=== PATIENT | male | born 1950 | race Caucasian/White ===

== ENCOUNTER 2018-04-23 14:58 | Inpatient (IN) | payer MEDICARE ==
[2018-04-23] MEDS ORDERED: Sodium Chloride 0.9% 1000 ML 1,000 ML IV SCH ×2 (17:15→17:45)
[2018-04-23 17:25] LABS: VBG BASE EXCESS -16.9 (-2.0-2.0); VBG CARBOXYHEMOGLOBIN 1.7 % T HGB (0.0-6.9); VBG HCO3- 10.2 meq/L (22-28); VBG HEMOGLOBIN 12.6; VBG O2 SATURATION 69.2 (95-100); VBG POTASSIUM 4.3 (3.5-5.1)
[2018-04-23 17:26] LABS: VBG pH 7.17 (7.32-7.42)
[2018-04-23 17:31] LABS: Hematocrit 38.4 % (42-50); Hemoglobin 12.3 gm/dl (12.5-18.0); Mean Corpuscular Hemoglobin 24.6 pg (26-32); Mean Platelet Volume 8.9 fl (6-9.5); Platelet Count 427 K/mm3 (150-450); Red Blood Count 4.99 M/mm3 (4.1-5.6); Red Cell Distribution Width 19.7 % (11.5-14.0)
[2018-04-23 17:54] LABS: ALBUMIN 2.6 g/dL (3.5-5.0); ALKALINE PHOSPHATASE 102 U/L (38-126); ANION GAP 20.7 MEQ/L (5-15); BLOOD UREA NITROGEN 22 mg/dL (9-20); CHLORIDE 106 mmol/L (98-107); Calcium 8.3 mg/dL (8.4-10.2); Creatinine 1 1.18 mg/dL (0.66-1.25); Glucose 414 mg/dL (74-106); Potassium 4.6 mmol/L (3.5-5.1); SGOT/AST 11 U/L (17-59); SGPT/ALT 11 U/L (0-50); SODIUM 133 mmol/L (137-145); Total Protein 5.2 g/dL (6.3-8.2)
[2018-04-23] MEDS: NovoLOG Insulin SQ PRN (18:14)
[2018-04-23 18:16] LABS: Carbon Dioxide 11 mmol/L (22-30)
[2018-04-23] MEDS ORDERED: Sodium Chloride 0.9% 1000 ML 1,000 ML IV STA ×3 (18:30→18:33)
[2018-04-23] MEDS ORDERED: NOVOLIN R INSULIN (FOR DRIPS)** 100 UNITS in Sodium Chloride 0.9% 100 ML IVPB 100 ML IV PRN (18:34)
[2018-04-23] MEDS ORDERED: Sodium Chloride 0.9% 100 ML IVPB 100 ML IV ONE (19:14)
[2018-04-23 19:17] LABS: Appearance CLEAR (CLEAR); Bacteria RARE /HPF (NEGATIVE); Bilirubin NEGATIVE (NEGATIVE); Blood SMALL Ery/ul (0-5); Epithelial Cells RARE /HPF (FEW); Glucose >=500 mg/dL (NEGATIVE); Ketones SMALL (NEGATIVE); Leukocyte Esterase NEGATIVE (NEGATIVE); Mucus SLIGHT /HPF (NEGATIVE); Nitrite NEGATIVE (NEGATIVE); Protein,Urine Dip NEGATIVE (Negative); RBC 0-2 /HPF (0-2); Specific Gravity 1.021 (1.005-1.025); Urobilinogen NEGATIVE mg/dL (0-1)
[2018-04-23] MEDS ORDERED: NovoLIN R ONE (19:22)
[2018-04-23 20:13] LABS: TOXIGENIC C. DIFF ORG NEGATIVE (NEGATIVE)
[2018-04-23 20:14] LABS: 027 TOX PROD PRESUMPTIVE NEGATIVE (NEGATIVE)
[2018-04-23 21:13] LABS: ANION GAP 14.7 MEQ/L (5-15); BLOOD UREA NITROGEN 20 mg/dL (9-20); CHLORIDE 111 mmol/L (98-107); Calcium 7.5 mg/dL (8.4-10.2); Creatinine 1 1.06 mg/dL (0.66-1.25); Glucose 262 mg/dL (74-106); Potassium 3.5 mmol/L (3.5-5.1); SODIUM 136 mmol/L (137-145)
[2018-04-23 21:26] LABS: Carbon Dioxide 14 mmol/L (22-30)
[2018-04-23] MEDS ORDERED: NON-FORMULARY ITEM (Pravastatin Sodium [Pravastatin Sodium] 40 MG) PO SCH (22:00)
[2018-04-23] MEDS: Cymbalta 30 MG Capsule PO SCH (22:13)
[2018-04-23] MEDS: Requip 0.5 MG PO SCH (22:13)
[2018-04-23] MEDS: ECOTRIN 81 MG PO SCH (22:13)
[2018-04-23] MEDS: Sinemet 25/100 MG PO SCH (22:14)
[2018-04-23] MEDS: Ambien 10 MG PO SCH (22:14)
[2018-04-23] MEDS: Pepcid 20 MG PO SCH (22:14)
[2018-04-23] MEDS: ZOCOR 20MG PO SCH (22:14)
[2018-04-23] MEDS: ZYLOPRIM 100 MG PO SCH (22:15)
[2018-04-23] MEDS: Lopressor 50 MG PO SCH (23:00)
[2018-04-24] MEDS: Dextrose 5%-NS IV Solution 1000 ML 1,000 ML IV SCH ×2 (00:45→12:30)
[2018-04-24] MEDS: Zofran 4 MG/2 ML VIAL IV PRN ×3 (02:36→13:45)
[2018-04-24 05:22] LABS: A-aADO2 8; ABG HEMOGLOBIN 11.3; ABG POTASSIUM 4.1 (3.5-5.1); ABG SITE RIGHT BRACHIAL; ARTERIAL BLD GAS O2 SATURATION 97.1 % (95-100); ARTERIAL BLOOD GAS FIO2 21 %; ARTERIAL BLOOD GAS PCO2 18 mmHg (35-45); ARTERIAL BLOOD GAS PO2 119 mmHg (75-100); ARTERIAL BLOOD GAS pH 7.23 (7.35-7.45); CARBOXYHEMOGLOBIN 1.9 % THgb (0.0-6.9); HCO3- 7.5 (22-28); HGB O2 SAT 94.2 g/dF (94-100); Methhemoglobin 1.2 % (1.4-1.5); paO2 pAO1 0.94
[2018-04-24 05:53] LABS: BASOPHIL % 0.3 % (0.0-0.4); Basophil (Absolute #) 0.03 (0-0.4); Eosinophil % 1.2 % (0.00-5.0); Eosinophil (Absolute #) 0.11 (0-0.5); Granulocyte Absolute (ANC) 5.95 (1.4-6.9); Granulocytes % 62.4 % (36.0-66.0); Hematocrit 34.8 % (42-50); Lymphocytes % 25.2 % (24.0-44.0); Mean Cell Volume 77.3 fl (78-100); Mean Corpuscular Hemoglobin 24.4 pg (26-32); Mean Corpuscular Hgb Concent. 31.6 g/dl (32-36); Mean Platelet Volume 8.8 fl (6-9.5); Monocyte (Absolute #) 1.04 (0.0-1.3); Monocytes % 10.9 % (0.0-12.0); Platelet Count 461 K/mm3 (150-450); Red Cell Distribution Width 19.2 % (11.5-14.0); White Blood Count 9.5 K/mm3 (4.0-10.5)
[2018-04-24 05:59] LABS: ALBUMIN 2.1 g/dL (3.5-5.0); ALKALINE PHOSPHATASE 90 U/L (38-126); ANION GAP 18.2 MEQ/L (5-15); BLOOD UREA NITROGEN 15 mg/dL (9-20); CHLORIDE 113 mmol/L (98-107); Calcium 7.7 mg/dL (8.4-10.2); Creatinine 1 0.84 mg/dL (0.66-1.25); Glucose 324 mg/dL (74-106); Potassium 4.3 mmol/L (3.5-5.1); SGOT/AST 7 U/L (17-59); SGPT/ALT 8 U/L (0-50); SODIUM 135 mmol/L (137-145); Total Protein 4.4 g/dL (6.3-8.2)
[2018-04-24 06:02] LABS: Carbon Dioxide 8 mmol/L (22-30)
[2018-04-24] MEDS: NovoLOG Insulin SQ PRN (06:04)
[2018-04-24] MEDS: Lopressor 50 MG PO SCH ×2 (06:10→22:07)
[2018-04-24] MEDS ORDERED: Sodium Chloride 0.9% 1000 ML 1,000 ML IV STA ×6 (06:29→19:31)
[2018-04-24] MEDS ORDERED: NOVOLIN R INSULIN (FOR DRIPS)** 100 UNITS in Sodium Chloride 0.9% 100 ML IVPB 100 ML IV PRN (06:30)
[2018-04-24] MEDS ORDERED: Sodium Chloride 0.9% 1000 ML 1,000 ML IV SCH ×2 (06:30→10:00)
[2018-04-24] MEDS ORDERED: NON-FORMULARY ITEM (Omeprazole 20 Mg [Prilosec 20 Mg] 20 MG) PO SCH (10:00)
[2018-04-24] MEDS: Novolin N SQ SCH ×2 (10:19→17:59)
[2018-04-24] MEDS: NovoLIN R SQ SCH ×2 (10:19→17:59)
[2018-04-24] MEDS: Pepcid 20 MG PO SCH ×2 (10:22→21:35)
[2018-04-24] MEDS: Protonix 40MG Tablet PO SCH (10:22)
[2018-04-24] MEDS: Zestril 5 MG PO SCH (10:22)
[2018-04-24] MEDS: PLAVIX 75 MG Tablet PO SCH (10:23)
[2018-04-24] MEDS: Requip 0.5 MG PO SCH ×2 (10:23→21:35)
[2018-04-24] MEDS: Sinemet 25/100 MG PO SCH ×2 (10:23→21:35)
[2018-04-24] MEDS ORDERED: Glutose 15 GM ORAL GEL PO PRN (10:31)
[2018-04-24] MEDS ORDERED: D50W 50 ml Abboject IV PRN (10:31)
[2018-04-24] MEDS ORDERED: GlucaGen 1 MG IM PRN (10:31)
[2018-04-24 12:13] LABS: A-aADO2 19; ABG HEMOGLOBIN 10.7; ABG POTASSIUM 3.1 (3.5-5.1); ARTERIAL BLD GAS O2 SATURATION 96.4 % (95-100); ARTERIAL BLOOD GAS BASE EXCESS -12.6 (-2.0-2.0); ARTERIAL BLOOD GAS FIO2 21 %; ARTERIAL BLOOD GAS PCO2 26 mmHg (35-45); ARTERIAL BLOOD GAS PO2 98 mmHg (75-100); ARTERIAL BLOOD GAS pH 7.29 (7.35-7.45); CARBOXYHEMOGLOBIN 0.6 % THgb (0.0-6.9); HCO3- 12.5 (22-28); paO2 pAO1 0.84
[2018-04-24 12:14] LABS: ABG SITE RIGHT RADIAL; ALLEN TEST OK? YES
[2018-04-24 19:16] LABS: ALBUMIN 1.8 g/dL (3.5-5.0); ALKALINE PHOSPHATASE 73 U/L (38-126); ANION GAP 8.1 MEQ/L (5-15); BLOOD UREA NITROGEN 6 mg/dL (9-20); CHLORIDE 118 mmol/L (98-107); Creatinine 1 0.76 mg/dL (0.66-1.25); Glucose 92 mg/dL (74-106); Potassium 3.3 mmol/L (3.5-5.1); SGOT/AST 13 U/L (17-59); SGPT/ALT 8 U/L (0-50); SODIUM 139 mmol/L (137-145); Total Protein 3.8 g/dL (6.3-8.2)
[2018-04-24 19:18] LABS: Carbon Dioxide 16 mmol/L (22-30)
[2018-04-24] MEDS: DEXTROSE 5%-NACL 0.9% 1000 ML + KCL 40 MEQ 1,000 ML IV SCH (19:35)
[2018-04-24] MEDS: Cymbalta 30 MG Capsule PO SCH (21:34)
[2018-04-24] MEDS: ZYLOPRIM 100 MG PO SCH (21:35)
[2018-04-24] MEDS: ECOTRIN 81 MG PO SCH (21:35)
[2018-04-24] MEDS: Ambien 10 MG PO SCH (21:35)
[2018-04-24] MEDS: ZOCOR 20MG PO SCH (21:36)
[2018-04-25] MEDS: NovoLOG Insulin SQ PRN (01:17)
[2018-04-25] MEDS: DEXTROSE 5%-NACL 0.9% 1000 ML + KCL 40 MEQ 1,000 ML IV SCH ×2 (05:43→16:07)
[2018-04-25 08:08] LABS: A-aADO2 47; ABG HEMOGLOBIN 10.6; ABG POTASSIUM 3.2 (3.5-5.1); ABG SITE RIGHT BRACHIAL; ARTERIAL BLD GAS O2 SATURATION 95.7 % (95-100); ARTERIAL BLOOD GAS BASE EXCESS -9.9 (-2.0-2.0); ARTERIAL BLOOD GAS FIO2 21 %; ARTERIAL BLOOD GAS PCO2 27 mmHg (35-45); ARTERIAL BLOOD GAS PO2 69 mmHg (75-100); ARTERIAL BLOOD GAS pH 7.34 (7.35-7.45); CARBOXYHEMOGLOBIN 2.4 % THgb (0.0-6.9); HCO3- 14.6 (22-28); HGB O2 SAT 92.7 g/dF (94-100); Methhemoglobin 0.7 % (1.4-1.5); paO2 pAO1 0.59
[2018-04-25 08:09] LABS: ALLEN TEST OK? YES
[2018-04-25 08:36] LABS: ALBUMIN 1.9 g/dL (3.5-5.0); ALKALINE PHOSPHATASE 80 U/L (38-126); ANION GAP 6.8 MEQ/L (5-15); BLOOD UREA NITROGEN 3 mg/dL (9-20); CHLORIDE 120 mmol/L (98-107); Calcium 7.4 mg/dL (8.4-10.2); Creatinine 1 0.61 mg/dL (0.66-1.25); Glucose 113 mg/dL (74-106); Potassium 3.4 mmol/L (3.5-5.1); SGOT/AST 16 U/L (17-59); SGPT/ALT 10 U/L (0-50); SODIUM 139 mmol/L (137-145)
[2018-04-25 08:41] LABS: Carbon Dioxide 16 mmol/L (22-30)
--- NOTE | 2018-04-25 08:50 | PCM.NOTE ---
Date and Time: 04/24/18847 Subjective Assessment: late entry notes: was seen, doing little better - Review of Systems Constitutional: Fatigue, Lethargy, Weakness, No Fever, No Chills Eyes: No Symptoms Ears, Nose, & Throat: No Symptoms Respiratory: No Cough, No Short Of Breath Cardiac: No Chest Pain, No Edema, No Syncope Abdominal/Gastrointestinal: No Abdominal Pain, No Nausea, No Vomiting, No Diarrhea Genitourinary Symptoms: No Dysuria Musculoskeletal: No Back Pain, No Neck Pain Skin: No Rash Neurological: No Dizziness, No Focal Weakness, No Sensory Changes Psychological: No Symptoms Endocrine: No Symptoms Hematologic/Lymphatic: No Symptoms Immunological/Allergic: No Symptoms Objective Exam General Appearance: no apparent distress, alert Neurologic Exam: alert, oriented x 3, cooperative, normal mood/affect, nml cerebellar function, sensation nml, No motor deficits Skin Exam: normal color, warm, dry Eye Exam: PERRL, EOMI, eyes nml inspection Ears, Nose, Throat Exam: normal ENT inspection, pharynx normal, moist mucous membranes Neck Exam: normal inspection, non-tender, supple, full range of motion Respiratory Exam: normal breath sounds, lungs clear, No respiratory distress Cardiovascular Exam: regular rate/rhythm, normal heart sounds Gastrointestinal/Abdomen Exam: soft, No tenderness, No mass Extremity Exam: normal inspection, normal range of motion Back Exam: normal inspection, normal range of motion, No CVA tenderness, No vertebral tenderness Male Genitalia Exam: deferred Rectal Exam: deferred OBJECTIVE DATA Vital Signs: Vital Signs - 24 hr Temp Pulse Resp BP Pulse Ox 04/25/18 08:00 94 H 04/25/18 07:21 97.8 F 82 20 117/67 92 L 04/25/18 05:00 20 04/25/18 04:00 98.1 F 83 20 110/50 94 L 04/25/18 01:00 14 04/25/18 00:01 79 04/25/18 00:00 97.5 F 79 24 101/59 96 04/24/18 21:00 19 04/24/18 20:00 98.8 F 81 19 110/50 95 04/24/18 16:00 97.2 F 78 15 110/52 99 04/24/18 12:00 97.5 F 79 19 107/58 100 Pain Assessment - Last Documented Pain Intensity 0 Pain Scale Used 0-10 Pain Scale Intake and Output: Intake & Output 04/22/18 04/23/18 04/24/18 04/25/18 11:59 11:59 11:59 11:59 Intake Total 3529 64213 Output Total 0587 3000 Balance 2229 7720 Weight 58.7 kg Lab Results: Accuchecks Date 04/25/1804/25/1804/25/1804/25/1804/25/1804/25/1804/25/1804/24/1804/24/1804/24/1804/24/1804/24/18 Time 06:56 Time 05:14 Time 05:14 Time 04:19 Time 01:00 Time 01:00 Time 00:11 Time 23:06 Time 22:00 Time 21:00 Time 20:09 Time 18:35 Accucheck Value: 107 Accucheck Value: 127 Accucheck Value: 97 Accucheck Value: 124 Accucheck Value: 143 Accucheck Value: 154 Accucheck Value: 239 Accucheck Value: 210 Accucheck Value: 207 Accucheck Value: 131 Accucheck Value: 143 Accucheck Value: 105 Accucheck Value: 79 Accucheck Value: 77 Accucheck Value: 79 Accucheck Value: 87 Accucheck Value: 105 Accucheck Value: 122 Accucheck Value: 118 Accucheck Value: 153 Accucheck Value: 169 Accucheck Value: 226 Lab Results-Last 24 Hours 04/24/18 04/24/18 04/24/18 Range/Units 12:00 12:00 18:35 Puncture Site RIGHT RADIAL pCO2 26 L (35-45) mmHg pO2 98 (75-100) mmHg Base Excess -12.6 L (-2.0-2.0) O2 Saturation 95.0 (94-100) g/dF ABG pH 7.29 L (7.35-7.45) ABG HCO3 12.5 L* (22-28) ABG O2 Sat (Measured) 96.4 (95-100) % Daryl Test YES A-a Gradient 19 a/A Ratio 0.84 Hemoglobin 10.7 Carboxyhemoglobin 0.6 (0.0-6.9) % THgb Methemoglobin 1.0 L (1.4-1.5) % Potassium 3.1 L 3.3 L D (3.5-5.1) Temperature 37.0 C POC O2 Flow Rate 21 % Sodium 139 (137-145) mmol/L Chloride 118 H (98-107) mmol/L Carbon Dioxide 16 L* (22-30) mmol/L Anion Gap 8.1 (5-15) MEQ/L BUN 6 L (9-20) mg/dL Creatinine 0.76 (0.66-1.25) mg/dL Estimated GFR > 60.0 ML/MIN Glucose 92 (74-106) mg/dL Lactic Acid 0.9 (0.4-2.0) Calcium 7.0 L (8.4-10.2) mg/dL Total Bilirubin 0.30 (0.2-1.3) mg/dL AST 13 L (17-59) U/L ALT 8 (0-50) U/L Alkaline Phosphatase 73 (38-126) U/L Serum Total Protein 3.8 L (6.3-8.2) g/dL Albumin 1.8 L (3.5-5.0) g/dL 04/25/18 04/25/18 Range/Units 07:57 08:05 Puncture Site RIGHT BRACHIAL pCO2 27 L (35-45) mmHg pO2 69 L (75-100) mmHg Base Excess -9.9 L (-2.0-2.0) O2 Saturation 92.7 L (94-100) g/dF ABG pH 7.34 L (7.35-7.45) ABG HCO3 14.6 L* (22-28) ABG O2 Sat (Measured) 95.7 (95-100) % Daryl Test YES A-a Gradient 47 a/A Ratio 0.59 Hemoglobin 10.6 Carboxyhemoglobin 2.4 (0.0-6.9) % THgb Methemoglobin 0.7 L (1.4-1.5) % Potassium 3.4 L 3.2 L (3.5-5.1) Temperature 37.0 C POC O2 Flow Rate 21 % Sodium 139 (137-145) mmol/L Chloride 120 H (98-107) mmol/L Carbon Dioxide 16 L* (22-30) mmol/L Anion Gap 6.8 (5-15) MEQ/L BUN 3 L (9-20) mg/dL Creatinine 0.61 L (0.66-1.25) mg/dL Estimated GFR > 60.0 ML/MIN Glucose 113 H (74-106) mg/dL Lactic Acid (0.4-2.0) Calcium 7.4 L (8.4-10.2) mg/dL Total Bilirubin 0.30 (0.2-1.3) mg/dL AST 16 L (17-59) U/L ALT 10 (0-50) U/L Alkaline Phosphatase 80 (38-126) U/L Serum Total Protein 4.0 L (6.3-8.2) g/dL Albumin 1.9 L (3.5-5.0) g/dL Assessment/Plan (1) Diabetes with ketoacidosis Current Visit: Yes Status: Acute Qualifiers: Diabetes mellitus type: type 2 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 use Diabetes mellitus complication detail: without coma Qualified Code(s): E11.10 - Type 2 diabetes mellitus with ketoacidosis without coma; Z79.4 - [facility] (current) use of insulin Assessment & Plan: Last Vital Signs Temp 97.8 F 04/25/18 07:21 Pulse 94 H 04/25/18 08:00 Resp 20 04/25/18 07:21 BP 117/67 04/25/18 07:21 Pulse Ox 92 L 04/25/18 07:21 Allergies No Known Drug Allergies Allergy (Verified 04/23/18 15:37) Active Medications Allopurinol (Zyloprim 100 Mg) 100 mg PO HS [facility] Stop: 05/23/18 21:59 Last Admin: 04/24/18 21:35 Dose: 100 mg Aspirin (Ecotrin 81 Mg) 81 mg PO HS [facility] Stop: 05/23/18 21:59 Last Admin: 04/24/18 21:35 Dose: 81 mg Carbidopa/Levodopa (Sinemet 25/100 Mg) 1 tab PO BID [facility] Stop: 05/23/18 21:59 Last Admin: 04/24/18 21:35 Dose: 1 tab Clopidogrel Bisulfate (Plavix 75 Mg Tablet) 75 mg PO DAILY [facility] Stop: 05/24/18 09:59 Last Admin: 04/24/18 10:23 Dose: 75 mg Dextrose (D50w 50 Ml Abboject) 25 ml IV PRN PRN PRN Reason: HYPOGLYCEMIA Stop: 05/24/18 10:30 Duloxetine HCl (Cymbalta 30 Mg Capsule) 30 mg PO HS [facility] Stop: 05/23/18 21:59 Last Admin: 04/24/18 21:34 Dose: 30 mg Famotidine (Pepcid 20 Mg) 20 mg PO BID [facility] Stop: 05/23/18 21:59 Last Admin: 04/24/18 21:35 Dose: 20 mg Glucagon (Glucagen 1 Mg) 1 mg IM PRN PRN PRN Reason: HYPOGLYCEMIA Stop: 05/24/18 10:30 Glucose (Glutose 15 Gm Oral Gel) 15 gm PO PRN PRN PRN Reason: HYPOGLYCEMIA Stop: 05/24/18 10:30 Potassium Chloride/Dextrose/Sod Cl (Dextrose 5%-Nacl 0.9% 1000 Ml + Kcl 40 Meq) 1,000 mls @ 100 mls/hr IV .Q10H [facility] Stop: 05/24/18 19:29 Last Admin: 04/25/18 05:43 Dose: 100 mls/hr Insulin Human Regular 100 (units/ Sodium Chloride) 101 mls @ 1.01 mls/hr IV .Q24H PRN; Protocol PRN Reason: DKA/HYPERGYCEMIA Stop: 05/25/18 08:15 Sodium Chloride (Sodium Chloride 0.9% 1000 Ml) 1,000 mls @ 750 mls/hr IV .Q1H20M [facility] Stop: 04/25/18 13:00 Insulin Aspart (Novolog Insulin) 0 unit SQ UD PRN Stop: 05/23/18 17:29 Last Admin: 04/25/18 01:17 Dose: 2 unit Lisinopril (Zestril 5 Mg) 5 mg PO DAILY [facility] Stop: 05/24/18 09:59 Last Admin: 04/24/18 10:22 Dose: 5 mg Metoprolol Tartrate (Lopressor 50 Mg) 50 mg PO BID [facility] Stop: 05/23/18 21:59 Last Admin: 04/24/18 22:07 Dose: 50 mg Ondansetron HCl (Zofran 4 Mg/2 Ml Vial) 4 mg IV Q4H PRN PRN PRN Reason: NAUSEA/VOMITING Stop: 05/24/18 00:50 Last Admin: 04/24/18 13:45 Dose: 4 mg Pantoprazole Sodium (Protonix 40mg Tablet) 40 mg PO DAILY [facility] Stop: 05/24/18 09:59 Last Admin: 04/24/18 10:22 Dose: 40 mg Ropinirole HCl (Requip 0.5 Mg) 0.5 mg PO BID [facility] Stop: 05/23/18 21:59 Last Admin: 04/24/18 21:35 Dose: 0.5 mg Simvastatin (Zocor 20mg) 40 mg PO HS [facility] Stop: 05/23/18 21:59 Last Admin: 04/24/18 21:36 Dose: 40 mg Zolpidem Tartrate (Ambien 10 Mg) [address] [facility] Stop: 05/23/18 21:59 Last Admin: 04/24/18 21:35 Dose: 20 mg Intake & Output 04/24/18 04/25/18 11:59 11:59 Intake Total 3529 06602 Output Total 1300 3000 Balance 2229 7720 Weight 58.7 kg Orders 04/24/18 10:00 Clopidogrel Bisulfate 75 mg [PLAVIX 75 MG Tablet] 75 mg PO DAILY Lisinopril 5 mg [Zestril 5 MG] 5 mg PO DAILY PANTOPRAZOLE 40 mg Tablet [Protonix 40MG Tablet] 40 mg PO DAILY 04/24/18 10:31 Dextrose 15 gm Oral Gel [Glutose 15 GM ORAL GEL] 15 gm PO PRN PRN Dextrose 50%-Water Syringe [D50W 50 ml Abboject] 25 ml IV PRN PRN Glucagon 1 mg [GlucaGen 1 MG] 1 mg IM PRN PRN 04/24/18 19:30 D5ns 1000 ml + KCl 40 Meq [Dextrose 5%-NaCl 0.9% 1000 ml + KCl 40 Meq] 1,000 ml IV 100 mls/hr 04/25/18 08:16 NaCl 0.9% 100Ml [Sodium Chloride 0.9% 100 ML IVPB] 100 ml Insulin Reg Human Rec [Novolin R Insulin (For Drips)] 100 units IV 1 units/hr 04/25/18 09:00 NaCl 0.9% 1000 ml [Sodium Chloride 0.9% 1000 ML] 1,000 ml IV 750 mls/hr 04/25/18 Breakfast [place] Diet 04/26/18 08:00 ABG [ARTERIAL BLOOD GASES] Urgent CMP Urgent Lab Tests 04/24/18 04/24/18 04/24/18 12:00 12:00 18:35 Puncture Site RIGHT RADIAL pCO2 26 L pO2 98 Base Excess -12.6 L O2 Saturation 95.0 ABG pH 7.29 L ABG HCO3 12.5 L* ABG O2 Sat (Measured) 96.4 Daryl Test YES A-a Gradient 19 a/A Ratio 0.84 Hemoglobin 10.7 Carboxyhemoglobin 0.6 Methemoglobin 1.0 L Potassium 3.1 L 3.3 L D Temperature 37.0 POC O2 Flow Rate 21 Sodium 139 Chloride 118 H Carbon Dioxide 16 L* Anion Gap 8.1 BUN 6 L Creatinine 0.76 Estimated GFR > 60.0 Glucose 92 Lactic Acid 0.9 Calcium 7.0 L Total Bilirubin 0.30 AST 13 L ALT 8 Alkaline Phosphatase 73 Serum Total Protein 3.8 L Albumin 1.8 L 04/25/18 04/25/18 07:57 08:05 Puncture Site RIGHT BRACHIAL pCO2 27 L pO2 69 L Base Excess -9.9 L O2 Saturation 92.7 L ABG pH 7.34 L ABG HCO3 14.6 L* ABG O2 Sat (Measured) 95.7 Daryl Test YES A-a Gradient 47 a/A Ratio 0.59 Hemoglobin 10.6 Carboxyhemoglobin 2.4 Methemoglobin 0.7 L Potassium 3.4 L 3.2 L Temperature 37.0 POC O2 Flow Rate 21 Sodium 139 Chloride 120 H Carbon Dioxide 16 L* Anion Gap 6.8 BUN 3 L Creatinine 0.61 L Estimated GFR > 60.0 Glucose 113 H Lactic Acid Calcium 7.4 L Total Bilirubin 0.30 AST 16 L ALT 10 Alkaline Phosphatase 80 Serum Total Protein 4.0 L Albumin 1.9 L Microbiology 04/23/18 19:00 Clean Catch Midstream Urine Culture - Final <10K NORMAL SKIN LETITIA PROBABLE SKIN CONTAMINANT Code(s): E11.10 - TYPE 2 DIABETES MELLITUS WITH KETOACIDOSIS WITHOUT COMA (2) Dehydration Current Visit: Yes Status: Acute Code(s): E86.0 - DEHYDRATION (3) Amyloidosis Current Visit: Yes Status: Acute Qualifiers: Amyloidosis type: other amyloidosis Qualified Code(s): E85.89 - Other amyloidosis; E85.8 - Other amyloidosis Code(s): E85.9 - AMYLOIDOSIS, UNSPECIFIED
--- NOTE | 2018-04-25 08:51 | PCM.NOTE ---
Date and Time: 04/25/18 0850 Subjective Assessment: doing better - Review of Systems Constitutional: No Fever, No Chills Eyes: No Symptoms Ears, Nose, & Throat: No Symptoms Respiratory: No Cough, No Short Of Breath Cardiac: No Chest Pain, No Edema, No Syncope Abdominal/Gastrointestinal: No Abdominal Pain, No Nausea, No Vomiting, No Diarrhea Genitourinary Symptoms: No Dysuria Musculoskeletal: No Back Pain, No Neck Pain Skin: No Rash Neurological: No Dizziness, No Focal Weakness, No Sensory Changes Psychological: No Symptoms Endocrine: No Symptoms Hematologic/Lymphatic: No Symptoms Immunological/Allergic: No Symptoms Objective Exam General Appearance: no apparent distress, alert Neurologic Exam: alert, oriented x 3, cooperative, normal mood/affect, nml cerebellar function, sensation nml, No motor deficits Skin Exam: normal color, warm, dry Eye Exam: PERRL, EOMI, eyes nml inspection Ears, Nose, Throat Exam: normal ENT inspection, pharynx normal, moist mucous membranes Neck Exam: normal inspection, non-tender, supple, full range of motion Respiratory Exam: normal breath sounds, lungs clear, No respiratory distress Cardiovascular Exam: regular rate/rhythm, normal heart sounds Gastrointestinal/Abdomen Exam: soft, No tenderness, No mass Extremity Exam: normal inspection, normal range of motion Back Exam: normal inspection, normal range of motion, No CVA tenderness, No vertebral tenderness Male Genitalia Exam: deferred Rectal Exam: deferred OBJECTIVE DATA Vital Signs: Vital Signs - 24 hr Temp Pulse Resp BP Pulse Ox 04/25/18 08:00 94 H 04/25/18 07:21 97.8 F 82 20 117/67 92 L 04/25/18 05:00 20 04/25/18 04:00 98.1 F 83 20 110/50 94 L 04/25/18 01:00 14 04/25/18 00:01 79 04/25/18 00:00 97.5 F 79 24 101/59 96 04/24/18 21:00 19 04/24/18 20:00 98.8 F 81 19 110/50 95 04/24/18 16:00 97.2 F 78 15 110/52 99 04/24/18 12:00 97.5 F 79 19 107/58 100 Pain Assessment - Last Documented Pain Intensity 0 Pain Scale Used 0-10 Pain Scale Intake and Output: Intake & Output 04/22/18 04/23/18 04/24/18 04/25/18 11:59 11:59 11:59 11:59 Intake Total 3524 51433 Output Total 4906 3000 Balance 2229 7720 Weight 58.7 kg Lab Results: Accuchecks Date 04/25/1804/25/1804/25/1804/25/1804/25/1804/25/1804/25/1804/24/1804/24/1804/24/1804/24/1804/24/18 Time 06:56 Time 05:14 Time 05:14 Time 04:19 Time 01:00 Time 01:00 Time 00:11 Time 23:06 Time 22:00 Time 21:00 Time 20:09 Time 18:35 Accucheck Value: 107 Accucheck Value: 127 Accucheck Value: 97 Accucheck Value: 124 Accucheck Value: 143 Accucheck Value: 154 Accucheck Value: 239 Accucheck Value: 210 Accucheck Value: 207 Accucheck Value: 131 Accucheck Value: 143 Accucheck Value: 105 Accucheck Value: 79 Accucheck Value: 77 Accucheck Value: 79 Accucheck Value: 87 Accucheck Value: 105 Accucheck Value: 122 Accucheck Value: 118 Accucheck Value: 153 Accucheck Value: 169 Accucheck Value: 226 Lab Results-Last 24 Hours 04/24/18 04/24/18 04/24/18 Range/Units 12:00 12:00 18:35 Puncture Site RIGHT RADIAL pCO2 26 L (35-45) mmHg pO2 98 (75-100) mmHg Base Excess -12.6 L (-2.0-2.0) O2 Saturation 95.0 (94-100) g/dF ABG pH 7.29 L (7.35-7.45) ABG HCO3 12.5 L* (22-28) ABG O2 Sat (Measured) 96.4 (95-100) % Daryl Test YES A-a Gradient 19 a/A Ratio 0.84 Hemoglobin 10.7 Carboxyhemoglobin 0.6 (0.0-6.9) % THgb Methemoglobin 1.0 L (1.4-1.5) % Potassium 3.1 L 3.3 L D (3.5-5.1) Temperature 37.0 C POC O2 Flow Rate 21 % Sodium 139 (137-145) mmol/L Chloride 118 H (98-107) mmol/L Carbon Dioxide 16 L* (22-30) mmol/L Anion Gap 8.1 (5-15) MEQ/L BUN 6 L (9-20) mg/dL Creatinine 0.76 (0.66-1.25) mg/dL Estimated GFR > 60.0 ML/MIN Glucose 92 (74-106) mg/dL Lactic Acid 0.9 (0.4-2.0) Calcium 7.0 L (8.4-10.2) mg/dL Total Bilirubin 0.30 (0.2-1.3) mg/dL AST 13 L (17-59) U/L ALT 8 (0-50) U/L Alkaline Phosphatase 73 (38-126) U/L Serum Total Protein 3.8 L (6.3-8.2) g/dL Albumin 1.8 L (3.5-5.0) g/dL 04/25/18 04/25/18 Range/Units 07:57 08:05 Puncture Site RIGHT BRACHIAL pCO2 27 L (35-45) mmHg pO2 69 L (75-100) mmHg Base Excess -9.9 L (-2.0-2.0) O2 Saturation 92.7 L (94-100) g/dF ABG pH 7.34 L (7.35-7.45) ABG HCO3 14.6 L* (22-28) ABG O2 Sat (Measured) 95.7 (95-100) % Daryl Test YES A-a Gradient 47 a/A Ratio 0.59 Hemoglobin 10.6 Carboxyhemoglobin 2.4 (0.0-6.9) % THgb Methemoglobin 0.7 L (1.4-1.5) % Potassium 3.4 L 3.2 L (3.5-5.1) Temperature 37.0 C POC O2 Flow Rate 21 % Sodium 139 (137-145) mmol/L Chloride 120 H (98-107) mmol/L Carbon Dioxide 16 L* (22-30) mmol/L Anion Gap 6.8 (5-15) MEQ/L BUN 3 L (9-20) mg/dL Creatinine 0.61 L (0.66-1.25) mg/dL Estimated GFR > 60.0 ML/MIN Glucose 113 H (74-106) mg/dL Lactic Acid (0.4-2.0) Calcium 7.4 L (8.4-10.2) mg/dL Total Bilirubin 0.30 (0.2-1.3) mg/dL AST 16 L (17-59) U/L ALT 10 (0-50) U/L Alkaline Phosphatase 80 (38-126) U/L Serum Total Protein 4.0 L (6.3-8.2) g/dL Albumin 1.9 L (3.5-5.0) g/dL Assessment/Plan (1) Diabetes with ketoacidosis Current Visit: Yes Status: Acute Qualifiers: Diabetes mellitus type: 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 Diabetes mellitus complication detail: without coma Qualified Code(s): E11.10 - Type 2 diabetes mellitus with ketoacidosis without coma; Z79.4 - correction (current) use of insulin Assessment & Plan: Last Vital Signs Temp 97.8 F 04/25/18 07:21 Pulse 94 H 04/25/18 08:00 Resp 20 04/25/18 07:21 BP 117/67 04/25/18 07:21 Pulse Ox 92 L 04/25/18 07:21 Allergies No Known Drug Allergies Allergy (Verified 04/23/18 15:37) Active Medications Allopurinol (Zyloprim 100 Mg) 100 mg PO HS [facility] Stop: 05/23/18 21:59 Last Admin: 04/24/18 21:35 Dose: 100 mg Aspirin (Ecotrin 81 Mg) 81 mg PO HS [facility] Stop: 05/23/18 21:59 Last Admin: 04/24/18 21:35 Dose: 81 mg Carbidopa/Levodopa (Sinemet 25/100 Mg) 1 tab PO BID [facility] Stop: 05/23/18 21:59 Last Admin: 04/24/18 21:35 Dose: 1 tab Clopidogrel Bisulfate (Plavix 75 Mg Tablet) 75 mg PO DAILY [facility] Stop: 05/24/18 09:59 Last Admin: 04/24/18 10:23 Dose: 75 mg Dextrose (D50w 50 Ml Abboject) 25 ml IV PRN PRN PRN Reason: HYPOGLYCEMIA Stop: 05/24/18 10:30 Duloxetine HCl (Cymbalta 30 Mg Capsule) 30 mg PO HS [facility] Stop: 05/23/18 21:59 Last Admin: 04/24/18 21:34 Dose: 30 mg Famotidine (Pepcid 20 Mg) 20 mg PO BID [facility] Stop: 05/23/18 21:59 Last Admin: 04/24/18 21:35 Dose: 20 mg Glucagon (Glucagen 1 Mg) 1 mg IM PRN PRN PRN Reason: HYPOGLYCEMIA Stop: 05/24/18 10:30 Glucose (Glutose 15 Gm Oral Gel) 15 gm PO PRN PRN PRN Reason: HYPOGLYCEMIA Stop: 05/24/18 10:30 Potassium Chloride/Dextrose/Sod Cl (Dextrose 5%-Nacl 0.9% 1000 Ml + Kcl 40 Meq) 1,000 mls @ 100 mls/hr IV .Q10H [facility] Stop: 05/24/18 19:29 Last Admin: 04/25/18 05:43 Dose: 100 mls/hr Insulin Human Regular 100 (units/ Sodium Chloride) 101 mls @ 1.01 mls/hr IV .Q24H PRN; Protocol PRN Reason: DKA/HYPERGYCEMIA Stop: 05/25/18 08:15 Sodium Chloride (Sodium Chloride 0.9% 1000 Ml) 1,000 mls @ 750 mls/hr IV .Q1H20M [facility] Stop: 04/25/18 13:00 Insulin Aspart (Novolog Insulin) 0 unit SQ UD PRN Stop: 05/23/18 17:29 Last Admin: 04/25/18 01:17 Dose: 2 unit Lisinopril (Zestril 5 Mg) 5 mg PO DAILY [facility] Stop: 05/24/18 09:59 Last Admin: 04/24/18 10:22 Dose: 5 mg Metoprolol Tartrate (Lopressor 50 Mg) 50 mg PO BID [facility] Stop: 05/23/18 21:59 Last Admin: 04/24/18 22:07 Dose: 50 mg Ondansetron HCl (Zofran 4 Mg/2 Ml Vial) 4 mg IV Q4H PRN PRN PRN Reason: NAUSEA/VOMITING Stop: 05/24/18 00:50 Last Admin: 04/24/18 13:45 Dose: 4 mg Pantoprazole Sodium (Protonix 40mg Tablet) 40 mg PO DAILY [facility] Stop: 05/24/18 09:59 Last Admin: 04/24/18 10:22 Dose: 40 mg Ropinirole HCl (Requip 0.5 Mg) 0.5 mg PO BID [facility] Stop: 05/23/18 21:59 Last Admin: 04/24/18 21:35 Dose: 0.5 mg Simvastatin (Zocor 20mg) 40 mg PO HS [facility] Stop: 05/23/18 21:59 Last Admin: 04/24/18 21:36 Dose: 40 mg Zolpidem Tartrate (Ambien 10 Mg) [address] [facility] Stop: 05/23/18 21:59 Last Admin: 04/24/18 21:35 Dose: 20 mg Intake & Output 04/24/18 04/25/18 11:59 11:59 Intake Total 3529 86598 Output Total 1300 3000 Balance 2229 7720 Weight 58.7 kg Orders 04/24/18 10:00 Clopidogrel Bisulfate 75 mg [PLAVIX 75 MG Tablet] 75 mg PO DAILY Lisinopril 5 mg [Zestril 5 MG] 5 mg PO DAILY PANTOPRAZOLE 40 mg Tablet [Protonix 40MG Tablet] 40 mg PO DAILY 04/24/18 10:31 Dextrose 15 gm Oral Gel [Glutose 15 GM ORAL GEL] 15 gm PO PRN PRN Dextrose 50%-Water Syringe [D50W 50 ml Abboject] 25 ml IV PRN PRN Glucagon 1 mg [GlucaGen 1 MG] 1 mg IM PRN PRN 04/24/18 19:30 D5ns 1000 ml + KCl 40 Meq [Dextrose 5%-NaCl 0.9% 1000 ml + KCl 40 Meq] 1,000 ml IV 100 mls/hr 04/25/18 08:16 NaCl 0.9% 100Ml [Sodium Chloride 0.9% 100 ML IVPB] 100 ml Insulin Reg Human Rec [Novolin R Insulin (For Drips)] 100 units IV 1 units/hr 04/25/18 09:00 NaCl 0.9% 1000 ml [Sodium Chloride 0.9% 1000 ML] 1,000 ml IV 750 mls/hr 04/25/18 Breakfast [place] Diet 04/26/18 08:00 ABG [ARTERIAL BLOOD GASES] Urgent CMP Urgent Lab Tests 04/24/18 04/24/18 04/24/18 12:00 12:00 18:35 Puncture Site RIGHT RADIAL pCO2 26 L pO2 98 Base Excess -12.6 L O2 Saturation 95.0 ABG pH 7.29 L ABG HCO3 12.5 L* ABG O2 Sat (Measured) 96.4 Daryl Test YES A-a Gradient 19 a/A Ratio 0.84 Hemoglobin 10.7 Carboxyhemoglobin 0.6 Methemoglobin 1.0 L Potassium 3.1 L 3.3 L D Temperature 37.0 POC O2 Flow Rate 21 Sodium 139 Chloride 118 H Carbon Dioxide 16 L* Anion Gap 8.1 BUN 6 L Creatinine 0.76 Estimated GFR > 60.0 Glucose 92 Lactic Acid 0.9 Calcium 7.0 L Total Bilirubin 0.30 AST 13 L ALT 8 Alkaline Phosphatase 73 Serum Total Protein 3.8 L Albumin 1.8 L 04/25/18 04/25/18 07:57 08:05 Puncture Site RIGHT BRACHIAL pCO2 27 L pO2 69 L Base Excess -9.9 L O2 Saturation 92.7 L ABG pH 7.34 L ABG HCO3 14.6 L* ABG O2 Sat (Measured) 95.7 Daryl Test YES A-a Gradient 47 a/A Ratio 0.59 Hemoglobin 10.6 Carboxyhemoglobin 2.4 Methemoglobin 0.7 L Potassium 3.4 L 3.2 L Temperature 37.0 POC O2 Flow Rate 21 Sodium 139 Chloride 120 H Carbon Dioxide 16 L* Anion Gap 6.8 BUN 3 L Creatinine 0.61 L Estimated GFR > 60.0 Glucose 113 H Lactic Acid Calcium 7.4 L Total Bilirubin 0.30 AST 16 L ALT 10 Alkaline Phosphatase 80 Serum Total Protein 4.0 L Albumin 1.9 L Microbiology 04/23/18 19:00 Clean Catch Midstream Urine Culture - Final <10K NORMAL SKIN [place]ITIA PROBABLE SKIN CONTAMINANT Code(s): E11.10 - TYPE 2 DIABETES MELLITUS WITH KETOACIDOSIS WITHOUT COMA (2) Dehydration Current Visit: Yes Status: Acute Code(s): E86.0 - DEHYDRATION (3) Amyloidosis Current Visit: Yes Status: Acute Qualifiers: Amyloidosis type: other amyloidosis Qualified Code(s): E85.89 - Other amyloidosis; E85.8 - Other amyloidosis Code(s): E85.9 - AMYLOIDOSIS, UNSPECIFIED
[2018-04-25] MEDS: Sodium Chloride 0.9% 1000 ML 1,000 ML IV SCH ×3 (08:55→12:00)
[2018-04-25] MEDS: PLAVIX 75 MG Tablet PO SCH (10:16)
[2018-04-25] MEDS: Protonix 40MG Tablet PO SCH (10:16)
[2018-04-25] MEDS: Sinemet 25/100 MG PO SCH ×2 (10:17→21:54)
[2018-04-25] MEDS: Zestril 5 MG PO SCH (10:17)
[2018-04-25] MEDS: Pepcid 20 MG PO SCH ×2 (10:17→21:55)
[2018-04-25] MEDS: Lopressor 50 MG PO SCH ×2 (10:17→21:55)
[2018-04-25] MEDS: Requip 0.5 MG PO SCH ×2 (10:17→21:55)
[2018-04-25] MEDS: NOVOLIN R INSULIN (FOR DRIPS)** 100 UNITS in Sodium Chloride 0.9% 100 ML IVPB 100 ML IV PRN (16:31)
[2018-04-25] MEDS: ZYLOPRIM 100 MG PO SCH (21:55)
[2018-04-25] MEDS: Ambien 10 MG PO SCH (21:55)
[2018-04-25] MEDS: ECOTRIN 81 MG PO SCH (21:55)
[2018-04-25] MEDS: ZOCOR 20MG PO SCH (21:55)
[2018-04-25] MEDS: Cymbalta 30 MG Capsule PO SCH (21:56)
[2018-04-26] MEDS: DEXTROSE 5%-NACL 0.9% 1000 ML + KCL 40 MEQ 1,000 ML IV SCH ×3 (02:08→22:21)
[2018-04-26] MEDS ORDERED: TYLENOL 325 MG PO PRN (04:21)
[2018-04-26 08:08] LABS: A-aADO2 -12; ABG HEMOGLOBIN 12.3; ARTERIAL BLOOD GAS BASE EXCESS -14.8 (-2.0-2.0); ARTERIAL BLOOD GAS FIO2 21 %; ARTERIAL BLOOD GAS PCO2 21 mmHg (35-45); ARTERIAL BLOOD GAS PO2 135 mmHg (75-100); ARTERIAL BLOOD GAS pH 7.28 (7.35-7.45); CARBOXYHEMOGLOBIN 1.4 % THgb (0.0-6.9); HCO3- 9.9 (22-28); HGB O2 SAT 96.4 g/dF (94-100); Methhemoglobin 0.2 % (1.4-1.5)
[2018-04-26 08:09] LABS: ABG SITE RIGHT RADIAL; ALLEN TEST OK? Yes
[2018-04-26 08:46] LABS: ALBUMIN 2.2 g/dL (3.5-5.0); ALKALINE PHOSPHATASE 94 U/L (38-126); ANION GAP 10.2 MEQ/L (5-15); BLOOD UREA NITROGEN < 2 mg/dL (9-20); CHLORIDE 122 mmol/L (98-107); Calcium 8.1 mg/dL (8.4-10.2); Creatinine 1 0.66 mg/dL (0.66-1.25); Glucose 137 mg/dL (74-106); Potassium 4.4 mmol/L (3.5-5.1); SGOT/AST 30 U/L (17-59); SGPT/ALT 10 U/L (0-50); SODIUM 139 mmol/L (137-145); Total Protein 4.7 g/dL (6.3-8.2)
[2018-04-26 08:47] LABS: Carbon Dioxide 11 mmol/L (22-30)
[2018-04-26] MEDS: Sodium Chloride 0.9% 1000 ML 1,000 ML IV SCH ×3 (09:37→12:00)
[2018-04-26] MEDS: Sinemet 25/100 MG PO SCH ×2 (09:37→22:01)
[2018-04-26] MEDS: Zestril 5 MG PO SCH (09:37)
[2018-04-26] MEDS: Lopressor 50 MG PO SCH ×2 (09:37→22:01)
[2018-04-26] MEDS: Protonix 40MG Tablet PO SCH (09:37)
[2018-04-26] MEDS: PLAVIX 75 MG Tablet PO SCH (09:37)
[2018-04-26] MEDS: Pepcid 20 MG PO SCH ×2 (09:37→22:01)
[2018-04-26] MEDS: Requip 0.5 MG PO SCH ×2 (09:37→22:02)
--- NOTE | 2018-04-26 17:14 | PCM.NOTE ---
Date and Time: 04/26/181713 Subjective Assessment: doing better - Review of Systems Constitutional: No Fever, No Chills Eyes: No Symptoms Ears, Nose, & Throat: No Symptoms Respiratory: No Cough, No Short Of Breath Cardiac: No Chest Pain, No Edema, No Syncope Abdominal/Gastrointestinal: No Abdominal Pain, No Nausea, No Vomiting, No Diarrhea Genitourinary Symptoms: No Dysuria Musculoskeletal: No Back Pain, No Neck Pain Skin: No Rash Neurological: No Dizziness, No Focal Weakness, No Sensory Changes Psychological: No Symptoms Endocrine: No Symptoms Hematologic/Lymphatic: No Symptoms Immunological/Allergic: No Symptoms Objective Exam General Appearance: no apparent distress, alert Neurologic Exam: alert, oriented x 3, cooperative, normal mood/affect, nml cerebellar function, sensation nml, No motor deficits Skin Exam: normal color, warm, dry Eye Exam: PERRL, EOMI, eyes nml inspection Ears, Nose, Throat Exam: normal ENT inspection, pharynx normal, moist mucous membranes Neck Exam: normal inspection, non-tender, supple, full range of motion Respiratory Exam: normal breath sounds, lungs clear, No respiratory distress Cardiovascular Exam: regular rate/rhythm, normal heart sounds Gastrointestinal/Abdomen Exam: soft, No tenderness, No mass Extremity Exam: normal inspection, normal range of motion Back Exam: normal inspection, normal range of motion, No CVA tenderness, No vertebral tenderness Male Genitalia Exam: deferred Rectal Exam: deferred OBJECTIVE DATA Vital Signs: Vital Signs - 24 hr Temp Pulse Resp BP Pulse Ox 04/26/18 16:00 75 04/26/18 15:45 96.8 F 71 17 111/61 100 04/26/18 13:00 18 04/26/18 12:00 80 04/26/18 11:02 97.3 F 78 12 119/58 99 04/26/18 09:00 21 04/26/18 08:00 97.4 F 90 21 92/64 96 04/26/18 05:00 16 04/26/18 04:00 98.1 F 93 H 16 107/57 04/26/18 00:01 86 04/26/18 00:00 86 21 114/68 97 04/25/18 21:00 20 04/25/18 20:00 98.8 F 94 H 20 124/63 97 Pain Assessment - Last Documented Pain Intensity 0 Pain Scale Used 0-10 Pain Scale Intake and Output: Intake & Output 04/24/18 04/25/18 04/26/18 04/27/18 11:59 11:59 11:59 11:59 Intake Total 3528 40317 5935 4571 Output Total 6437 8477 6439 1279 Balance 3750 5464 2914 3198 Weight 58.7 kg 65.4 kg Lab Results: Accuchecks Date 04/26/1804/26/1804/26/1804/26/1804/26/1804/26/1804/26/1804/26/1804/26/1804/26/1804/26/1804/26/1804/26/1804/26/1804/26/1804/25/1804/25/1804/25/18 Time 16:00 Time 13:00 Time 14:00 Time 13:00 Time 12:00 Time 11:00 Time 09:58 Time 09:00 Time 07:05 Time 07:05 Time 06:00 Time 04:00 Time 03:00 Time 02:00 Time 01:00 Time 23:24 Time 22:03 Time 21:08 Accucheck Value: 94 Accucheck Value: 83 Accucheck Value: 65 Accucheck Value: 67 Accucheck Value: 87 Accucheck Value: 112 Accucheck Value: 112 Accucheck Value: 104 Accucheck Value: 124 Accucheck Value: 112 Accucheck Value: 124 Accucheck Value: 129 Accucheck Value: 99 Accucheck Value: 72 Accucheck Value: 86 Accucheck Value: 97 Accucheck Value: 109 Accucheck Value: 127 Accucheck Value: 98 Lab Results-Last 24 Hours 04/26/18 04/26/18 Range/Units 08:00 08:22 Puncture Site RIGHT RADIAL pCO2 21 L (35-45) mmHg pO2 135 H* (75-100) mmHg Base Excess -14.8 L (-2.0-2.0) O2 Saturation 96.4 (94-100) g/dF ABG pH 7.28 L (7.35-7.45) ABG HCO3 9.9 L* (22-28) ABG O2 Sat (Measured) 98.0 (95-100) % Daryl Test Yes A-a Gradient -12 a/A Ratio 1.10 Hemoglobin 12.3 Carboxyhemoglobin 1.4 (0.0-6.9) % THgb Methemoglobin 0.2 L (1.4-1.5) % Potassium 4.0 4.4 D (3.5-5.1) Temperature 37.0 C POC O2 Flow Rate 21 % Sodium 139 (137-145) mmol/L Chloride 122 H (98-107) mmol/L Carbon Dioxide 11 L* (22-30) mmol/L Anion Gap 10.2 (5-15) MEQ/L BUN < 2 L (9-20) mg/dL Creatinine 0.66 (0.66-1.25) mg/dL Estimated GFR > 60.0 ML/MIN Glucose 137 H (74-106) mg/dL Calcium 8.1 L (8.4-10.2) mg/dL Total Bilirubin 0.30 (0.2-1.3) mg/dL AST 30 (17-59) U/L ALT 10 (0-50) U/L Alkaline Phosphatase 94 (38-126) U/L Serum Total Protein 4.7 L (6.3-8.2) g/dL Albumin 2.2 L (3.5-5.0) g/dL Assessment/Plan (1) Diabetes with ketoacidosis Current Visit: Yes Status: Acute Qualifiers: Diabetes mellitus type: type 2 Diabetes mellitus mcfp insulin use: with roasterman use Diabetes mellitus complication detail: without coma Qualified Code(s): E11.10 - Type 2 diabetes mellitus with ketoacidosis without coma; 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
[2018-04-26] MEDS: Lomotil PO PRN ×2 (17:41→19:34)
[2018-04-26] MEDS: NOVOLIN R INSULIN (FOR DRIPS)** 100 UNITS in Sodium Chloride 0.9% 100 ML IVPB 100 ML IV PRN (18:00)
[2018-04-26] MEDS: NovoLOG Insulin SQ PRN ×2 (20:13→21:25)
[2018-04-26] MEDS: Ambien 10 MG PO SCH (22:01)
[2018-04-26] MEDS: ZOCOR 20MG PO SCH (22:01)
[2018-04-26] MEDS: Cymbalta 30 MG Capsule PO SCH (22:01)
[2018-04-26] MEDS: ECOTRIN 81 MG PO SCH (22:02)
[2018-04-26] MEDS: ZYLOPRIM 100 MG PO SCH (22:02)
[2018-04-27] MEDS: Lomotil PO PRN (02:08)
[2018-04-27 08:01] LABS: Hematocrit 39.1 % (42-50); Hemoglobin 12.4 gm/dl (12.5-18.0); Mean Cell Volume 77.6 fl (78-100); Mean Corpuscular Hemoglobin 24.6 pg (26-32); Mean Corpuscular Hgb Concent. 31.7 g/dl (32-36); Mean Platelet Volume 8.5 fl (6-9.5); Platelet Count 533 K/mm3 (150-450); Red Blood Count 5.04 M/mm3 (4.1-5.6); Red Cell Distribution Width 21.3 % (11.5-14.0); White Blood Count 10.1 K/mm3 (4.0-10.5)
[2018-04-27 08:15] LABS: ALBUMIN 2.2 g/dL (3.5-5.0); ALKALINE PHOSPHATASE 99 U/L (38-126); ANION GAP 10.7 MEQ/L (5-15); CHLORIDE 119 mmol/L (98-107); Creatinine 1 0.88 mg/dL (0.66-1.25); Glucose 183 mg/dL (74-106); Potassium 4.7 mmol/L (3.5-5.1); SGOT/AST 9 U/L (17-59); SGPT/ALT 10 U/L (0-50); SODIUM 140 mmol/L (137-145); Total Protein 4.5 g/dL (6.3-8.2)
[2018-04-27 08:25] LABS: BLOOD UREA NITROGEN < 2 mg/dL (9-20)
[2018-04-27 08:26] LABS: Carbon Dioxide 15 mmol/L (22-30)
[2018-04-27 09:19] LABS: A-aADO2 72; ABG HEMOGLOBIN 13.9; ABG POTASSIUM 4.6 (3.5-5.1); ARTERIAL BLD GAS O2 SATURATION 64.7 % (95-100); ARTERIAL BLOOD GAS BASE EXCESS -14.5 (-2.0-2.0); ARTERIAL BLOOD GAS FIO2 21 %; ARTERIAL BLOOD GAS PCO2 36 mmHg (35-45); ARTERIAL BLOOD GAS pH 7.17 (7.35-7.45); CARBOXYHEMOGLOBIN 2.6 % THgb (0.0-6.9); HCO3- 13.1 (22-28); HGB O2 SAT 62.6 g/dF (94-100); Methhemoglobin 0.6 % (1.4-1.5); paO2 pAO1 0.31
[2018-04-27 09:20] LABS: ABG SITE RIGHT RADIAL; ALLEN TEST OK? Yes; ARTERIAL BLOOD GAS PO2 33 mmHg (75-100)
[2018-04-27] MEDS: Requip 0.5 MG PO SCH (10:10)
[2018-04-27] MEDS: Lopressor 50 MG PO SCH (10:10)
[2018-04-27] MEDS: Protonix 40MG Tablet PO SCH (10:10)
[2018-04-27] MEDS: Sinemet 25/100 MG PO SCH (10:10)
[2018-04-27] MEDS: PLAVIX 75 MG Tablet PO SCH (10:10)
[2018-04-27] MEDS: Zestril 5 MG PO SCH (10:10)
[2018-04-27] MEDS: Pepcid 20 MG PO SCH (10:19)
[2018-04-27 11:58] VITALS: BP 97/56; PULSE 86; O2SAT 97
[2018-04-27] MEDS: NovoLOG Insulin SQ PRN (12:20)
--- NOTE | 2018-04-27 13:18 | PCM.DS ---
Discharge Summary Date of Admission: 04/23/18 18:57 Admitting Physician: TERE BLANTON Primary Care Provider: TERE BLANTON Allergies Allergies No Known Drug Allergies Allergy (Verified 04/23/18 15:37) Hospital Summary - Hospital Course Hospital Course: Chief Complaint Diagnosis DKA, DEHYDRATION Allergies Allergy/AdvReac Type Severity Reaction Status Date / Time No Known Drug Allergies Allergy Verified 04/23/18 15:37 Vital Signs (Last 24 hours) Temp Pulse Resp BP Pulse Ox 04/27/18 11:57 97.7 F 86 24 97/56 97 04/27/18 11:44 94 H 04/27/18 07:43 104 H 04/27/18 07:21 98 F 91 H 23 114/60 96 04/27/18 05:00 21 04/27/18 04:00 97.3 F 115 H 21 104/66 99 04/27/18 00:01 96 H 04/27/18 00:00 96 H 21 115/59 04/26/18 21:00 18 04/26/18 20:00 98.1 F 83 18 109/57 98 04/26/18 17:00 22 04/26/18 16:00 75 04/26/18 15:45 96.8 F 71 17 111/61 100 Home Medications Medication Instructions Recorded Confirmed Last Taken Type Allopurinol 100 mg [Zyloprim 100 mg PO HS 04/23/18 04/23/18 04/22/18 History 100 mg] Carbidopa/Levodopa 25/100 mg 1 tab PO BID 04/23/18 04/23/18 04/23/18 History [Sinemet 25/100 MG] Clopidogrel Bisulfate 75 mg 75 mg PO DAILY 04/23/18 04/23/18 04/23/18 History [PLAVIX 75 MG Tablet] Duloxetine HCl 30 mg [Cymbalta 30 mg PO HS 04/23/18 04/23/18 04/22/18 History 30 MG Capsule] Famotidine 20 mg [Pepcid 20 20 mg PO BID 04/23/18 04/23/18 04/23/18 History MG] Insulin NPH Human Recom [Novolin 20 unit SQ BID 04/23/18 04/23/1804/23/19 History N] Insulin Regular, Human [NovoLIN 20 unit SQ BID 04/23/18 04/23/18 04/23/18 History R] Lisinopril 5 mg [Zestril 5 5 mg PO DAILY 04/23/18 04/23/18 04/23/18 History MG] Metoprolol Tartrate 50 mg 50 mg PO BID 04/23/18 04/23/18 04/23/18 History [Lopressor 50 MG] Ropinirole HCl 0.5 mg [Requip 0.5 mg PO BID 04/23/18 04/23/18 04/23/18 History 0.5 MG] Current Medications Generic Name Dose Route Start Last Admin Trade Name Freq PRN Reason Stop Dose Admin Acetaminophen 650 mg 04/26/18 04:21 04/26/18 04:26 Tylenol 325 Mg PO 05/26/18 04:20 650 mg Q4H PRN PRN Administration PAIN AND/OR FEVER Allopurinol 100 mg 04/23/18 22:00 04/26/18 22:02 Zyloprim 100 Mg PO 05/23/18 21:59 100 mg HS XIMENA Administration Aspirin 81 mg 04/23/18 22:00 04/26/18 22:02 Ecotrin 81 Mg PO 05/23/18 21:59 81 mg HS XIMENA Administration Carbidopa/Levodopa 1 tab 04/23/18 22:00 04/27/18 10:10 Sinemet 25/100 Mg PO 05/23/18 21:59 1 tab BID IXMENA Administration Clopidogrel Bisulfate 75 mg 04/24/18 10:00 04/27/18 10:10 Plavix 75 Mg Tablet PO 05/24/18 09:59 75 mg DAILY XIMENA Administration Dextrose 25 ml 04/24/18 10:31 04/26/18 14:42 D50w 50 Ml Abboject IV 05/24/18 10:30 25 ml PRN PRN Administration HYPOGLYCEMIA Diphenoxylate HCl/Atropine 1 tablet 04/26/18 17:20 04/27/18 02:08 Lomotil PO 05/26/18 17:19 1 tablet UD PRN Administration DIARRHEA Duloxetine HCl 30 mg 04/23/18 22:00 04/26/18 22:01 Cymbalta 30 Mg Capsule PO 05/23/18 21:59 30 mg HS XIMENA Administration Famotidine 20 mg 04/23/18 22:00 04/27/18 10:19 Pepcid 20 Mg PO 05/23/18 21:59 20 mg BID XIMENA Administration Glucagon 1 mg 04/24/18 10:31 Glucagen 1 Mg IM 05/24/18 10:30 PRN PRN HYPOGLYCEMIA Glucose 15 gm 04/24/18 10:31 Glutose 15 Gm Oral Gel PO 05/24/18 10:30 PRN PRN HYPOGLYCEMIA Heparin Sodium (Beef Lung) 500 units 04/27/18 10:10 Heparin Lock Flush 100 Units/Ml 5ml Syringe PORT FLUSH 05/27/18 10:09 PRN PRN IV PORT FLUSH Insulin Aspart 0 unit 04/23/18 17:30 04/27/18 12:20 Novolog Insulin SQ 05/23/18 17:29 2 unit UD PRN Administration Lisinopril 5 mg 04/24/18 10:00 04/27/18 10:10 Zestril 5 Mg PO 05/24/18 09:59 5 mg DAILY XIMENA Administration Metoprolol Tartrate 50 mg 04/23/18 22:00 04/27/18 10:10 Lopressor 50 Mg PO 05/23/18 21:59 50 mg BID XIMENA Administration Ondansetron HCl 4 mg 04/24/18 00:51 04/24/18 13:45 Zofran 4 Mg/2 Ml Vial IV 05/24/18 00:50 4 mg Q4H PRN PRN Administration NAUSEA/VOMITING Pantoprazole Sodium 40 mg 04/24/18 10:00 04/27/18 10:10 Protonix 40mg Tablet PO 05/24/18 09:59 40 mg DAILY XIMENA Administration Ropinirole HCl 0.5 mg 04/23/18 22:00 04/27/18 10:10 Requip 0.5 Mg PO 05/23/18 21:59 0.5 mg BID XIMENA Administration Simvastatin 40 mg 04/23/18 22:00 04/26/18 22:01 Zocor 20mg PO 05/23/18 21:59 40 mg HS XIMENA Administration Zolpidem Tartrate 20 mg 04/23/18 22:00 04/26/18 22:01 Ambien 10 Mg PO 05/23/18 21:59 10 mg HS XIMENA Administration Discontinued Medications Generic Name Dose Route Start Last Admin Trade Name Freq PRN Reason Stop Dose Admin Sodium Chloride 1,000 mls @ 999 mls/hr 04/23/18 17:15 04/23/18 17:23 Sodium Chloride 0.9% 1000 Ml IV 04/23/18 18:15 999 mls/hr .Q1H1M XIMENA Administration Sodium Chloride 1,000 mls @ 150 mls/hr 04/23/18 17:45 04/23/18 21:17 Sodium Chloride 0.9% 1000 Ml IV 05/23/18 17:44 150 mls/hr .Q6H40M XIMENA Administration Sodium Chloride 1,000 mls @ 999 mls/hr 04/23/18 18:30 04/23/18 20:32 Sodium Chloride 0.9% 1000 Ml IV 04/23/18 19:30 999 mls/hr .Q1H1M STA Administration Sodium Chloride 1,000 mls @ 999 mls/hr 04/23/18 18:32 04/24/18 06:29 Sodium Chloride 0.9% 1000 Ml IV 04/23/18 19:32 999 mls/hr .Q1H1M STA Administration Sodium Chloride 1,000 mls @ 999 mls/hr 04/23/18 18:33 04/24/18 10:44 Sodium Chloride 0.9% 1000 Ml IV 04/23/18 19:33 999 mls/hr .Q1H1M STA Administration Insulin Human Regular 100 101 mls @ 5.93 mls/hr 04/23/18 18:34 04/24/18 23:11 units/ Sodium Chloride IV 05/23/18 18:33 0.01 units/kg/hr .Q17H2M PRN 1 mls/hr DKA/HYPERGYCEMIA Titration Protocol 0.1 UNITS/KG/HR Sodium Chloride Confirm 04/23/18 19:14 Sodium Chloride 0.9% 100 Ml Ivpb Administered 04/23/18 19:15 Dose 100 mls @ ud IV .STK-MED ONE Dextrose/Sodium Chloride 1,000 mls @ 100 mls/hr 04/24/18 01:00 04/24/18 12:30 Dextrose 5%-Ns Iv Solution 1000 Ml IV 05/24/18 00:59 100 mls/hr .Q10H XIMENA Administration Sodium Chloride 1,000 mls @ 100 mls/hr 04/24/18 06:30 Sodium Chloride 0.9% 1000 Ml IV 05/24/18 06:29 .Q10H XIMENA Sodium Chloride 1,000 mls @ 999 mls/hr 04/24/18 06:29 04/24/18 07:55 Sodium Chloride 0.9% 1000 Ml IV 04/24/18 07:29 999 mls/hr .Q1H1M STA Administration Insulin Human Regular 100 101 mls @ 2.02 mls/hr 04/24/18 06:30 04/24/18 23:05 units/ Sodium Chloride IV 05/24/18 06:29 0.99 units/hr .Q24H PRN 1 mls/hr DKA/HYPERGYCEMIA Administration Protocol 2 UNITS/HR Sodium Chloride 1,000 mls @ 999 mls/hr 04/24/18 09:00 04/24/18 09:40 Sodium Chloride 0.9% 1000 Ml IV 04/24/18 10:00 999 mls/hr .Q1H1M STA Administration Sodium Chloride 1,000 mls @ 999 mls/hr 04/24/18 10:00 04/24/18 13:42 Sodium Chloride 0.9% 1000 Ml IV 04/24/18 11:00 999 mls/hr .Q1H1M XIMENA Administration Sodium Chloride 1,000 mls @ 999 mls/hr 04/24/18 13:26 Sodium Chloride 0.9% 1000 Ml IV 04/24/18 14:26 .Q1H1M STA Sodium Chloride 1,000 mls @ 999 mls/hr 04/24/18 14:50 04/24/18 15:03 Sodium Chloride 0.9% 1000 Ml IV 04/24/18 15:50 999 mls/hr .Q1H1M STA Administration Potassium Chloride/Dextrose/Sod Cl 1,000 mls @ 100 mls/hr 04/24/18 19:30 09/07 22:21 Dextrose 5%-Nacl 0.9% 1000 Ml + Kcl 40 Meq IV 05/24/18 19:29 100 mls/hr .Q10H XIMENA Administration Sodium Chloride 1,000 mls @ 999 mls/hr 04/24/18 19:29 04/24/18 19:35 Sodium Chloride 0.9% 1000 Ml IV 04/24/18 20:29 999 mls/hr .Q1H1M STA Administration Sodium Chloride 1,000 mls @ 999 mls/hr 04/24/18 19:31 04/24/18 20:39 Sodium Chloride 0.9% 1000 Ml IV 04/24/18 20:31 999 mls/hr .Q1H1M STA Administration Insulin Human Regular 100 101 mls @ 1.01 mls/hr 04/25/18 08:16 04/26/18 18:00 units/ Sodium Chloride IV 05/25/18 08:15 1 units/hr .Q24H PRN 1.01 mls/hr DKA/HYPERGYCEMIA Administration Protocol 1 UNITS/HR Sodium Chloride 1,000 mls @ 750 mls/hr 04/25/18 09:00 04/25/18 12:00 Sodium Chloride 0.9% 1000 Ml IV 04/25/18 13:00 750 mls/hr .Q1H20M XIMENA Administration Sodium Chloride 1,000 mls @ 999 mls/hr 04/26/18 09:30 04/26/18 12:00 Sodium Chloride 0.9% 1000 Ml IV 04/26/18 12:29 999 mls/hr .Q1H1M XIMENA Administration Insulin Human NPH 20 unit 04/23/18 17:30 04/24/18 17:59 Novolin N SQ 05/23/18 17:29 Not Given BIDAC XIMENA Insulin Human Regular 20 unit 04/24/18 07:30 04/24/18 17:59 Novolin R SQ 05/24/18 07:29 Not Given BIDAC XIMENA Insulin Human Regular Confirm 04/23/18 19:22 Novolin R Administered 04/23/18 19:23 Dose 100 unit .ROUTE .STK-MED ONE Intake & Output (Last 24 hours) 04/25/18 04/26/18 04/27/18 04/28/18 11:59 11:59 11:59 11:59 Intake Total 13613 5957 5703 120 Output Total 3350 4200 7000 1125 Balance 7373 3705 -7233 -0565 Weight 65.4 kg Laboratory Results (Last 24 hours) 04/27/18 04/27/18 04/27/18 09:00 08:02 08:00 WBC 10.1 RBC 5.04 Hgb 12.4 L Hct 39.1 L MCV 77.6 L MCH 24.6 L MCHC 31.7 L RDW 21.3 H Plt Count 533 H MPV 8.5 Puncture Site RIGHT RADIAL pCO2 36 pO2 33 L* Base Excess -14.5 L O2 Saturation 62.6 L ABG pH 7.17 L* ABG HCO3 13.1 L* ABG O2 Sat (Measured) 64.7 L Daryl Test Yes A-a Gradient 72 a/A Ratio 0.31 Hemoglobin 13.9 Carboxyhemoglobin 2.6 Methemoglobin 0.6 L Temperature 37.0 POC O2 Flow Rate 21 Sodium 140 Potassium 4.6 4.7 Chloride 119 H Carbon Dioxide 15 L* Anion Gap 10.7 BUN < 2 L Creatinine 0.88 Estimated GFR > 60.0 Glucose 183 H Calcium 8.0 L Total Bilirubin 0.30 AST 9 L ALT 10 Alkaline Phosphatase 99 Serum Total Protein 4.5 L Albumin 2.2 L Orders (Last 24 hours) Category Date Time Status Miscellaneous Nursing Order ROUTINE Care 04/26/18 14:01 Active Discharge Planning,Consult Routine Discharge 04/27/18 Active ARTERIAL BLOOD GASES Urgent Lab 04/27/18 09:00 Completed CBC Urgent Lab 04/27/18 08:00 Completed CMP Urgent Lab 04/27/18 08:02 Completed Diphenoxylate HCl/Atropine [Lomotil] Med 04/26/18 17:20 Active 1 tablet PO UD PRN Heparin Flush 500 units/5 ml [Heparin Lock Flush 100 Med 04/27/18 10:10 Active Units/ml 5ml Syringe] 500 units PORT FLUSH PRN PRN Patient Care Notes (Last 24 hours) 04/26/18 17:18 Nursing Note by Cassi Rea rounded with dr. blanton. verbal order given to not restart insulin gtt until accucheck >150 Addendum entered by Cassi Rea 04/26/18 17:19: and order for lomotil 1 cap po after diarrhea stool max dose 6 caps per day Initialized on 04/26/18 17:18 - END OF NOTE 03/07/19 14:42 (created 04/26/18 14:52) Nursing Note by Cassi Reauchclayton 53. pt asymptomatic. 1/2 amp d50w given. Initialized on 04/26/18 14:52 - END OF NOTE 04/26/18 13:55 (created 04/26/18 14:29) Nursing Note by Cassi Rea insulin gtt stopped at this time per dr. blanton order to hold if less than 100. will restart when bs is >120 Initialized on 04/26/18 14:29 - END OF NOTE - Vitals & Intake/Output Vital Signs: Vital Signs Temperature 97.7 F 04/27/18 11:57 Pulse Rate 86 04/27/18 11:57 Respiratory Rate 24 04/27/18 11:57 Blood Pressure 97/56 04/27/18 11:57 O2 Sat by Pulse Oximetry 97 04/27/18 11:57 Intake & Output: Intake & Output 04/25/18 04/26/18 04/27/18 04/28/18 11:59 11:59 11:59 11:59 Intake Total 78682 5969 5703 120 Output Total 3350 4200 7000 1125 Balance 7370 1769 -1297 -1005 Weight 65.4 kg - Lab Result Diagrams: 04/27/18 08:00 04/27/18 08:02 Lab Results-Last 24 Hrs: Accuchecks Date 04/27/18 Date 04/27/18 Date 04/27/18 Date 04/27/18 Date 05/04/18 Date 04/27/18 Date 04/27/18 Date 04/26/18 Date 04/26/18 Date 04/26/18 Date 04/26/18 Date 04/26/18 Date 04/26/18 Date 04/26/18 Date 04/26/18 Date 04/26/18 Date 04/26/18 Time 07:01 Time 06:00 Time 04:30 Time 03:11 Time 02:12 Time 01:17 Time 00:06 Time 22:00 Time 21:00 Time 20:14 Time 19:00 Time 18:00 Time 17:00 Time 16:00 Time 13:00 Time 14:00 Time 13:00 Accucheck Value: 234 Accucheck Value: 201 Accucheck Value: 161 Accucheck Value: 140 Accucheck Value: 154 Accucheck Value: 202 Accucheck Value: 197 Accucheck Value: 167 Accucheck Value: 120 Accucheck Value: 116 Accucheck Value: 145 Accucheck Value: 191 Accucheck Value: 221 Accucheck Value: 266 Accucheck Value: 265 Accucheck Value: 256 Accucheck Value: 236 Accucheck Value: 138 Accucheck Value: 94 Accucheck Value: 83 Accucheck Value: 65 Accucheck Value: 67 Lab Results-Last 24 Hours 04/27/18 04/27/18 04/27/18 Range/Units 08:00 08:02 09:00 WBC 10.1 (4.0-10.5) K/mm3 RBC 5.04 (4.1-5.6) M/mm3 Hgb 12.4 L (12.5-18.0) gm/dl Hct 39.1 L (42-50) % MCV 77.6 L (78-100) fl MCH 24.6 L (26-32) pg MCHC 31.7 L (32-36) g/dl RDW 21.3 H (11.5-14.0) % Plt Count 533 H (150-450) K/mm3 MPV 8.5 (6-9.5) fl Puncture Site RIGHT RADIAL pCO2 36 (35-45) mmHg pO2 33 L* (75-100) mmHg Base Excess -14.5 L (-2.0-2.0) O2 Saturation 62.6 L (94-100) g/dF ABG pH 7.17 L* (7.35-7.45) ABG HCO3 13.1 L* (22-28) ABG O2 Sat (Measured) 64.7 L (95-100) % Daryl Test Yes A-a Gradient 72 a/A Ratio 0.31 Hemoglobin 13.9 Carboxyhemoglobin 2.6 (0.0-6.9) % THgb Methemoglobin 0.6 L (1.4-1.5) % Temperature 37.0 C POC O2 Flow Rate 21 % Sodium 140 (137-145) mmol/L Potassium 4.7 4.6 (3.5-5.1) mmol/L Chloride 119 H (98-107) mmol/L Carbon Dioxide 15 L* (22-30) mmol/L Anion Gap 10.7 (5-15) MEQ/L BUN < 2 L (9-20) mg/dL Creatinine 0.88 (0.66-1.25) mg/dL Estimated GFR > 60.0 ML/MIN Glucose 183 H (74-106) mg/dL Calcium 8.0 L (8.4-10.2) mg/dL Total Bilirubin 0.30 (0.2-1.3) mg/dL AST 9 L (17-59) U/L ALT 10 (0-50) U/L Alkaline Phosphatase 99 (38-126) U/L Serum Total Protein 4.5 L (6.3-8.2) g/dL Albumin 2.2 L (3.5-5.0) g/dL Micro Results-Entire Visit: Microbiology 04/23/18 19:00 Urine Culture - Final Clean Catch Midstream <10K NORMAL SKIN LETITIA PROBABLE SKIN CONTAMINANT Accuchecks Date 04/27/18 Date 04/27/18 Date 04/27/18 Date 04/27/18 Date 05/04/18 Date 04/27/18 Date 04/27/18 Date 04/26/18 Date 04/26/18 Date 04/26/18 Date 04/26/18 Date 04/26/18 Date 04/26/18 Date 04/26/18 Date 04/26/18 Date 04/26/18 Date 04/26/18 Time 07:01 Time 06:00 Time 04:30 Time 03:11 Time 02:12 Time 01:17 Time 00:06 Time 22:00 Time 21:00 Time 20:14 Time 19:00 Time 18:00 Time 17:00 Time 16:00 Time 13:00 Time 14:00 Time 13:00 Accucheck Value: 234 Accucheck Value: 201 Accucheck Value: 161 Accucheck Value: 140 Accucheck Value: 154 Accucheck Value: 202 Accucheck Value: 197 Accucheck Value: 167 Accucheck Value: 120 Accucheck Value: 116 Accucheck Value: 145 Accucheck Value: 191 Accucheck Value: 221 Accucheck Value: 266 Accucheck Value: 265 Accucheck Value: 256 Accucheck Value: 236 Accucheck Value: 138 Accucheck Value: 94 Accucheck Value: 83 Accucheck Value: 65 Accucheck Value: 67 - Procedures and Test Procedures and Tests throughout Hospitalization: Therapy Orders & Screens 04/26/18 09:24 PT Eval & Treat ( Order) ROUTINE Reason for Eval:: weakness d/t dehydration, diarrhea, dka Diagnosis: DKA, DEHYDRATION Discharge Exam General Appearance: no apparent distress, alert Neurologic Exam: alert, oriented x 3, cooperative, normal mood/affect, nml cerebellar function, sensation nml, No motor deficits Skin Exam: normal color, warm, dry Eye Exam: PERRL, EOMI, eyes nml inspection Ears, Nose, Throat Exam: normal ENT inspection, pharynx normal, moist mucous membranes Neck Exam: normal inspection, non-tender, supple, full range of motion Respiratory Exam: normal breath sounds, lungs clear, No respiratory distress Cardiovascular Exam: regular rate/rhythm, normal heart sounds Gastrointestinal/Abdomen Exam: soft, No tenderness, No mass Extremity Exam: normal inspection, normal range of motion Back Exam: normal inspection, normal range of motion, No CVA tenderness, No vertebral tenderness Male Genitalia Exam: deferred Rectal Exam: deferred Final Diagnosis/Problem List - Final Discharge Diagnosis/Problem (1) Diabetes with ketoacidosis Current Visit: Yes Status: Acute Assessment & Plan: resolved (2) Dehydration Current Visit: Yes Status: Acute (3) Amyloidosis Current Visit: Yes Status: Acute - Discharge Discharge Date: 04/27/18 Disposition: Hospice @ [facility] Condition: Stable Prescriptions: No Action Zolpidem Tartrate 10 mg [Ambien 10 MG] 20 mg PO HS Omeprazole 20 MG [Prilosec 20 mg] 20 mg PO DAILY Aspirin EC 81 mg [Ecotrin 81 mg] 81 mg PO HS Pravastatin Sodium 40 mg PO HS Metoprolol Tartrate 50 mg [Lopressor 50 MG] 50 mg PO BID Famotidine 20 mg [Pepcid 20 MG] 20 mg PO BID Duloxetine HCl 30 mg [Cymbalta 30 MG Capsule] 30 mg PO HS Clopidogrel Bisulfate 75 mg [PLAVIX 75 MG Tablet] 75 mg PO DAILY Lisinopril 5 mg [Zestril 5 MG] 5 mg PO DAILY Allopurinol 100 mg [Zyloprim 100 mg] 100 mg PO HS Carbidopa/Levodopa 25/100 mg [Sinemet 25/100 MG] 1 tab PO BID Ropinirole HCl 0.5 mg [Requip 0.5 MG] 0.5 mg PO BID Insulin Regular, Human [NovoLIN R] 20 unit SQ BID Insulin NPH Human Recom [Novolin N] 20 unit SQ BID Follow up with: EVERTON HEALY [CONSULTING PHYSICIAN] - 1 Week TERE BLANTON MD [Primary Care Provider] - 1 Week
== END 2018-04-27 14:23 | disposition hospice, home (50) | DRG 638 ==
LOC: MED SURG 15:21 → OBSVTOIN 18:57 → ICU 19:20
PROVIDERS: ADMIT General Practice; ATTEND General Practice
DX: E11.10 Type 2 diabetes mellitus with ketoacidosis without coma (principal); E85.9 Amyloidosis, unspecified; E86.0 Dehydration; E11.51 Type 2 diabetes mellitus with diabetic peripheral angiopathy without gangrene; E11.21 Type 2 diabetes mellitus with diabetic nephropathy; R06.02 Shortness of breath; F17.200 Nicotine dependence, unspecified, uncomplicated; Z79.01 Long term (current) use of anticoagulants; Z79.4 Long term (current) use of insulin; Z79.899 Other long term (current) drug therapy; I10 Essential (primary) hypertension; R19.7 Diarrhea, unspecified
CPT/HCPCS: 36415; 36600; 80048; 80053; 81001; 82375; 82803; 82805; 82962; 83036; 83605; 85025; 85027; 87086; 87493; J1642; J1815; J2405; A9270-GY

== ENCOUNTER 2021-05-04 11:30 | Inpatient (IN) | payer MEDICARE ==
--- NOTE | 2021-05-04 12:46 | PCM.HP.ADD ---
Addendum to History & Physical - History & Physical Addendum Addendum to History & Physical: This certifies that the History & Physical in the electronic chart reflects the current health status of the patient. If there are changes in the H&P these changes/exceptions are listed as follows.
[2021-05-04 13:17] LABS: Hematocrit 38.3 % (42-50); Hemoglobin 12.5 gm/dl (12.5-18.0); Mean Cell Volume 72.4 fl (78-100); Mean Corpuscular Hemoglobin 23.6 pg (26-32); Mean Corpuscular Hgb Concent. 32.6 g/dl (32-36); Mean Platelet Volume 8.8 fl (7.5-11.0); Platelet Count 379 K/mm3 (150-450); Red Blood Count 5.29 M/mm3 (4.1-5.6); Red Cell Distribution Width 19.9 % (11.5-14.0)
[2021-05-04 13:20] LABS: White Blood Count 27.5 K/mm3 (4.0-10.5)
[2021-05-04] MEDS ORDERED: PROVENTIL 2.5 MG/3 ML NEB IH PRN (13:34)
[2021-05-04 13:38] LABS: ANION GAP 16.4 MEQ/L (5-15); Calcium 8.8 mg/dL (8.4-10.2); Creatinine 1 1.81 mg/dL (0.66-1.25); EST GLOMERULAR FILTRATION RATE 39.7 ML/MIN; Potassium 4.5 mmol/L (3.5-5.1); Total Protein 7.8 g/dL (6.3-8.2)
[2021-05-04 13:40] LABS: INFLUENZA B NEGATIVE (NEGATIVE); RESPIRATORY SYNCTIAL VIRUS NEGATIVE (Negative); SARS-CoV-2 Xpert Express NEGATIVE (NEGATIVE)
[2021-05-04] MEDS ORDERED: IBUPROFEN 200 MG PO PRN (13:51)
[2021-05-04] MEDS ORDERED: PHENERGAN 25 MG PO PRN (13:51)
[2021-05-04] MEDS: HUMALOG SQ PRN ×2 (14:01→17:01)
[2021-05-04] MEDS ORDERED: MOTRIN 200 MG PO PRN (14:08)
[2021-05-04] MEDS ORDERED: MEDICATION INTERVENTION MC SCH (14:15)
[2021-05-04 14:24] LABS: INFLUENZA A POSITIVE (NEGATIVE)
[2021-05-04] MEDS ORDERED: Hydromorphone 1 mg/ml Injection IV PRN (14:59)
[2021-05-04] MEDS ORDERED: PROCHLORPERAZINE MALEATE 10 MG PO SCH (15:00)
[2021-05-04] MEDS ORDERED: HYDROCODONE-CHLORPHEN ER SUSP PO PRN (15:01)
[2021-05-04] MEDS ORDERED: Sodium Chloride 0.9% 1000 ML 1,000 ML IV STA (15:02)
[2021-05-04] MEDS ORDERED: Sodium Chloride 0.9% 1000 ML 1,000 ML ONE (15:11)
[2021-05-04] MEDS: ROCEPHIN 1 Gm-D5w 50 ml Bag** 1 G/50 ML IVPB IV SCH (15:16)
[2021-05-04] MEDS: Compazine 5 MG PO SCH ×2 (15:34→21:08)
[2021-05-04] MEDS: Requip 0.5 MG PO SCH ×2 (15:35→21:08)
[2021-05-04] MEDS: Zithromax 500 MG/ 250 ML NaCl Premix 500 MG/250 ML IVPB IV SCH (16:31)
--- NOTE | 2021-05-04 16:41 | XRAY ---
Indication: Pneumonia. Influenza A. Multiple contiguous axial images obtained through the chest without contrast. Comparison: March 10, 2020. Study degraded by respiration artifact. Lungs again demonstrates diffuse pulmonary emphysema with diffuse bilateral subpleural cystic changes. Moderate bilateral dependent atelectasis. Left lower lobe demonstrates new large focus of consolidating airspace disease posteriorly. 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 Aorta again minimally arteriosclerotic without aneurysm. No pathologic mediastinal lymphadenopathy. Stable small hiatal hernia. Bony thorax intact again with sternotomy wires. CT abdomen/pelvis reported separately. Impression: 1. Respiration artifact. 2. New left lower lobe consolidating airspace disease. Rule out aspiration pneumonia. 3. Again pulmonary emphysema, diffuse bilateral subpleural cystic changes, and small hiatal hernia.
--- NOTE | 2021-05-04 16:47 | XRAY ---
Indication: Abdomen pain. Multiple contiguous axial images obtained through the abdomen and pelvis without contrast. Comparison: March 10, 2020. CT chest reported separately. Study is degraded by respiration artifact throughout. Noncontrasted stomach and bowel loops appear nonobstructed. There is again moderate diffuse fecal debris throughout. Urinary bladder is now markedly distended concerning for outlet obstruction versus neurogenic bladder. No free fluid/air. Again nonobstructing left renal micro-calculus. Remaining visualized liver, gallbladder, pancreas, spleen, adrenal glands, kidneys, ureters, and bladder are unremarkable for noncontrast exam. There remains moderate/severe scattered aortoiliac calcifications without AAA. Osseous structures intact again with osteopenia, L3/L5 kyphoplasty, mild degenerative changes both hips, and incompletely visualized left proximal femur orthopedic hardware. Stable small fatty left inguinal hernia and small right inguinal hernia with portion of urinary bladder herniating. Impression: 1. Respiration artifact. 2. New markedly distended urinary bladder. Rule out outlet obstruction versus neurogenic bladder. 3. Again moderate diffuse fecal stasis. 4. Stable nonobstructing left renal micro-calculus, bilateral inguinal hernias, scattered arteriosclerotic disease, and chronic bony findings.
[2021-05-04] MEDS: Sodium Chloride 0.9% 1000 ML 1,000 ML IV SCH ×5 (16:51→21:09)
[2021-05-04] MEDS ORDERED: Tamiflu 75MG Capsule PO ONE (18:00)
[2021-05-04 18:07] LABS: A-aADO2 95; ABG HEMOGLOBIN 11.4; ABG POTASSIUM 3.7 (3.5-5.1); ABG SITE RIGHT RADIAL; ALLEN TEST OK? YES; ARTERIAL BLD GAS O2 SATURATION 94.1 % (95-100); ARTERIAL BLOOD GAS BASE EXCESS 2.4 (-2.0-2.0); ARTERIAL BLOOD GAS FIO2 28 %; ARTERIAL BLOOD GAS PCO2 32 mmHg (35-45); ARTERIAL BLOOD GAS PO2 65 mmHg (75-100); CARBOXYHEMOGLOBIN 1.5 % THgb (0.0-6.9); HGB O2 SAT 92.2 g/dF (94-100); Lactic Acid 1.2 (0.4-2.0); Methhemoglobin 0.4 % (1.4-1.5)
[2021-05-04] MEDS: Novolin N SQ SCH (18:13)
[2021-05-04] MEDS ORDERED: GlucaGen 1 MG IM PRN (19:46)
[2021-05-04] MEDS ORDERED: D50W 50 ml Abboject IV PRN (19:46)
[2021-05-04] MEDS ORDERED: Glutose 15 GM ORAL GEL PO PRN (19:46)
[2021-05-04] MEDS: TYLENOL 325 MG PO PRN (20:15)
[2021-05-04] MEDS: Cymbalta 30 MG Capsule PO SCH (21:08)
[2021-05-04] MEDS: NEURONTIN 300 MG PO SCH (21:08)
[2021-05-04] MEDS: Pepcid 20 MG PO SCH (21:09)
[2021-05-04] MEDS: ZYLOPRIM 100 MG PO SCH (21:09)
[2021-05-04] MEDS: ZOCOR 20MG PO SCH (21:09)
[2021-05-04] MEDS ORDERED: NON-FORMULARY ITEM (Pravastatin Sodium [Pravastatin Sodium] 40 MG Tablet) PO SCH (22:00)
[2021-05-04] MEDS ORDERED: NON-FORMULARY ITEM (Nabumetone [Nabumetone] 500 MG Tablet) PO SCH (22:00)
[2021-05-04] MEDS: Cyclobenzaprine 10 MG PO SCH (22:22)
[2021-05-04] MEDS: Ambien 10 MG PO SCH (22:22)
[2021-05-05 05:11] LABS: Hematocrit 31.1 % (42-50); Mean Cell Volume 73.7 fl (78-100); Mean Corpuscular Hemoglobin 23.7 pg (26-32); Mean Corpuscular Hgb Concent. 32.2 g/dl (32-36); Mean Platelet Volume 8.8 fl (7.5-11.0); Platelet Count 310 K/mm3 (150-450); Red Blood Count 4.22 M/mm3 (4.1-5.6); Red Cell Distribution Width 19.1 % (11.5-14.0); White Blood Count 24.3 K/mm3 (4.0-10.5)
[2021-05-05 05:35] LABS: ANION GAP 9.4 MEQ/L (5-15); BLOOD UREA NITROGEN 20 mg/dL (9-20); CHLORIDE 103 mmol/L (98-107); Calcium 7.5 mg/dL (8.4-10.2); Carbon Dioxide 21 mmol/L (22-30); Creatinine 1 0.95 mg/dL (0.66-1.25); EST GLOMERULAR FILTRATION RATE > 60.0 ML/MIN; Glucose 266 mg/dL (74-106); Potassium 4.5 mmol/L (3.5-5.1); SODIUM 130 mmol/L (137-145)
[2021-05-05] MEDS: HUMALOG SQ PRN ×4 (06:47→21:09)
[2021-05-05] MEDS ORDERED: Advair Hfa 115/21 Common canister IH SCH (07:00)
--- NOTE | 2021-05-05 08:28 | PCM.NOTE ---
Date and Time: 05/05/21825 Subjective Assessment: still very short of breath - Review of Systems Constitutional: No Fever, No Chills Eyes: No Symptoms Ears, Nose, & Throat: No Symptoms Respiratory: Cough, Orthopnea, Short Of Breath, Wheezing Cardiac: No Chest Pain, No Edema, No Syncope Abdominal/Gastrointestinal: No Abdominal Pain, No Nausea, No Vomiting, No Diarrhea Genitourinary Symptoms: No Dysuria Musculoskeletal: No Back Pain, No Neck Pain Skin: No Rash Neurological: No Dizziness, No Focal Weakness, No Sensory Changes Psychological: No Symptoms Endocrine: No Symptoms Hematologic/Lymphatic: No Symptoms Immunological/Allergic: No Symptoms Objective Exam General Appearance: no apparent distress, alert Neurologic Exam: alert, oriented x 3, cooperative, normal mood/affect, nml cerebellar function, sensation nml, No motor deficits Skin Exam: normal color, warm, dry Eye Exam: PERRL, EOMI, eyes nml inspection Ears, Nose, Throat Exam: normal ENT inspection, pharynx normal, moist mucous membranes Neck Exam: normal inspection, non-tender, supple, full range of motion Respiratory Exam: diminished breath sounds, crackles/rales, rhonchi, wheezing, No respiratory distress Cardiovascular Exam: regular rate/rhythm, normal heart sounds Gastrointestinal/Abdomen Exam: soft, No tenderness, No mass Extremity Exam: normal inspection, normal range of motion Back Exam: normal inspection, normal range of motion, No CVA tenderness, No vertebral tenderness Male Genitalia Exam: deferred Rectal Exam: deferred OBJECTIVE DATA Vital Signs: Vital Signs - 24 hr Temp Pulse Resp BP Pulse Ox 05/05/21 07:52 98.2 F 94 H 28 H 94/48 96 05/05/21 07:44 92 H 18 97 05/05/21 06:36 98.1 F 96 H 16 112/56 98 05/05/21 05:56 97.9 F 95 H 22 121/52 98 05/05/21 04:48 97.7 F 85 22 97/51 98 05/05/21 03:54 85 05/05/21 03:51 97.9 F 85 26 H 123/56 98 05/05/21 02:45 97.5 F 74 22 98/54 94 L 05/05/21 01:39 97.5 F 77 25 H 88/47 96 05/05/21 00:58 97.7 F 85 16 88/50 96 05/05/21 00:15 83 05/05/21 00:00 97.9 F 83 16 92/49 97 05/04/21 23:00 98.4 F 94 H 16 92/49 97 05/04/21 22:00 99.3 F 104 H 22 94/44 96 05/04/21 21:00 100.4 F 112 H 26 H 82/51 100 05/04/21 20:00 101.8 F 127 H 30 H 95/56 99 05/04/21 18:50 132 H 22 91 L 05/04/21 16:00 100.0 F 142 H 20 86/47 91 L 05/04/21 15:22 98.2 F 142 H 20 161/98 97 05/04/21 13:34 143 H 98 Pain Assessment - Last Documented Pain Intensity 0 Pain Scale Used FLACC Intake and Output: Intake & Output 05/02/21 05/03/21 05/04/21 05/05/21 11:59 11:59 11:59 11:59 Intake Total 5645 Output Total 2120 Balance 3525 Weight 78 kg Lab Results: Lab Results-Last 24 Hours 05/04/21 05/04/21 05/04/21 Range/Units 12:42 12:45 13:05 WBC 27.5 H* (4.0-10.5) K/mm3 RBC 5.29 (4.1-5.6) M/mm3 Hgb 12.5 (12.5-18.0) gm/dl Hct 38.3 L (42-50) % MCV 72.4 L (78-100) fl MCH 23.6 L (26-32) pg MCHC 32.6 (32-36) g/dl RDW 19.9 H (11.5-14.0) % Plt Count 379 (150-450) K/mm3 MPV 8.8 (7.5-11.0) fl Smear Path Review Puncture Site pCO2 (35-45) mmHg pO2 (75-100) mmHg Base Excess (-2.0-2.0) O2 Saturation (94-100) g/dF ABG pH (7.35-7.45) ABG HCO3 (22-28) ABG O2 Sat (Measured) (95-100) % Daryl Test A-a Gradient a/A Ratio Hemoglobin Carboxyhemoglobin (0.0-6.9) % THgb Methemoglobin (1.4-1.5) % Temperature C POC O2 Flow Rate % Sodium (137-145) mmol/L Potassium (3.5-5.1) mmol/L Chloride (98-107) mmol/L Carbon Dioxide (22-30) mmol/L Anion Gap (5-15) MEQ/L BUN (9-20) mg/dL Creatinine (0.66-1.25) mg/dL Estimated GFR ML/MIN Glucose (74-106) mg/dL POC Glucometer (74 to 106) mg/dL Lactic Acid (0.4-2.0) Calcium (8.4-10.2) mg/dL Total Bilirubin (0.2-1.3) mg/dL AST (17-59) U/L ALT (0-50) U/L Alkaline Phosphatase (38-126) U/L Serum Total Protein (6.3-8.2) g/dL Albumin (3.5-5.0) g/dL Procalcitonin 2.770 H* (0.030-0.080) ng/mL Influenza Type A Ag POSITIVE (NEGATIVE) Influenza Type B Ag NEGATIVE (NEGATIVE) RSV (PCR) NEGATIVE (Negative) SARS-CoV-2 (PCR) NEGATIVE (NEGATIVE) 05/04/21 05/04/21 05/04/21 Range/Units 13:05 16:37 18:03 WBC (4.0-10.5) K/mm3 RBC (4.1-5.6) M/mm3 Hgb (12.5-18.0) gm/dl Hct (42-50) % MCV (78-100) fl MCH (26-32) pg MCHC (32-36) g/dl RDW (11.5-14.0) % Plt Count (150-450) K/mm3 MPV (7.5-11.0) fl Smear Path Review Puncture Site RIGHT RADIAL pCO2 32 L (35-45) mmHg pO2 65 L (75-100) mmHg Base Excess 2.4 H (-2.0-2.0) O2 Saturation 92.2 L (94-100) g/dF ABG pH 7.50 H (7.35-7.45) ABG HCO3 25.0 (22-28) ABG O2 Sat (Measured) 94.1 L (95-100) % Daryl Test YES A-a Gradient 95 a/A Ratio 0.41 Hemoglobin 11.4 Carboxyhemoglobin 1.5 (0.0-6.9) % THgb Methemoglobin 0.4 L (1.4-1.5) % Temperature 37.0 C POC O2 Flow Rate 28 % Sodium 125 L (137-145) mmol/L Potassium 4.5 3.7 (3.5-5.1) mmol/L Chloride 90 L (98-107) mmol/L Carbon Dioxide 23 (22-30) mmol/L Anion Gap 16.4 H (5-15) MEQ/L BUN 29 H (9-20) mg/dL Creatinine 1.81 H (0.66-1.25) mg/dL Estimated GFR 39.7 ML/MIN Glucose 535 H* (74-106) mg/dL POC Glucometer 184 H (74 to 106) mg/dL Lactic Acid 1.2 (0.4-2.0) Calcium 8.8 (8.4-10.2) mg/dL Total Bilirubin 1.00 (0.2-1.3) mg/dL AST 24 (17-59) U/L ALT 17 (0-50) U/L Alkaline Phosphatase 138 H (38-126) U/L Serum Total Protein 7.8 (6.3-8.2) g/dL Albumin 4.0 (3.5-5.0) g/dL Procalcitonin (0.030-0.080) ng/mL Influenza Type A Ag (NEGATIVE) Influenza Type B Ag (NEGATIVE) RSV (PCR) (Negative) SARS-CoV-2 (PCR) (NEGATIVE) 05/04/21 05/04/21 05/04/21 Range/Units 19:45 19:59 20:10 WBC (4.0-10.5) K/mm3 RBC (4.1-5.6) M/mm3 Hgb (12.5-18.0) gm/dl Hct (42-50) % MCV (78-100) fl MCH (26-32) pg MCHC (32-36) g/dl RDW (11.5-14.0) % Plt Count (150-450) K/mm3 MPV (7.5-11.0) fl Smear Path Review Puncture Site pCO2 (35-45) mmHg pO2 (75-100) mmHg Base Excess (-2.0-2.0) O2 Saturation (94-100) g/dF ABG pH (7.35-7.45) ABG HCO3 (22-28) ABG O2 Sat (Measured) (95-100) % Daryl Test A-a Gradient a/A Ratio Hemoglobin Carboxyhemoglobin (0.0-6.9) % THgb Methemoglobin (1.4-1.5) % Temperature C POC O2 Flow Rate % Sodium (137-145) mmol/L Potassium (3.5-5.1) mmol/L Chloride (98-107) mmol/L Carbon Dioxide (22-30) mmol/L Anion Gap (5-15) MEQ/L BUN (9-20) mg/dL Creatinine (0.66-1.25) mg/dL Estimated GFR ML/MIN Glucose 86 (74-106) mg/dL POC Glucometer 44 L* 70 L (74 to 106) mg/dL Lactic Acid (0.4-2.0) Calcium (8.4-10.2) mg/dL Total Bilirubin (0.2-1.3) mg/dL AST (17-59) U/L ALT (0-50) U/L Alkaline Phosphatase (38-126) U/L Serum Total Protein (6.3-8.2) g/dL Albumin (3.5-5.0) g/dL Procalcitonin (0.030-0.080) ng/mL Influenza Type A Ag (NEGATIVE) Influenza Type B Ag (NEGATIVE) RSV (PCR) (Negative) SARS-CoV-2 (PCR) (NEGATIVE) 05/04/21 05/05/21 05/05/21 Range/Units 20:21 00:04 03:46 WBC (4.0-10.5) K/mm3 RBC (4.1-5.6) M/mm3 Hgb (12.5-18.0) gm/dl Hct (42-50) % MCV (78-100) fl MCH (26-32) pg MCHC (32-36) g/dl RDW (11.5-14.0) % Plt Count (150-450) K/mm3 MPV (7.5-11.0) fl Smear Path Review Puncture Site pCO2 (35-45) mmHg pO2 (75-100) mmHg Base Excess (-2.0-2.0) O2 Saturation (94-100) g/dF ABG pH (7.35-7.45) ABG HCO3 (22-28) ABG O2 Sat (Measured) (95-100) % Daryl Test A-a Gradient a/A Ratio Hemoglobin Carboxyhemoglobin (0.0-6.9) % THgb Methemoglobin (1.4-1.5) % Temperature C POC O2 Flow Rate % Sodium (137-145) mmol/L Potassium (3.5-5.1) mmol/L Chloride (98-107) mmol/L Carbon Dioxide (22-30) mmol/L Anion Gap (5-15) MEQ/L BUN (9-20) mg/dL Creatinine (0.66-1.25) mg/dL Estimated GFR ML/MIN Glucose (74-106) mg/dL POC Glucometer 129 H 152 H 261 H (74 to 106) mg/dL Lactic Acid (0.4-2.0) Calcium (8.4-10.2) mg/dL Total Bilirubin (0.2-1.3) mg/dL AST (17-59) U/L ALT (0-50) U/L Alkaline Phosphatase (38-126) U/L Serum Total Protein (6.3-8.2) g/dL Albumin (3.5-5.0) g/dL Procalcitonin (0.030-0.080) ng/mL Influenza Type A Ag (NEGATIVE) Influenza Type B Ag (NEGATIVE) RSV (PCR) (Negative) SARS-CoV-2 (PCR) (NEGATIVE) 05/05/21 05/05/21 05/05/21 Range/Units 04:30 04:30 04:30 WBC 24.3 H (4.0-10.5) K/mm3 RBC 4.22 (4.1-5.6) M/mm3 Hgb 10.0 L (12.5-18.0) gm/dl Hct 31.1 L (42-50) % MCV 73.7 L (78-100) fl MCH 23.7 L (26-32) pg MCHC 32.2 (32-36) g/dl RDW 19.1 H (11.5-14.0) % Plt Count 310 (150-450) K/mm3 MPV 8.8 (7.5-11.0) fl Smear Path Review Puncture Site pCO2 (35-45) mmHg pO2 (75-100) mmHg Base Excess (-2.0-2.0) O2 Saturation (94-100) g/dF ABG pH (7.35-7.45) ABG HCO3 (22-28) ABG O2 Sat (Measured) (95-100) % Daryl Test A-a Gradient a/A Ratio Hemoglobin Carboxyhemoglobin (0.0-6.9) % THgb Methemoglobin (1.4-1.5) % Temperature C POC O2 Flow Rate % Sodium 130 L (137-145) mmol/L Potassium 4.5 (3.5-5.1) mmol/L Chloride 103 D (98-107) mmol/L Carbon Dioxide 21 L (22-30) mmol/L Anion Gap 9.4 (5-15) MEQ/L BUN 20 (9-20) mg/dL Creatinine 0.95 (0.66-1.25) mg/dL Estimated GFR > 60.0 ML/MIN Glucose 266 H (74-106) mg/dL POC Glucometer (74 to 106) mg/dL Lactic Acid (0.4-2.0) Calcium 7.5 L (8.4-10.2) mg/dL Total Bilirubin (0.2-1.3) mg/dL AST (17-59) U/L ALT (0-50) U/L Alkaline Phosphatase (38-126) U/L Serum Total Protein (6.3-8.2) g/dL Albumin (3.5-5.0) g/dL Procalcitonin 1.920 H (0.030-0.080) ng/mL Influenza Type A Ag (NEGATIVE) Influenza Type B Ag (NEGATIVE) RSV (PCR) (Negative) SARS-CoV-2 (PCR) (NEGATIVE) 05/05/21 Range/Units 06:05 WBC (4.0-10.5) K/mm3 RBC (4.1-5.6) M/mm3 Hgb (12.5-18.0) gm/dl Hct (42-50) % MCV (78-100) fl MCH (26-32) pg MCHC (32-36) g/dl RDW (11.5-14.0) % Plt Count (150-450) K/mm3 MPV (7.5-11.0) fl Smear Path Review Puncture Site pCO2 (35-45) mmHg pO2 (75-100) mmHg Base Excess (-2.0-2.0) O2 Saturation (94-100) g/dF ABG pH (7.35-7.45) ABG HCO3 (22-28) ABG O2 Sat (Measured) (95-100) % Daryl Test A-a Gradient a/A Ratio Hemoglobin Carboxyhemoglobin (0.0-6.9) % THgb Methemoglobin (1.4-1.5) % Temperature C POC O2 Flow Rate % Sodium (137-145) mmol/L Potassium (3.5-5.1) mmol/L Chloride (98-107) mmol/L Carbon Dioxide (22-30) mmol/L Anion Gap (5-15) MEQ/L BUN (9-20) mg/dL Creatinine (0.66-1.25) mg/dL Estimated GFR ML/MIN Glucose (74-106) mg/dL POC Glucometer 331 H (74 to 106) mg/dL Lactic Acid (0.4-2.0) Calcium (8.4-10.2) mg/dL Total Bilirubin (0.2-1.3) mg/dL AST (17-59) U/L ALT (0-50) U/L Alkaline Phosphatase (38-126) U/L Serum Total Protein (6.3-8.2) g/dL Albumin (3.5-5.0) g/dL Procalcitonin (0.030-0.080) ng/mL Influenza Type A Ag (NEGATIVE) Influenza Type B Ag (NEGATIVE) RSV (PCR) (Negative) SARS-CoV-2 (PCR) (NEGATIVE) Radiology Exams: Radiology Procedures Category Date Time Status ABDOMEN AND PELVIS W/0 CONTRAS [CT] Urgent Exams 05/04/21 15:00 Completed CHEST WITHOUT CONTRAST [CT] Urgent Exams 05/04/21 15:[address]/CHEST WITHOUT CONTRAST Indication: Pneumonia. Influenza A. Multiple contiguous axial images obtained through the chest without contrast. Comparison: March 10, 2020. Study degraded by respiration artifact. Lungs again demonstrates diffuse pulmonary emphysema with diffuse bilateral subpleural cystic changes. Moderate bilateral dependent atelectasis. Left lower lobe demonstrates new large focus of consolidating airspace disease posteriorly. 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 Aorta again minimally arteriosclerotic without aneurysm. No pathologic mediastinal lymphadenopathy. Stable small hiatal hernia. Bony thorax intact again with sternotomy wires. CT abdomen/pelvis reported separately. Impression: 1. Respiration artifact. 2. New left lower lobe consolidating airspace disease. Rule out aspiration pneumonia. Assessment/Plan (1) Aspiration pneumonia Current Visit: Yes Status: Acute Qualifiers: Aspiration pneumonia type: unspecified Laterality: right Lung location: lower lobe of lung Qualified Code(s): J69.0 - Pneumonitis due to inhalation of food and vomit Assessment & Plan: Chief Complaint Diagnosis PNE, FLU A,septic shock Allergies Allergy/AdvReac Type Severity Reaction Status Date / Time morphine AdvReac Intermediate Verified 05/04/21 15:19 Vital Signs (Last 24 hours) Temp Pulse Resp BP Pulse Ox 05/05/21 07:52 98.2 F 94 H 28 H 94/48 96 05/05/21 07:44 92 H 18 97 05/05/21 06:36 98.1 F 96 H 16 112/56 98 05/05/21 05:56 97.9 F 95 H 22 121/52 98 05/05/21 04:48 97.7 F 85 22 97/51 98 05/05/21 03:54 85 05/05/21 03:51 97.9 F 85 26 H 123/56 98 05/05/21 02:45 97.5 F 74 22 98/54 94 L 05/05/21 01:39 97.5 F 77 25 H 88/47 96 05/05/21 00:58 97.7 F 85 16 88/50 96 05/05/21 00:15 83 05/05/21 00:00 97.9 F 83 16 92/49 97 05/04/21 23:00 98.4 F 94 H 16 92/49 97 05/04/21 22:00 99.3 F 104 H 22 94/44 96 05/04/21 21:00 100.4 F 112 H 26 H 82/51 100 05/04/21 20:00 101.8 F 127 H 30 H 95/56 99 05/04/21 18:50 132 H 22 91 L 05/04/21 16:00 100.0 F 142 H 20 86/47 91 L 05/04/21 15:22 98.2 F 142 H 20 161/98 97 05/04/21 13:34 143 H 98 Home Medications Medication Instructions Recorded Confirmed Last Taken Type Cyclobenzaprine HCl 10 mg 10 mg PO BID 05/04/21 05/04/21 05/04/21 History [Cyclobenzaprine 10 MG] Fluticasone/Vilanterol [Breo 1 each IH DAILY 05/04/21 05/04/21 05/04/21 History Ellipta 100-25 Mcg INH] Furosemide 20 mg [Lasix 20 20 mg PO DAILY 05/04/21 05/04/21 05/04/21 History mg] Gabapentin 300 mg [Neurontin 300 mg PO BID 05/04/21 05/04/21 05/04/21 History 300 mg] Ibuprofen 200 mg PO Q6HPRN PRN 05/04/21 05/04/21 Unknown History Insulin NPH Human Isophane 30 unit SQ BID 05/04/21 05/04/21 05/04/21 History [Novolin N] Nabumetone 500 mg PO BID 05/04/21 05/04/21 05/04/21 History Omeprazole Magnesium [Prilosec Otc] 20 mg PO DAILY 05/04/21 05/04/21 05/04/21 History Prochlorperazine Maleate 10 mg 10 mg PO TID 05/04/21 05/04/21 05/04/21 History [Compazine 10 mg] Promethazine HCl 25 mg 12.5 mg PO Q6HPRN PRN 05/04/21 05/04/21 Unknown History [Phenergan 25 mg] Ropinirole HCl 0.5 mg [Requip 0.5 mg PO TID 05/04/21 05/04/21 05/04/21 Hi story 0.5 MG] Tamsulosin HCl 0.4 mg [Flomax 0.4 mg PO DAILY 05/04/21 05/04/21 05/03/21 History 0.4 MG] Current Medications Generic Name Dose Route Start Last Admin Trade Name Freq PRN Reason Stop Dose Admin Acetaminophen 650 mg 05/04/21 20:10 05/04/21 20:15 Acetaminophen 325 Mg Tablet PO 06/03/21 20:09 650 mg Q4H PRN PRN Administration PAIN AND/OR FEVER Albuterol Sulfate 2.5 mg 05/04/21 13:34 Albuterol Sulfate 2.5 Mg/3 Ml Neb IH 06/03/21 13:33 Q4H PRN PRN SHORTNESS OF BREATH/WHEEZING Allopurinol 100 mg 05/04/21 22:00 05/04/21 21:09 Allopurinol 100 Mg Tablet PO 06/03/21 21:59 100 mg HS XIMENA Administration Chlorphenir/Hydrocodone Polistirex 5 ml 05/04/21 15:01 Hydrocodone/Chlorphen P-Stirex 1 Ml Janis.Er.12h PO 06/03/21 15:00 [id number] PRN COUGH Clopidogrel Bisulfate 75 mg 05/05/21 10:00 Clopidogrel Bisulfate 75 Mg Tablet PO 06/04/21 09:59 DAILY XIMENA Cyclobenzaprine HCl 10 mg 05/04/21 22:00 05/04/21 22:22 Cyclobenzaprine Hcl 10 Mg Tablet PO 06/03/21 21:59 Not Given BID XIMENA Dextrose 25 ml 05/04/21 19:46 Dextrose 50%-Water 50 Ml Abboject IV 06/03/21 19:45 PRN PRN HYPOGLYCEMIA Duloxetine HCl 60 mg 05/04/21 22:00 05/04/21 21:08 Duloxetine Hcl 30 Mg Cap PO 06/03/21 21:59 60 mg HS XIMENA Administration Famotidine 20 mg 05/04/21 22:00 05/04/21 21:09 Famotidine 20 Mg Tablet PO 06/03/21 21:59 20 mg BID XIMENA Administration Furosemide 20 mg 05/05/21 10:00 Furosemide 20 Mg Tablet PO 06/04/21 09:59 DAILY XIMENA Gabapentin 300 mg 05/04/21 22:00 05/04/21 21:08 Gabapentin 300 Mg Capsule PO 06/03/21 21:59 300 mg BID XIMENA Administration Glucagon 1 mg 05/04/21 19:46 Glucagon 1 Mg/Vial Vial IM 06/03/21 19:45 PRN PRN HYPOGLYCEMIA Glucose 15 gm 05/04/21 19:46 Dextrose 15 Gm Gel PO 06/03/21 19:45 PRN PRN HYPOGLYCEMIA Hydromorphone HCl 0.5 mg 05/04/21 14:59 05/04/21 15:15 Hydromorphone 1 Mg/1ml Inj 1 Mg/Ml Syringe IV 05/09/21 14:58 0.5 mg Q4H PRN PRN Administration PAIN Ceftriaxone Sodium/Dextrose 1 g in 50 mls @ 100 mls/hr 05/04/21 14:00 05/04/21 15:16 Rocephin 1 Gm-D5w 50 Ml Bag IV 05/07/21 13:59 100 mls/hr DAILY XIMENA Administration Azithromycin 500 mg in 250 mls @ 166.667 mls/hr 05/04/21 14:00 05/04/21 16:31 Zithromax 500 Mg/ 250 Ml Nacl Premix IV 06/03/21 13:59 166.667 mls/hr DAILY XIMENA Administration Sodium Chloride 1,000 mls @ 100 mls/hr 05/04/21 15:15 05/04/21 21:09 Sodium Chloride 0.9% 1000 Ml IV 06/03/21 15:14 100 mls/hr .Q10H XIMENA Administration Ibuprofen 200 mg 05/04/21 14:08 Ibuprofen 200 Mg Tablet PO 06/03/21 14:07 Q6HPRN PRN MILD PAIN Insulin Human Lispro 0 unit 05/04/21 13:45 05/05/21 06:47 Insulin Lispro 1 Unit SQ 06/03/21 13:44 9 unit UD PRN Administration HYPERGLYCEMIA Insulin Human NPH 30 unit 05/04/21 17:00 05/04/21 18:13 Insulin Nph Human Recom 1 Unit SQ 06/03/21 16:59 Not Given BIDWM XIMENA Lisinopril 5 mg 05/05/21 10:00 Lisinopril 5 Mg Tablet PO 06/04/21 09:59 DAILY XIMENA Metoprolol Tartrate 50 mg 05/05/21 10:00 Metoprolol Tartrate 50 Mg Tablet PO 06/04/21 09:59 DAILY XIMENA Miscellaneous Information 1 each 05/04/21 14:15 Medication Intervention 1 Each Each 06/03/21 14:14 .RN TO CHECK XIMENA Oseltamivir Phosphate 75 mg 05/05/21 10:00 Oseltamivir 75 Mg Cap PO 05/09/21 10:01 BID XIMENA Pantoprazole Sodium 40 mg 05/05/21 10:00 Protonix (Pantoprazole) 40 Mg Tablet PO 06/04/21 09:59 DAILY XIMENA Prochlorperazine 10 mg 05/04/21 15:00 05/04/21 21:08 Prochlorperazine Maleate 5 Mg Tablet PO 06/03/21 14:59 10 mg TID XIMENA Administration Promethazine HCl 12.5 mg 05/04/21 13:51 Promethazine Hcl 25 Mg Tablet PO 06/03/21 13:50 Q6HPRN PRN NAUSEA Ropinirole HCl 0.5 mg 05/04/21 15:00 05/04/21 21:08 Ropinirole Hcl 0.5 Mg Tablet PO 06/03/21 14:59 0.5 mg TID XIMENA Administration Fluticasone/Salmeterol 2 puff 05/05/21 07:00 05/05/21 07:19 Fluticasone/Salmeterol 115/21 - 120 Puff Common Canister IH 06/04/21 06:59 Not Given BIDRT XIMENA Simvastatin 40 mg 05/04/21 22:00 05/04/21 21:09 Simvastatin 20 Mg Tablet PO 06/03/21 21:59 40 mg HS XIMENA Administration Tamsulosin HCl 0.4 mg 05/05/21 10:00 Tamsulosin Hcl 0.4 Mg Cap PO 06/04/21 09:59 DAILY XIMENA Zolpidem Tartrate 10 mg 05/04/21 22:00 05/04/21 22:22 Zolpidem Tartrate 10 Mg Tablet PO 06/03/21 21:59 Not Given HS XIMENA Discontinued Medications Generic Name Dose Route Start Last Admin Trade Name Freq PRN Reason Stop Dose Admin Sodium Chloride 1,000 mls @ 999 mls/hr 05/04/21 15:02 05/04/21 15:13 Sodium Chloride 0.9% 1000 Ml IV 05/04/21 16:02 999 mls/hr .Q1H1M STA Administration Sodium Chloride Confirm 05/04/21 15:11 Sodium Chloride 0.9% 1000 Ml Administered 05/04/21 15:12 Dose 1,000 mls @ ud .ROUTE .STK-MED ONE Sodium Chloride 1,000 mls @ 999 mls/hr 05/04/21 17:50 05/04/21 20:15 Sodium Chloride 0.9% 1000 Ml IV 05/04/21 20:00 999 mls/hr .Q1H1M XIMENA Administration Oseltamivir Phosphate 75 mg 05/04/21 18:00 05/04/21 19:01 Oseltamivir 75 Mg Cap PO 05/04/21 18:01 75 mg STAT ONE Administration Oseltamivir Phosphate 30 mg 05/05/21 10:00 Oseltamivir (Tamiflu) 30 Mg Capsule PO 05/09/21 10:01 BID XIMENA Intake & Output (Last 24 hours) 05/02/21 05/03/21 05/04/21 05/05/21 11:59 11:59 11:59 11:59 Intake Total 5645 Output Total 2120 Balance 3525 Weight 78 kg Microbiology Results (Last 24 hours) 05/04/21 17:00 Urine, Indwelling Catheter Urine Culture - Pending 05/04/21 13:10 Blood Blood Culture Gram Stain - Pending 05/04/21 13:10 Blood Blood Culture - Pending 05/04/21 13:05 Blood Blood Culture Gram Stain - Pending 05/04/21 13:05 Blood Blood Culture - Pending Laboratory Results (Last 24 hours) 05/05/21 05/05/21 05/05/21 06:05 04:30 04:30 WBC RBC Hgb Hct MCV MCH MCHC RDW Plt Count MPV Smear Path Review Puncture Site pCO2 pO2 Base Excess O2 Saturation ABG pH ABG HCO3 ABG O2 Sat (Measured) Daryl Test A-a Gradient a/A Ratio Hemoglobin Carboxyhemoglobin Methemoglobin Temperature POC O2 Flow Rate Sodium 130 L Potassium 4.5 Chloride 103 D Carbon Dioxide 21 L Anion Gap 9.4 BUN 20 Creatinine 0.95 Estimated GFR > 60.0 Glucose 266 H POC Glucometer 331 H Lactic Acid Calcium 7.5 L Total Bilirubin AST ALT Alkaline Phosphatase Serum Total Protein Albumin Procalcitonin 1.920 H Influenza Type A Ag Influenza Type B Ag RSV (PCR) SARS-CoV-2 (PCR) 05/05/21 05/05/21 05/05/21 04:30 03:46 00:04 WBC 24.3 H RBC 4.22 Hgb 10.0 L Hct 31.1 L MCV 73.7 L MCH 23.7 L MCHC 32.2 RDW 19.1 H Plt Count 310 MPV 8.8 Smear Path Review Puncture Site pCO2 pO2 Base Excess O2 Saturation ABG pH ABG HCO3 ABG O2 Sat (Measured) Daryl Test A-a Gradient a/A Ratio Hemoglobin Carboxyhemoglobin Methemoglobin Temperature POC O2 Flow Rate Sodium Potassium Chloride Carbon Dioxide Anion Gap BUN Creatinine Estimated GFR Glucose POC Glucometer 261 H 152 H Lactic Acid Calcium Total Bilirubin AST ALT Alkaline Phosphatase Serum Total Protein Albumin Procalcitonin Influenza Type A Ag Influenza Type B Ag RSV (PCR) SARS-CoV-2 (PCR) 05/04/21 05/04/21 05/04/21 20:21 20:10 19:59 WBC RBC Hgb Hct MCV MCH MCHC RDW Plt Count MPV Smear Path Review Puncture Site pCO2 pO2 Base Excess O2 Saturation ABG pH ABG HCO3 ABG O2 Sat (Measured) Daryl Test A-a Gradient a/A Ratio Hemoglobin Carboxyhemoglobin Methemoglobin Temperature POC O2 Flow Rate Sodium Potassium Chloride Carbon Dioxide Anion Gap BUN Creatinine Estimated GFR Glucose 86 POC Glucometer 129 H 70 L Lactic Acid Calcium Total Bilirubin AST ALT Alkaline Phosphatase Serum Total Protein Albumin Procalcitonin Influenza Type A Ag Influenza Type B Ag RSV (PCR) SARS-CoV-2 (PCR) 05/04/21 05/04/21 05/04/21 19:45 18:03 16:37 WBC RBC Hgb Hct MCV MCH MCHC RDW Plt Count MPV Smear Path Review Puncture Site RIGHT RADIAL pCO2 32 L pO2 65 L Base Excess 2.4 H O2 Saturation 92.2 L ABG pH 7.50 H ABG HCO3 25.0 ABG O2 Sat (Measured) 94.1 L Daryl Test YES A-a Gradient 95 a/A Ratio 0.41 Hemoglobin 11.4 Carboxyhemoglobin 1.5 Methemoglobin 0.4 L Temperature 37.0 POC O2 Flow Rate 28 Sodium Potassium 3.7 Chloride Carbon Dioxide Anion Gap BUN Creatinine Estimated GFR Glucose POC Glucometer 44 L* 184 H Lactic Acid 1.2 Calcium Total Bilirubin AST ALT Alkaline Phosphatase Serum Total Protein Albumin Procalcitonin Influenza Type A Ag Influenza Type B Ag RSV (PCR) SARS-CoV-2 (PCR) 05/04/21 05/04/21 05/04/21 13:05 13:05 12:45 WBC 27.5 H* RBC 5.29 Hgb 12.5 Hct 38.3 L MCV 72.4 L MCH 23.6 L MCHC 32.6 RDW 19.9 H Plt Count 379 MPV 8.8 Smear Path Review Puncture Site pCO2 pO2 Base Excess O2 Saturation ABG pH ABG HCO3 ABG O2 Sat (Measured) Daryl Test A-a Gradient a/A Ratio Hemoglobin Carboxyhemoglobin Methemoglobin Temperature POC O2 Flow Rate Sodium 125 L Potassium 4.5 Chloride 90 L Carbon Dioxide 23 Anion Gap 16.4 H BUN 29 H Creatinine 1.81 H Estimated GFR 39.7 Glucose 535 H* POC Glucometer Lactic Acid Calcium 8.8 Total Bilirubin 1.00 AST 24 ALT 17 Alkaline Phosphatase 138 H Serum Total Protein 7.8 Albumin 4.0 Procalcitonin 2.770 H* Influenza Type A Ag Influenza Type B Ag RSV (PCR) SARS-CoV-2 (PCR) 05/04/21 12:42 WBC RBC Hgb Hct MCV MCH MCHC RDW Plt Count MPV Smear Path Review Puncture Site pCO2 pO2 Base Excess O2 Saturation ABG pH ABG HCO3 ABG O2 Sat (Measured) Daryl Test A-a Gradient a/A Ratio Hemoglobin Carboxyhemoglobin Methemoglobin Temperature POC O2 Flow Rate Sodium Potassium Chloride Carbon Dioxide Anion Gap BUN Creatinine Estimated GFR Glucose POC Glucometer Lactic Acid Calcium Total Bilirubin AST ALT Alkaline Phosphatase Serum Total Protein Albumin Procalcitonin Influenza Type A Ag POSITIVE Influenza Type B Ag NEGATIVE RSV (PCR) NEGATIVE SARS-CoV-2 (PCR) NEGATIVE Orders (Last 24 hours) Category Date Time Status Admit as Inpatient ROUTINE Care 05/04/21 12:24 Active Admit as Inpatient ROUTINE Care 05/04/21 12:24 Completed Catheter Care Record Q6H Care 05/04/21 17:50 Active [facility] [Catheter-[place] [facility]] STAT Care 05/04/21 17:50 Completed POCT Glucose Check ACHS Care 05/04/21 12:38 Active Infection Control Consult ROUTINE Cons 05/04/21 19:42 Active Consistent Carbohydrate Diet 1800 Calorie Diet 05/04/21 Dinner Active ABDOMEN AND PELVIS W/0 CONTRAS [CT] Urgent Exams 05/04/21 15:00 Completed CHEST WITHOUT CONTRAST [CT] Urgent Exams 05/04/21 15:00 Completed ARTERIAL BLOOD GASES Urgent Lab 05/04/21 18:03 Completed BLOOD CULTURE Urgent Lab 05/04/21 13:10 Received BMP AM.LAB Lab 05/05/21 04:30 Completed CBC AM.LAB Lab 05/05/21 04:30 Completed CBC Urgent Lab 05/04/21 13:05 Completed CMP Urgent Lab 05/04/21 13:05 Completed CULTURE,URINE Urgent Lab 05/04/21 17:00 Received Glucose Stat Lab 05/04/21 20:10 Completed Lactic Acid Urgent Lab 05/04/21 18:03 Completed POCT GLUCOSE Stat Lab 05/04/21 16:37 Completed POCT GLUCOSE Stat Lab 05/04/21 19:45 Completed POCT GLUCOSE Stat Lab 05/04/21 19:59 Completed POCT GLUCOSE Stat Lab 05/04/21 20:21 Completed POCT GLUCOSE Stat Lab 05/05/21 00:04 Completed POCT GLUCOSE Stat Lab 05/05/21 03:46 Completed POCT GLUCOSE Stat Lab 05/05/21 06:05 Completed PROCALCITONIN DAILY Lab 05/05/21 04:30 Completed PROCALCITONIN DAILY Lab 05/06/21 04:00 Ordered PROCALCITONIN DAILY Lab 05/07/21 04:00 Ordered PROCALCITONIN Urgent Lab 05/04/21 12:45 Completed Pathologist Review Urgent Lab 05/04/21 13:05 Completed Acetaminophen 325 mg [Tylenol 325 mg] Med 05/04/21 20:10 Active 650 mg PO Q4H PRN PRN Albuterol 2.5 mg/3 ml Neb [Proventil 2.5 mg/3 ml Neb Med 05/04/21 13:34 Active ] 2.5 mg IH Q4H PRN PRN Allopurinol 100 mg [Zyloprim 100 mg] Med 05/04/21 22:00 Active 100 mg PO HS Azithromycin 500 mg/250 ml [Zithromax 500 MG/ 250 ML Med 05/04/21 14:00 Active NaCl Premix] 500 mg in 250 ml IV DAILY Ceftriaxone 1 GM/50 ML PREMIX* [ROCEPHIN 1 Gm-D5w 50 ml Med 05/04/21 14:00 Active Bag] 1 g in 50 ml IV DAILY Clopidogrel Bisulfate 75 mg [PLAVIX 75 MG Tablet] Med 05/05/21 10:00 Active 75 mg PO DAILY Cyclobenzaprine HCl 10 mg [Cyclobenzaprine 10 MG] Med 05/04/21 22:00 Active 10 mg PO BID Dextrose 15 gm Oral Gel [Glutose 15 GM ORAL GEL] Med 05/04/21 19:46 Active 15 gm PO PRN PRN Dextrose 50%-Water Syringe [D50W 50 ml Abboject] Med 05/04/21 19:46 Active 25 ml IV PRN PRN Duloxetine HCl 30 mg [Cymbalta 30 MG Capsule] Med 05/04/21 22:00 Active 60 mg PO HS Famotidine 20 mg [Pepcid 20 MG] Med 05/04/21 22:00 Active 20 mg PO BID Fluticasone/Salmeterol 115 [Advair Hfa 115/ Common Med 05/05/21 07:00 Active canister*] 2 puff IH BIDRT Furosemide 20 mg [Lasix 20 mg] Med 05/05/21 10:00 Active 20 mg PO DAILY Gabapentin 300 mg [Neurontin 300 mg] Med 05/04/21 22:00 Active 300 mg PO BID Glucagon 1 mg [GlucaGen 1 MG] Med 05/04/21 19:46 Active 1 mg IM PRN PRN Hydrocodone/Chlorphen P-Stirex [Hydrocodone-Chlorphen Med 05/04/21 15:01 Active ER Susp] 5 ml PO [id number] PRN Hydromorphone 1 mg/1Ml Inj [Hydromorphone 1 mg/ml Med 05/04/21 14:59 Active Injection] 0.5 mg IV Q4H PRN PRN Ibuprofen 200 mg [Motrin 200 mg] Med 05/04/21 14:08 Active 200 mg PO Q6HPRN PRN Insulin Lispro [Humalog] Med 05/04/21 13:45 Active See Dose Instructions SQ UD PRN Insulin NPH Human Recom [Novolin N] Med 05/04/21 17:00 Active 30 unit SQ BIDWM Lisinopril 5 mg [Zestril 5 MG] Med 05/05/21 10:00 Active 5 mg PO DAILY Medication Intervention Med 05/04/21 14:15 Active 1 each MC .RN TO CHECK Metoprolol Tartrate 50 mg [Lopressor 50 MG] Med 05/05/21 10:00 Active 50 mg PO DAILY NaCl 0.9% 1000 ml [Sodium Chloride 0.9% 1000 ML] 1,000 Med 05/04/21 15:11 Discontinued ml .ROUTE UD NaCl 0.9% 1000 ml [Sodium Chloride 0.9% 1000 ML] 1,000 Med 05/04/21 15:15 Active ml IV 100 mls/hr NaCl 0.9% 1000 ml [Sodium Chloride 0.9% 1000 ML] 1,000 Med 05/04/21 15:02 Discontinued ml IV 999 mls/hr NaCl 0.9% 1000 ml [Sodium Chloride 0.9% 1000 ML] 1,000 Med 05/04/21 17:50 Discontinued ml IV 999 mls/hr Oseltamivir 75 mg [Tamiflu 75MG Capsule] Med 05/05/21 10:00 Active 75 mg PO BID Oseltamivir 75 mg [Tamiflu 75MG Capsule] Med 05/04/21 18:00 Discontinued 75 mg PO STAT ONE Oseltamivir Phosphate [Oseltamivir Phosphate 30 mg Cap] Med 05/05/21 10:00 Discontinued 30 mg PO BID PANTOPRAZOLE 40 mg Tablet [Protonix 40MG Tablet] Med 05/05/21 10:00 Active 40 mg PO DAILY Prochlorperazine Maleate 5 mg* [Compazine 5 MG] Med 05/04/21 15:00 Active 10 mg PO TID Promethazine HCl 25 mg [Phenergan 25 mg] Med 05/04/21 13:51 Active 12.5 mg PO Q6HPRN PRN Ropinirole HCl 0.5 mg [Requip 0.5 MG] Med 05/04/21 15:00 Active 0.5 mg PO TID Simvastatin 20Mg [Zocor 20Mg] Med 05/04/21 22:00 Active 40 mg PO HS Tamsulosin HCl 0.4 mg [Flomax 0.4 MG] Med 05/05/21 10:00 Active 0.4 mg PO DAILY Zolpidem Tartrate 10 mg [Ambien 10 MG] Med 05/04/21 22:00 Active 10 mg PO HS Oxygen NASAL CANNULA 2 lpm RT 05/04/21 13:34 Active Pulse Oximetry .continuos RT 05/04/21 13:34 Active Respiratory Therapy Assessment DAILY RT 05/04/21 13:34 Active Patient Care Notes (Last 24 hours) 05/05/21 04:15 Nursing Note by Theresa Fuchs Pt BS 261, rechecked d/t the 44 at 1900 and then the incline afterwards. Pt hasn't had anything po since the juice to bring up the 44 BS so the 261 wasn't covered at this time. Will recheck closer to 0700 to see if pt requires coverage at that time. Initialized on 05/05/21 04:15 - END OF NOTE 05/05/21 00:54 Nursing Note by Krista Celis Midnight accucheck completed to monitor patient for hypoglycemia d/t patient's earlier episode of hypoglycemia. Patient continues to be drowsy but easy to awaken. Midnight blood glucose 152. Initialized on 05/05/21 00:54 - END OF NOTE 05/04/21 21:03 Nursing Note by Krista Celis Patient's blood glucose at 1945 was 44. One orange juice and one apple juice given. Blood glucose at 1999 was 70. Blood glucose at 2014 was 128. Will continue to monitor patient for S/S of hypoglycemia. Initialized on 05/04/21 21:03 - END OF NOTE 05/04/21 18:15 Nursing Note by Karla Reyes PATIENT MOVED TO ICU, CALLED PATIENT FAMILY TWICE TO UPDATE PATIENT'S FAMILY UNABLE TO REACH. Initialized on 05/04/21 18:15 - END OF NOTE 05/04/21 17:50 (created 05/04/21 18:46) Nursing Note by Giovanna Wilkinson Patient was moved from INP room 102 but placed in ICU status at 17:50 and was moved to room 128 with tele. Initialized on 05/04/21 18:46 - END OF NOTE 05/04/21 17:21 [employer] Note by Cherie Benson reported V/S to attending nurse Initialized on 05/04/21 17:21 - END OF NOTE 05/04/21 13:21 Nursing Note by Karla Reyes SPOKE WITH DR. BLANTON FACE TO FACE REGARDING PATIENT HOME MEDICATION LIST. PATIENT WAS NOT CURRENTLY IN THE HOSPITAL AT THIS TIME. WAITING FOR PATIENT TO BE DIRECT ADMITTED. GOT HOME MEDICATION LIST FROM THE OFFICE. DR. BLANTON STATED TO RESUME ALL MEDICATIONS Initialized on 05/04/21 13:21 - END OF NOTE 05/04/21 13:03 Nursing Note by Karla Reyes PATIENT UNAWARE OF WHAT MEDICATIONS HE IS TAKING. RECEIVED FAX FROM DR. BLANTON OFFICE OF PATIENT'S HOME MEDICATIONS TO CONFIRM. Initialized on 05/04/21 13:03 - END OF NOTE Code(s): J69.0 - PNEUMONITIS DUE TO INHALATION OF FOOD AND VOMIT (2) Pneumonia and influenza Current Visit: Yes Status: Acute
[2021-05-05] MEDS: Sodium Chloride 0.9% 1000 ML 1,000 ML IV SCH ×2 (08:31→21:08)
[2021-05-05] MEDS: Novolin N SQ SCH ×2 (08:59→17:19)
[2021-05-05] MEDS: Compazine 5 MG PO SCH ×3 (09:57→21:06)
[2021-05-05] MEDS: Cyclobenzaprine 10 MG PO SCH ×2 (09:57→21:25)
[2021-05-05] MEDS: Pepcid 20 MG PO SCH ×2 (09:57→21:07)
[2021-05-05] MEDS: PLAVIX 75 MG Tablet PO SCH (09:57)
[2021-05-05] MEDS: Zestril 5 MG PO SCH (09:57)
[2021-05-05] MEDS: Requip 0.5 MG PO SCH ×3 (09:57→21:07)
[2021-05-05] MEDS: Protonix 40MG Tablet PO SCH (09:57)
[2021-05-05] MEDS: NEURONTIN 300 MG PO SCH ×2 (09:57→21:06)
[2021-05-05] MEDS: Lopressor 50 MG PO SCH (09:57)
[2021-05-05] MEDS: ROCEPHIN 1 Gm-D5w 50 ml Bag** 1 G/50 ML IVPB IV SCH (09:58)
[2021-05-05] MEDS: LASIX 20 MG PO SCH (09:58)
[2021-05-05] MEDS: Flomax 0.4 MG PO SCH (09:58)
[2021-05-05] MEDS: Tamiflu 75MG Capsule PO SCH ×2 (09:58→21:06)
[2021-05-05] MEDS ORDERED: NON-FORMULARY ITEM (Omeprazole Magnesium [Prilosec Otc] 20 MG Tablet.Dr) PO SCH (10:00)
[2021-05-05] MEDS ORDERED: OSELTAMIVIR PHOSPHATE 30 MG CAP PO SCH (10:00)
[2021-05-05] MEDS: Zithromax 500 MG/ 250 ML NaCl Premix 500 MG/250 ML IVPB IV SCH (11:00)
[2021-05-05] MEDS: TYLENOL 325 MG PO PRN ×2 (15:37→21:13)
[2021-05-05] MEDS: PATIENT OWN MEDICATION IH SCH (19:06)
[2021-05-05] MEDS: Cymbalta 30 MG Capsule PO SCH (21:07)
[2021-05-05] MEDS: ZOCOR 20MG PO SCH (21:07)
[2021-05-05] MEDS: ZYLOPRIM 100 MG PO SCH (21:08)
[2021-05-05] MEDS: Ambien 10 MG PO SCH (21:08)
[2021-05-06 05:16] LABS: Hematocrit 30.9 % (42-50); Hemoglobin 9.8 gm/dl (12.5-18.0); Mean Cell Volume 74.5 fl (78-100); Mean Corpuscular Hemoglobin 23.6 pg (26-32); Mean Corpuscular Hgb Concent. 31.7 g/dl (32-36); Mean Platelet Volume 8.8 fl (7.5-11.0); Platelet Count 316 K/mm3 (150-450); Red Blood Count 4.15 M/mm3 (4.1-5.6); Red Cell Distribution Width 19.2 % (11.5-14.0); White Blood Count 16.6 K/mm3 (4.0-10.5)
[2021-05-06 05:38] LABS: ALBUMIN 2.7 g/dL (3.5-5.0); ALKALINE PHOSPHATASE 102 U/L (38-126); ANION GAP 8.1 MEQ/L (5-15); BLOOD UREA NITROGEN 13 mg/dL (9-20); CHLORIDE 103 mmol/L (98-107); Calcium 7.9 mg/dL (8.4-10.2); Carbon Dioxide 26 mmol/L (22-30); Creatinine 1 0.79 mg/dL (0.66-1.25); EST GLOMERULAR FILTRATION RATE > 60.0 ML/MIN; Glucose 205 mg/dL (74-106); Potassium 4.4 mmol/L (3.5-5.1); SGOT/AST 21 U/L (17-59); SGPT/ALT 10 U/L (0-50); SODIUM 132 mmol/L (137-145); Total Protein 5.7 g/dL (6.3-8.2)
[2021-05-06] MEDS: Sodium Chloride 0.9% 1000 ML 1,000 ML IV SCH ×2 (06:55→21:43)
--- NOTE | 2021-05-06 08:33 | XRAY ---
Indication: Pneumonia. Influenza A. Comparison: January 28, 2020. PA/lateral chest again demonstrates COPD with new left lower lobe interstitial alveolar opacities detailed on recent CT chest. Remaining lungs clear. 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 Bony thorax intact again with osteopenia, lower cervical fusion hardware, and left axilla surgical clips.
[2021-05-06] MEDS: Novolin N SQ SCH ×2 (08:42→17:39)
[2021-05-06] MEDS: HUMALOG SQ PRN ×4 (08:42→22:32)
[2021-05-06] MEDS: PATIENT OWN MEDICATION IH SCH (09:01)
--- NOTE | 2021-05-06 09:51 | PCM.NOTE ---
Date and Time: 05/06/21 0951 Subjective Assessment: doing ok - Review of Systems Constitutional: No Fever, No Chills Eyes: No Symptoms Ears, Nose, & Throat: No Symptoms Respiratory: Cough, Orthopnea, Short Of Breath Cardiac: No Chest Pain, No Edema, No Syncope Abdominal/Gastrointestinal: No Abdominal Pain, No Nausea, No Vomiting, No Diarrhea Genitourinary Symptoms: No Dysuria Musculoskeletal: No Back Pain, No Neck Pain Skin: No Rash Neurological: No Dizziness, No Focal Weakness, No Sensory Changes Psychological: No Symptoms Endocrine: No Symptoms Hematologic/Lymphatic: No Symptoms Immunological/Allergic: No Symptoms Objective Exam General Appearance: no apparent distress, alert Neurologic Exam: alert, oriented x 3, cooperative, normal mood/affect, nml cerebellar function, sensation nml, No motor deficits Skin Exam: normal color, warm, dry Eye Exam: PERRL, EOMI, eyes nml inspection Ears, Nose, Throat Exam: normal ENT inspection, pharynx normal, moist mucous membranes Neck Exam: normal inspection, non-tender, supple, full range of motion Respiratory Exam: diminished breath sounds, crackles/rales, rhonchi, wheezing, No respiratory distress Cardiovascular Exam: regular rate/rhythm, normal heart sounds Gastrointestinal/Abdomen Exam: soft, No tenderness, No mass Extremity Exam: normal inspection, normal range of motion Back Exam: normal inspection, normal range of motion, No CVA tenderness, No vertebral tenderness Male Genitalia Exam: deferred Rectal Exam: deferred OBJECTIVE DATA Vital Signs: Vital Signs - 24 hr Temp Pulse Resp BP Pulse Ox 05/06/21 07:39 98.4 F 88 24 89/44 95 05/06/21 04:09 98.2 F 105 H 20 102/45 93 L 05/05/21 23:56 99.9 F 92 H 22 84/50 94 L 05/05/21 19:54 100.0 F 81 14 91/50 95 05/05/21 18:54 92 H 20 94 L 05/05/21 15:52 100.0 F 88 21 95/65 97 05/05/21 12:00 98.8 F 78 16 97/56 96 05/05/21 10:00 98.6 F 108 H 21 91/58 96 Pain Assessment - Last Documented Pain Intensity 0 Pain Scale Used [facility] Intake and Output: Intake & Output 03/1405/04/21 05/05/21 05/06/21 11:59 11:59 11:59 11:59 Intake Total 5640 3162 Output Total 7949 2189 Balance 3525 -936 Weight 78 kg Lab Results: Lab Results-Last 24 Hours 05/05/21 05/05/21 05/05/21 Range/Units 11:57 16:09 20:51 WBC (4.0-10.5) K/mm3 RBC (4.1-5.6) M/mm3 Hgb (12.5-18.0) gm/dl Hct (42-50) % MCV (78-100) fl MCH (26-32) pg MCHC (32-36) g/dl RDW (11.5-14.0) % Plt Count (150-450) K/mm3 MPV (7.5-11.0) fl Sodium (137-145) mmol/L Potassium (3.5-5.1) mmol/L Chloride (98-107) mmol/L Carbon Dioxide (22-30) mmol/L Anion Gap (5-15) MEQ/L BUN (9-20) mg/dL Creatinine (0.66-1.25) mg/dL Estimated GFR ML/MIN Glucose (74-106) mg/dL POC Glucometer 335 H 353 H 315 H (74 to 106) mg/dL Calcium (8.4-10.2) mg/dL Total Bilirubin (0.2-1.3) mg/dL AST (17-59) U/L ALT (0-50) U/L Alkaline Phosphatase (38-126) U/L Serum Total Protein (6.3-8.2) g/dL Albumin (3.5-5.0) g/dL Procalcitonin (0.030-0.080) ng/mL 05/06/21 05/06/21 05/06/21 Range/Units 04:00 04:50 04:50 WBC 16.6 H (4.0-10.5) K/mm3 RBC 4.15 (4.1-5.6) M/mm3 Hgb 9.8 L (12.5-18.0) gm/dl Hct 30.9 L (42-50) % MCV 74.5 L (78-100) fl MCH 23.6 L (26-32) pg MCHC 31.7 L (32-36) g/dl RDW 19.2 H (11.5-14.0) % Plt Count 316 (150-450) K/mm3 MPV 8.8 (7.5-11.0) fl Sodium 132 L (137-145) mmol/L Potassium 4.4 (3.5-5.1) mmol/L Chloride 103 (98-107) mmol/L Carbon Dioxide 26 (22-30) mmol/L Anion Gap 8.1 (5-15) MEQ/L BUN 13 (9-20) mg/dL Creatinine 0.79 (0.66-1.25) mg/dL Estimated GFR > 60.0 ML/MIN Glucose 205 H (74-106) mg/dL POC Glucometer (74 to 106) mg/dL Calcium 7.9 L (8.4-10.2) mg/dL Total Bilirubin 0.50 (0.2-1.3) mg/dL AST 21 (17-59) U/L ALT 10 (0-50) U/L Alkaline Phosphatase 102 (38-126) U/L Serum Total Protein 5.7 L (6.3-8.2) g/dL Albumin 2.7 L (3.5-5.0) g/dL Procalcitonin 1.240 H (0.030-0.080) ng/mL 05/06/21 Range/Units 07:16 WBC (4.0-10.5) K/mm3 RBC (4.1-5.6) M/mm3 Hgb (12.5-18.0) gm/dl Hct (42-50) % MCV (78-100) fl MCH (26-32) pg MCHC (32-36) g/dl RDW (11.5-14.0) % Plt Count (150-450) K/mm3 MPV (7.5-11.0) fl Sodium (137-145) mmol/L Potassium (3.5-5.1) mmol/L Chloride (98-107) mmol/L Carbon Dioxide (22-30) mmol/L Anion Gap (5-15) MEQ/L BUN (9-20) mg/dL Creatinine (0.66-1.25) mg/dL Estimated GFR ML/MIN Glucose (74-106) mg/dL POC Glucometer 271 H (74 to 106) mg/dL Calcium (8.4-10.2) mg/dL Total Bilirubin (0.2-1.3) mg/dL AST (17-59) U/L ALT (0-50) U/L Alkaline Phosphatase (38-126) U/L Serum Total Protein (6.3-8.2) g/dL Albumin (3.5-5.0) g/dL Procalcitonin (0.030-0.080) ng/mL Radiology Exams: Radiology Procedures Category Date Time Status ABDOMEN AND PELVIS W/0 CONTRAS [CT] Urgent Exams 05/04/21 15:00 Completed CHEST 2 VIEWS (PA AND LAT) Urgent Exams 05/06/21 06:00 Completed CHEST WITHOUT CONTRAST [CT] Urgent Exams 05/04/21 15:00 Completed Assessment/Plan (1) Aspiration pneumonia Current Visit: Yes Status: Acute Qualifiers: Aspiration pneumonia type: unspecified Laterality: right Lung location: lower lobe of lung Qualified Code(s): J69.0 - Pneumonitis due to inhalation of food and vomit Assessment & Plan: Chief Complaint Diagnosis PNE, FLU A,septic shock Allergies Allergy/AdvReac Type Severity Reaction Status Date / Time morphine AdvReac Intermediate Verified 05/04/21 15:19 Vital Signs (Last 24 hours) Temp Pulse Resp BP Pulse Ox 05/06/21 07:39 98.4 F 88 24 89/44 95 05/06/21 04:09 98.2 F 105 H 20 102/45 93 L 05/05/21 23:56 99.9 F 92 H 22 84/50 94 L 05/05/21 19:54 100.0 F 81 14 91/50 95 05/05/21 18:54 92 H 20 94 L 05/05/21 15:52 100.0 F 88 21 95/65 97 05/05/21 12:00 98.8 F 78 16 97/56 96 05/05/21 10:00 98.6 F 108 H 21 91/58 96 Home Medications Medication Instructions Recorded Confirmed Last Taken Type Cyclobenzaprine HCl 10 mg 10 mg PO BID 05/04/21 05/04/21 05/04/21 History [Cyclobenzaprine 10 MG] Fluticasone/Vilanterol [Breo 1 each IH DAILY 05/04/21 05/04/21 05/04/21 History Ellipta 100-25 Mcg INH] Furosemide 20 mg [Lasix 20 20 mg PO DAILY 05/04/21 05/04/21 05/04/21 History mg] Gabapentin 300 mg [Neurontin 300 mg PO BID 05/04/21 05/04/21 05/04/21 History 300 mg] Ibuprofen 200 mg PO Q6HPRN PRN 05/04/21 05/04/21 Unknown History Insulin NPH Human Isophane 20 unit SQ BID 05/04/21 05/05/21 05/04/21 History [Novolin N] Nabumetone 500 mg PO BID 05/04/21 05/04/21 05/04/21 History Omeprazole Magnesium [Prilosec Otc] 20 mg PO DAILY 05/04/21 05/04/21 05/04/21 History Prochlorperazine Maleate 10 mg 10 mg PO TID 05/04/21 05/04/21 05/04/21 History [Compazine 10 mg] Promethazine HCl 25 mg 12.5 mg PO Q6HPRN PRN 05/04/21 05/04/21 Unknown History [Phenergan 25 mg] Ropinirole HCl 0.5 mg [Requip 0.5 mg PO TID 05/04/21 05/04/21 05/04/21 History 0.5 MG] Tamsulosin HCl 0.4 mg [Flomax 0.4 mg PO DAILY 05/04/21 05/04/21 05/03/21 History 0.4 MG] Current Medications Generic Name Dose Route Start Last Admin Trade Name Freq PRN Reason Stop Dose Admin Acetaminophen 650 mg 05/04/21 20:10 05/05/21 21:13 Acetaminophen 325 Mg Tablet PO 06/03/21 20:09 650 mg Q4H PRN PRN Administration PAIN AND/OR FEVER Albuterol Sulfate 2.5 mg 05/04/21 13:34 Albuterol Sulfate 2.5 Mg/3 Ml Neb IH 06/03/21 13:33 Q4H PRN PRN SHORTNESS OF BREATH/WHEEZING Allopurinol 100 mg 05/04/21 22:00 05/05/21 21:08 Allopurinol 100 Mg Tablet PO 06/03/21 21:59 100 mg HS XIMENA Administration Chlorphenir/Hydrocodone Polistirex 5 ml 05/04/21 15:01 Hydrocodone/Chlorphen P-Stirex 1 Ml Janis.Er.12h PO 06/03/21 15:00 [id number] PRN COUGH Clopidogrel Bisulfate 75 mg 05/05/21 10:00 05/05/21 09:57 Clopidogrel Bisulfate 75 Mg Tablet PO 06/04/21 09:59 75 mg DAILY XIMENA Administration Cyclobenzaprine HCl 10 mg 05/04/21 22:00 05/05/21 21:25 Cyclobenzaprine Hcl 10 Mg Tablet PO 06/03/21 21:59 Not Given BID XIMENA Dextrose 25 ml 05/04/21 19:46 Dextrose 50%-Water 50 Ml Abboject IV 06/03/21 19:45 PRN PRN HYPOGLYCEMIA Duloxetine HCl 60 mg 05/04/21 22:00 05/05/21 21:07 Duloxetine Hcl 30 Mg Cap PO 06/03/21 21:59 60 mg HS XIMENA Administration Famotidine 20 mg 05/04/21 22:00 05/05/21 21:07 Famotidine 20 Mg Tablet PO 06/03/21 21:59 20 mg BID XIMENA Administration Furosemide 20 mg 05/05/21 10:00 05/05/21 09:58 Furosemide 20 Mg Tablet PO 06/04/21 09:59 20 mg DAILY XIMENA Administration Gabapentin 300 mg 05/04/21 22:00 05/05/21 21:06 Gabapentin 300 Mg Capsule PO 06/03/21 21:59 300 mg BID XIMENA Administration Glucagon 1 mg 05/04/21 19:46 Glucagon 1 Mg/Vial Vial IM 06/03/21 19:45 PRN PRN HYPOGLYCEMIA Glucose 15 gm 05/04/21 19:46 Dextrose 15 Gm Gel PO 06/03/21 19:45 PRN PRN HYPOGLYCEMIA Hydromorphone HCl 0.5 mg 05/04/21 14:59 05/04/21 15:15 Hydromorphone 1 Mg/1ml Inj 1 Mg/Ml Syringe IV 05/09/21 14:58 0.5 mg Q4H PRN PRN Administration PAIN Ceftriaxone Sodium/Dextrose 1 g in 50 mls @ 100 mls/hr 05/04/21 14:00 05/05/21 09:58 Rocephin 1 Gm-D5w 50 Ml Bag IV 05/07/21 13:59 100 mls/hr DAILY XIMENA Administration Azithromycin 500 mg in 250 mls @ 166.667 mls/hr 05/04/21 14:00 05/05/21 11:00 Zithromax 500 Mg/ 250 Ml Nacl Premix IV 06/03/21 13:59 166.667 mls/hr DAILY XIMENA Administration Sodium Chloride 1,000 mls @ 100 mls/hr 05/04/21 15:15 05/06/21 06:55 Sodium Chloride 0.9% 1000 Ml IV 06/03/21 15:14 100 mls/hr .Q10H XIMENA Administration Ibuprofen 200 mg 05/04/21 14:08 Ibuprofen 200 Mg Tablet PO 06/03/21 14:07 Q6HPRN PRN MILD PAIN Insulin Human Lispro 0 unit 05/04/21 13:45 05/06/21 08:42 Insulin Lispro 1 Unit SQ 06/03/21 13:44 7 unit UD PRN Administration HYPERGLYCEMIA Insulin Human NPH 20 unit 05/05/21 15:56 05/06/21 08:42 Insulin Nph Human Recom 1 Unit SQ 06/03/21 16:59 20 unit BIDWM XIMENA Administration Lisinopril 5 mg 05/05/21 10:00 05/05/21 09:57 Lisinopril 5 Mg Tablet PO 06/04/21 09:59 5 mg DAILY XIMENA Administration Metoprolol Tartrate 50 mg 05/05/21 10:00 05/05/21 09:57 Metoprolol Tartrate 50 Mg Tablet PO 06/04/21 09:59 50 mg DAILY XIMENA Administration Miscellaneous Information 1 each 05/04/21 14:15 Medication Intervention 1 Each Each 06/03/21 14:14 .RN TO CHECK IXMENA Oseltamivir Phosphate 75 mg 05/05/21 10:00 05/05/21 21:06 Oseltamivir 75 Mg Cap PO 05/09/21 10:01 75 mg BID XIMENA Administration Pantoprazole Sodium 40 mg 05/05/21 10:00 05/05/21 09:57 Protonix (Pantoprazole) 40 Mg Tablet PO 06/04/21 09:59 40 mg DAILY XIMENA Administration Breo Ellipta 100-25 1 each 05/05/21 13:00 05/06/21 09:01 Inhaler IH 06/04/21 12:59 1 each 0700 XIMENA Administration Prochlorperazine 10 mg 05/04/21 15:00 05/05/21 21:06 Prochlorperazine Maleate 5 Mg Tablet PO 06/03/21 14:59 10 mg TID XIMENA Administration Promethazine HCl 12.5 mg 05/04/21 13:51 Promethazine Hcl 25 Mg Tablet PO 06/03/21 13:50 Q6HPRN PRN NAUSEA Ropinirole HCl 0.5 mg 05/04/21 15:00 05/05/21 21:07 Ropinirole Hcl 0.5 Mg Tablet PO 06/03/21 14:59 0.5 mg TID XIMENA Administration Simvastatin 40 mg 05/04/21 22:00 05/05/21 21:07 Simvastatin 20 Mg Tablet PO 06/03/21 21:59 40 mg HS XIMENA Administration Tamsulosin HCl 0.4 mg 05/05/21 10:00 05/05/21 09:58 Tamsulosin Hcl 0.4 Mg Cap PO 06/04/21 09:59 0.4 mg DAILY XIMENA Administration Zolpidem Tartrate 10 mg 05/04/21 22:00 05/05/21 21:08 Zolpidem Tartrate 10 Mg Tablet PO 06/03/21 21:59 10 mg HS XIMENA Administration Discontinued Medications Generic Name Dose Route Start Last Admin Trade Name Freq PRN Reason Stop Dose Admin Sodium Chloride 1,000 mls @ 999 mls/hr 05/04/21 15:02 05/04/21 15:13 Sodium Chloride 0.9% 1000 Ml IV 05/04/21 16:02 999 mls/hr .Q1H1M STA Administration Sodium Chloride Confirm 05/04/21 15:11 Sodium Chloride 0.9% 1000 Ml Administered 05/04/21 15:12 Dose 1,000 mls @ ud .ROUTE .STK-MED ONE Sodium Chloride 1,000 mls @ 999 mls/hr 05/04/21 17:50 05/04/21 20:15 Sodium Chloride 0.9% 1000 Ml IV 05/04/21 20:00 999 mls/hr .Q1H1M XIMENA Administration Insulin Human NPH 30 unit 05/04/21 17:00 05/05/21 08:59 Insulin Nph Human Recom 1 Unit SQ 06/03/21 16:59 Not Given BIDWM XIMENA Oseltamivir Phosphate 75 mg 05/04/21 18:00 05/04/21 19:01 Oseltamivir 75 Mg Cap PO 05/04/21 18:01 75 mg STAT ONE Administration Oseltamivir Phosphate 30 mg 05/05/21 10:00 Oseltamivir (Tamiflu) 30 Mg Capsule PO 05/09/21 10:01 BID XIMENA Fluticasone/Salmeterol 2 puff 05/05/21 07:00 05/05/21 07:19 Fluticasone/Salmeterol 115/ - 120 Puff Common Canister IH 06/04/21 06:59 Not Given BIDRT XIMENA Intake & Output (Last 24 hours) 05/03/21 05/04/21 05/05/21 05/06/21 11:59 11:59 11:59 11:59 Intake Total 5645 2964 Output Total 2120 3900 Balance 3525 -936 Weight 78 kg Microbiology Results (Last 24 hours) 05/04/21 13:05 Blood Blood Culture Gram Stain - Pending 05/04/21 13:05 Blood Blood Culture - Preliminary NO GROWTH TO DATE 05/04/21 13:10 Blood Blood Culture Gram Stain - Pending 05/04/21 13:10 Blood Blood Culture - Preliminary NO GROWTH TO DATE Laboratory Results (Last 24 hours) 05/06/21 05/06/21 05/06/21 07:16 04:50 04:50 WBC RBC Hgb Hct MCV MCH MCHC RDW Plt Count MPV Sodium 132 L Potassium 4.4 Chloride 103 Carbon Dioxide 26 Anion Gap 8.1 BUN 13 Creatinine 0.79 Estimated GFR > 60.0 Glucose 205 H POC Glucometer 271 H Calcium 7.9 L Total Bilirubin 0.50 AST 21 ALT 10 Alkaline Phosphatase 102 Serum Total Protein 5.7 L Albumin 2.7 L Procalcitonin 1.240 H 05/06/21 05/05/21 05/05/21 04:00 20:51 16:09 WBC 16.6 H RBC 4.15 Hgb 9.8 L Hct 30.9 L MCV 74.5 L MCH 23.6 L MCHC 31.7 L RDW 19.2 H Plt Count 316 MPV 8.8 Sodium Potassium Chloride Carbon Dioxide Anion Gap BUN Creatinine Estimated GFR Glucose POC Glucometer 315 H 353 H Calcium Total Bilirubin AST ALT Alkaline Phosphatase Serum Total Protein Albumin Procalcitonin 05/05/21 11:57 WBC RBC Hgb Hct MCV MCH MCHC RDW Plt Count MPV Sodium Potassium Chloride Carbon Dioxide Anion Gap BUN Creatinine Estimated GFR Glucose POC Glucometer 335 H Calcium Total Bilirubin AST ALT Alkaline Phosphatase Serum Total Protein Albumin Procalcitonin Orders (Last 24 hours) Category Date Time Status CHEST 2 VIEWS (PA AND LAT) Urgent Exams 05/06/21 06:00 Completed CBC AM.LAB Lab 05/06/21 04:00 Completed CMP AM.LAB Lab 05/06/21 04:50 Completed POCT GLUCOSE Stat Lab 05/05/21 11:57 Completed POCT GLUCOSE Stat Lab 05/05/21 16:09 Completed POCT GLUCOSE Stat Lab 05/05/21 20:51 Completed POCT GLUCOSE Stat Lab 05/06/21 07:16 Completed PROCALCITONIN DAILY Lab 05/06/21 04:50 Completed PROCALCITONIN DAILY Lab 05/07/21 04:00 Ordered Clopidogrel Bisulfate 75 mg [PLAVIX 75 MG Tablet] Med 05/05/21 10:00 Active 75 mg PO DAILY Furosemide 20 mg [Lasix 20 mg] Med 05/05/21 10:00 Active 20 mg PO DAILY Insulin NPH Human Recom [Novolin N] Med 05/05/21 15:56 Active 20 unit SQ BIDWM Lisinopril 5 mg [Zestril 5 MG] Med 05/05/21 10:00 Active 5 mg PO DAILY Metoprolol Tartrate 50 mg [Lopressor 50 MG] Med 05/05/21 10:00 Active 50 mg PO DAILY Oseltamivir 75 mg [Tamiflu 75MG Capsule] Med 05/05/21 10:00 Active 75 mg PO BID Oseltamivir Phosphate [Oseltamivir Phosphate 30 mg Cap] Med 05/05/21 10:00 Discontinued 30 mg PO BID PANTOPRAZOLE 40 mg Tablet [Protonix 40MG Tablet] Med 05/05/21 10:00 Active 40 mg PO DAILY Patient Own Med [Patient Own Medication] Med 05/05/21 13:00 Active 1 each IH 0700 Tamsulosin HCl 0.4 mg [Flomax 0.4 MG] Med 05/05/21 10:00 Active 0.4 mg PO DAILY Respiratory MDI UD RT 05/06/21 07:00 Active Code(s): J69.0 - PNEUMONITIS DUE TO INHALATION OF FOOD AND VOMIT (2) Pneumonia and influenza Current Visit: Yes Status: Acute
[2021-05-06] MEDS: ROCEPHIN 1 Gm-D5w 50 ml Bag** 1 G/50 ML IVPB IV SCH (11:07)
[2021-05-06] MEDS: TYLENOL 325 MG PO PRN (11:10)
[2021-05-06] MEDS: Requip 0.5 MG PO SCH ×3 (11:12→22:36)
[2021-05-06] MEDS: Flomax 0.4 MG PO SCH (11:12)
[2021-05-06] MEDS: PLAVIX 75 MG Tablet PO SCH (11:12)
[2021-05-06] MEDS: Compazine 5 MG PO SCH ×3 (11:12→22:36)
[2021-05-06] MEDS: Protonix 40MG Tablet PO SCH (11:13)
[2021-05-06] MEDS: Pepcid 20 MG PO SCH ×2 (11:13→22:35)
[2021-05-06] MEDS: NEURONTIN 300 MG PO SCH ×2 (11:13→22:35)
[2021-05-06] MEDS: LASIX 20 MG PO SCH (11:13)
[2021-05-06] MEDS: Tamiflu 75MG Capsule PO SCH ×2 (11:13→22:35)
[2021-05-06] MEDS: Lopressor 50 MG PO SCH (11:13)
[2021-05-06] MEDS: Cyclobenzaprine 10 MG PO SCH ×2 (11:13→23:33)
[2021-05-06] MEDS: Zestril 5 MG PO SCH (11:14)
[2021-05-06] MEDS: Zithromax 500 MG/ 250 ML NaCl Premix 500 MG/250 ML IVPB IV SCH (12:22)
[2021-05-06] MEDS: Ambien 10 MG PO SCH (22:34)
[2021-05-06] MEDS: ZYLOPRIM 100 MG PO SCH (22:35)
[2021-05-06] MEDS: ZOCOR 20MG PO SCH (22:36)
[2021-05-06] MEDS: Cymbalta 30 MG Capsule PO SCH (22:36)
[2021-05-07] MEDS: PATIENT OWN MEDICATION IH SCH (07:40)
[2021-05-07] MEDS: Novolin N SQ SCH (07:57)
[2021-05-07 08:16] VITALS: BP 105/60; PULSE 111; O2SAT 92
[2021-05-07] MEDS: Sodium Chloride 0.9% 1000 ML 1,000 ML IV SCH (08:37)
[2021-05-07] MEDS: Compazine 5 MG PO SCH (09:09)
[2021-05-07] MEDS: Zestril 5 MG PO SCH (09:10)
[2021-05-07] MEDS: Tamiflu 75MG Capsule PO SCH (09:10)
[2021-05-07] MEDS: Pepcid 20 MG PO SCH (09:10)
[2021-05-07] MEDS: Requip 0.5 MG PO SCH (09:10)
[2021-05-07] MEDS: Cyclobenzaprine 10 MG PO SCH (09:10)
[2021-05-07] MEDS: PLAVIX 75 MG Tablet PO SCH (09:10)
[2021-05-07] MEDS: Flomax 0.4 MG PO SCH (09:10)
[2021-05-07] MEDS: Protonix 40MG Tablet PO SCH (09:10)
[2021-05-07] MEDS: Lopressor 50 MG PO SCH (09:11)
[2021-05-07] MEDS: LASIX 20 MG PO SCH (09:11)
[2021-05-07] MEDS: NEURONTIN 300 MG PO SCH (09:11)
[2021-05-07] MEDS: Zithromax 500 MG/ 250 ML NaCl Premix 500 MG/250 ML IVPB IV SCH (09:49)
[2021-05-07] MEDS: ROCEPHIN 1 Gm-D5w 50 ml Bag** 1 G/50 ML IVPB IV SCH (09:49)
--- NOTE | 2021-05-07 12:59 | PCM.DS ---
Discharge Summary Date of Admission: 05/04/21 12:24 Admitting Physician: TERE BLANTON Primary Care Provider: TERE BLANTON Allergies Allergies morphine Adverse Reaction (Intermediate, Verified 05/04/21 15:19) "It makes him agressive" Hospital Summary - Hospital Course Hospital Course: Chief Complaint Diagnosis PNE, FLU A,septic shock Allergies Allergy/AdvReac Type Severity Reaction Status Date / Time morphine AdvReac Intermediate Verified 05/04/21 15:19 Vital Signs (Last 24 hours) Temp Pulse Resp BP Pulse Ox 05/07/21 08:00 97.3 F 111 H 21 105/60 92 L 05/07/21 07:41 102 H 20 94 L 05/07/21 04:20 98.8 F 101 H 19 126/61 95 05/07/21 00:15 99.4 F 102 H 19 119/54 94 L 05/07/21 00:00 100.0 F 91 H 19 92/57 94 L 05/06/21 20:36 91 H 19 94 L 05/06/21 20:00 100.0 F 93 H 18 92/57 94 L 05/06/21 16:00 99.5 F 57 L 24 104/57 86 L Home Medications Medication Instructions Recorded Confirmed Last Taken Type Cyclobenzaprine HCl 10 mg 10 mg PO BID 05/04/21 05/04/21 05/04/21 History [Cyclobenzaprine 10 MG] Fluticasone/Vilanterol [Breo 1 each IH DAILY 05/04/21 05/04/21 05/04/21 History Ellipta 100-25 Mcg INH] Furosemide 20 mg [Lasix 20 20 mg PO DAILY 05/04/21 05/04/21 05/04/21 History mg] Gabapentin 300 mg [Neurontin 300 mg PO BID 05/04/21 05/04/21 05/04/21 History 300 mg] Ibuprofen 200 mg PO Q6HPRN PRN 05/04/21 05/04/21 Unknown History Insulin NPH Human Isophane 20 unit SQ BID 05/04/21 05/05/21 05/04/21 History [Novolin N] Nabumetone 500 mg PO BID 05/04/21 05/04/21 05/04/21 History Omeprazole Magnesium [Prilosec Otc] 20 mg PO DAILY 05/04/21 05/04/21 05/04/21 History Prochlorperazine Maleate 10 mg 10 mg PO TID 05/04/21 05/04/21 05/04/21 History [Compazine 10 mg] Promethazine HCl 25 mg 12.5 mg PO Q6HPRN PRN 05/04/21 05/04/21 Unknown History [Phenergan 25 mg] Ropinirole HCl 0.5 mg [Requip 0.5 mg PO TID 05/04/21 05/04/21 05/04/21 History 0.5 MG] Tamsulosin HCl 0.4 mg [Flomax 0.4 mg PO DAILY 05/04/21 05/04/21 05/03/21 History 0.4 MG] Cephalexin Mh 500 mg [Keflex 500 500 mg PO Q6H 7 Days cap 05/07/21 Unknown Rx mg] Oseltamivir Phosphate 75 mg PO BID #7 05/07/21 Unknown Rx Current Medications Discontinued Medications Generic Name Dose Route Start Last Admin Trade Name Freq PRN Reason Stop Dose Admin Acetaminophen 650 mg 05/04/21 20:10 05/06/21 11:10 Acetaminophen 325 Mg Tablet PO 06/03/21 20:09 650 mg Q4H PRN PRN Administration PAIN AND/OR FEVER Albuterol Sulfate 2.5 mg 05/04/21 13:34 Albuterol Sulfate 2.5 Mg/3 Ml Neb IH 06/03/21 13:33 Q4H PRN PRN SHORTNESS OF BREATH/WHEEZING Allopurinol 100 mg 05/04/21 22:00 05/06/21 22:35 Allopurinol 100 Mg Tablet PO 06/03/21 21:59 100 mg HS XIMENA Administration Chlorphenir/Hydrocodone Polistirex 5 ml 05/04/21 15:01 Hydrocodone/Chlorphen P-Stirex 1 Ml Janis.Er.12h PO 06/03/21 15:00 [id number] PRN COUGH Clopidogrel Bisulfate 75 mg 05/05/21 10:00 05/07/21 09:10 Clopidogrel Bisulfate 75 Mg Tablet PO 06/04/21 09:59 75 mg DAILY XIMENA Administration Cyclobenzaprine HCl 10 mg 05/04/21 22:00 05/07/21 09:10 Cyclobenzaprine Hcl 10 Mg Tablet PO 06/03/21 21:59 10 mg BID XIMENA Administration Dextrose 25 ml 05/04/21 19:46 Dextrose 50%-Water 50 Ml Abboject IV 06/03/21 19:45 PRN PRN HYPOGLYCEMIA Duloxetine HCl 60 mg 05/04/21 22:00 05/06/21 22:36 Duloxetine Hcl 30 Mg Cap PO 06/03/21 21:59 60 mg HS XIMENA Administration Famotidine 20 mg 05/04/21 22:00 05/07/21 09:10 Famotidine 20 Mg Tablet PO 06/03/21 21:59 20 mg BID XIMENA Administration Furosemide 20 mg 05/05/21 10:00 05/07/21 09:11 Furosemide 20 Mg Tablet PO 06/04/21 09:59 Not Given DAILY XIMENA Gabapentin 300 mg 05/04/21 22:00 05/07/21 09:11 Gabapentin 300 Mg Capsule PO 06/03/21 21:59 300 mg BID XIMENA Administration Glucagon 1 mg 05/04/21 19:46 Glucagon 1 Mg/Vial Vial IM 06/03/21 19:45 PRN PRN HYPOGLYCEMIA Glucose 15 gm 05/04/21 19:46 Dextrose 15 Gm Gel PO 06/03/21 19:45 PRN PRN HYPOGLYCEMIA Hydromorphone HCl 0.5 mg 05/04/21 14:59 05/04/21 15:15 Hydromorphone 1 Mg/1ml Inj 1 Mg/Ml Syringe IV 05/09/21 14:58 0.5 mg Q4H PRN PRN Administration PAIN Ceftriaxone Sodium/Dextrose 1 g in 50 mls @ 100 mls/hr 05/04/21 14:00 05/07/21 09:49 Rocephin 1 Gm-D5w 50 Ml Bag IV 05/08/21 13:59 Not Given DAILY XIMENA Azithromycin 500 mg in 250 mls @ 166.667 mls/hr 05/04/21 14:00 05/07/21 09:49 Zithromax 500 Mg/ 250 Ml Nacl Premix IV 06/03/21 13:59 Not Given DAILY XIMENA Sodium Chloride 1,000 mls @ 999 mls/hr 05/04/21 15:02 05/04/21 15:13 Sodium Chloride 0.9% 1000 Ml IV 05/04/21 16:02 999 mls/hr .Q1H1M STA Administration Sodium Chloride 1,000 mls @ 100 mls/hr 05/04/21 15:15 05/07/21 08:37 Sodium Chloride 0.9% 1000 Ml IV 06/03/21 15:14 Not Given .Q10H XIMENA Sodium Chloride Confirm 05/04/21 15:11 Sodium Chloride 0.9% 1000 Ml Administered 05/04/21 15:12 Dose 1,000 mls @ ud .ROUTE .STK-MED ONE Sodium Chloride 1,000 mls @ 999 mls/hr 05/04/21 17:50 05/04/21 20:15 Sodium Chloride 0.9% 1000 Ml IV 05/04/21 20:00 999 mls/hr .Q1H1M XIMENA Administration Ibuprofen 200 mg 05/04/21 14:08 Ibuprofen 200 Mg Tablet PO 06/03/21 14:07 Q6HPRN PRN MILD PAIN Insulin Human Lispro 0 unit 05/04/21 13:45 05/06/21 22:32 Insulin Lispro 1 Unit SQ 06/03/21 13:44 7 unit UD PRN Administration HYPERGLYCEMIA Insulin Human NPH 30 unit 05/04/21 17:00 05/05/21 08:59 Insulin Nph Human Recom 1 Unit SQ 06/03/21 16:59 Not Given BIDWM XIMENA Insulin Human NPH 20 unit 05/05/21 15:56 05/07/21 07:57 Insulin Nph Human Recom 1 Unit SQ 06/03/21 16:59 20 unit BIDWM XIMENA Administration Lisinopril 5 mg 05/05/21 10:00 05/07/21 09:10 Lisinopril 5 Mg Tablet PO 06/04/21 09:59 Not Given DAILY XIMENA Metoprolol Tartrate 50 mg 05/05/21 10:00 05/07/21 09:11 Metoprolol Tartrate 50 Mg Tablet PO 06/04/21 09:59 Not Given DAILY XIMENA Miscellaneous Information 1 each 05/04/21 14:15 Medication Intervention 1 Each Each 06/03/21 14:14 .RN TO CHECK XIMENA Oseltamivir Phosphate 75 mg 05/04/21 18:00 05/04/21 19:01 Oseltamivir 75 Mg Cap PO 05/04/21 18:01 75 mg STAT ONE Administration Oseltamivir Phosphate 30 mg 05/05/21 10:00 Oseltamivir (Tamiflu) 30 Mg Capsule PO 05/09/21 10:01 BID XIMENA Oseltamivir Phosphate 75 mg 05/05/21 10:00 05/07/21 09:10 Oseltamivir 75 Mg Cap PO 05/09/21 10:01 75 mg BID XIMENA Administration Pantoprazole Sodium 40 mg 05/05/21 10:00 05/07/21 09:10 Protonix (Pantoprazole) 40 Mg Tablet PO 06/04/21 09:59 40 mg DAILY XIMENA Administration Breo Ellipta 100-25 1 each 05/05/21 13:00 05/07/21 07:40 Inhaler 06/04/21 12:59 1 each 0700 XIMENA Administration Prochlorperazine 10 mg 05/04/21 15:00 05/07/21 09:09 Prochlorperazine Maleate 5 Mg Tablet PO 06/03/21 14:59 10 mg TID XIMENA Administration Promethazine HCl 12.5 mg 05/04/21 13:51 Promethazine Hcl 25 Mg Tablet PO 06/03/21 13:50 Q6HPRN PRN NAUSEA Ropinirole HCl 0.5 mg 05/04/21 15:00 05/07/21 09:10 Ropinirole Hcl 0.5 Mg Tablet PO 06/03/21 14:59 0.5 mg TID XIMENA Administration Fluticasone/Salmeterol 2 puff 05/05/21 07:00 05/05/21 07:19 Fluticasone/Salmeterol 115/21 - 120 Puff Common Canister 06/04/21 06:59 Not Given BIDRT XIMENA Simvastatin 40 mg 05/04/21 22:00 05/06/21 22:36 Simvastatin 20 Mg Tablet PO 06/03/21 21:59 40 mg HS XIMENA Administration Tamsulosin HCl 0.4 mg 05/05/21 10:00 05/07/21 09:10 Tamsulosin Hcl 0.4 Mg Cap PO 06/04/21 09:59 0.4 mg DAILY XIMENA Administration Zolpidem Tartrate 10 mg 05/04/21 22:00 05/06/21 22:34 Zolpidem Tartrate 10 Mg Tablet PO 06/03/21 21:59 10 mg HS XIMENA Administration Intake & Output (Last 24 hours) 05/05/21 05/06/21 05/07/21 05/08/21 11:59 11:59 11:59 11:59 Intake Total 5669 2964 3433 Output Total 2855 2230 7521 Balance 4737 -915 -3826 Weight 78 kg 78 kg Microbiology Results (Last 24 hours) 05/04/21 17:00 Urine, Indwelling Catheter Urine Culture - Final NO GROWTH Laboratory Results (Last 24 hours) 05/07/21 05/07/21 05/06/21 07:43 04:20 20:51 POC Glucometer 123 H 280 H Procalcitonin 0.814 H 05/06/21 16:42 POC Glucometer 309 H Procalcitonin Orders (Last 24 hours) Category Date Time Status Discharge Routine Discharge 05/07/21 Ordered POCT GLUCOSE Stat Lab 05/06/21 16:42 Completed POCT GLUCOSE Stat Lab 05/06/21 20:51 Completed POCT GLUCOSE Stat Lab 05/07/21 07:43 Completed PROCALCITONIN DAILY Lab 05/07/21 04:20 Completed PT Eval & Treat (MD Order) ONCE PT 05/06/21 12:14 Completed Patient Care Notes (Last 24 hours) 05/07/21 10:10 Case Management Note by Indu Ashford PT STATES AGREEABLE TO HOME OXYGEN. SET UP THROUGH [facility] WITH PT APPROVAL. PT WILL BE SENT HOME WITH PORTABLE OXYGEN TANK AND INSTRUCTED TO CALL THEM UPON ARRIVING HOME, FOR FULL OXYGEN SET UP. Initialized on 05/07/21 10:10 - END OF NOTE 05/07/21 08:36 Nursing Note by Maame Erazo dc'd Initialized on 05/07/21 08:36 - END OF NOTE 05/07/21 07:37 Respiratory Note by Tatiana Machado Resting room air sat 88%. Placed 2L NC on pt. Sats up to 94%. Initialized on 05/07/21 07:37 - END OF NOTE 05/06/21 14:31 Case Management Note by Katia Carver S/W PATIENT- HE CONTINUES TO DENY ANY NEW NEEDS AT TIME OF DC. Initialized on 05/06/21 14:31 - END OF NOTE - Vitals & Intake/Output Vital Signs: Vital Signs Temperature 97.3 F 05/07/21 08:00 Pulse Rate 111 H 05/07/21 08:00 Respiratory Rate 21 05/07/21 08:00 Blood Pressure 105/60 05/07/21 08:00 O2 Sat by Pulse Oximetry 92 L 05/07/21 08:00 Intake & Output: Intake & Output 05/05/21 05/06/21 05/07/21 05/08/21 11:59 11:59 11:59 11:59 Intake Total 5662 8408 4411 Output Total 7582 3553 1498 Balance 5657 -082 -5532 Weight 78 kg 78 kg - Lab Result Diagrams: 05/06/21 04:00 05/06/21 04:50 Lab Results-Last 24 Hrs: Lab Results-Last 24 Hours 05/06/21 05/06/21 05/07/21 Range/Units 16:42 20:51 04:20 POC Glucometer 309 H 280 H (74 to 106) mg/dL Procalcitonin 0.814 H (0.030-0.080) ng/mL 05/07/21 Range/Units 07:43 POC Glucometer 123 H (74 to 106) mg/dL Procalcitonin (0.030-0.080) ng/mL Micro Results-Entire Visit: Microbiology 05/04/21 17:00 Urine Culture - Final Urine, Indwelling Catheter NO GROWTH 05/04/21 13:05 Blood Culture - Preliminary Blood NO GROWTH TO DATE 05/04/21 13:10 Blood Culture - Preliminary Blood NO GROWTH TO DATE Accuchecks Date 05/07/21 Date 05/06/21 Time 08:15 Time 17:07 - Radiology Exams Ordered Rad Exams-Entire Visit: Radiology Procedures Category Date Time Status CHEST 2 VIEWS (PA AND LAT) Urgent Exams 05/06/21 06:00 Completed - Procedures and Test Procedures and Tests throughout Hospitalization: Therapy Orders & Screens 05/04/21 13:34 Oxygen NASAL CANNULA 2 lpm Comment: Diagnosis: PNE Respiratory Therapy Assessment DAILY Comment: Diagnosis: PNE 05/06/21 07:00 Respiratory MDI UD Comment: BREO DAILY Diagnosis: PNE, FLU A,septic shock 05/06/21 11:36 RT Miscellaneous Order ROUTINE Comment: Physician Instructions: Reason For Exam: WEAN OFF OXYGEN Diagnosis: PNE, FLU A,septic shock 05/06/21 12:14 PT Eval & Treat ( Order) ONCE Reason for Eval:: weakness Diagnosis: PNE, FLU A,septic shock Discharge Exam General Appearance: no apparent distress, alert Neurologic Exam: alert, oriented x 3, cooperative, normal mood/affect, nml cerebellar function, sensation nml, No motor deficits Eye Exam: PERRL, EOMI, eyes nml inspection Ears, Nose, Throat Exam: normal ENT inspection, pharynx normal, moist mucous membranes Neck Exam: normal inspection, non-tender, supple, full range of motion Respiratory Exam: normal breath sounds, lungs clear, No respiratory distress Cardiovascular Exam: regular rate/rhythm, normal heart sounds Gastrointestinal/Abdomen Exam: soft, No tenderness, No mass Male Genitalia Exam: deferred Rectal Exam: deferred Back Exam: normal inspection, normal range of motion, No CVA tenderness, No vertebral tenderness Extremity Exam: normal inspection, normal range of motion Skin Exam: normal color, warm, dry Final Diagnosis/Problem List - Final Discharge Diagnosis/Problem (1) Aspiration pneumonia Status: Resolved Code(s): J69.0 - PNEUMONITIS DUE TO INHALATION OF FOOD AND VOMIT (2) Pneumonia and influenza Status: Resolved - Discharge Discharge Date: 05/07/21 Disposition: Home, Self-Care Condition: Good Prescriptions: New Cephalexin Mh 500 mg [Keflex 500 mg] 500 mg PO Q6H 7 Days cap Oseltamivir Phosphate 75 mg PO BID #7 Continue Zolpidem Tartrate 10 mg [Ambien 10 MG] 10 mg PO HS Pravastatin Sodium 40 mg PO HS Metoprolol Tartrate 50 mg [Lopressor 50 MG] 50 mg PO DAILY Famotidine 20 mg [Pepcid 20 MG] 20 mg PO BID Duloxetine HCl 30 mg [Cymbalta 30 MG Capsule] 60 mg PO HS Clopidogrel Bisulfate 75 mg [PLAVIX 75 MG Tablet] 75 mg PO DAILY Lisinopril 5 mg [Zestril 5 MG] 5 mg PO DAILY Allopurinol 100 mg [Zyloprim 100 mg] 100 mg PO HS Nabumetone 500 mg PO BID Cyclobenzaprine HCl 10 mg [Cyclobenzaprine 10 MG] 10 mg PO BID Promethazine HCl 25 mg [Phenergan 25 mg] 12.5 mg PO Q6HPRN PRN PRN Reason: Nausea Insulin NPH Human Isophane [Novolin N] 20 unit SQ BID Fluticasone/Vilanterol [Breo Ellipta 100-25 Mcg INH] 1 each IH DAILY Furosemide 20 mg [Lasix 20 mg] 20 mg PO DAILY Omeprazole Magnesium [Prilosec Otc] 20 mg PO DAILY Gabapentin 300 mg [Neurontin 300 mg] 300 mg PO BID Ibuprofen 200 mg PO Q6HPRN PRN PRN Reason: Mild Pain Prochlorperazine Maleate 10 mg [Compazine 10 mg] 10 mg PO TID Tamsulosin HCl 0.4 mg [Flomax 0.4 MG] 0.4 mg PO DAILY Ropinirole HCl 0.5 mg [Requip 0.5 MG] 0.5 mg PO TID Instructions: Preventing Falls in the Older Adult, Flu, Adult (DC), Oxygen Therapy, Adult (DC) Additional Instructions: [facility] WILL BE PROVIDING YOUR HOME OXYGEN. YOU WILL NEED TO WEAR 2L AT ALL TIMES. YOU CAN CALL THEM AT [phone] WITH ANY QUESTIONS OR CONCERNS. Follow up with: TERE BLANTON MD [Primary Care Provider] - 05/24/21 1:45 pm
== END 2021-05-07 10:30 | disposition home or self-care (01) | DRG 179 ==
LOC: OBSVTOIN 12:24 → INTOOBSV 12:24 → MED SURG 12:24 → ICU 17:50
PROVIDERS: ADMIT General Practice; ATTEND General Practice
DX: J69.0 Pneumonitis due to inhalation of food and vomit (principal); J11.00 Influenza due to unidentified influenza virus with unspecified type of pneumonia; E11.9 Type 2 diabetes mellitus without complications; Z79.899 Other long term (current) drug therapy
CPT/HCPCS: 0241U; 36415; 36600; 71046; 71250; 74176; 80048; 80053; 82375; 82803; 82947; 83605; 84145; 85027; 87040; 87086; 94640; 94760; 94762; J0456; J0696; J1170; J1817; A9270-GY

== ENCOUNTER 2022-02-15 16:46 | Observation (INO) | payer MEDICARE ==
[2022-02-15 18:47] LABS: Hematocrit 35.9 % (42-50); Mean Cell Volume 77.9 fL (78-100); Mean Corpuscular Hemoglobin 23.9 pg (26-32); Mean Corpuscular Hgb Concent. 30.6 g/dL (32-36); Mean Platelet Volume 8.4 fL (7.5-11.0); Platelet Count 351 x10^3/uL (150-450); Red Blood Count 4.61 x10^6/uL (4.1-5.6); Red Cell Distribution Width 16.4 % (11.5-14.0); White Blood Count 12.3 x10^3/uL (4.0-10.5)
[2022-02-15] MEDS ORDERED: HUMALOG SQ PRN (18:51)
[2022-02-15] MEDS ORDERED: DUONEB 0.5-3 MG/3 ml Neb IH PRN (18:55)
[2022-02-15 19:14] LABS: ALBUMIN 3.9 g/dL (3.5-5.0); ALKALINE PHOSPHATASE 98 U/L (38-126); ANION GAP 7.5 MEQ/L (5-15); BLOOD UREA NITROGEN 16 mg/dL (9-20); CHLORIDE 104 mmol/L (98-107); Calcium 8.9 mg/dL (8.4-10.2); Carbon Dioxide 28 mmol/L (22-30); Creatinine 1 0.78 mg/dL (0.66-1.25); EST GLOMERULAR FILTRATION RATE > 60.0 ML/MIN; Glucose 97 mg/dL (74-106); PREALBUMIN 16.21 mg/dL (17.6-36.0); Potassium 4.3 mmol/L (3.5-5.1); SGOT/AST 22 U/L (17-59); SGPT/ALT 16 U/L (0-50); SODIUM 135 mmol/L (137-145); Total Protein 7.7 g/dL (6.3-8.2)
[2022-02-15 19:26] LABS: INFLUENZA A NEGATIVE (NEGATIVE); INFLUENZA B NEGATIVE (NEGATIVE); RESPIRATORY SYNCTIAL VIRUS NEGATIVE (Negative); SARS-CoV-2 Xpert Express NEGATIVE (NEGATIVE)
[2022-02-15] MEDS ORDERED: ROCEPHIN 1 Gm-D5w 50 ml Bag** 1 G/50 ML IVPB IV ONE (20:04)
[2022-02-15] MEDS ORDERED: Zithromax 500 MG/ 250 ML NaCl Premix 500 MG/250 ML IVPB IV ONE (20:04)
[2022-02-15] MEDS: Sodium Chloride 0.9% 1000 ML 1,000 ML IV SCH (20:13)
[2022-02-15] MEDS: Hydromorphone 1 mg/ml Injection IV PRN (20:15)
[2022-02-15] MEDS ORDERED: ROCEPHIN 1 Gm-D5w 50 ml Bag** 1 G/50 ML IVPB IV SCH (20:30)
[2022-02-15] MEDS: Zithromax 500 MG/ 250 ML NaCl Premix 500 MG/250 ML IVPB IV SCH (21:18)
[2022-02-15] MEDS ORDERED: Cymbalta 30 MG Capsule PO SCH (22:00)
[2022-02-15] MEDS ORDERED: Tessalon Perles 100 MG PO PRN (22:16)
[2022-02-15] MEDS: ZOCOR 20MG PO SCH (22:55)
[2022-02-15] MEDS: Cyclobenzaprine 10 MG PO SCH (22:56)
[2022-02-15] MEDS: ZYLOPRIM 100 MG PO SCH (22:56)
[2022-02-15] MEDS: Aricept 10 MG PO SCH (22:56)
[2022-02-15] MEDS: NEURONTIN PO SCH (22:56)
[2022-02-15] MEDS: Pepcid 20 MG PO SCH (22:56)
[2022-02-15] MEDS: Novolin N SQ SCH (22:57)
[2022-02-15] MEDS: HUMALOG SQ PRN (22:57)
[2022-02-15] MEDS: Ambien 10 MG PO SCH (23:09)
[2022-02-16] MEDS: Hydromorphone 1 mg/ml Injection IV PRN ×4 (01:10→22:33)
[2022-02-16] MEDS ORDERED: Compazine 5 MG PO PRN (07:15)
[2022-02-16] MEDS ORDERED: PHENERGAN 25 MG PO PRN (07:22)
[2022-02-16] MEDS ORDERED: IBUPROFEN 200 MG PO PRN (07:22)
[2022-02-16] MEDS ORDERED: MOTRIN 200 MG PO PRN (07:27)
[2022-02-16] MEDS ORDERED: MEDICATION INTERVENTION MC SCH (07:30)
--- NOTE | 2022-02-16 08:43 | XRAY ---
Indication: Short of breath. Comparison: May 06, 2021 PA/lateral chest again demonstrates COPD. Minimal left base infiltrate/atelectasis less than before. Remaining heart and lungs unremarkable again with incidental CABG. Bony thorax intact again with osteopenia, old left rib fractures, cervical fusion, and left axilla surgical clips.
[2022-02-16] MEDS: NEURONTIN PO SCH ×2 (08:44→22:06)
[2022-02-16] MEDS: Requip 0.5 MG PO SCH ×3 (08:44→22:06)
[2022-02-16] MEDS: Cyclobenzaprine 10 MG PO SCH ×2 (08:45→22:06)
[2022-02-16] MEDS: Pepcid 20 MG PO SCH ×2 (08:45→22:06)
--- NOTE | 2022-02-16 08:45 | XRAY ---
Indication: Pain following fall. Comparison: None 3 view right shoulder demonstrates osteopenia and moderate glenohumeral degenerative arthropathy. Widened AC joint with normal alignment either from chronic AC separation versus distal clavicle resection. No other bony, articular, or soft tissue abnormalities.
[2022-02-16] MEDS: Zithromax 500 MG/ 250 ML NaCl Premix 500 MG/250 ML IVPB IV SCH (08:46)
[2022-02-16] MEDS: Novolin N SQ SCH ×2 (09:04→22:35)
[2022-02-16] MEDS ORDERED: Compazine 5 MG PO SCH (10:00)
[2022-02-16] MEDS ORDERED: NON-FORMULARY ITEM (Nabumetone [Nabumetone] 500 MG Tablet) PO SCH (10:00)
[2022-02-16] MEDS ORDERED: LASIX 20 MG PO SCH (10:00)
[2022-02-16] MEDS ORDERED: Flomax 0.4 MG PO SCH (10:00)
[2022-02-16] MEDS ORDERED: Protonix 40MG Tablet PO SCH (10:00)
[2022-02-16] MEDS ORDERED: NON-FORMULARY ITEM (Omeprazole Magnesium [Prilosec Otc] 20 MG Tablet.Dr) PO SCH (10:00)
[2022-02-16] MEDS ORDERED: PLAVIX Tablet PO SCH (10:00)
[2022-02-16] MEDS ORDERED: Zestril 5 MG PO SCH (10:00)
[2022-02-16] MEDS ORDERED: Lopressor 50 MG PO SCH (10:00)
[2022-02-16] MEDS: Sodium Chloride 0.9% 1000 ML 1,000 ML IV SCH (14:27)
--- NOTE | 2022-02-16 18:10 | PCM.SSS ---
History of Present Illness - Chief Complaint Chief Complaint: COPD Exacerbation History of Present Illness: is a 71 year old male admitted with c/o shortness of breath, cough. generalised bodyache for 2-3 days - Review of Systems Constitutional: Fever, Lethargy, Malaise, Weakness, No Chills Eyes: No Symptoms Ears, Nose, & Throat: No Symptoms Respiratory: Cough, Orthopnea, Short Of Breath, Wheezing Cardiac: No Chest Pain, No Edema, No Syncope Abdominal/Gastrointestinal: No Abdominal Pain, No Nausea, No Vomiting, No Diarrhea Genitourinary Symptoms: No Dysuria Musculoskeletal: Arthralgias, Back Pain, No Neck Pain Skin: No Rash Neurological: No Dizziness, No Focal Weakness, No Sensory Changes Psychological: No Symptoms Endocrine: No Symptoms Hematologic/Lymphatic: No Symptoms Immunological/Allergic: No Symptoms Medications & Allergies Home Medications: Home Medication List Pravastatin Sodium 40 mg PO HS 09/19/12 [History Confirmed 02/15/22] Zolpidem Tartrate 10 mg [Ambien 10 MG] 10 mg PO HS 09/19/12 [History Confirmed 02/15/22] Allopurinol 100 mg [Zyloprim 100 mg] 100 mg PO HS 04/23/18 [History Confirmed 02/15/22] Clopidogrel Bisulfate [PLAVIX Tablet] 75 mg PO DAILY 04/23/18 [History Confirmed 02/15/22] Duloxetine HCl 30 mg [Cymbalta 30 MG Capsule] 60 mg PO HS 04/23/18 [History Confirmed 02/15/22] Famotidine 20 mg [Pepcid 20 MG] 20 mg PO BID 04/23/18 [History Confirmed 02/15/22] Lisinopril 5 mg [Zestril 5 MG] 5 mg PO DAILY 04/23/18 [History Confirmed 02/15/22] Metoprolol Tartrate 50 mg [Lopressor 50 MG] 50 mg PO DAILY 04/23/18 [History Confirmed 02/15/22] Cyclobenzaprine HCl 10 mg [Cyclobenzaprine 10 MG] 10 mg PO BID 05/04/21 [History Confirmed 02/15/22] Furosemide 20 mg [Lasix 20 mg] 20 mg PO DAILY 05/04/21 [History Confirmed 02/15/22] Gabapentin [Neurontin ] 300 mg PO BID 05/04/21 [History Confirmed 02/15/22] Ibuprofen 200 mg PO Q6HPRN PRN 05/04/21 [History Confirmed 02/15/22] Insulin NPH Human Isophane [Novolin N] 20 unit SQ BID 05/04/21 [History Confirmed 02/15/22] Nabumetone 500 mg PO BID 05/04/21 [History Confirmed 02/15/22] Omeprazole Magnesium [Prilosec Otc] 20 mg PO DAILY 05/04/21 [History Confirmed 02/15/22] Promethazine HCl 25 mg [Phenergan 25 mg] 12.5 mg PO Q6HPRN PRN 05/04/21 [History Confirmed 02/15/22] Ropinirole HCl 0.5 mg [Requip 0.5 MG] 0.5 mg PO TID 05/04/21 [History Confirmed 02/15/22] Tamsulosin HCl 0.4 mg [Flomax 0.4 MG] 0.4 mg PO DAILY 05/04/21 [History Confirmed 02/15/22] Donepezil HCl [Aricept] 5 mg PO HS 02/15/22 [History Confirmed 02/15/22] Prochlorperazine Maleate 10 mg PO TID PRN 02/15/22 [History Confirmed 02/15/22] Sildenafil Citrate [Viagra] 100 mg PO UD 02/15/22 [History Confirmed 02/15/22] Allergies/Adverse Reactions: Allergies Allergy/AdvReac Type Severity Reaction Status Date / Time morphine AdvReac Intermediate Verified 02/15/22 17:37 - Past Medical History Past Medical History: Yes Neurological History: Peripheral Neuropathy ENT History: Other Cardiac History: Coronary Artery Disease, High Cholesterol, Hypertension, Myocardial Infarction (DE), Peripheral Vascular Disease Respiratory History: CHF, COPD, Emphysema, Other Endocrine Medical History: Diabetes Type II, Other Musculoskelatal History: Fractures, Osteoarthritis GI Medical History: Esophageal Disorder, GERD History: No Pertinent History Pyscho-Social History: No Pertinent History Male Reproductive Disorders: Prostate Problems Comment: HX FX LEFT HIP WITH ORIF 2012, SURGERY UPPER AND LOWER BACK BUT PATIENT UNABLE TO STATE WHAT WAS DONE (STATES WAS ALSO IN 2013),. 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 ALSO STENTS IN BOTH GROINS. IN REGARDS TO COPD/EMPHYSEMA STATES WAS TOLD HE HAD ABOUT 2 YEARS. STATES HE HAS O2 AND USES IT AT NIGHT AND IS "SUPPOSED" TO WEAR IT ALL THE TIME. STATES HE IS GETTING A SMART VEST TOMORROW TO USE 2X DAY TO HELP WITH LUNGS - Past Surgical History Past Surgical History: Yes Neuro Surgical History: No Pertinent History Cardiac History: CABG Respiratory Surgery: No Pertinent History GI Surgical History: No Pertinent History Genitourinary Surgical Hx: No Pertinent History Musculskeletal Surgical Hx: Orthopedic Surgery Male Surgical History: Prostate Surgery Other Surgical History: R shoulder, L hip surgeries, L hand surgery, spine surgery , stents in legs for circulation - Social History Smoking Status: Current every day smoker How long have you smoked: 50 years Exposure to second hand smoke: Yes Alcohol: None Drug Use: none - Physical Exam Vital Signs: Vital Signs - 24 hr Temp Pulse Resp BP Pulse Ox 02/16/22 15:51 97.7 F 61 02/16/22 12:00 97.7 F 61 16 109/53 90 L 02/16/22 07:54 97.5 F 75 18 136/65 92 L 02/16/22 07:40 77 20 93 L 02/16/22 04:00 97.5 F 66 28 H 123/59 95 02/16/22 01:00 97.3 F 69 18 108/54 96 02/15/22 21:33 71 20 96 02/15/22 21:00 98.2 F 72 18 127/59 96 General Appearance: no apparent distress, alert Neurologic Exam: alert, oriented x 3, cooperative, normal mood/affect, nml cerebellar function, nml station & gait, sensation nml, No motor deficits Eye Exam: PERRL/EOMI, eyes nml inspection Ears, Nose, Throat Exam: normal ENT inspection, TMs normal, pharynx normal, moist mucous membranes Neck Exam: normal inspection, non-tender, supple, full range of motion Respiratory Exam: diminished breath sounds, crackles/rales, rhonchi, wheezing, No respiratory distress Cardiovascular Exam: regular rate/rhythm, normal heart sounds, normal peripheral pulses Gastrointestinal/Abdomen Exam: soft, normal bowel sounds, No tenderness, No mass Back Exam: normal inspection, normal range of motion, No CVA tenderness, No vertebral tenderness Extremity Exam: normal inspection, normal range of motion, pelvis stable Skin Exam: normal color, warm, dry, No rash Lymphatic Exam: No adenopathy Results - Labs Lab/Micro Results: Lab Results-Last 24 Hours 02/15/22 02/15/22 02/15/22 Range/Units 18:00 18:40 18:40 WBC 12.3 H (4.0-10.5) x10^3/uL RBC 4.61 (4.1-5.6) x10^6/uL Hgb 11.0 L (12.5-18.0) g/dL Hct 35.9 L (42-50) % MCV 77.9 L (78-100) fL MCH 23.9 L (26-32) pg MCHC 30.6 L (32-36) g/dL RDW 16.4 H (11.5-14.0) % Plt Count 351 (150-450) x10^3/uL MPV 8.4 (7.5-11.0) fL Sodium 135 L (137-145) mmol/L Potassium 4.3 (3.5-5.1) mmol/L Chloride 104 (98-107) mmol/L Carbon Dioxide 28 (22-30) mmol/L Anion Gap 7.5 (5-15) MEQ/L BUN 16 (9-20) mg/dL Creatinine 0.78 (0.66-1.25) mg/dL Estimated GFR > 60.0 ML/MIN Glucose 97 (74-106) mg/dL Hemoglobin A1c 8.69 H (4.5-6.0) % Calcium 8.9 (8.4-10.2) mg/dL Total Bilirubin 0.40 (0.2-1.3) mg/dL AST 22 (17-59) U/L ALT 16 (0-50) U/L Alkaline Phosphatase 98 (38-126) U/L Serum Total Protein 7.7 (6.3-8.2) g/dL Albumin 3.9 (3.5-5.0) g/dL Prealbumin 16.21 L (17.6-36.0) mg/dL Influenza Type A Ag (NEGATIVE) Influenza Type B Ag (NEGATIVE) RSV (PCR) (Negative) SARS-CoV-2 (PCR) (NEGATIVE) 02/15/22 Range/Units 18:40 WBC (4.0-10.5) x10^3/uL RBC (4.1-5.6) x10^6/uL Hgb (12.5-18.0) g/dL Hct (42-50) % MCV (78-100) fL MCH (26-32) pg MCHC (32-36) g/dL RDW (11.5-14.0) % Plt Count (150-450) x10^3/uL MPV (7.5-11.0) fL Sodium (137-145) mmol/L Potassium (3.5-5.1) mmol/L Chloride (98-107) mmol/L Carbon Dioxide (22-30) mmol/L Anion Gap (5-15) MEQ/L BUN (9-20) mg/dL Creatinine (0.66-1.25) mg/dL Estimated GFR ML/MIN Glucose (74-106) mg/dL Hemoglobin A1c (4.5-6.0) % Calcium (8.4-10.2) mg/dL Total Bilirubin (0.2-1.3) mg/dL AST (17-59) U/L ALT (0-50) U/L Alkaline Phosphatase (38-126) U/L Serum Total Protein (6.3-8.2) g/dL Albumin (3.5-5.0) g/dL Prealbumin (17.6-36.0) mg/dL Influenza Type A Ag NEGATIVE (NEGATIVE) Influenza Type B Ag NEGATIVE (NEGATIVE) RSV (PCR) NEGATIVE (Negative) SARS-CoV-2 (PCR) NEGATIVE (NEGATIVE) Accuchecks Date 02/16/22 Date 02/16/22 Date 02/16/22 Date 02/15/22 Time 21:00 - Radiology Impressions Radiology Exams & Impressions: Radiology Procedures Category Date Time Status CHEST 2 VIEWS (PA AND LAT) Urgent Exams 02/15/22 18:52 Completed SHOULDER Urgent Exams 02/15/22 18:50 Completed - Other Procedures and Tests Respiratory Therapy 02/15/22 18:49 Oxygen Nasal Cannula 2 lpm 02/15/22 21:33 Respiratory Therapy Assessment DAILY Assessment/Plan (1) COPD exacerbation Current Visit: Yes Status: Acute Assessment & Plan: Chief Complaint Diagnosis COPD Exacerbation Allergies Allergy/AdvReac Type Severity Reaction Status Date / Time morphine AdvReac Intermediate Verified 02/15/22 17:37 Vital Signs (Last 24 hours) Temp Pulse Resp BP Pulse Ox 02/16/22 15:51 97.7 F 61 02/16/22 12:00 97.7 F 61 16 109/53 90 L 02/16/22 07:54 97.5 F 75 18 136/65 92 L 02/16/22 07:40 77 20 93 L 02/16/22 04:00 97.5 F 66 28 H 123/59 95 02/16/22 01:00 97.3 F 69 18 108/54 96 02/15/22 21:33 71 20 96 02/15/22 21:00 98.2 F 72 18 127/59 96 Home Medications Medication Instructions Recorded Confirmed Last Taken Type Donepezil HCl [Aricept] 5 mg PO HS 02/15/22 02/15/22 02/14/22 History Prochlorperazine Maleate 10 mg PO TID PRN 02/15/22 02/15/22 Unknown History Sildenafil Citrate [Viagra] 100 mg PO UD 02/15/22 02/15/22 Unknown History Current Medications Generic Name Dose Route Start Last Admin Trade Name Freq PRN Reason Stop Dose Admin Albuterol/Ipratropium 3 ml 02/15/22 18:55 Ipratropium/Albuterol Sulfate 3 Ml Ampul.Neb IH 03/17/22 18:54 Q4HPRN PRN SHORTNESS OF BREATH/WHEEZING Allopurinol 100 mg 02/15/22 22:00 02/15/22 22:56 Allopurinol 100 Mg Tablet PO 03/17/22 21:59 100 mg HS XIMENA Administration Benzonatate 100 mg 02/15/22 22:16 02/15/22 22:56 Benzonatate 100 Mg Capsule PO 03/17/22 22:15 100 mg QID PRN PRN Administration COUGH Clopidogrel Bisulfate 75 mg 02/16/22 10:00 02/16/22 08:44 Clopidogrel Bisulfate 75 Mg Tablet PO 03/18/22 09:59 75 mg DAILY XIMENA Administration Cyclobenzaprine HCl 10 mg 02/15/22 22:00 02/16/22 08:45 Cyclobenzaprine Hcl 10 Mg Tablet PO 03/17/22 21:59 10 mg BID XIMENA Administration Donepezil HCl 5 mg 02/15/22 22:00 02/15/22 22:56 Donepezil Hcl 10 Mg Tablet PO 03/17/22 21:59 5 mg HS XIMENA Administration Duloxetine HCl 60 mg 02/16/22 22:00 Duloxetine Hcl 30 Mg Cap PO 03/18/22 21:59 HS XIMENA Famotidine 20 mg 02/15/22 22:00 02/16/22 08:45 Famotidine 20 Mg Tablet PO 03/17/22 21:59 20 mg BID XIMENA Administration Furosemide 20 mg 02/16/22 10:00 02/16/22 08:44 Furosemide 20 Mg Tablet PO 03/18/22 09:59 20 mg DAILY XIMENA Administration Gabapentin 300 mg 02/15/22 22:00 02/16/22 08:44 Gabapentin 300 Mg Capsule PO 03/17/22 21:59 300 mg BID XIMENA Administration Hydromorphone HCl 0.5 mg 02/15/22 19:56 02/16/22 14:27 Hydromorphone 1 Mg/1ml Inj 1 Mg/Ml Syringe IV 02/20/22 19:55 0.5 mg Q4H PRN PRN Administration PAIN Sodium Chloride 1,000 mls @ 60 mls/hr 02/15/22 19:00 02/16/22 14:27 Sodium Chloride 0.9% 1000 Ml IV 03/17/22 18:59 60 mls/hr .[id number] XIMENA Administration Azithromycin 500 mg in 250 mls @ 250 mls/hr 02/15/22 21:00 02/16/22 08:46 Zithromax 500 Mg/ 250 Ml Nacl Premix IV 03/17/22 20:59 250 mls/hr Q24H10 XIMENA Administration Ceftriaxone Sodium/Dextrose 1 g in 50 mls @ 100 mls/hr 02/16/22 22:00 Rocephin 1 Gm-D5w 50 Ml Bag IV 02/19/22 21:59 Q24H22 XIMENA Ibuprofen 200 mg 02/16/22 07:27 Ibuprofen 200 Mg Tablet PO 03/18/22 07:26 Q6HPRN PRN MILD PAIN Insulin Human Lispro 0 unit 02/15/22 18:56 02/15/22 22:57 Insulin Lispro 1 Unit SQ 03/17/22 18:55 4 unit UD PRN Administration HYPERGLYCEMIA Insulin Human NPH 20 unit 02/15/22 22:00 02/16/22 09:04 Insulin Nph Human Recom 1 Unit SQ 03/17/22 21:59 20 unit BID@0800,2200 XIMENA Administration Lisinopril 5 mg 02/16/22 10:00 02/16/22 08:44 Lisinopril 5 Mg Tablet PO 03/18/22 09:59 5 mg DAILY XIMENA Administration Metoprolol Tartrate 50 mg 02/16/22 10:00 02/16/22 08:57 Metoprolol Tartrate 50 Mg Tablet PO 03/18/22 09:59 50 mg DAILY XIMENA Administration Miscellaneous Information 1 each 02/16/22 07:30 Medication Intervention 1 Each Each 03/18/22 07:29 .RN TO CHECK XIMENA Pantoprazole Sodium 40 mg 02/16/22 10:00 02/16/22 08:45 Protonix (Pantoprazole) 40 Mg Tablet PO 03/18/22 09:59 40 mg DAILY XIMENA Administration Prochlorperazine 10 mg 02/16/22 07:15 Prochlorperazine Maleate 5 Mg Tablet PO 03/18/22 07:14 TID PRN PRN nausea Promethazine HCl 12.5 mg 02/16/22 07:22 Promethazine Hcl 25 Mg Tablet PO 03/18/22 07:21 Q6HPRN PRN NAUSEA Ropinirole HCl 0.5 mg 02/16/22 10:00 02/16/22 14:27 Ropinirole Hcl 0.5 Mg Tablet PO 03/18/22 09:59 0.5 mg TID XIMENA Administration Simvastatin 40 mg 02/15/22 22:35 02/15/22 22:55 Simvastatin 20 Mg Tablet PO 03/17/22 22:34 40 mg HS XIMENA Administration Tamsulosin HCl 0.4 mg 02/16/22 10:00 02/16/22 08:45 Tamsulosin Hcl 0.4 Mg Cap PO 03/18/22 09:59 0.4 mg DAILY XIMENA Administration Zolpidem Tartrate 10 mg 02/15/22 23:15 02/15/22 23:09 Zolpidem Tartrate 10 Mg Tablet PO 03/17/22 23:14 10 mg HS XIMENA Administration Discontinued Medications Generic Name Dose Route Start Last Admin Trade Name Harinder PRN Reason Stop Dose Admin Duloxetine HCl 30 mg 02/15/22 22:00 02/15/22 22:56 Duloxetine Hcl 30 Mg Cap PO 03/17/22 21:59 30 mg HS XIMENA Administration Ceftriaxone Sodium/Dextrose 1 g in 50 mls @ 100 mls/hr 02/16/22 22:00 02/15/22 20:14 Rocephin 1 Gm-D5w 50 Ml Bag IV 02/19/22 21:59 100 mls/hr Q24H10 XIMENA Administration Azithromycin 500 mg in 250 mls @ 250 mls/hr 02/16/22 22:30 Zithromax 500 Mg/ 250 Ml Nacl Premix IV 03/18/22 22:29 Q24H10 XIMENA Azithromycin Confirm 02/15/22 20:04 Zithromax 500 Mg/ 250 Ml Nacl Premix Administered 02/15/22 20:05 Dose 500 mg in 250 mls @ ud IV .STK-MED ONE Ceftriaxone Sodium/Dextrose Confirm 02/15/22 20:04 Rocephin 1 Gm-D5w 50 Ml Bag Administered 02/15/22 20:05 Dose 1 g in 50 mls @ ud IV .STK-MED ONE Ceftriaxone Sodium/Dextrose 1 g in 50 mls @ 100 mls/hr 02/15/22 20:30 02/15/22 20:14 Rocephin 1 Gm-D5w 50 Ml Bag IV 02/18/22 20:29 100 mls/hr Q24H10 XIMENA Administration Insulin Human Lispro 0 unit 02/15/22 18:51 Insulin Lispro 1 Unit SQ 03/17/22 18:50 UD PRN HYPERGLYCEMIA Prochlorperazine 10 mg 02/16/22 10:00 Prochlorperazine Maleate 5 Mg Tablet PO 03/18/22 09:59 TID XIMENA Zolpidem Tartrate 10 mg 02/16/22 22:00 Zolpidem Tartrate 10 Mg Tablet PO 03/18/22 21:59 HS XIMENA Intake & Output (Last 24 hours) 02/14/22 02/15/22 02/16/22 02/17/22 11:59 11:59 11:59 11:59 Intake Total 1430 1863 Output Total 250 Balance 1180 1863 Weight 71.8 kg Laboratory Results (Last 24 hours) 02/15/22 02/15/22 02/15/22 18:40 18:40 18:40 WBC 12.3 H RBC 4.61 Hgb 11.0 L Hct 35.9 L MCV 77.9 L MCH 23.9 L MCHC 30.6 L RDW 16.4 H Plt Count 351 MPV 8.4 Sodium 135 L Potassium 4.3 Chloride 104 Carbon Dioxide 28 Anion Gap 7.5 BUN 16 Creatinine 0.78 Estimated GFR > 60.0 Glucose 97 Hemoglobin A1c Calcium 8.9 Total Bilirubin 0.40 AST 22 ALT 16 Alkaline Phosphatase 98 Serum Total Protein 7.7 Albumin 3.9 Prealbumin 16.21 L Influenza Type A Ag NEGATIVE Influenza Type B Ag NEGATIVE RSV (PCR) NEGATIVE SARS-CoV-2 (PCR) NEGATIVE 02/15/22 18:00 WBC RBC Hgb Hct MCV MCH MCHC RDW Plt Count MPV Sodium Potassium Chloride Carbon Dioxide Anion Gap BUN Creatinine Estimated GFR Glucose Hemoglobin A1c 8.69 H Calcium Total Bilirubin AST ALT Alkaline Phosphatase Serum Total Protein Albumin Prealbumin Influenza Type A Ag Influenza Type B Ag RSV (PCR) SARS-CoV-2 (PCR) Orders (Last 24 hours) Category Date Time Status Activity as Tolerated TOLERATED Activity 02/15/22 18:52 Active Miscellaneous Nursing Order Q12H Care 02/15/22 22:15 Active Miscellaneous Nursing Order ROUTINE Care 02/15/22 18:54 Active POCT Glucose Check ACHS Care 02/15/22 18:51 Active House Regular Diet Diet 02/16/22 Breakfast Active CHEST 2 VIEWS (PA AND LAT) Urgent Exams 02/15/22 18:52 Completed SHOULDER Urgent Exams 02/15/22 18:50 Completed CBC Routine Lab 02/15/22 18:40 Completed CMP Routine Lab 02/15/22 18:40 Completed COVID/FLU/RSV Panel Urgent Lab 02/15/22 18:40 Completed HEMOGLOBIN A1C Routine Lab 02/15/22 18:00 Completed PREALBUMIN Routine Lab 02/15/22 18:40 Completed Albuterol/Ipratropium 3ml Neb* [DUONEB 0.5-3 MG/3 ml Med 02/15/22 18:55 Active Neb] 3 ml IH Q4HPRN PRN Allopurinol 100 mg [Zyloprim 100 mg] Med 02/15/22 22:00 Active 100 mg PO HS Azithromycin 500 mg/250 ml [Zithromax 500 MG/ 250 ML Med 02/15/22 21:00 Active NaCl Premix] 500 mg in 250 ml IV Q24H10 Azithromycin 500 mg/250 ml [Zithromax 500 MG/ 250 ML Med 02/16/22 22:30 Discontinued NaCl Premix] 500 mg in 250 ml IV Q24H10 Azithromycin 500 mg/250 ml [Zithromax 500 MG/ 250 ML Med 02/15/22 20:04 Discontinued NaCl Premix] 500 mg in 250 ml IV UD Benzonatate 100 mg [Tessalon Perles 100 MG] Med 02/15/22 22:16 Active 100 mg PO QID PRN PRN Ceftriaxone 1 GM/50 ML PREMIX* [ROCEPHIN 1 Gm-D5w 50 ml Med 02/15/22 20:30 Discontinued Bag] 1 g in 50 ml IV Q24H10 Ceftriaxone 1 GM/50 ML PREMIX* [ROCEPHIN 1 Gm-D5w 50 ml Med 02/16/22 22:00 Discontinued Bag] 1 g in 50 ml IV Q24H10 Ceftriaxone 1 GM/50 ML PREMIX* [ROCEPHIN 1 Gm-D5w 50 ml Med 02/16/22 22:00 Active Bag] 1 g in 50 ml IV Q24H22 Ceftriaxone 1 GM/50 ML PREMIX* [ROCEPHIN 1 Gm-D5w 50 ml Med 02/15/22 20:04 Discontinued Bag] 1 g in 50 ml IV UD Clopidogrel Bisulfate [PLAVIX Tablet] Med 02/16/22 10:00 Active 75 mg PO DAILY Cyclobenzaprine HCl 10 mg [Cyclobenzaprine 10 MG] Med 02/15/22 22:00 Active 10 mg PO BID Donepezil HCl 10 mg [Aricept 10 MG] Med 02/15/22 22:00 Active 5 mg PO HS Duloxetine HCl 30 mg [Cymbalta 30 MG Capsule] Med 02/15/22 22:00 Discontinued 30 mg PO HS Duloxetine HCl 30 mg [Cymbalta 30 MG Capsule] Med 02/16/22 22:00 Active 60 mg PO HS Famotidine 20 mg [Pepcid 20 MG] Med 02/15/22 22:00 Active 20 mg PO BID Furosemide 20 mg [Lasix 20 mg] Med 02/16/22 10:00 Active 20 mg PO DAILY Gabapentin [Neurontin ] Med 02/15/22 22:00 Active 300 mg PO BID Hydromorphone 1 mg/1Ml Inj [Hydromorphone 1 mg/ml Med 02/15/22 19:56 Active Injection] 0.5 mg IV Q4H PRN PRN Ibuprofen 200 mg [Motrin 200 mg] Med 02/16/22 07:27 Active 200 mg PO Q6HPRN PRN Insulin Lispro [Humalog] Med 02/15/22 18:51 Discontinued See Dose Instructions SQ UD PRN Insulin Lispro [Humalog] Med 02/15/22 18:56 Active See Dose Instructions SQ UD PRN Insulin NPH Human Recom [Novolin N] Med 02/15/22 22:00 Active 20 unit SQ BID@0800,2200 Lisinopril 5 mg [Zestril 5 MG] Med 02/16/22 10:00 Active 5 mg PO DAILY Medication Intervention Med 02/16/22 07:30 Active 1 each MC .RN TO CHECK Metoprolol Tartrate 50 mg [Lopressor 50 MG] Med 02/16/22 10:00 Active 50 mg PO DAILY NaCl 0.9% 1000 ml [Sodium Chloride 0.9% 1000 ML] 1,000 Med 02/15/22 19:00 Active ml IV 60 mls/hr PANTOPRAZOLE 40 mg Tablet [Protonix 40MG Tablet] Med 02/16/22 10:00 Active 40 mg PO DAILY Prochlorperazine Maleate 5 mg* [Compazine 5 MG] Med 02/16/22 10:00 Discontinued 10 mg PO TID Prochlorperazine Maleate 5 mg* [Compazine 5 MG] Med 02/16/22 07:15 Active 10 mg PO TID PRN PRN Promethazine HCl 25 mg [Phenergan 25 mg] Med 02/16/22 07:22 Active 12.5 mg PO Q6HPRN PRN Ropinirole HCl 0.5 mg [Requip 0.5 MG] Med 02/16/22 10:00 Active 0.5 mg PO TID Simvastatin 20Mg [Zocor 20Mg] Med 02/15/22 22:35 Active 40 mg PO HS Tamsulosin HCl 0.4 mg [Flomax 0.4 MG] Med 02/16/22 10:00 Active 0.4 mg PO DAILY Zolpidem Tartrate 10 mg [Ambien 10 MG] Med 02/15/22 23:15 Active 10 mg PO HS Zolpidem Tartrate 10 mg [Ambien 10 MG] Med 02/16/22 22:00 Discontinued 10 mg PO HS Oxygen Nasal Cannula 2 lpm RT 02/15/22 18:49 Active Pulse Oximetry .spot check RT 02/15/22 21:33 Active Qualify for Home Oxygen TODAY RT 02/16/22 14:13 Completed Respiratory Therapy Assessment DAILY RT 02/15/22 21:33 Active Patient Care Notes (Last 24 hours) 02/16/22 16:12 Respiratory Note by Jadyn Loera PT'S O2 SAT ON ROOM AIR WHILE AT REST 87%. PT WAS PLACED BACK ON 2LPM VIA NASAL CANNULA. O2 SAT INCREASED TO 93%. Initialized on 02/16/22 16:12 - END OF NOTE Code(s): J44.1 - CHRONIC OBSTRUCTIVE PULMONARY DISEASE W (ACUTE) EXACERBATION (2) Cough Current Visit: Yes Status: Acute Code(s): R05.9 - COUGH, UNSPECIFIED (3) Shortness of breath Current Visit: Yes Status: Acute Code(s): R06.02 - SHORTNESS OF BREATH Hospital Summary - Hospital Course Hospital Course: Last Vital Signs Temp 97.7 F 02/16/22 15:51 Pulse 61 02/16/22 15:51 Resp 16 02/16/22 12:00 BP 109/53 02/16/22 12:00 Pulse Ox 90 L 02/16/22 12:00 Allergies morphine Adverse Reaction (Intermediate, Verified 02/15/22 17:37) "It makes him agressive" Active Medications Albuterol/Ipratropium (Ipratropium/Albuterol Sulfate 3 Ml Ampul.Neb) 3 ml IH Q4HPRN PRN PRN Reason: SHORTNESS OF BREATH/WHEEZING Stop: 03/17/22 18:54 Allopurinol (Allopurinol 100 Mg Tablet) 100 mg PO HS XIMENA Stop: 03/17/22 21:59 Last Admin: 02/15/22 22:56 Dose: 100 mg Benzonatate (Benzonatate 100 Mg Capsule) 100 mg PO QID PRN PRN PRN Reason: COUGH Stop: 03/17/22 22:15 Last Admin: 02/15/22 22:56 Dose: 100 mg Clopidogrel Bisulfate (Clopidogrel Bisulfate 75 Mg Tablet) 75 mg PO DAILY [facility] Stop: 03/18/22 09:59 Last Admin: 02/16/22 08:44 Dose: 75 mg Cyclobenzaprine HCl (Cyclobenzaprine Hcl 10 Mg Tablet) 10 mg PO BID XIMENA Stop: 03/17/22 21:59 Last Admin: 02/16/22 08:45 Dose: 10 mg Donepezil HCl (Donepezil Hcl 10 Mg Tablet) 5 mg PO HS XIMENA Stop: 03/17/22 21:59 Last Admin: 02/15/22 22:56 Dose: 5 mg Duloxetine HCl (Duloxetine Hcl 30 Mg Cap) 60 mg PO HS [facility] Stop: 03/18/22 21:59 Famotidine (Famotidine 20 Mg Tablet) 20 mg PO BID XIMENA Stop: 03/17/22 21:59 Last Admin: 02/16/22 08:45 Dose: 20 mg Furosemide (Furosemide 20 Mg Tablet) 20 mg PO DAILY XIMENA Stop: 03/18/22 09:59 Last Admin: 02/16/22 08:44 Dose: 20 mg Gabapentin (Gabapentin 300 Mg Capsule) 300 mg PO BID XIMENA Stop: 03/17/22 21:59 Last Admin: 02/16/22 08:44 Dose: 300 mg Hydromorphone HCl (Hydromorphone 1 Mg/1ml Inj 1 Mg/Ml Syringe) 0.5 mg IV Q4H PRN PRN PRN Reason: PAIN Stop: 02/20/22 19:55 Last Admin: 02/16/22 14:27 Dose: 0.5 mg Sodium Chloride (Sodium Chloride 0.9% 1000 Ml) 1,000 mls @ 60 mls/hr IV .[id number] [facility] Stop: 03/17/22 18:59 Last Admin: 02/16/22 14:27 Dose: 60 mls/hr Azithromycin (Zithromax 500 Mg/ 250 Ml Nacl Premix) 500 mg in 250 mls @ 250 mls/hr IV Q24H10 [facility] Stop: 03/17/22 20:59 Last Admin: 02/16/22 08:46 Dose: 250 mls/hr Ceftriaxone Sodium/Dextrose (Rocephin 1 Gm-D5w 50 Ml Bag) 1 g in 50 mls @ 100 mls/hr IV Q24H22 [facility] Stop: 02/19/22 21:59 Ibuprofen (Ibuprofen 200 Mg Tablet) 200 mg PO Q6HPRN PRN PRN Reason: MILD PAIN Stop: 03/18/22 07:26 Insulin Human Lispro (Insulin Lispro 1 Unit) 0 unit SQ UD PRN PRN Reason: HYPERGLYCEMIA Stop: 03/17/22 18:55 Last Admin: 02/15/22 22:57 Dose: 4 unit Insulin Human NPH (Insulin Nph Human Recom 1 Unit) 20 unit SQ BID@0800,2200 [facility] Stop: 03/17/22 21:59 Last Admin: 02/16/22 09:04 Dose: 20 unit Lisinopril (Lisinopril 5 Mg Tablet) 5 mg PO DAILY [facility] Stop: 03/18/22 09:59 Last Admin: 02/16/22 08:44 Dose: 5 mg Metoprolol Tartrate (Metoprolol Tartrate 50 Mg Tablet) 50 mg PO DAILY [facility] Stop: 03/18/22 09:59 Last Admin: 02/16/22 08:57 Dose: 50 mg Miscellaneous Information (Medication Intervention 1 Each Each) 1 each [facility] .RN TO CHECK [facility] Stop: 03/18/22 07:29 Pantoprazole Sodium (Protonix (Pantoprazole) 40 Mg Tablet) 40 mg PO DAILY [facility] Stop: 03/18/22 09:59 Last Admin: 02/16/22 08:45 Dose: 40 mg Prochlorperazine (Prochlorperazine Maleate 5 Mg Tablet) 10 mg PO TID PRN PRN PRN Reason: nausea Stop: 03/18/22 07:14 Promethazine HCl (Promethazine Hcl 25 Mg Tablet) 12.5 mg PO Q6HPRN PRN PRN Reason: NAUSEA Stop: 03/18/22 07:21 Ropinirole HCl (Ropinirole Hcl 0.5 Mg Tablet) 0.5 mg PO TID [facility] Stop: 03/18/22 09:59 Last Admin: 02/16/22 14:27 Dose: 0.5 mg Simvastatin (Simvastatin 20 Mg Tablet) 40 mg PO HS XIMENA Stop: 03/17/22 22:34 Last Admin: 02/15/22 22:55 Dose: 40 mg Tamsulosin HCl (Tamsulosin Hcl 0.4 Mg Cap) 0.4 mg PO DAILY [facility] Stop: 03/18/22 09:59 Last Admin: 02/16/22 08:45 Dose: 0.4 mg Zolpidem Tartrate (Zolpidem Tartrate 10 Mg Tablet) 10 mg PO [facility] Stop: 03/17/22 23:14 Last Admin: 02/15/22 23:09 Dose: 10 mg Intake & Output 02/16/22 02/17/22 11:59 11:59 Intake Total 1430 1863 Output Total 250 Balance 1180 1863 Weight 71.8 kg Orders 02/15/22 18:49 Oxygen Nasal Cannula 2 lpm 02/15/22 18:51 POCT Glucose Check ACHS 02/15/22 18:52 Activity as Tolerated TOLERATED 02/15/22 18:54 Miscellaneous Nursing Order ROUTINE 02/15/22 18:55 Albuterol/Ipratropium 3ml Neb* [DUONEB 0.5-3 MG/3 ml Neb] 3 ml IH Q4HPRN PRN 02/15/22 18:56 Insulin Lispro [Humalog] See Dose Instructions SQ UD PRN 02/15/22 19:00 NaCl 0.9% 1000 ml [Sodium Chloride 0.9% 1000 ML] 1,000 ml IV 60 mls/hr 02/15/22 19:56 Hydromorphone 1 mg/1Ml Inj [Hydromorphone 1 mg/ml Injection] 0.5 mg IV Q4H PRN PRN 02/15/22 21:00 Azithromycin 500 mg/250 ml [Zithromax 500 MG/ 250 ML NaCl Premix] 500 mg in 250 ml IV Q24H10 02/15/22 21:33 Pulse Oximetry .spot check Respiratory Therapy Assessment DAILY 02/15/22 22:00 Allopurinol 100 mg [Zyloprim 100 mg] 100 mg PO HS Cyclobenzaprine HCl 10 mg [Cyclobenzaprine 10 MG] 10 mg PO BID Donepezil HCl 10 mg [Aricept 10 MG] 5 mg PO HS Famotidine 20 mg [Pepcid 20 MG] 20 mg PO BID Gabapentin [Neurontin ] 300 mg PO BID Insulin NPH Human Recom [Novolin N] 20 unit SQ BID@0800,2200 02/15/22 22:15 Miscellaneous Nursing Order Q12H 02/15/22 22:16 Benzonatate 100 mg [Tessalon Perles 100 MG] 100 mg PO QID PRN PRN 02/15/22 22:35 Simvastatin 20Mg [Zocor 20Mg] 40 mg PO HS 02/15/22 23:15 Zolpidem Tartrate 10 mg [Ambien 10 MG] 10 mg PO HS 02/16/22 Breakfast House Regular Diet 02/16/22 07:15 Prochlorperazine Maleate 5 mg* [Compazine 5 MG] 10 mg PO TID PRN PRN 02/16/22 07:22 Promethazine HCl 25 mg [Phenergan 25 mg] 12.5 mg PO Q6HPRN PRN 02/16/22 07:27 Ibuprofen 200 mg [Motrin 200 mg] 200 mg PO Q6HPRN PRN 02/16/22 07:30 Medication Intervention 1 each MC .RN TO CHECK 02/16/22 10:00 Clopidogrel Bisulfate [PLAVIX Tablet] 75 mg PO DAILY Furosemide 20 mg [Lasix 20 mg] 20 mg PO DAILY Lisinopril 5 mg [Zestril 5 MG] 5 mg PO DAILY Metoprolol Tartrate 50 mg [Lopressor 50 MG] 50 mg PO DAILY PANTOPRAZOLE 40 mg Tablet [Protonix 40MG Tablet] 40 mg PO DAILY Ropinirole HCl 0.5 mg [Requip 0.5 MG] 0.5 mg PO TID Tamsulosin HCl 0.4 mg [Flomax 0.4 MG] 0.4 mg PO DAILY 02/16/22 22:00 Ceftriaxone 1 GM/50 ML PREMIX* [ROCEPHIN 1 Gm-D5w 50 ml Bag] 1 g in 50 ml IV Q24H22 Duloxetine HCl 30 mg [Cymbalta 30 MG Capsule] 60 mg PO HS Lab Tests 02/15/22 02/15/22 02/15/22 18:00 18:40 18:40 WBC 12.3 H RBC 4.61 Hgb 11.0 L Hct 35.9 L MCV 77.9 L MCH 23.9 L MCHC 30.6 L RDW 16.4 H Plt Count 351 MPV 8.4 Sodium 135 L Potassium 4.3 Chloride 104 Carbon Dioxide 28 Anion Gap 7.5 BUN 16 Creatinine 0.78 Estimated GFR > 60.0 Glucose 97 Hemoglobin A1c 8.69 H Calcium 8.9 Total Bilirubin 0.40 AST 22 ALT 16 Alkaline Phosphatase 98 Serum Total Protein 7.7 Albumin 3.9 Prealbumin 16.21 L Influenza Type A Ag Influenza Type B Ag RSV (PCR) SARS-CoV-2 (PCR) 02/15/22 18:40 WBC RBC Hgb Hct MCV MCH MCHC RDW Plt Count MPV Sodium Potassium Chloride Carbon Dioxide Anion Gap BUN Creatinine Estimated GFR Glucose Hemoglobin A1c Calcium Total Bilirubin AST ALT Alkaline Phosphatase Serum Total Protein Albumin Prealbumin Influenza Type A Ag NEGATIVE Influenza Type B Ag NEGATIVE RSV (PCR) NEGATIVE SARS-CoV-2 (PCR) NEGATIVE Chief Complaint Diagnosis COPD Exacerbation Allergies Allergy/AdvReac Type Severity Reaction Status Date / Time morphine AdvReac Intermediate Verified 02/15/22 17:37 Vital Signs (Last 24 hours) Temp Pulse Resp BP Pulse Ox 02/16/22 15:51 97.7 F 61 02/16/22 12:00 97.7 F 61 16 109/53 90 L 02/16/22 07:54 97.5 F 75 18 136/65 92 L 02/16/22 07:40 77 20 93 L 02/16/22 04:00 97.5 F 66 28 H 123/59 95 02/16/22 01:00 97.3 F 69 18 108/54 96 02/15/22 21:33 71 20 96 02/15/22 21:00 98.2 F 72 18 127/59 96 Home Medications Medication Instructions Recorded Confirmed Last Taken Type Donepezil HCl [Aricept] 5 mg PO HS 02/15/22 02/15/22 02/14/22 History Prochlorperazine Maleate 10 mg PO TID PRN 02/15/22 02/15/22 Unknown History Sildenafil Citrate [Viagra] 100 mg PO UD 02/15/22 02/15/22 Unknown History Current Medications Generic Name Dose Route Start Last Admin Trade Name Freq PRN Reason Stop Dose Admin Albuterol/Ipratropium 3 ml 02/15/22 18:55 Ipratropium/Albuterol Sulfate 3 Ml Ampul.Neb IH 03/17/22 18:54 Q4HPRN PRN SHORTNESS OF BREATH/WHEEZING Allopurinol 100 mg 02/15/22 22:00 02/15/22 22:56 Allopurinol 100 Mg Tablet PO 03/17/22 21:59 100 mg HS XIMENA Administration Benzonatate 100 mg 02/15/22 22:16 02/15/22 22:56 Benzonatate 100 Mg Capsule PO 03/17/22 22:15 100 mg QID PRN PRN Administration COUGH Clopidogrel Bisulfate 75 mg 02/16/22 10:00 02/16/22 08:44 Clopidogrel Bisulfate 75 Mg Tablet PO 03/18/22 09:59 75 mg DAILY XIMENA Administration Cyclobenzaprine HCl 10 mg 02/15/22 22:00 02/16/22 08:45 Cyclobenzaprine Hcl 10 Mg Tablet PO 03/17/22 21:59 10 mg BID XIMENA Administration Donepezil HCl 5 mg 02/15/22 22:00 02/15/22 22:56 Donepezil Hcl 10 Mg Tablet PO 03/17/22 21:59 5 mg HS XIMENA Administration Duloxetine HCl 60 mg 02/16/22 22:00 Duloxetine Hcl 30 Mg Cap PO 03/18/22 21:59 HS XIMENA Famotidine 20 mg 02/15/22 22:00 02/16/22 08:45 Famotidine 20 Mg Tablet PO 03/17/22 21:59 20 mg BID XIMENA Administration Furosemide 20 mg 02/16/22 10:00 02/16/22 08:44 Furosemide 20 Mg Tablet PO 03/18/22 09:59 20 mg DAILY XIMENA Administration Gabapentin 300 mg 02/15/22 22:00 02/16/22 08:44 Gabapentin 300 Mg Capsule PO 03/17/22 21:59 300 mg BID XIMENA Administration Hydromorphone HCl 0.5 mg 02/15/22 19:56 02/16/22 14:27 Hydromorphone 1 Mg/1ml Inj 1 Mg/Ml Syringe IV 02/20/22 19:55 0.5 mg Q4H PRN PRN Administration PAIN Sodium Chloride 1,000 mls @ 60 mls/hr 02/15/22 19:00 02/16/22 14:27 Sodium Chloride 0.9% 1000 Ml IV 03/17/22 18:59 60 mls/hr .[id number] XIMENA Administration Azithromycin 500 mg in 250 mls @ 250 mls/hr 02/15/22 21:00 02/16/22 08:46 Zithromax 500 Mg/ 250 Ml Nacl Premix IV 03/17/22 20:59 250 mls/hr Q24H10 XIMENA Administration Ceftriaxone Sodium/Dextrose 1 g in 50 mls @ 100 mls/hr 02/16/22 22:00 Rocephin 1 Gm-D5w 50 Ml Bag IV 02/19/22 21:59 Q24H22 XIMENA Ibuprofen 200 mg 02/16/22 07:27 Ibuprofen 200 Mg Tablet PO 03/18/22 07:26 Q6HPRN PRN MILD PAIN Insulin Human Lispro 0 unit 02/15/22 18:56 02/15/22 22:57 Insulin Lispro 1 Unit SQ 03/17/22 18:55 4 unit UD PRN Administration HYPERGLYCEMIA Insulin Human NPH 20 unit 02/15/22 22:00 02/16/22 09:04 Insulin Nph Human Recom 1 Unit SQ 03/17/22 21:59 20 unit BID@0800,2200 XIMENA Administration Lisinopril 5 mg 02/16/22 10:00 02/16/22 08:44 Lisinopril 5 Mg Tablet PO 03/18/22 09:59 5 mg DAILY XIMENA Administration Metoprolol Tartrate 50 mg 02/16/22 10:00 02/16/22 08:57 Metoprolol Tartrate 50 Mg Tablet PO 03/18/22 09:59 50 mg DAILY XIMENA Administration Miscellaneous Information 1 each 02/16/22 07:30 Medication Intervention 1 Each Each 03/18/22 07:29 .RN TO CHECK XIMENA Pantoprazole Sodium 40 mg 02/16/22 10:00 02/16/22 08:45 Protonix (Pantoprazole) 40 Mg Tablet PO 03/18/22 09:59 40 mg DAILY XIMENA Administration Prochlorperazine 10 mg 02/16/22 07:15 Prochlorperazine Maleate 5 Mg Tablet PO 03/18/22 07:14 TID PRN PRN nausea Promethazine HCl 12.5 mg 02/16/22 07:22 Promethazine Hcl 25 Mg Tablet PO 03/18/22 07:21 Q6HPRN PRN NAUSEA Ropinirole HCl 0.5 mg 02/16/22 10:00 02/16/22 14:27 Ropinirole Hcl 0.5 Mg Tablet PO 03/18/22 09:59 0.5 mg TID XIMENA Administration Simvastatin 40 mg 02/15/22 22:35 02/15/22 22:55 Simvastatin 20 Mg Tablet PO 03/17/22 22:34 40 mg HS XIMENA Administration Tamsulosin HCl 0.4 mg 02/16/22 10:00 02/16/22 08:45 Tamsulosin Hcl 0.4 Mg Cap PO 03/18/22 09:59 0.4 mg DAILY XIMENA Administration Zolpidem Tartrate 10 mg 02/15/22 23:15 02/15/22 23:09 Zolpidem Tartrate 10 Mg Tablet PO 03/17/22 23:14 10 mg HS XIMENA Administration Discontinued Medications Generic Name Dose Route Start Last Admin Trade Name Freq PRN Reason Stop Dose Admin Duloxetine HCl 30 mg 02/15/22 22:00 02/15/22 22:56 Duloxetine Hcl 30 Mg Cap PO 03/17/22 21:59 30 mg HS XIMENA Administration Ceftriaxone Sodium/Dextrose 1 g in 50 mls @ 100 mls/hr 02/16/22 22:00 02/15/22 20:14 Rocephin 1 Gm-D5w 50 Ml Bag IV 02/19/22 21:59 100 mls/hr Q24H10 XIMENA Administration Azithromycin 500 mg in 250 mls @ 250 mls/hr 02/16/22 22:30 Zithromax 500 Mg/ 250 Ml Nacl Premix IV 03/18/22 22:29 Q24H10 XIMENA Azithromycin Confirm 02/15/22 20:04 Zithromax 500 Mg/ 250 Ml Nacl Premix Administered 02/15/22 20:05 Dose 500 mg in 250 mls @ ud IV .STK-MED ONE Ceftriaxone Sodium/Dextrose Confirm 02/15/22 20:04 Rocephin 1 Gm-D5w 50 Ml Bag Administered 02/15/22 20:05 Dose 1 g in 50 mls @ ud IV .STK-MED ONE Ceftriaxone Sodium/Dextrose 1 g in 50 mls @ 100 mls/hr 02/15/22 20:30 02/15/22 20:14 Rocephin 1 Gm-D5w 50 Ml Bag IV 02/18/22 20:29 100 mls/hr Q24H10 XIMENA Administration Insulin Human Lispro 0 unit 02/15/22 18:51 Insulin Lispro 1 Unit SQ 03/17/22 18:50 UD PRN HYPERGLYCEMIA Prochlorperazine 10 mg 02/16/22 10:00 Prochlorperazine Maleate 5 Mg Tablet PO 03/18/22 09:59 TID XIMENA Zolpidem Tartrate 10 mg 02/16/22 22:00 Zolpidem Tartrate 10 Mg Tablet PO 03/18/22 21:59 HS XIMENA Intake & Output (Last 24 hours) 02/14/22 02/15/22 02/16/22 02/17/22 11:59 11:59 11:59 11:59 Intake Total 1430 1863 Output Total 250 Balance 1180 1863 Weight 71.8 kg Laboratory Results (Last 24 hours) 02/15/22 02/15/22 02/15/22 18:40 18:40 18:40 WBC 12.3 H RBC 4.61 Hgb 11.0 L Hct 35.9 L MCV 77.9 L MCH 23.9 L MCHC 30.6 L RDW 16.4 H Plt Count 351 MPV 8.4 Sodium 135 L Potassium 4.3 Chloride 104 Carbon Dioxide 28 Anion Gap 7.5 BUN 16 Creatinine 0.78 Estimated GFR > 60.0 Glucose 97 Hemoglobin A1c Calcium 8.9 Total Bilirubin 0.40 AST 22 ALT 16 Alkaline Phosphatase 98 Serum Total Protein 7.7 Albumin 3.9 Prealbumin 16.21 L Influenza Type A Ag NEGATIVE Influenza Type B Ag NEGATIVE RSV (PCR) NEGATIVE SARS-CoV-2 (PCR) NEGATIVE 02/15/22 18:00 WBC RBC Hgb Hct MCV MCH MCHC RDW Plt Count MPV Sodium Potassium Chloride Carbon Dioxide Anion Gap BUN Creatinine Estimated GFR Glucose Hemoglobin A1c 8.69 H Calcium Total Bilirubin AST ALT Alkaline Phosphatase Serum Total Protein Albumin Prealbumin Influenza Type A Ag Influenza Type B Ag RSV (PCR) SARS-CoV-2 (PCR) Orders (Last 24 hours) Category Date Time Status Activity as Tolerated TOLERATED Activity 02/15/22 18:52 Active Miscellaneous Nursing Order Q12H Care 02/15/22 22:15 Active Miscellaneous Nursing Order ROUTINE Care 02/15/22 18:54 Active POCT Glucose Check ACHS Care 02/15/22 18:51 Active House Regular Diet Diet 02/16/22 Breakfast Active CHEST 2 VIEWS (PA AND LAT) Urgent Exams 02/15/22 18:52 Completed SHOULDER Urgent Exams 02/15/22 18:50 Completed CBC Routine Lab 02/15/22 18:40 Completed CMP Routine Lab 02/15/22 18:40 Completed COVID/FLU/RSV Panel Urgent Lab 02/15/22 18:40 Completed HEMOGLOBIN A1C Routine Lab 02/15/22 18:00 Completed PREALBUMIN Routine Lab 02/15/22 18:40 Completed Albuterol/Ipratropium 3ml Neb* [DUONEB 0.5-3 MG/3 ml Med 02/15/22 18:55 Active Neb] 3 ml IH Q4HPRN PRN Allopurinol 100 mg [Zyloprim 100 mg] Med 02/15/22 22:00 Active 100 mg PO HS Azithromycin 500 mg/250 ml [Zithromax 500 MG/ 250 ML Med 02/15/22 21:00 Active NaCl Premix] 500 mg in 250 ml IV Q24H10 Azithromycin 500 mg/250 ml [Zithromax 500 MG/ 250 ML Med 02/16/22 22:30 Discontinued NaCl Premix] 500 mg in 250 ml IV Q24H10 Azithromycin 500 mg/250 ml [Zithromax 500 MG/ 250 ML Med 02/15/22 20:04 Discontinued NaCl Premix] 500 mg in 250 ml IV UD Benzonatate 100 mg [Tessalon Perles 100 MG] Med 02/15/22 22:16 Active 100 mg PO QID PRN PRN Ceftriaxone 1 GM/50 ML PREMIX* [ROCEPHIN 1 Gm-D5w 50 ml Med 02/15/22 20:30 Discontinued Bag] 1 g in 50 ml IV Q24H10 Ceftriaxone 1 GM/50 ML PREMIX* [ROCEPHIN 1 Gm-D5w 50 ml Med 02/16/22 22:00 Discontinued Bag] 1 g in 50 ml IV Q24H10 Ceftriaxone 1 GM/50 ML PREMIX* [ROCEPHIN 1 Gm-D5w 50 ml Med 02/16/22 22:00 Active Bag] 1 g in 50 ml IV Q24H22 Ceftriaxone 1 GM/50 ML PREMIX* [ROCEPHIN 1 Gm-D5w 50 ml Med 02/15/22 20:04 Discontinued Bag] 1 g in 50 ml IV UD Clopidogrel Bisulfate [PLAVIX Tablet] Med 02/16/22 10:00 Active 75 mg PO DAILY Cyclobenzaprine HCl 10 mg [Cyclobenzaprine 10 MG] Med 02/15/22 22:00 Active 10 mg PO BID Donepezil HCl 10 mg [Aricept 10 MG] Med 02/15/22 22:00 Active 5 mg PO HS Duloxetine HCl 30 mg [Cymbalta 30 MG Capsule] Med 02/15/22 22:00 Discontinued 30 mg PO HS Duloxetine HCl 30 mg [Cymbalta 30 MG Capsule] Med 02/16/22 22:00 Active 60 mg PO HS Famotidine 20 mg [Pepcid 20 MG] Med 02/15/22 22:00 Active 20 mg PO BID Furosemide 20 mg [Lasix 20 mg] Med 02/16/22 10:00 Active 20 mg PO DAILY Gabapentin [Neurontin ] Med 02/15/22 22:00 Active 300 mg PO BID Hydromorphone 1 mg/1Ml Inj [Hydromorphone 1 mg/ml Med 02/15/22 19:56 Active Injection] 0.5 mg IV Q4H PRN PRN Ibuprofen 200 mg [Motrin 200 mg] Med 02/16/22 07:27 Active 200 mg PO Q6HPRN PRN Insulin Lispro [Humalog] Med 02/15/22 18:51 Discontinued See Dose Instructions SQ UD PRN Insulin Lispro [Humalog] Med 02/15/22 18:56 Active See Dose Instructions SQ UD PRN Insulin NPH Human Recom [Novolin N] Med 02/15/22 22:00 Active 20 unit SQ BID@0800,2200 Lisinopril 5 mg [Zestril 5 MG] Med 02/16/22 10:00 Active 5 mg PO DAILY Medication Intervention Med 02/16/22 07:30 Active 1 each MC .RN TO CHECK Metoprolol Tartrate 50 mg [Lopressor 50 MG] Med 02/16/22 10:00 Active 50 mg PO DAILY NaCl 0.9% 1000 ml [Sodium Chloride 0.9% 1000 ML] 1,000 Med 02/15/22 19:00 Active ml IV 60 mls/hr PANTOPRAZOLE 40 mg Tablet [Protonix 40MG Tablet] Med 02/16/22 10:00 Active 40 mg PO DAILY Prochlorperazine Maleate 5 mg* [Compazine 5 MG] Med 02/16/22 10:00 Discontinued 10 mg PO TID Prochlorperazine Maleate 5 mg* [Compazine 5 MG] Med 02/16/22 07:15 Active 10 mg PO TID PRN PRN Promethazine HCl 25 mg [Phenergan 25 mg] Med 02/16/22 07:22 Active 12.5 mg PO Q6HPRN PRN Ropinirole HCl 0.5 mg [Requip 0.5 MG] Med 02/16/22 10:00 Active 0.5 mg PO TID Simvastatin 20Mg [Zocor 20Mg] Med 02/15/22 22:35 Active 40 mg PO HS Tamsulosin HCl 0.4 mg [Flomax 0.4 MG] Med 02/16/22 10:00 Active 0.4 mg PO DAILY Zolpidem Tartrate 10 mg [Ambien 10 MG] Med 02/15/22 23:15 Active 10 mg PO HS Zolpidem Tartrate 10 mg [Ambien 10 MG] Med 02/16/22 22:00 Discontinued 10 mg PO HS Oxygen Nasal Cannula 2 lpm RT 02/15/22 18:49 Active Pulse Oximetry .spot check RT 02/15/22 21:33 Active Qualify for Home Oxygen TODAY RT 02/16/22 14:13 Completed Respiratory Therapy Assessment DAILY RT 02/15/22 21:33 Active Patient Care Notes (Last 24 hours) 02/16/22 16:12 Respiratory Note by Jadyn Loera PT'S O2 SAT ON ROOM AIR WHILE AT REST 87%. PT WAS PLACED BACK ON 2LPM VIA NASAL CANNULA. O2 SAT INCREASED TO 93%. Initialized on 02/16/22 16:12 - END OF NOTE - Vitals & Intake/Output Vital Signs: Vital Signs Temperature 97.7 F 02/16/22 15:51 Pulse Rate 61 02/16/22 15:51 Respiratory Rate 16 02/16/22 12:00 Blood Pressure 109/53 02/16/22 12:00 O2 Sat by Pulse Oximetry 90 L 02/16/22 12:00 Intake & Output: Intake & Output 02/14/22 02/15/22 02/16/22 02/17/22 11:59 11:59 11:59 11:59 Intake Total 1430 1863 Output Total 250 Balance 1180 1863 Weight 71.8 kg - Lab Result Diagrams: 02/15/22 18:40 02/15/22 18:40 Lab Results-Last 24 Hrs: Lab Results-Last 24 Hours 02/15/22 02/15/22 02/15/22 Range/Units 18:00 18:40 18:40 WBC 12.3 H (4.0-10.5) x10^3/uL RBC 4.61 (4.1-5.6) x10^6/uL Hgb 11.0 L (12.5-18.0) g/dL Hct 35.9 L (42-50) % MCV 77.9 L (78-100) fL MCH 23.9 L (26-32) pg MCHC 30.6 L (32-36) g/dL RDW 16.4 H (11.5-14.0) % Plt Count 351 (150-450) x10^3/uL MPV 8.4 (7.5-11.0) fL Sodium 135 L (137-145) mmol/L Potassium 4.3 (3.5-5.1) mmol/L Chloride 104 (98-107) mmol/L Carbon Dioxide 28 (22-30) mmol/L Anion Gap 7.5 (5-15) MEQ/L BUN 16 (9-20) mg/dL Creatinine 0.78 (0.66-1.25) mg/dL Estimated GFR > 60.0 ML/MIN Glucose 97 (74-106) mg/dL Hemoglobin A1c 8.69 H (4.5-6.0) % Calcium 8.9 (8.4-10.2) mg/dL Total Bilirubin 0.40 (0.2-1.3) mg/dL AST 22 (17-59) U/L ALT 16 (0-50) U/L Alkaline Phosphatase 98 (38-126) U/L Serum Total Protein 7.7 (6.3-8.2) g/dL Albumin 3.9 (3.5-5.0) g/dL Prealbumin 16.21 L (17.6-36.0) mg/dL Influenza Type A Ag (NEGATIVE) Influenza Type B Ag (NEGATIVE) RSV (PCR) (Negative) SARS-CoV-2 (PCR) (NEGATIVE) 02/15/22 Range/Units 18:40 WBC (4.0-10.5) x10^3/uL RBC (4.1-5.6) x10^6/uL Hgb (12.5-18.0) g/dL Hct (42-50) % MCV (78-100) fL MCH (26-32) pg MCHC (32-36) g/dL RDW (11.5-14.0) % Plt Count (150-450) x10^3/uL MPV (7.5-11.0) fL Sodium (137-145) mmol/L Potassium (3.5-5.1) mmol/L Chloride (98-107) mmol/L Carbon Dioxide (22-30) mmol/L Anion Gap (5-15) MEQ/L BUN (9-20) mg/dL Creatinine (0.66-1.25) mg/dL Estimated GFR ML/MIN Glucose (74-106) mg/dL Hemoglobin A1c (4.5-6.0) % Calcium (8.4-10.2) mg/dL Total Bilirubin (0.2-1.3) mg/dL AST (17-59) U/L ALT (0-50) U/L Alkaline Phosphatase (38-126) U/L Serum Total Protein (6.3-8.2) g/dL Albumin (3.5-5.0) g/dL Prealbumin (17.6-36.0) mg/dL Influenza Type A Ag NEGATIVE (NEGATIVE) Influenza Type B Ag NEGATIVE (NEGATIVE) RSV (PCR) NEGATIVE (Negative) SARS-CoV-2 (PCR) NEGATIVE (NEGATIVE) Micro Results-Entire Visit: Accuchecks Date 02/16/22 Date 02/16/22 Date 02/16/22 Date 02/15/22 Time 21:00 - Radiology Exams Ordered Rad Exams-Entire Visit: Radiology Procedures Category Date Time Status CHEST 2 VIEWS (PA AND LAT) Urgent Exams 02/15/22 18:52 Completed SHOULDER Urgent Exams 02/15/22 18:50 Completed - Procedures and Test Procedures and Tests throughout Hospitalization: Therapy Orders & Screens 02/15/22 18:49 Oxygen Nasal Cannula 2 lpm Comment: Diagnosis: COPD Exacerbation 02/15/22 21:33 Respiratory Therapy Assessment DAILY Comment: Diagnosis: COPD Exacerbation 02/16/22 14:13 Qualify for Home Oxygen TODAY Comment: Diagnosis: COPD Exacerbation - Discharge Disposition: Home, Self-Care Condition: Stable Prescriptions: No Action Zolpidem Tartrate 10 mg [Ambien 10 MG] 10 mg PO HS Pravastatin Sodium 40 mg PO HS Metoprolol Tartrate 50 mg [Lopressor 50 MG] 50 mg PO DAILY Famotidine 20 mg [Pepcid 20 MG] 20 mg PO BID Duloxetine HCl 30 mg [Cymbalta 30 MG Capsule] 60 mg PO HS Clopidogrel Bisulfate [PLAVIX Tablet] 75 mg PO DAILY Lisinopril 5 mg [Zestril 5 MG] 5 mg PO DAILY Allopurinol 100 mg [Zyloprim 100 mg] 100 mg PO HS Nabumetone 500 mg PO BID Cyclobenzaprine HCl 10 mg [Cyclobenzaprine 10 MG] 10 mg PO BID Promethazine HCl 25 mg [Phenergan 25 mg] 12.5 mg PO Q6HPRN PRN PRN Reason: Nausea Insulin NPH Human Isophane [Novolin N] 20 unit SQ BID Furosemide 20 mg [Lasix 20 mg] 20 mg PO DAILY Omeprazole Magnesium [Prilosec Otc] 20 mg PO DAILY Gabapentin [Neurontin ] 300 mg PO BID Ibuprofen 200 mg PO Q6HPRN PRN PRN Reason: Mild Pain Tamsulosin HCl 0.4 mg [Flomax 0.4 MG] 0.4 mg PO DAILY Ropinirole HCl 0.5 mg [Requip 0.5 MG] 0.5 mg PO TID Sildenafil Citrate [Viagra] 100 mg PO UD Donepezil HCl [Aricept] 5 mg PO HS Prochlorperazine Maleate 10 mg PO TID PRN PRN Reason: Nausea Follow up with: TERE BLANTON MD [Primary Care Provider] - 03/08/22 3:45 pm ([place])
[2022-02-16] MEDS: HUMALOG SQ PRN ×2 (18:27→22:35)
[2022-02-16] MEDS ORDERED: Ambien 10 MG PO SCH (22:00)
[2022-02-16] MEDS ORDERED: Cymbalta 30 MG Capsule PO SCH (22:00)
[2022-02-16] MEDS ORDERED: ROCEPHIN 1 Gm-D5w 50 ml Bag** 1 G/50 ML IVPB IV SCH ×2 (22:00)
[2022-02-16] MEDS: ZOCOR 20MG PO SCH (22:06)
[2022-02-16] MEDS: Ambien 10 MG PO SCH (22:06)
[2022-02-16] MEDS: Aricept 10 MG PO SCH (22:06)
[2022-02-16] MEDS ORDERED: Zithromax 500 MG/ 250 ML NaCl Premix 500 MG/250 ML IVPB IV SCH (22:30)
[2022-02-16] MEDS: ZYLOPRIM 100 MG PO SCH (22:32)
[2022-02-17 07:18] VITALS: BP 114/59; PULSE 90; O2SAT 94
[2022-02-17] MEDS: Sodium Chloride 0.9% 1000 ML 1,000 ML IV SCH (07:35)
[2022-02-17] MEDS: Novolin N SQ SCH (09:05)
== END 2022-02-17 08:45 | disposition home or self-care (01) ==
LOC: MED SURG 16:56
PROVIDERS: ADMIT General Practice; ATTEND General Practice
DX: J44.1 Chronic obstructive pulmonary disease with (acute) exacerbation (principal); R05.9 Cough, unspecified; R06.02 Shortness of breath; I11.0 Hypertensive heart disease with heart failure; I50.9 Heart failure, unspecified; I25.10 Atherosclerotic heart disease of native coronary artery without angina pectoris; E11.9 Type 2 diabetes mellitus without complications; I25.2 Old myocardial infarction; Z20.828 Contact with and (suspected) exposure to other viral communicable diseases; Z79.899 Other long term (current) drug therapy; Z79.01 Long term (current) use of anticoagulants; Z72.0 Tobacco use
CPT/HCPCS: 0241U; 36415; 71046; 73030; 80053; 83036; 84134; 85027; 94760; G0378; J0456; J0696; J1170; J1817; A9270-GY

== ENCOUNTER 2022-05-30 15:31 | Inpatient (IN) | payer MEDICARE ==
[2022-05-30] MEDS ORDERED: HUMALOG SQ PRN (16:33)
[2022-05-30] MEDS ORDERED: Sodium Chloride 0.9% 1000 ML 1,000 ML IV STA (16:33)
[2022-05-30 16:58] LABS: Absolute Neutrophil Ct (ANC) 5.03 x10^3/uL (1.4-6.9); BASOPHIL % 0.9 % (0.0-0.4); Basophil (Absolute #) 0.09 x10^3/uL (0-0.4); Eosinophil % 5.5 % (0.00-5.0); Eosinophil (Absolute #) 0.58 x10^3/uL (0-0.5); Hematocrit 37.6 % (42-50); Hemoglobin 11.5 g/dL (12.5-18.0); IMMATURE GRAN # 0.04 x10^3u/L (0.00-0.03); IMMATURE GRAN % 0.4 % (0.00-0.4); Lymphocyte (Absolute #) 3.72 x10^3/uL (1.0-4.6); Lymphocytes % 35.6 % (24.0-44.0); Mean Cell Volume 76.1 fL (78-100); Mean Corpuscular Hemoglobin 23.3 pg (26-32); Mean Corpuscular Hgb Concent. 30.6 g/dL (32-36); Mean Platelet Volume 8.3 fL (7.5-11.0); Monocytes % 9.6 % (0.0-12.0); Platelet Count 407 x10^3/uL (150-450); Red Blood Count 4.94 x10^6/uL (4.1-5.6); Red Cell Distribution Width 18.7 % (11.5-14.0); White Blood Count 10.5 x10^3/uL (4.0-10.5)
[2022-05-30] MEDS: Hydromorphone 1 mg/ml Injection IV PRN ×2 (17:00→20:45)
[2022-05-30 17:14] LABS: ALKALINE PHOSPHATASE 105 U/L (38-126); ANION GAP 11.6 MEQ/L (5-15); BLOOD UREA NITROGEN 10 mg/dL (9-20); CHLORIDE 97 mmol/L (98-107); Calcium 8.7 mg/dL (8.4-10.2); Carbon Dioxide 31 mmol/L (22-30); Creatinine 1 0.92 mg/dL (0.66-1.25); EST GLOMERULAR FILTRATION RATE > 60.0 ML/MIN; Glucose 145 mg/dL (74-106); Potassium 4.3 mmol/L (3.5-5.1); SGOT/AST 61 U/L (17-59); SGPT/ALT 21 U/L (0-50); SODIUM 135 mmol/L (137-145); Total Protein 7.5 g/dL (6.3-8.2)
[2022-05-30] MEDS: ROCEPHIN 2 Gm-D5w 50ML BAG** 2 G/50 ML IVPB IV SCH (17:20)
[2022-05-30] MEDS ORDERED: Hydromorphone 1 mg/ml Injection IV ONE (18:30)
[2022-05-30] MEDS ORDERED: NEURONTIN PO ONE (20:09)
[2022-05-30] MEDS ORDERED: Novolin N ONE (20:30)
[2022-05-30] MEDS ORDERED: HUMULIN R ONE (20:32)
[2022-05-30] MEDS: Sodium Chloride 0.9% 1000 ML 1,000 ML IV SCH (20:36)
[2022-05-30] MEDS ORDERED: NEURONTIN PO SCH (22:00)
[2022-05-30] MEDS ORDERED: ZYLOPRIM 300 MG PO ONE (22:42)
[2022-05-30] MEDS ORDERED: Ambien 10 MG ONE (22:43)
[2022-05-30] MEDS ORDERED: Toprol Xl 50 MG PO ONE (22:44)
[2022-05-30] MEDS ORDERED: ECOTRIN 81 MG PO ONE (22:45)
[2022-05-31 05:36] LABS: Hematocrit 34.1 % (42-50); Hemoglobin 10.4 g/dL (12.5-18.0); Mean Cell Volume 75.3 fL (78-100); Mean Corpuscular Hgb Concent. 30.5 g/dL (32-36); Mean Platelet Volume 8.4 fL (7.5-11.0); Platelet Count 385 x10^3/uL (150-450); Red Blood Count 4.53 x10^6/uL (4.1-5.6); Red Cell Distribution Width 18.7 % (11.5-14.0); White Blood Count 9.3 x10^3/uL (4.0-10.5)
[2022-05-31] MEDS ORDERED: PLAVIX Tablet PO ONE (06:00)
[2022-05-31] MEDS ORDERED: Protonix 40MG Tablet PO ONE (06:00)
[2022-05-31] MEDS ORDERED: NEURONTIN PO ONE (06:00)
[2022-05-31] MEDS ORDERED: Cymbalta 30 MG Capsule PO ONE (06:00)
[2022-05-31] MEDS ORDERED: LASIX 20 MG PO ONE (06:00)
[2022-05-31] MEDS ORDERED: Toprol Xl 50 MG PO ONE (06:00)
[2022-05-31] MEDS ORDERED: ECOTRIN 81 MG PO ONE (06:00)
[2022-05-31] MEDS ORDERED: Zestril 10 MG PO ONE (06:00)
[2022-05-31] MEDS ORDERED: Lopressor 50 MG PO ONE (06:00)
[2022-05-31] MEDS ORDERED: ZOCOR 20MG PO ONE (06:00)
[2022-05-31] MEDS: Sodium Chloride 0.9% 1000 ML 1,000 ML IV SCH ×2 (06:09→22:30)
[2022-05-31 06:30] LABS: ANION GAP 12.3 MEQ/L (5-15); BLOOD UREA NITROGEN 8 mg/dL (9-20); CHLORIDE 103 mmol/L (98-107); Carbon Dioxide 26 mmol/L (22-30); EST GLOMERULAR FILTRATION RATE > 60.0 ML/MIN; Glucose 114 mg/dL (74-106); SODIUM 137 mmol/L (137-145)
[2022-05-31] MEDS ORDERED: ECOTRIN 81 MG PO SCH (07:00)
[2022-05-31] MEDS ORDERED: Compazine 5 MG PO PRN (07:28)
[2022-05-31] MEDS ORDERED: BABY ASPIRIN 81 MG CHEW PO SCH (10:00)
[2022-05-31] MEDS ORDERED: NON-FORMULARY ITEM (Pravastatin Sodium [Pravastatin Sodium] 40 MG Tablet) PO SCH (10:00)
[2022-05-31] MEDS ORDERED: NON-FORMULARY ITEM (Omeprazole Magnesium [Prilosec Otc] 20 MG Tablet.Dr) PO SCH (10:00)
--- NOTE | 2022-05-31 10:37 | XRAY ---
Indication: Great toe diabetic ulcer. Comparison: None 3 nonweightbearing views left foot demonstrates osteopenia, distal great toe soft tissue swelling, and moderate scattered vascular calcifications. No other bony, articular, or soft tissue abnormalities.
--- NOTE | 2022-05-31 11:34 | XRAY ---
Indication: Great toe diabetic ulcer. Sagittal, coronal, and axial MRI left forefoot performed using pre and post T1, T2, STIR sequences. 15 cc Dotarem contrast used. Comparison: None Distal great toe demonstrate diffuse soft tissue swelling and enhancement favoring cellulitis. Underlying distal phalanx great toe also demonstrates abnormal bone marrow signal and enhancement favoring osteomyelitis. No suspicious solid/cystic soft tissue mass or abnormal fluid collection. Visualized foot articulation appears anatomic. Elsewhere no acute fracture, suspicious bony lesions, or abnormal bone marrow signal. Impression: Great toe cellulitis with underlying distal phalanx osteomyelitis as detailed.
--- NOTE | 2022-05-31 12:12 | XRAY ---
Indication: Left great toe ulcer. History peripheral vascular disease, diabetes, and smoking history. Two-dimensional sonogram and color Doppler imaging of the major arteries of the left leg performed. Comparison: None Widely patent common femoral artery. Mild scattered arteriosclerotic disease throughout the superficial femoral, deep femoral, and popliteal arteries without critical stenosis/obstruction. Lesser degree seen in the remaining posterior tibial and dorsal pedal arteries. Arterial waveforms are multiphasic throughout the left leg. Impression: Mild scattered arteriosclerotic disease without critical stenosis/obstruction.
--- NOTE | 2022-05-31 12:13 | XRAY ---
Indication: Left great toe ulcer. History peripheral vascular disease, diabetes, and smoking history. Comparison: None Left ankle brachial index exam performed. Left arm brachial pressure is 120. Left ankle pressure is 97. Ankle brachial index is 0.79 favoring mild ischemic disease.
[2022-05-31] MEDS: HUMULIN R IJ SCH (12:43)
[2022-05-31] MEDS: Novolin N SQ SCH (12:46)
[2022-05-31] MEDS: ROCEPHIN 2 Gm-D5w 50ML BAG** 2 G/50 ML IVPB IV SCH (12:52)
[2022-05-31] MEDS ORDERED: Pepcid 20 MG VIAL IV ONE (13:29)
[2022-05-31] MEDS ORDERED: Reglan 10 MG/2 ML IV ONE (13:30)
[2022-05-31] MEDS: ZOCOR 20MG PO SCH (15:53)
[2022-05-31] MEDS: NEURONTIN PO SCH ×2 (15:53→17:59)
--- NOTE | 2022-05-31 16:19 | PCM.CONS ---
Podiatry HPI - Consult Date of Consultation Date: 05/31/22 Reason for Consult: Osteomyelitis left great toe Consulting Provider: CORY LYNCH DPM - [facility] History of Present Illness: Galileo is a very pleasant 71-year-old male who presents with admission for extreme pain to the left hallux. Patient indicates that 2-1/[address] Mitchell performed a procedure with removal of ingrowing toenails and it has stayed open and not healed over the course of these last 2 years. Patient admits that there has been multiple infections to this toe. He also does see Dr. Yoo for vascular intervention however Dr. Yoo is planning to retire and after multiple attempts at intervention to the bilateral lower extremity he is referring to another physician in [place] at this time for continuing care. Today patient presents with exquisite pain to the distal tip of the left hallux purulent drainage and an extensive history of multiple infections to the left great toe. He currently denies any constitutional symptoms of infection. He denies any other pedal complaints at this time Medications & Allergies Home Medications: Home Medication List Pravastatin Sodium 40 mg PO DAILY 09/19/12 [History Confirmed 05/30/22] Zolpidem Tartrate 10 mg [Ambien 10 MG] 10 mg PO HS 09/19/12 [History Confirmed 05/31/22] Allopurinol 100 mg [Zyloprim 100 mg] 300 mg PO HS 04/23/18 [History Confirmed 05/30/22] Clopidogrel Bisulfate [PLAVIX Tablet] 75 mg PO DAILY 04/23/18 [History Confirmed 05/30/22] Duloxetine HCl 30 mg [Cymbalta 30 MG Capsule] 60 mg PO DAILY 04/23/18 [History Confirmed 05/30/22] Lisinopril 5 mg [Zestril 5 MG] 10 mg PO DAILY 04/23/18 [History Confirmed 05/30/22] Furosemide 20 mg [Lasix 20 mg] 20 mg PO DAILY 05/04/21 [History Confirmed 05/30/22] Gabapentin [Neurontin ] 300 mg PO BID 05/04/21 [History Confirmed 05/30/22] Insulin NPH Human Isophane [Novolin N] 20 unit SQ ACHS 05/04/21 [History Confirmed 05/30/22] Omeprazole Magnesium [Prilosec Otc] 20 mg PO DAILY 05/04/21 [History Confirmed 05/30/22] Donepezil HCl [Aricept] 5 mg PO HS 02/15/22 [History Confirmed 05/30/22] Prochlorperazine Maleate 10 mg PO TID PRN 02/15/22 [History Confirmed 05/30/22] Aspirin 81 mg PO DAILY 05/30/22 [History Confirmed 05/30/22] Insulin Regular, Human [Novolin R] 100 unit IJ ACHS 05/30/22 [History Confirmed 05/30/22] Metoprolol Succinate 100 mg [Toprol Xl 100 MG] 150 mg PO DAILY 05/30/22 [History Confirmed 05/31/22] Allergies/Adverse Reactions: Allergies Allergy/AdvReac Type Severity Reaction Status Date / Time morphine AdvReac Intermediate Verified 02/15/22 17:37 - Past Medical History Past Medical History: Yes Neurological History: Peripheral Neuropathy ENT History: Other Cardiac History: Coronary Artery Disease, High Cholesterol, Hypertension, Myocardial Infarction ([place]), Peripheral Vascular Disease Respiratory History: CHF, COPD, Emphysema, Other Endocrine Medical History: Diabetes Type II, Other Musculoskelatal History: Fractures, Osteoarthritis GI Medical History: Esophageal Disorder, GERD History: No Pertinent History Pyscho-Social History: No Pertinent History Male Reproductive Disorders: Prostate Problems Comment: HX FX LEFT HIP WITH ORIF 2012, SURGERY UPPER AND LOWER BACK BUT PATIENT UNABLE TO STATE WHAT WAS DONE (STATES WAS ALSO IN 2012) skin ca melanoma. 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 ALSO STENTS IN BOTH GROINS. IN REGARDS TO COPD/EMPHYSEMA STATES WAS TOLD HE HAD ABOUT 2 YEARS. STATES HE HAS O2 AND USES IT AT NIGHT AND IS "SUPPOSED" TO WEAR IT ALL THE TIME. STATES HE IS GETTING A SMART VEST TOMORROW TO USE 2X DAY TO HELP WITH LUNGS - Past Surgical History Past Surgical History: Yes Neuro Surgical History: No Pertinent History Cardiac History: CABG Respiratory Surgery: No Pertinent History GI Surgical History: No Pertinent History Genitourinary Surgical Hx: No Pertinent History Musculskeletal Surgical Hx: Orthopedic Surgery Male Surgical History: Prostate Surgery Other Surgical History: R shoulder, L hip surgeries, L hand surgery, spine surgery , stents in legs for circulation - Social History Smoking Status: Former smoker How long have you smoked: 50 years Exposure to second hand smoke: Yes Alcohol: None Drug Use: none Physical Exam - Neuro Neurologic: Epicritic and protopathic (Diminished) - Vascular Peripheral Pulses: Posterior tibialis: 2+, Dorsalis-Pedis: 2+ Capillary Refill Time: < 3 seconds Hair Growth: Symmetrical and Bilateral Varicosities: Positive Edema: Pitting Edema Degree: 1+ Skin: Supple, not atrophic Skin Temperature: Warm to touch - Narrative Narrative Physical Exam: Podiatry Physical Exam Results - Labs Lab/Micro Results: Lab Results-Last 24 Hours 05/30/22 05/30/22 05/30/22 Range/Units 04:00 16:33 16:33 WBC 10.5 (4.0-10.5) x10^3/uL RBC 4.94 (4.1-5.6) x10^6/uL Hgb 11.5 L (12.5-18.0) g/dL Hct 37.6 L (42-50) % MCV 76.1 L (78-100) fL MCH 23.3 L (26-32) pg MCHC 30.6 L (32-36) g/dL RDW 18.7 H (11.5-14.0) % Plt Count 407 (150-450) x10^3/uL MPV 8.3 (7.5-11.0) fL Gran % 48.0 (36.0-66.0) % Immature Gran % (Auto) 0.4 (0.00-0.4) % Nucleat RBC Rel Count 0.0 (0.00-0.1) % Eos # (Auto) 0.58 H (0-0.5) x10^3/uL Immature Gran # (Auto) 0.04 H (0.00-0.03) x10^3u/L Absolute Lymphs (auto) 3.72 (1.0-4.6) x10^3/uL Absolute Monos (auto) 1.00 (0.0-1.3) x10^3/uL Absolute Nucleated RBC 0.00 (0.00-0.01) x10^3u/L Lymphocytes % 35.6 (24.0-44.0) % Monocytes % 9.6 (0.0-12.0) % Eosinophils % 5.5 H (0.00-5.0) % Basophils % 0.9 (0.0-0.4) % Absolute Granulocytes 5.03 (1.4-6.9) x10^3/uL Basophils # 0.09 (0-0.4) x10^3/uL Sodium 135 L (137-145) mmol/L Potassium 4.3 (3.5-5.1) mmol/L Chloride 97 L (98-107) mmol/L Carbon Dioxide 31 H (22-30) mmol/L Anion Gap 11.6 (5-15) MEQ/L BUN 10 (9-20) mg/dL Creatinine 0.92 (0.66-1.25) mg/dL Estimated GFR > 60.0 ML/MIN Glucose 145 H (74-106) mg/dL POC Glucometer (74 to 106) mg/dL Hemoglobin A1c (4.5-6.0) % Calcium 8.7 (8.4-10.2) mg/dL Total Bilirubin 0.30 (0.2-1.3) mg/dL AST 61 H (17-59) U/L ALT 21 (0-50) U/L Alkaline Phosphatase 105 (38-126) U/L Serum Total Protein 7.5 (6.3-8.2) g/dL Albumin 4.0 (3.5-5.0) g/dL Prealbumin 18.18 (17.6-36.0) mg/dL 05/30/22 05/30/22 05/31/22 Range/Units 18:30 22:10 04:00 WBC 9.3 (4.0-10.5) x10^3/uL RBC 4.53 (4.1-5.6) x10^6/uL Hgb 10.4 L (12.5-18.0) g/dL Hct 34.1 L (42-50) % MCV 75.3 L (78-100) fL MCH 23.0 L (26-32) pg MCHC 30.5 L (32-36) g/dL RDW 18.7 H (11.5-14.0) % Plt Count 385 (150-450) x10^3/uL MPV 8.4 (7.5-11.0) fL Gran % (36.0-66.0) % Immature Gran % (Auto) (0.00-0.4) % Nucleat RBC Rel Count (0.00-0.1) % Eos # (Auto) (0-0.5) x10^3/uL Immature Gran # (Auto) (0.00-0.03) x10^3u/L Absolute Lymphs (auto) (1.0-4.6) x10^3/uL Absolute Monos (auto) (0.0-1.3) x10^3/uL Absolute Nucleated RBC (0.00-0.01) x10^3u/L Lymphocytes % (24.0-44.0) % Monocytes % (0.0-12.0) % Eosinophils % (0.00-5.0) % Basophils % (0.0-0.4) % Absolute Granulocytes (1.4-6.9) x10^3/uL Basophils # (0-0.4) x10^3/uL Sodium (137-145) mmol/L Potassium (3.5-5.1) mmol/L Chloride (98-107) mmol/L Carbon Dioxide (22-30) mmol/L Anion Gap (5-15) MEQ/L BUN (9-20) mg/dL Creatinine (0.66-1.25) mg/dL Estimated GFR ML/MIN Glucose (74-106) mg/dL POC Glucometer 230 H (74 to 106) mg/dL Hemoglobin A1c 8.67 H (4.5-6.0) % Calcium (8.4-10.2) mg/dL Total Bilirubin (0.2-1.3) mg/dL AST (17-59) U/L ALT (0-50) U/L Alkaline Phosphatase (38-126) U/L Serum Total Protein (6.3-8.2) g/dL Albumin (3.5-5.0) g/dL Prealbumin (17.6-36.0) mg/dL 05/31/22 Range/Units 04:55 WBC (4.0-10.5) x10^3/uL RBC (4.1-5.6) x10^6/uL Hgb (12.5-18.0) g/dL Hct (42-50) % MCV (78-100) fL MCH (26-32) pg MCHC (32-36) g/dL RDW (11.5-14.0) % Plt Count (150-450) x10^3/uL MPV (7.5-11.0) fL Gran % (36.0-66.0) % Immature Gran % (Auto) (0.00-0.4) % Nucleat RBC Rel Count (0.00-0.1) % Eos # (Auto) (0-0.5) x10^3/uL Immature Gran # (Auto) (0.00-0.03) x10^3u/L Absolute Lymphs (auto) (1.0-4.6) x10^3/uL Absolute Monos (auto) (0.0-1.3) x10^3/uL Absolute Nucleated RBC (0.00-0.01) x10^3u/L Lymphocytes % (24.0-44.0) % Monocytes % (0.0-12.0) % Eosinophils % (0.00-5.0) % Basophils % (0.0-0.4) % Absolute Granulocytes (1.4-6.9) x10^3/uL Basophils # (0-0.4) x10^3/uL Sodium 137 (137-145) mmol/L Potassium 4.0 (3.5-5.1) mmol/L Chloride 103 (98-107) mmol/L Carbon Dioxide 26 (22-30) mmol/L Anion Gap 12.3 (5-15) MEQ/L BUN 8 L (9-20) mg/dL Creatinine 0.70 (0.66-1.25) mg/dL Estimated GFR > 60.0 ML/MIN Glucose 114 H (74-106) mg/dL POC Glucometer (74 to 106) mg/dL Hemoglobin A1c (4.5-6.0) % Calcium 8.0 L (8.4-10.2) mg/dL Total Bilirubin (0.2-1.3) mg/dL AST (17-59) U/L ALT (0-50) U/L Alkaline Phosphatase (38-126) U/L Serum Total Protein (6.3-8.2) g/dL Albumin (3.5-5.0) g/dL Prealbumin (17.6-36.0) mg/dL Accuchecks Date 05/31/22 Time 12:28 - Radiology Impressions Radiology Exams & Impressions: Radiology Procedures Category Date Time Status PATRICIA/SEG PRESSURE UNILAT [US] Stat Exams 05/31/22 08:05 Completed ARTERIAL UNILAT/LTD LOWER EXT [US] Stat Exams 05/31/22 07:59 Completed FOOT (MINIMUM 3 VIEWS) Stat Exams 05/31/22 08:02 Completed MRI LOWER EXT JOINT W&WO CON [MRI] Routine Exams 05/31/22 16:33 Completed Assessment/Plan (1) Peripheral vascular disease of extremity with claudication Current Visit: Yes Status: Acute Assessment & Plan: Initial patient examination evaluation. X-rays discussed with patient and reviewed demonstrating some cortical lysis at the medial base of the distal phalanx. For this reason and the fact that patient is having increased pain with purulent drainage at this time. Recommendation for MRI which demonstrates extensive osteomyelitis to the distal phalanx of the left great toe. Patient's clinical history is 2-1/2 years of an open wound to the dorsal aspect of the left foot with continued pain and on and off bouts of purulence. At this time recommendations were provided to the patient given the extensive length of time that this has occurred to proceed with an open amputation and proceed with a delayed primary closure a few days later in order to allow for soft tissue of infection to diminish if not resolved prior to closure. Discussion with patient's daughter as well as patient and they would like to proceed with this modality of intervention. Patient was not n.p.o. as of this morning and would delay surgery until later this evening. As this is not urgent or emergent will proceed with surgical intervention at [facility] tomorrow morning. N.p.o. for midnight Pain control as prescribed DVT prophylaxis as prescribed. Wound nonweightbearing left lower extremity Surgical consent for open amputation left foot. Noninvasive vascular studies demonstrating patient does have adequate healing based on ABIs however posterior tibial artery is noncompressible and this is the dominant artery to the left lower extremity. For this reason patient does have a follow-up with his vascular surgeon in [place] on Monday that I would like him to be present for. We will proceed with surgical intervention tomorrow Patient will likely be held till end of week if not into early weekend for assessment and possible delayed primary closure before discharge. Code(s): I73.9 - PERIPHERAL VASCULAR DISEASE, UNSPECIFIED (2) Toe infection Current Visit: Yes Status: Acute Code(s): L08.9 - LOCAL INFECTION OF THE SKIN AND SUBCUTANEOUS TISSUE, UNSP (3) Osteomyelitis of left foot Current Visit: Yes Status: Acute Code(s): M86.9 - OSTEOMYELITIS, UNSPECIFIED
[2022-05-31] MEDS: Hydromorphone 1 mg/ml Injection IV PRN (16:31)
[2022-05-31] MEDS: Aricept 10 MG PO SCH (17:58)
[2022-05-31] MEDS ORDERED: Ambien 10 MG ONE (18:11)
[2022-05-31] MEDS: Ambien 10 MG PO SCH (18:13)
--- NOTE | 2022-05-31 20:43 | PCM.NOTE ---
Date and Time: 05/31/222037 Subjective Assessment: s/p great toe amputation - Review of Systems Constitutional: No Fever, No Chills Eyes: No Symptoms Ears, Nose, & Throat: No Symptoms Respiratory: No Cough, No Short Of Breath Cardiac: No Chest Pain, No Edema, No Syncope Abdominal/Gastrointestinal: No Abdominal Pain, No Nausea, No Vomiting, No Diarrhea Genitourinary Symptoms: No Dysuria Musculoskeletal: No Back Pain, No Neck Pain Skin: Cellulitis, No Rash Neurological: No Dizziness, No Focal Weakness, No Sensory Changes Psychological: No Symptoms Endocrine: No Symptoms Hematologic/Lymphatic: No Symptoms Immunological/Allergic: No Symptoms Objective Exam General Appearance: no apparent distress, alert Neurologic Exam: alert, oriented x 3, cooperative, normal mood/affect, nml cerebellar function, sensation nml, No motor deficits Skin Exam: normal color, warm, dry Wound Assessment: Skin/Wound Assessment Wound/Incision Assessment Start: 05/30/22 23:20 Text: Status: Active Freq: Q6H Protocol: Document 05/31/22 14:00 RE (Rec: 05/31/22 15:31 RE [id number]) Wound Photo Photo Taken No Eye Exam: PERRL, EOMI, eyes nml inspection Ears, Nose, Throat Exam: normal ENT inspection, pharynx normal, moist mucous membranes Neck Exam: normal inspection, non-tender, supple, full range of motion Respiratory Exam: normal breath sounds, lungs clear, No respiratory distress Cardiovascular Exam: regular rate/rhythm, normal heart sounds Gastrointestinal/Abdomen Exam: soft, No tenderness, No mass Extremity Exam: normal inspection, normal range of motion Back Exam: normal inspection, normal range of motion, No CVA tenderness, No vertebral tenderness Male Genitalia Exam: deferred Rectal Exam: deferred OBJECTIVE DATA Vital Signs: Vital Signs - 24 hr Temp Pulse Resp BP Pulse Ox 05/31/22 16:00 97.4 F 54 L 16 130/60 94 L 05/31/22 12:00 97.4 F 53 L 16 136/64 95 05/31/22 07:58 97.8 F 60 16 132/60 93 L 05/31/22 04:10 97.8 F 62 16 119/60 93 L 05/31/22 04:00 97.7 F 58 L 18 125/63 92 L 05/31/22 00:00 97.7 F 58 L 18 125/63 92 L Pain Assessment - Last Documented Pain Intensity 5 Pain Scale Used 0-10 Pain Scale Intake and Output: Intake & Output 05/29/22 05/30/22 05/31/22 06/01/22 11:59 11:59 11:59 11:59 Intake Total 3462 240 Output Total 1800 700 Balance 1662 -460 Weight 72.6 kg Lab Results: Lab Results-Last 24 Hours 05/30/22 05/30/22 05/31/22 Range/Units 04:00 22:10 04:00 WBC 9.3 (4.0-10.5) x10^3/uL RBC 4.53 (4.1-5.6) x10^6/uL Hgb 10.4 L (12.5-18.0) g/dL Hct 34.1 L (42-50) % MCV 75.3 L (78-100) fL MCH 23.0 L (26-32) pg MCHC 30.5 L (32-36) g/dL RDW 18.7 H (11.5-14.0) % Plt Count 385 (150-450) x10^3/uL MPV 8.4 (7.5-11.0) fL Sodium (137-145) mmol/L Potassium (3.5-5.1) mmol/L Chloride (98-107) mmol/L Carbon Dioxide (22-30) mmol/L Anion Gap (5-15) MEQ/L BUN (9-20) mg/dL Creatinine (0.66-1.25) mg/dL Estimated GFR ML/MIN Glucose (74-106) mg/dL POC Glucometer 230 H (74 to 106) mg/dL Calcium (8.4-10.2) mg/dL Prealbumin 18.18 (17.6-36.0) mg/dL 05/31/22 Range/Units 04:55 WBC (4.0-10.5) x10^3/uL RBC (4.1-5.6) x10^6/uL Hgb (12.5-18.0) g/dL Hct (42-50) % MCV (78-100) fL MCH (26-32) pg MCHC (32-36) g/dL RDW (11.5-14.0) % Plt Count (150-450) x10^3/uL MPV (7.5-11.0) fL Sodium 137 (137-145) mmol/L Potassium 4.0 (3.5-5.1) mmol/L Chloride 103 (98-107) mmol/L Carbon Dioxide 26 (22-30) mmol/L Anion Gap 12.3 (5-15) MEQ/L BUN 8 L (9-20) mg/dL Creatinine 0.70 (0.66-1.25) mg/dL Estimated GFR > 60.0 ML/MIN Glucose 114 H (74-106) mg/dL POC Glucometer (74 to 106) mg/dL Calcium 8.0 L (8.4-10.2) mg/dL Prealbumin (17.6-36.0) mg/dL Radiology Exams: Radiology Procedures Category Date Time Status PATRICIA/SEG PRESSURE UNILAT [US] Stat Exams 05/31/22 08:05 Completed ARTERIAL UNILAT/LTD LOWER EXT [US] Stat Exams 05/31/22 07:59 Completed FOOT (MINIMUM 3 VIEWS) Stat Exams 05/31/22 08:02 Completed MRI LOWER EXT JOINT W&WO CON [MRI] Routine Exams 05/31/22 16:33 Completed 0001 MRI/MRI LOWER EXT JOINT W&WO CON Indication: Great toe diabetic ulcer. Sagittal, coronal, and axial MRI left forefoot performed using pre and post T1, T2, STIR sequences. 15 cc Dotarem contrast used. Comparison: None Distal great toe demonstrate diffuse soft tissue swelling and enhancement favoring cellulitis. Underlying distal phalanx great toe also demonstrates abnormal bone marrow signal and enhancement favoring osteomyelitis. No suspicious solid/cystic soft tissue mass or abnormal fluid collection. Visualized foot articulation appears anatomic. Elsewhere no acute fracture, suspicious bony lesions, or abnormal bone marrow signal. Impression: Great toe cellulitis with underlying distal phalanx osteomyelitis as detailed. Multi-Disciplinary Progress Notes: Multi-Disciplinary Progress Notes 05/31/22 12:21 Case Management Note by Junie Figueredo S/W PATIENT. UNSURE IF HE WILL WANT HHC UPON [place]. NOT SURE OF WHO HE WANTS TO USE IF HE NEEDS. LIST OF HOME HEALTH CARE PROVIDERS GIVEN TO PATIENT. 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 Assessment & Plan: Chief Complaint Diagnosis diabetic foot ulcer Allergies Allergy/AdvReac Type Severity Reaction Status Date / Time morphine AdvReac Intermediate Verified 02/15/22 17:37 Vital Signs (Last 24 hours) Temp Pulse Resp BP Pulse Ox 05/31/22 16:00 97.4 F 54 L 16 130/60 94 L 05/31/22 12:00 97.4 F 53 L 16 136/64 95 05/31/22 07:58 97.8 F 60 16 132/60 93 L 05/31/22 04:10 97.8 F 62 16 119/60 93 L 05/31/22 04:00 97.7 F 58 L 18 125/63 92 L 05/31/22 00:00 97.7 F 58 L 18 125/63 92 L Home Medications Medication Instructions Recorded Confirmed Last Taken Type Aspirin 81 mg PO DAILY 05/30/22 05/30/22 05/30/22 History Insulin Regular, Human [Novolin R] 100 unit [facility] 05/30/22 05/30/22 05/30/22 History Metoprolol Succinate 100 mg 150 mg PO DAILY 05/30/22 05/31/22 05/30/22 History [Toprol Xl 100 MG] Current Medications Generic Name Dose Route Start Last Admin Trade Name Harinder PRN Reason Stop Dose Admin Allopurinol 300 mg 05/31/22 18:00 Allopurinol 300 Mg Tablet PO 06/30/22 17:59 DAILY@1800 [facility] Aspirin 81 mg 06/01/22 06:00 Aspirin 81 Mg Tablet.Ec PO 07/01/22 05:59 DAILY@0600 [facility] Clopidogrel Bisulfate 75 mg 06/01/22 06:00 Clopidogrel Bisulfate 75 Mg Tablet PO 07/01/22 05:59 DAILY@0600 [facility] Donepezil HCl 5 mg 05/31/22 18:00 05/31/22 17:58 Donepezil Hcl 10 Mg Tablet PO 06/30/22 17:59 5 mg DAILY@1800 [facility] Administration Duloxetine HCl 60 mg 06/01/22 06:00 Duloxetine Hcl 30 Mg Cap PO 07/01/22 05:59 DAILY@0600 [facility] Famotidine 20 mg 06/01/22 06:00 Famotidine 20 Mg/1 Vial IV 06/01/22 06:01 1HRPRIOR ONE Furosemide 20 mg 06/01/22 06:00 Furosemide 20 Mg Tablet PO 07/01/22 05:59 DAILY@0600 [facility] Gabapentin 300 mg 05/31/22 12:00 05/31/22 17:59 Gabapentin 300 Mg Capsule PO 06/30/22 11:59 300 mg TID@0600,1200,1800 [facility] Administration Hydromorphone HCl 1 mg 05/30/22 16:33 05/31/22 16:31 Hydromorphone 1 Mg/1ml Inj 1 Mg/Ml Syringe IV 06/04/22 16:32 1 mg Q4H PRN PRN Administration PAIN Ceftriaxone Sodium/Dextrose 2 g in 50 mls @ 100 mls/hr 05/30/22 17:00 05/31/22 12:52 Rocephin 2 Gm-D5w 50ml Bag IV 06/02/22 16:59 100 mls/hr Q24H10 XIMENA Administration Sodium Chloride 1,000 mls @ 100 mls/hr 05/30/22 18:00 05/31/22 06:09 Sodium Chloride 0.9% 1000 Ml IV 06/29/22 17:59 100 mls/hr .Q10H XIMENA Administration Insulin Human Lispro 0 unit 05/30/22 16:33 Insulin Lispro 1 Unit SQ 06/29/22 16:32 UD PRN HYPERGLYCEMIA Insulin Human NPH 20 unit 05/31/22 07:30 05/31/22 12:46 Insulin Nph Human Recom 1 Unit SQ 06/30/22 07:29 12 unit ACHS XIMENA Administration Insulin Human Regular 0 unit 05/31/22 07:30 05/31/22 12:43 Insulin Regular, Human 1 Unit IJ 06/30/22 07:29 12 unit ACHS XIMENA Administration Lisinopril 10 mg 06/01/22 06:00 Lisinopril 10 Mg Tablet PO 07/01/22 05:59 DAILY@0600 [facility] Metoclopramide HCl 10 mg 06/01/22 06:00 Metoclopramide Hcl 10 Mg/2 Ml Vial IV 06/01/22 06:01 1HRPRIOR ONE Metoprolol Succinate 150 mg 06/01/22 06:00 Metoprolol Succinate 100 Mg Tablet.Sa PO 07/01/22 05:59 DAILY@0600 [facility] Pantoprazole Sodium 40 mg 06/01/22 06:00 Protonix (Pantoprazole) 40 Mg Tablet PO 07/01/22 05:59 DAILY@0600 [facility] Prochlorperazine 10 mg 05/31/22 07:28 Prochlorperazine Maleate 5 Mg Tablet PO 06/30/22 07:27 TID PRN PRN NAUSEA Simvastatin 40 mg 05/31/22 10:00 05/31/22 15:53 Simvastatin 20 Mg Tablet PO 06/30/22 09:59 Not Given DAILY [facility] Zolpidem Tartrate 10 mg 05/31/22 22:00 05/31/22 18:13 Zolpidem Tartrate 10 Mg Tablet PO 06/30/22 21:59 10 mg HS XIMENA Administration Discontinued Medications Generic Name Dose Route Start Last Admin Trade Name Freq PRN Reason Stop Dose Admin Allopurinol 300 mg 05/30/22 22:42 05/30/22 22:51 Allopurinol 300 Mg Tablet PO 05/30/22 22:43 300 mg ONCE ONE Administration Aspirin Confirm 05/30/22 22:45 Aspirin 81 Mg Tablet.Ec Administered 05/30/22 22:46 Dose 81 mg PO .STK-MED ONE Aspirin 81 mg 05/31/22 06:00 05/31/22 06:11 Aspirin 81 Mg Tablet.Ec PO 05/31/22 06:01 81 mg ONCE ONE Administration Clopidogrel Bisulfate 75 mg 05/31/22 06:00 05/31/22 06:11 Clopidogrel Bisulfate 75 Mg Tablet PO 05/31/22 06:01 75 mg ONCE ONE Administration Duloxetine HCl 60 mg 05/31/22 06:00 05/31/22 06:10 Duloxetine Hcl 30 Mg Cap PO 05/31/22 06:01 60 mg ONCE ONE Administration Famotidine 20 mg 05/31/22 13:29 05/31/22 15:54 Famotidine 20 Mg/1 Vial IV 05/31/22 13:30 Not Given 1HRPRIOR ONE Furosemide 20 mg 05/31/22 06:00 05/31/22 06:11 Furosemide 20 Mg Tablet PO 05/31/22 06:01 20 mg ONCE ONE Administration Gabapentin 600 mg 05/30/22 22:00 Gabapentin 300 Mg Capsule PO 06/29/22 21:59 HS [facility] Gabapentin 600 mg 05/30/22 20:09 05/30/22 20:38 Gabapentin 300 Mg Capsule PO 05/30/22 20:10 600 mg ONCE ONE Administration Gabapentin 300 mg 05/31/22 06:00 05/31/22 06:13 Gabapentin 300 Mg Capsule PO 05/31/22 06:01 300 mg ONCE ONE Administration Hydromorphone HCl 1 mg 05/30/22 18:30 05/30/22 22:49 Hydromorphone 1 Mg/1ml Inj 1 Mg/Ml Syringe IV 05/30/22 18:31 1 mg ONCE ONE Administration Sodium Chloride 1,000 mls @ 999 mls/hr 05/30/22 16:33 05/30/22 20:03 Sodium Chloride 0.9% 1000 Ml IV 05/30/22 17:33 999 mls/hr .Q1H1M STA Administration Insulin Human NPH Confirm 05/30/22 20:30 Insulin Nph Human Recom 1 Unit Administered 05/30/22 20:31 Dose 15 unit .ROUTE .STK-MED ONE Insulin Human NPH 15 unit 05/31/22 21:00 05/30/22 21:00 Insulin Nph Human Recom 1 Unit SQ 05/31/22 21:01 15 unit ONCE ONE Administration Insulin Human Regular Confirm 05/30/22 20:32 Insulin Regular, Human 1 Unit Administered 05/30/22 20:33 Dose 15 unit .ROUTE .STK-MED ONE Insulin Human Regular 15 unit 05/31/22 21:00 05/30/22 21:00 Insulin Regular, Human 1 Unit SQ 05/31/22 21:01 15 unit ONCE ONE Administration Lisinopril 10 mg 05/31/22 06:00 05/31/22 06:11 Lisinopril 10 Mg Tablet PO 05/31/22 06:01 10 mg ONCE ONE Administration Metoclopramide HCl 10 mg 05/31/22 13:30 05/31/22 15:54 Metoclopramide Hcl 10 Mg/2 Ml Vial IV 05/31/22 13:31 Not Given 1HRPRIOR ONE Metoprolol Succinate 50 mg 05/31/22 22:00 05/30/22 22:51 Metoprolol Succinate 50 Mg Tablet.Sa PO 06/30/22 21:59 50 mg HS XIMENA Administration Metoprolol Succinate Confirm 05/30/22 22:44 Metoprolol Succinate 50 Mg Tablet.Sa Administered 05/30/22 22:45 Dose 50 mg PO .STK-MED ONE Metoprolol Succinate 100 mg 05/31/22 06:00 05/31/22 06:12 Metoprolol Succinate 50 Mg Tablet.Sa PO 05/31/22 06:01 100 mg ONCE ONE Administration Metoprolol Tartrate 50 mg 05/31/22 06:00 05/31/22 06:12 Metoprolol Tartrate 50 Mg Tablet PO 05/31/22 06:01 50 mg ONCE ONE Administration Pantoprazole Sodium 40 mg 05/31/22 06:00 05/31/22 06:10 Protonix (Pantoprazole) 40 Mg Tablet PO 05/31/22 06:01 40 mg ONCE ONE Administration Simvastatin 40 mg 05/31/22 06:00 05/31/22 06:13 Simvastatin 20 Mg Tablet PO 05/31/22 06:01 40 mg ONCE ONE Administration Zolpidem Tartrate 10 mg 05/31/22 22:00 05/30/22 22:50 Zolpidem Tartrate 10 Mg Tablet PO 06/30/22 21:59 10 mg HS XIMENA Administration Zolpidem Tartrate Confirm 05/30/22 22:43 Zolpidem Tartrate 10 Mg Tablet Administered 05/30/22 22:44 Dose 10 mg .ROUTE .STK-MED ONE Zolpidem Tartrate Confirm 05/31/22 18:11 Zolpidem Tartrate 10 Mg Tablet Administered 05/31/22 18:12 Dose 10 mg .ROUTE .STK-MED ONE Intake & Output (Last 24 hours) 05/29/22 05/30/22 05/31/22 06/01/22 11:59 11:59 11:59 11:59 Intake Total 3462 240 Output Total 1800 700 Balance 1662 -460 Weight 72.6 kg Microbiology Results (Last 24 hours) 05/30/22 14:02 Toe - L Big (Greater) Wound Culture - Pending 05/30/22 17:15 Blood Blood Culture Gram Stain - Pending 05/30/22 17:15 Blood Blood Culture - Pending 05/30/22 17:10 Blood Blood Culture Gram Stain - Pending 05/30/22 17:10 Blood Blood Culture - Pending Laboratory Results (Last 24 hours) 05/31/22 05/31/22 05/30/22 04:55 04:00 22:10 WBC 9.3 RBC 4.53 Hgb 10.4 L Hct 34.1 L MCV 75.3 L MCH 23.0 L MCHC 30.5 L RDW 18.7 H Plt Count 385 MPV 8.4 Sodium 137 Potassium 4.0 Chloride 103 Carbon Dioxide 26 Anion Gap 12.3 BUN 8 L Creatinine 0.70 Estimated GFR > 60.0 Glucose 114 H POC Glucometer 230 H Calcium 8.0 L Prealbumin 05/30/22 04:00 WBC RBC Hgb Hct MCV MCH MCHC RDW Plt Count MPV Sodium Potassium Chloride Carbon Dioxide Anion Gap BUN Creatinine Estimated GFR Glucose POC Glucometer Calcium Prealbumin 18.18 Orders (Last 24 hours) Category Date Time Status Consult Podiatry ROUTINE Cons 05/31/22 00:18 Active Carb Diet 1800 [Consistent Carbohydrate Diet 1800 Diet 05/31/22 Dinner Active Calorie] NPO Diet 05/31/22 22:00 Active PATRICIA/SEG PRESSURE UNILAT [US] Stat Exams 05/31/22 08:05 Completed ARTERIAL UNILAT/LTD LOWER EXT [US] Stat Exams 05/31/22 07:59 Completed FOOT (MINIMUM 3 VIEWS) Stat Exams 05/31/22 08:02 Completed MRI LOWER EXT JOINT W&WO CON [MRI] Routine Exams 05/31/22 16:33 Completed BMP AM.LAB Lab 05/31/22 04:55 Completed CBC AM.LAB Lab 05/31/22 04:00 Completed POCT GLUCOSE Stat Lab 05/30/22 22:10 Completed Allopurinol 300 mg [Zyloprim 300 mg] Med 05/31/22 18:00 Active 300 mg PO DAILY@1800 Allopurinol 300 mg [Zyloprim 300 mg] Med 05/30/22 22:42 Discontinued 300 mg PO ONCE ONE Aspirin EC 81 mg [Ecotrin 81 mg] Med 05/30/22 22:45 Discontinued 81 mg PO .STK-MED ONE Aspirin EC 81 mg [Ecotrin 81 mg] Med 06/01/22 06:00 Active 81 mg PO DAILY@0600 Aspirin EC 81 mg [Ecotrin 81 mg] Med 05/31/22 06:00 Discontinued 81 mg PO ONCE ONE Clopidogrel Bisulfate [PLAVIX Tablet] Med 06/01/22 06:00 Active 75 mg PO DAILY@0600 Clopidogrel Bisulfate [PLAVIX Tablet] Med 05/31/22 06:00 Discontinued 75 mg PO ONCE ONE Donepezil HCl 10 mg [Aricept 10 MG] Med 05/31/22 18:00 Active 5 mg PO DAILY@1800 Duloxetine HCl 30 mg [Cymbalta 30 MG Capsule] Med 06/01/22 06:00 Active 60 mg PO DAILY@0600 Duloxetine HCl 30 mg [Cymbalta 30 MG Capsule] Med 05/31/22 06:00 Discontinued 60 mg PO ONCE ONE Famotidine 20 mg Vial [Pepcid 20 MG VIAL] Med 05/31/22 13:29 Discontinued 20 mg IV 1HRPRIOR ONE Famotidine 20 mg Vial [Pepcid 20 MG VIAL] Med 06/01/22 06:00 Once 20 mg IV 1HRPRIOR ONE Furosemide 20 mg [Lasix 20 mg] Med 06/01/22 06:00 Active 20 mg PO DAILY@0600 Furosemide 20 mg [Lasix 20 mg] Med 05/31/22 06:00 Discontinued 20 mg PO ONCE ONE Gabapentin [Neurontin ] Med 05/31/22 06:00 Discontinued 300 mg PO ONCE ONE Gabapentin [Neurontin ] Med 05/31/22 12:00 Active 300 mg PO TID@0600,1200,1800 Gabapentin [Neurontin ] Med 05/30/22 22:00 Discontinued 600 mg PO HS Gabapentin [Neurontin ] Med 05/30/22 20:09 Discontinued 600 mg PO ONCE ONE Insulin NPH Human Recom [Novolin N] Med 05/30/22 20:30 Discontinued 15 unit .ROUTE .STK-MED ONE Insulin NPH Human Recom [Novolin N] Med 05/31/22 21:00 Discontinued 15 unit SQ ONCE ONE Insulin NPH Human Recom [Novolin N] Med 05/31/22 07:30 Active 20 unit SQ ACHS Insulin Regular, Human [Humulin R] Med 05/31/22 07:30 Active 0 unit IJ ACHS Insulin Regular, Human [Humulin R] Med 05/30/22 20:32 Discontinued 15 unit .ROUTE .STK-MED ONE Insulin Regular, Human [Humulin R] Med 05/31/22 21:00 Discontinued 15 unit SQ ONCE ONE Lisinopril 10 mg [Zestril 10 MG] Med 06/01/22 06:00 Active 10 mg PO DAILY@0600 Lisinopril 10 mg [Zestril 10 MG] Med 05/31/22 06:00 Discontinued 10 mg PO ONCE ONE Metoclopramide HCl 10 mg/2 ml* [Reglan 10 MG/2 ML] Med 05/31/22 13:30 Discontinued 10 mg IV 1HRPRIOR ONE Metoclopramide HCl 10 mg/2 ml* [Reglan 10 MG/2 ML] Med 06/01/22 06:00 Once 10 mg IV 1HRPRIOR ONE Metoprolol Succinate 100 mg [Toprol Xl 100 MG] Med 06/01/22 06:00 Active 150 mg PO DAILY@0600 Metoprolol Succinate 50 mg [Toprol Xl 50 MG] Med 05/31/22 06:00 Discontinued 100 mg PO ONCE ONE Metoprolol Succinate 50 mg [Toprol Xl 50 MG] Med 05/30/22 22:44 Discontinued 50 mg PO .STK-MED ONE Metoprolol Succinate 50 mg [Toprol Xl 50 MG] Med 05/31/22 22:00 Discontinued 50 mg PO HS Metoprolol Tartrate 50 mg [Lopressor 50 MG] Med 05/31/22 06:00 Discontinued 50 mg PO ONCE ONE PANTOPRAZOLE 40 mg Tablet [Protonix 40MG Tablet] Med 06/01/22 06:00 Active 40 mg PO DAILY@0600 PANTOPRAZOLE 40 mg Tablet [Protonix 40MG Tablet] Med 05/31/22 06:00 Discontinued 40 mg PO ONCE ONE Prochlorperazine Maleate 5 mg* [Compazine 5 MG] Med 05/31/22 07:28 Active 10 mg PO TID PRN PRN Simvastatin 20Mg [Zocor 20Mg] Med 05/31/22 10:00 Active 40 mg PO DAILY Simvastatin 20Mg [Zocor 20Mg] Med 05/31/22 06:00 Discontinued 40 mg PO ONCE ONE Zolpidem Tartrate 10 mg [Ambien 10 MG] Med 05/30/22 22:43 Discontinued 10 mg .ROUTE .STK-MED ONE Zolpidem Tartrate 10 mg [Ambien 10 MG] Med 05/31/22 18:11 Discontinued 10 mg .ROUTE .STK-MED ONE Zolpidem Tartrate 10 mg [Ambien 10 MG] Med 05/31/22 22:00 Active 10 mg PO HS Zolpidem Tartrate 10 mg [Ambien 10 MG] Med 05/31/22 22:00 Discontinued 10 mg PO HS EKG STAT RT 05/31/22 13:24 Completed Patient Care Notes (Last 24 hours) 05/31/22 18:05 (created 05/31/22 18:35) Nursing Note by Benita Pichardo Patient said he takes his medications 0600 and 1800 when he is at home and requests to do the same here. Ambien scheduled for 2200 was given at 1813 per patient request. Initialized on 05/31/22 18:35 - END OF NOTE 05/31/22 13:00 (created 05/31/22 14:55) Nursing Note by Benita Pichardo Patient's surgery that was scheduled for 1700 this evening has been rescheduled for06/01/22 at 0630. Patient has to be ready by Anesthesia will be here at 0600. Patient and family are aware. Initialized on 05/31/22 14:55 - END OF NOTE 05/31/22 12:21 Case Management Note by Junie Figueredo S/W PATIENT. UNSURE IF HE WILL WANT HHC UPON DC. NOT SURE OF WHO HE WANTS TO USE IF HE NEEDS. LIST OF HOME HEALTH CARE PROVIDERS GIVEN TO PATIENT. Initialized on 05/31/22 12:21 - END OF NOTE 04/11/23 11:50 (created 05/31/22 12:48) Nursing Note by Berenice Conley RECEIVED VERBAL ORDER FROM DR. RAY TO CHANGE TO NPO AT THIS TIME. PATIENT WILL HAVE SURGICAL PROCEDURE THIS AFTERNOON FOR AMPUTATION. CONSENT FORM TO BE SIGNED. Initialized on 05/31/22 12:48 - END OF NOTE 05/31/22 11:30 (created 05/31/22 15:58) Nursing Note by Benita Pichardo Posterior lower lobes have slight crackles Initialized on 05/31/22 15:58 - END OF NOTE (2) Osteomyelitis of left foot Current Visit: Yes Status: Acute Qualifiers: Osteomyelitis type: subacute Qualified Code(s): M86.272 - Subacute osteomyelitis, left ankle and foot Code(s): M86.9 - OSTEOMYELITIS, UNSPECIFIED (3) Peripheral vascular disease of extremity with claudication Current Visit: Yes Status: Acute Code(s): I73.9 - PERIPHERAL VASCULAR DISEASE, UNSPECIFIED
[2022-05-31] MEDS ORDERED: HUMULIN R SQ ONE (21:00)
[2022-05-31] MEDS ORDERED: Novolin N SQ ONE (21:00)
[2022-05-31] MEDS ORDERED: Toprol Xl 50 MG PO SCH (22:00)
[2022-05-31] MEDS ORDERED: Ambien 10 MG PO SCH ×2 (22:00)
[2022-06-01] MEDS: HUMULIN R IJ SCH ×7 (00:34→22:41)
[2022-06-01] MEDS: Novolin N SQ SCH ×7 (00:34→21:48)
[2022-06-01] MEDS: ZYLOPRIM 300 MG PO SCH ×2 (00:36→17:41)
[2022-06-01] MEDS ORDERED: ECOTRIN 81 MG PO SCH (06:00)
[2022-06-01] MEDS ORDERED: Pepcid 20 MG VIAL IV ONE (06:00)
[2022-06-01] MEDS ORDERED: Reglan 10 MG/2 ML IV ONE (06:00)
[2022-06-01] MEDS ORDERED: Lactated Ringers 1,000 ML IV ONE (06:12)
[2022-06-01] MEDS ORDERED: Xylocaine 1% Vial 30 ML PF IJ ONE (06:12)
[2022-06-01] MEDS ORDERED: Marcaine Mpf 0.5% Vial 30 Ml ONE (06:12)
[2022-06-01] MEDS ORDERED: DIPRIVAN 200 MG/20 ML IV ONE (06:23)
[2022-06-01] MEDS ORDERED: Versed 2 MG/2 ML Injection ONE (06:23)
[2022-06-01] MEDS ORDERED: SUBLIMAZE 100 MCG/2 ML ONE (06:23)
[2022-06-01] MEDS ORDERED: Sodium Chloride 0.9% 1000 ML 1,000 ML ONE (06:35)
[2022-06-01] MEDS: Cymbalta 30 MG Capsule PO SCH (09:58)
[2022-06-01] MEDS: NEURONTIN PO SCH ×3 (09:58→17:41)
[2022-06-01] MEDS: Zestril 10 MG PO SCH (09:58)
[2022-06-01] MEDS: ECOTRIN 81 MG PO SCH (09:59)
[2022-06-01] MEDS: PLAVIX Tablet PO SCH (09:59)
[2022-06-01] MEDS: LASIX 20 MG PO SCH (09:59)
[2022-06-01] MEDS: Toprol Xl 100 MG PO SCH (10:00)
[2022-06-01] MEDS: Protonix 40MG Tablet PO SCH (10:00)
[2022-06-01] MEDS: VANCOMYCIN 1 GRAM/200 ML BAG 1 GM/200 ML PIGGYBACK IV SCH ×2 (10:01→21:42)
[2022-06-01] MEDS: ZOCOR 20MG PO SCH (12:03)
[2022-06-01] MEDS: PIPERACILLIN/TAZOBACTAM 3.375 GM in Sodium Chloride 100ML MINI-BAG PLUS 100 ML IV SCH ×3 (12:18→23:02)
[2022-06-01 13:44] LABS: INFLUENZA A NEGATIVE (NEGATIVE); INFLUENZA B NEGATIVE (NEGATIVE); RESPIRATORY SYNCTIAL VIRUS NEGATIVE (NEGATIVE); SARS-CoV-2 Xpert Express NEGATIVE (NEGATIVE)
--- NOTE | 2022-06-01 13:55 | OP ---
SURGERY DATE/TIME: 06/01/2022 0628 PREOPERATIVE DIAGNOSES: 1) Diabetes mellitus type II. 2) Peripheral neuropathy. 3) Chronic osteomyelitis. 4) Acute osteomyelitis. 5) Diabetic foot infection. POSTOPERATIVE DIAGNOSES: 1) Diabetes mellitus type II. 2) Peripheral neuropathy. 3) Chronic osteomyelitis. 4) Acute osteomyelitis. 5) Diabetic foot infection. PROCEDURE: Open amputation left hallux with packing. SURGEON: Casey Villa DPM. SOLAR BUSINESS DEVELOPER: None. ANESTHESIA: Monitored anesthesia care with intraoperative local. See injectables for details. HEMOSTASIS: Pressure dressing. ESTIMATED BLOOD LOSS: Less than 5 cc. MATERIALS: 3-0 Nylon and 0.25 inch Iodoform packing. INJECTABLES: 30 cc of a 1:1 mixture of 1% lidocaine plain and 0.5% bupivacaine plain injected in a Hawk block-type fashion. INDICATION FOR SURGERY: Galileo is a very pleasant 71-year-old male who was seen at bedside yesterday on the Med/Surg floor for concerns of an infected toenail. At this time the patient developed his history where he has had multiple interventions for peripheral vascular disease with Dr. Yoo as well as intervention for ingrown toenails two and a half years ago with Dr. Mitchell. As a result, the patient was unable to heal the insole of the procedure and has developed subsequent infections over the years. Yesterday, he presented with significant amount of pain to the toe which is likely associated with the peripheral vascular disease as well as indication of osteomyelitis. An x-ray was taken showing some faint corticolysis at the base of the medial distal phalanx and MRI confirmed that there is extensive osteomyelitis at least in the distal interphalangeal joint. Discussion was held with the patient and his family and at this time the patient would like to proceed with amputation. The patient understands all risks, complications and benefits of surgical intervention at this time including but not limited to infection, hematoma, seroma, possibility of delayed skin healing, nonskin healing, possibility of failure of surgical intervention and need for further surgical intervention at a later date. No guarantees were provided as to the outcome of surgical intervention. This is primarily in relationship to his peripheral vascular disease which will likely need intervention. Vascular studies were obtained yesterday demonstrating relatively good healing potential. 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 The infection is present at this time and needs to eradicated before intervention is necessitated from their end. It is with that we decided to proceed. DESCRIPTION OF PROCEDURE AND FINDINGS: The patient is brought into the OR and placed and placed on the OR table in the supine position. Monitored anesthesia care was administered until the patient was sedated. The left lower extremity was prepped and draped in the typical sterile fashion and lowered onto the surgical field. At this time 30 cc of a 1:1 mixture of 1% lidocaine plain and 0.5% bupivacaine plain injected in a Hawk block-type fashion to the left foot. Following this a skin marker was utilized to delineate a medial racket-type incision along the first metatarsal as well as circumferentially around the toe with attempt to salvage as much skin as possible over the hallux. At this time a 10 blade was utilized to take the incision perpendicular to the longitudinal axis of the skin and down to the level of the bone through this planned site utilizing a 15 blade. Following this, a disarticulation of the first metatarsophalangeal joint was performed. The necrotic tissue at the margins was debrided utilizing a combination of sharp and blunt dissection. Following this, 1 liter of Bactisure was utilized to cleanse the surgical site and then this was flushed with 3 liters of normal sterile saline. Following this gloves were changed and stitches were placed utilizing 3-0 Nylon in trauma stitch-type fashion with a partial opening at the distal aspect of the wound in order to allow for soft tissue infection to drain. At this time attention was turned to the toe where bone and soft tissue cultures were obtained and sent for pathologic assessment and handed for permanent. At this time 0.25 inch Iodoform packing placed in Iodine was packed into the distal aspect of the surgical site. A dressing consisting of Betadine, Adaptic, 4x4, Kerlix, ABD and JESSE were applied with minimal compression to the left lower extremity. The patient then was reversed from anesthesia and returned to the postoperative anesthesia care unit with vital signs stable and vascular status intact. The patient handled the anesthesia as well as the procedure without significant complication. Postoperative orders as indicated in the patients inpatient chart.
--- NOTE | 2022-06-01 14:12 | XRAY ---
Indication: PICC line placement. Comparison: February 15, 2022 Portable chest demonstrates new left arm PICC line with tip projecting over atrial caval junction. Remaining chest unchanged again demonstrating COPD with chronic lung markings. 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 Bony thorax intact again with osteopenia, multilevel degenerative changes, left axilla surgical clips, and cervical fusion hardware. No new/acute findings.
[2022-06-01] MEDS: Sodium Chloride 0.9% 1000 ML 1,000 ML IV SCH (16:39)
[2022-06-01] MEDS: Aricept 10 MG PO SCH (17:41)
[2022-06-01] MEDS: Ambien 10 MG PO SCH (17:47)
[2022-06-01] MEDS: NORCO 5/325 MG PO PRN (23:09)
[2022-06-02] MEDS: Hydromorphone 1 mg/ml Injection IV PRN ×4 (01:57→09:51)
[2022-06-02] MEDS: MOTRIN 600 MG PO PRN ×2 (02:05→11:15)
[2022-06-02] MEDS: NORCO 5/325 MG PO PRN ×4 (03:47→23:05)
[2022-06-02] MEDS: PIPERACILLIN/TAZOBACTAM 3.375 GM in Sodium Chloride 100ML MINI-BAG PLUS 100 ML IV SCH ×2 (05:19→12:44)
[2022-06-02] MEDS: Sodium Chloride 0.9% 1000 ML 1,000 ML IV SCH ×2 (05:22→16:33)
[2022-06-02] MEDS: Protonix 40MG Tablet PO SCH (05:31)
[2022-06-02] MEDS: Zestril 10 MG PO SCH (05:31)
[2022-06-02] MEDS: PLAVIX Tablet PO SCH (05:31)
[2022-06-02] MEDS: NEURONTIN PO SCH ×3 (05:31→20:14)
[2022-06-02] MEDS: Toprol Xl 100 MG PO SCH (05:31)
[2022-06-02] MEDS: LASIX 20 MG PO SCH (05:32)
[2022-06-02] MEDS: ECOTRIN 81 MG PO SCH (05:32)
[2022-06-02] MEDS: Cymbalta 30 MG Capsule PO SCH (05:32)
[2022-06-02] MEDS ORDERED: Ecotrin 325 MG PO SCH (06:00)
[2022-06-02] MEDS: VANCOMYCIN 1 GRAM/200 ML BAG 1 GM/200 ML PIGGYBACK IV SCH (10:33)
--- NOTE | 2022-06-02 10:38 | PCM.NOTE ---
Date and Time: 06/02/22 1036 Subjective Assessment: s/p left great toe amputation - Review of Systems Constitutional: No Fever, No Chills Eyes: No Symptoms Ears, Nose, & Throat: No Symptoms Respiratory: No Cough, No Short Of Breath Cardiac: No Chest Pain, No Edema, No Syncope Abdominal/Gastrointestinal: No Abdominal Pain, No Nausea, No Vomiting, No Diarrhea Genitourinary Symptoms: No Dysuria Musculoskeletal: No Back Pain, No Neck Pain Skin: No Rash Neurological: No Dizziness, No Focal Weakness, No Sensory Changes Psychological: No Symptoms Endocrine: No Symptoms Hematologic/Lymphatic: No Symptoms Immunological/Allergic: No Symptoms Objective Exam General Appearance: no apparent distress, alert Neurologic Exam: alert, oriented x 3, cooperative, normal mood/affect, nml cerebellar function, sensation nml, No motor deficits Skin Exam: normal color, warm, dry Wound Assessment: Skin/Wound Assessment Wound/Incision Assessment Start: 05/30/22 23:20 Text: Status: Active Freq: Q6H Protocol: Document 06/02/22 08:00 RE (Rec: 06/02/22 10:18 RE [id number]) Wound/Incision Assessment Left Lower Foot Wound Assessment Shift Assessment Dressing Status Dry & Intact Comment order for dressing to only be changed by physician Eye Exam: PERRL, EOMI, eyes nml inspection Ears, Nose, Throat Exam: normal ENT inspection, pharynx normal, moist mucous membranes Neck Exam: normal inspection, non-tender, supple, full range of motion Respiratory Exam: normal breath sounds, lungs clear, No respiratory distress Cardiovascular Exam: regular rate/rhythm, normal heart sounds Gastrointestinal/Abdomen Exam: soft, No tenderness, No mass Extremity Exam: normal inspection, normal range of motion, other (s/p left great toe amputation) Back Exam: normal inspection, normal range of motion, No CVA tenderness, No vertebral tenderness Male Genitalia Exam: deferred Rectal Exam: deferred OBJECTIVE DATA Vital Signs: Vital Signs - 24 hr Temp Pulse Resp BP Pulse Ox 06/02/22 07:30 98.2 F 63 18 144/63 95 06/02/22 04:00 98.2 F 60 21 157/67 95 06/01/22 23:32 97.7 F 59 L 16 114/55 94 L 06/01/22 20:00 97.6 F 69 18 134/60 94 L 06/01/22 16:00 97.5 F 56 L 16 134/62 94 L 06/01/22 11:56 97.5 F 65 17 107/66 96 Pain Assessment - Last Documented Pain Intensity 10 Pain Scale Used 0-10 Pain Scale Intake and Output: Intake & Output 05/30/22 05/31/22 06/01/22 06/02/22 11:59 11:59 11:59 11:59 Intake Total 3462 2262 3700 Output Total 1800 2200 2450 Balance 1662 62 1250 Weight 72.6 kg 72.6 kg Lab Results: Lab Results-Last 24 Hours 06/01/22 Range/Units Unknown Influenza Type A Ag NEGATIVE (NEGATIVE) Influenza Type B Ag NEGATIVE (NEGATIVE) RSV (PCR) NEGATIVE (NEGATIVE) SARS-CoV-2 (PCR) NEGATIVE (NEGATIVE) Radiology Exams: Radiology Procedures Category Date Time Status CHEST 1 VIEW (PORTABLE) Stat Exams 06/01/22 14:03 Completed MRI LOWER EXT JOINT W&WO CON [MRI] Routine Exams 05/31/22 16:33 Completed Multi-Disciplinary Progress Notes: Multi-Disciplinary Progress Notes 06/01/22 15:48 Case Management Note by Katia Carver S/W [facility] AT [facility]- PATIENT HAS IN HOME INFUSION BENEFITS. HE WILL OWN NOTHING OUT OF POCKET FOR MEDS OR SUPPLIES. HE CAN START A NEW MED AT HOME LONG [facility] AGREE[facility] TO ADMINISTER THE FIRST DOSE. THEY ARE ABLE TO DO SAME DAY DELIVERY LONG ORDER IS RECEIVED BY 3 PM Initialized on 06/01/22 15:48 - END OF NOTE 06/01/22 12:03 Case Management Note by Junie Figueredo S/W PATIENT AND HE PLANS TO [place] WITH FAMILY SUPPORT. SPOKE WITH HIM ABOUT NEED FOR CONTINUING IV ANTIBIOTICS VIA A PICC LINE AND PATIENT WANTS TO HAVE IV ANTIBIOTICS AT HOME VIA HOME HEALTH CARE. 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 CONTACTED [facility] WITH PATIENT INSURANCE INFO TO SEE IF MEDICATIONS/HOME INFUSION SUPPLIES ARE COVERED. 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 Diabetes mellitus complication status: with skin complications Diabetes mellitus complication detail: with foot ulcer Qualified Code(s): E11.621 - Type 2 diabetes mellitus with foot ulcer; L97.509 - Non-pressure chronic ulcer of other part of unspecified foot with unspecified severity; Z79.4 - assisted (current) use of insulin Assessment & Plan: Chief Complaint Diagnosis PVD WITH VASCULAR DISEASE OF EXTREMITY WITH CLAUDICATION, OSTEOMYELITIS Allergies Allergy/AdvReac Type Severity Reaction Status Date / Time morphine AdvReac Intermediate Verified 02/15/22 17:37 Vital Signs (Last 24 hours) Temp Pulse Resp BP Pulse Ox 06/02/22 07:30 98.2 F 63 18 144/63 95 06/02/22 04:00 98.2 F 60 21 157/67 95 06/01/22 23:32 97.7 F 59 L 16 114/55 94 L 06/01/22 20:00 97.6 F 69 18 134/60 94 L 06/01/22 16:00 97.5 F 56 L 16 134/62 94 L 06/01/22 11:56 97.5 F 65 17 107/66 96 Home Medications Medication Instructions Recorded Confirmed Last Taken Type Aspirin 81 mg PO DAILY 05/30/22 05/30/22 05/30/22 History Insulin Regular, Human [Novolin R] 100 unit IJ ACHS 05/30/22 05/30/22 05/30/22 History Metoprolol Succinate 100 mg 150 mg PO DAILY 05/30/22 05/31/22 05/30/22 History [Toprol Xl 100 MG] Current Medications Generic Name Dose Route Start Last Admin Trade Name Freq PRN Reason Stop Dose Admin Hydrocodone Bitart/Acetaminophen 1 tab 06/01/22 09:22 06/02/22 08:07 Hydrocodone/Apap 5/325 1 Tab Tablet PO 06/06/22 09:21 1 tab Q4H PRN PRN Administration BREAKTHROUGH PAIN Allopurinol 300 mg 05/31/22 18:00 06/01/22 17:41 Allopurinol 300 Mg Tablet PO 06/30/22 17:59 300 mg DAILY@1800 COUNT INCLUDES THE [facility] Administration Aspirin 81 mg 06/01/22 10:00 06/02/22 05:32 Aspirin 81 Mg Tablet.Ec PO 07/01/22 09:59 81 mg DAILY@0600 COUNT INCLUDES THE [facility] Administration Clopidogrel Bisulfate 75 mg 06/01/22 06:00 06/02/22 05:31 Clopidogrel Bisulfate 75 Mg Tablet PO 07/01/22 05:59 75 mg DAILY@0600 XIMENA Administration Device 1 06/03/22 09:30 Therapuetic Drug Level Monitor Each IJ 06/03/22 09:31 1XONLY ONE Donepezil HCl 5 mg 05/31/22 18:00 06/01/22 17:41 Donepezil Hcl 10 Mg Tablet PO 06/30/22 17:59 5 mg DAILY@1800 XIMENA Administration Duloxetine HCl 60 mg 06/01/22 06:00 06/02/22 05:32 Duloxetine Hcl 30 Mg Cap PO 07/01/22 05:59 60 mg DAILY@0600 XIMENA Administration Furosemide 20 mg 06/01/22 06:00 06/02/22 05:32 Furosemide 20 Mg Tablet PO 07/01/22 05:59 20 mg DAILY@0600 XIMENA Administration Gabapentin 300 mg 05/31/22 12:00 06/02/22 05:31 Gabapentin 300 Mg Capsule PO 06/30/22 11:59 300 mg TID@0600,1200,1800 XIMENA Administration Hydromorphone HCl 1 mg 06/02/22 04:38 06/02/22 09:51 Hydromorphone 1 Mg/1ml Inj 1 Mg/Ml Syringe IV 06/07/22 04:37 1 mg Q2H PRN PRN Administration PAIN Sodium Chloride 1,000 mls @ 100 mls/hr 05/30/22 18:00 06/02/22 05:22 Sodium Chloride 0.9% 1000 Ml IV 06/29/22 17:59 100 mls/hr .Q10H XIMENA Administration Piperacillin Sod/Tazobactam 100 mls @ 200 mls/hr 06/01/22 12:00 06/02/22 05:19 Sod 3.375 gm/ Sodium Chloride IV 06/04/22 11:59 200 mls/hr Q6HT XIMENA Administration Vancomycin HCl 1 gm in 200 mls @ 125 mls/hr 06/01/22 10:00 06/02/22 10:33 Vancomycin 1 Gram/200 Ml Bag IV 07/01/22 09:59 125 mls/hr Q12HT XIMENA Administration Ibuprofen 600 mg 06/01/22 09:23 06/02/22 02:05 Ibuprofen 600 Mg Tablet PO 07/01/22 09:22 600 mg Q6H PRN PRN Administration BREAKTHROUGH PAIN Insulin Human Lispro 0 unit 05/30/22 16:33 06/01/22 03:18 Insulin Lispro 1 Unit SQ 06/29/22 16:32 9 unit UD PRN Administration HYPERGLYCEMIA Insulin Human NPH 20 unit 05/31/22 07:30 06/01/22 21:48 Insulin Nph Human Recom 1 Unit SQ 06/30/22 07:29 Not Given ACHS XIMENA Insulin Human Regular 0 unit 05/31/22 07:30 06/01/22 22:41 Insulin Regular, Human 1 Unit IJ 06/30/22 07:29 Not Given ACHS XIMENA Lisinopril 10 mg 06/01/22 06:00 06/02/22 05:31 Lisinopril 10 Mg Tablet PO 07/01/22 05:59 10 mg DAILY@0600 XIMENA Administration Metoprolol Succinate 150 mg 06/01/22 06:00 06/02/22 05:31 Metoprolol Succinate 100 Mg Tablet.Sa PO 07/01/22 05:59 150 mg DAILY@0600 XIMENA Administration Pantoprazole Sodium 40 mg 06/01/22 06:00 06/02/22 05:31 Protonix (Pantoprazole) 40 Mg Tablet PO 07/01/22 05:59 40 mg DAILY@0600 XIMENA Administration Prochlorperazine 10 mg 05/31/22 07:28 Prochlorperazine Maleate 5 Mg Tablet PO 06/30/22 07:27 TID PRN PRN NAUSEA Simvastatin 40 mg 05/31/22 10:00 06/01/22 12:03 Simvastatin 20 Mg Tablet PO 06/30/22 09:59 40 mg DAILY XIMENA Administration Zolpidem Tartrate 10 mg 05/31/22 22:00 06/01/22 17:47 Zolpidem Tartrate 10 Mg Tablet PO 06/30/22 21:59 10 mg HS XIMENA Administration Discontinued Medications Generic Name Dose Route Start Last Admin Trade Name Freq PRN Reason Stop Dose Admin Allopurinol 300 mg 05/30/22 22:42 05/30/22 22:51 Allopurinol 300 Mg Tablet PO 05/30/22 22:43 300 mg ONCE ONE Administration Aspirin Confirm 05/30/22 22:45 Aspirin 81 Mg Tablet.Ec Administered 05/30/22 22:46 Dose 81 mg PO .STK-MED ONE Aspirin 81 mg 05/31/22 06:00 05/31/22 06:11 Aspirin 81 Mg Tablet.Ec PO 05/31/22 06:01 81 mg ONCE ONE Administration Aspirin 81 mg 06/01/22 06:00 06/01/22 10:17 Aspirin 81 Mg Tablet.Ec PO 07/01/22 05:59 Not Given DAILY@0600 XIMENA Bupivacaine HCl Confirm 06/01/22 06:12 Bupivacaine Hcl/Pf 150 Mg/30 Ml Vial Administered 06/01/22 06:13 Dose 150 mg .ROUTE .STK-MED ONE Clopidogrel Bisulfate 75 mg 05/31/22 06:00 05/31/22 06:11 Clopidogrel Bisulfate 75 Mg Tablet PO 05/31/22 06:01 75 mg ONCE ONE Administration Duloxetine HCl 60 mg 05/31/22 06:00 05/31/22 06:10 Duloxetine Hcl 30 Mg Cap PO 05/31/22 06:01 60 mg ONCE ONE Administration Famotidine 20 mg 05/31/22 13:29 05/31/22 15:54 Famotidine 20 Mg/1 Vial IV 05/31/22 13:30 Not Given 1HRPRIOR ONE Famotidine 20 mg 06/01/22 06:00 06/01/22 06:03 Famotidine 20 Mg/1 Vial IV 06/01/22 06:01 20 mg 1HRPRIOR ONE Administration Fentanyl Citrate Confirm 06/01/22 06:23 Fentanyl Citrate 100 Mcg/2 Ml* Vial Administered 06/01/22 06:24 Dose 100 mcg .ROUTE .STK-MED ONE Furosemide 20 mg 05/31/22 06:00 05/31/22 06:11 Furosemide 20 Mg Tablet PO 05/31/22 06:01 20 mg ONCE ONE Administration Gabapentin 600 mg 05/30/22 22:00 Gabapentin 300 Mg Capsule PO 06/29/22 21:59 [facility] Gabapentin 600 mg 05/30/22 20:09 05/30/22 20:38 Gabapentin 300 Mg Capsule PO 05/30/22 20:10 600 mg ONCE ONE Administration Gabapentin 300 mg 05/31/22 06:00 05/31/22 06:13 Gabapentin 300 Mg Capsule PO 05/31/22 06:01 300 mg ONCE ONE Administration Hydromorphone HCl 1 mg 05/30/22 16:33 06/02/22 01:57 Hydromorphone 1 Mg/1ml Inj 1 Mg/Ml Syringe IV 06/04/22 16:32 1 mg Q4H PRN PRN Administration PAIN Hydromorphone HCl 1 mg 05/30/22 18:30 05/30/22 22:49 Hydromorphone 1 Mg/1ml Inj 1 Mg/Ml Syringe IV 05/30/22 18:31 1 mg ONCE ONE Administration Ceftriaxone Sodium/Dextrose 2 g in 50 mls @ 100 mls/hr 05/30/22 17:00 05/31/22 12:52 Rocephin 2 Gm-D5w 50ml Bag IV 06/02/22 16:59 100 mls/hr Q24H10 XIMENA Administration Sodium Chloride 1,000 mls @ 999 mls/hr 05/30/22 16:33 05/30/22 20:03 Sodium Chloride 0.9% 1000 Ml IV 05/30/22 17:33 999 mls/hr .Q1H1M STA Administration Lactated Ringer's Confirm 06/01/22 06:12 Lactated Ringers Administered 06/01/22 06:13 Dose 1,000 mls @ ud IV .STK-MED ONE Sodium Chloride Confirm 06/01/22 06:35 Sodium Chloride 0.9% 1000 Ml Administered 06/01/22 06:36 Dose 1,000 mls @ ud .ROUTE .STK-MED ONE Insulin Human NPH Confirm 05/30/22 20:30 Insulin Nph Human Recom 1 Unit Administered 05/30/22 20:31 Dose 15 unit .ROUTE .STK-MED ONE Insulin Human NPH 15 unit 05/31/22 21:00 05/30/22 21:00 Insulin Nph Human Recom 1 Unit SQ 05/31/22 21:01 15 unit ONCE ONE Administration Insulin Human Regular Confirm 05/30/22 20:32 Insulin Regular, Human 1 Unit Administered 05/30/22 20:33 Dose 15 unit .ROUTE .STK-MED ONE Insulin Human Regular 15 unit 05/31/22 21:00 05/30/22 21:00 Insulin Regular, Human 1 Unit SQ 05/31/22 21:01 15 unit ONCE ONE Administration Lidocaine HCl Confirm 06/01/22 06:12 Lidocaine Hcl/Pf 1 % 30 Ml Pf Sdv Administered 06/01/22 06:13 Dose 30 ml IJ .STK-MED ONE Lisinopril 10 mg 05/31/22 06:00 05/31/22 06:11 Lisinopril 10 Mg Tablet PO 05/31/22 06:01 10 mg ONCE ONE Administration Metoclopramide HCl 10 mg 05/31/22 13:30 05/31/22 15:54 Metoclopramide Hcl 10 Mg/2 Ml Vial IV 05/31/22 13:31 Not Given 1HRPRIOR ONE Metoclopramide HCl 10 mg 06/01/22 06:00 06/01/22 06:03 Metoclopramide Hcl 10 Mg/2 Ml Vial IV 06/01/22 06:01 10 mg 1HRPRIOR ONE Administration Metoprolol Succinate 50 mg 05/31/22 22:00 05/30/22 22:51 Metoprolol Succinate 50 Mg Tablet.Sa PO 06/30/22 21:59 50 mg HS XIMENA Administration Metoprolol Succinate Confirm 05/30/22 22:44 Metoprolol Succinate 50 Mg Tablet.Sa Administered 05/30/22 22:45 Dose 50 mg PO .STK-MED ONE Metoprolol Succinate 100 mg 05/31/22 06:00 05/31/22 06:12 Metoprolol Succinate 50 Mg Tablet.Sa PO 05/31/22 06:01 100 mg ONCE ONE Administration Metoprolol Tartrate 50 mg 05/31/22 06:00 05/31/22 06:12 Metoprolol Tartrate 50 Mg Tablet PO 05/31/22 06:01 50 mg ONCE ONE Administration Midazolam HCl Confirm 06/01/22 06:23 Midazolam Hcl 2 Mg/2 Ml Vial Administered 06/01/22 06:24 Dose 2 mg .ROUTE .STK-MED ONE Pantoprazole Sodium 40 mg 05/31/22 06:00 05/31/22 06:10 Protonix (Pantoprazole) 40 Mg Tablet PO 05/31/22 06:01 40 mg ONCE ONE Administration Propofol Confirm 06/01/22 06:23 Propofol 10 Mg/Ml 20ml Vial Administered 06/01/22 06:24 Dose 200 mg IV .STK-MED ONE Simvastatin 40 mg 05/31/22 06:00 05/31/22 06:13 Simvastatin 20 Mg Tablet PO 05/31/22 06:01 40 mg ONCE ONE Administration Zolpidem Tartrate 10 mg 05/31/22 22:00 05/30/22 22:50 Zolpidem Tartrate 10 Mg Tablet PO 06/30/22 21:59 10 mg HS XIMENA Administration Zolpidem Tartrate Confirm 05/30/22 22:43 Zolpidem Tartrate 10 Mg Tablet Administered 05/30/22 22:44 Dose 10 mg .ROUTE .STK-MED ONE Zolpidem Tartrate Confirm 05/31/22 18:11 Zolpidem Tartrate 10 Mg Tablet Administered 05/31/22 18:12 Dose 10 mg .ROUTE .STK-MED ONE Intake & Output (Last 24 hours) 05/30/22 05/31/22 06/01/22 06/02/22 11:59 11:59 11:59 11:59 Intake Total 3462 2262 3700 Output Total 1800 2200 2450 Balance 1662 62 1250 Weight 72.6 kg 72.6 kg Microbiology Results (Last 24 hours) 05/30/22 14:02 Toe - L Big (Greater) Wound Culture - Preliminary GRAM POSITIVE ID AND SENSITIVITY PENDING 06/01/22 06:47 Toe - L Big (Greater) Anaerobic Culture - Pending 06/01/22 06:47 Toe - L Big (Greater) Anaerobic Culture Result 1 - Pending 06/01/22 06:47 Toe - L Big (Greater) Anaerobic Culture Result 2 - Pending 06/01/22 06:47 Toe - L Big (Greater) Anaerobic Culture Result 3 - Pending 06/01/22 06:47 Toe - L Big (Greater) Anaerobic Culture Result 4 - Pending 06/01/22 06:47 Toe - L Big (Greater) Antimicrobic Susceptibility - Pending 06/01/22 06:47 Toe - L Big (Greater) Tissue Culture - Pending 06/01/22 06:47 Toe - L Big (Greater) Aerobic Culture Result 1 - Pending 06/01/22 06:47 Toe - L Big (Greater) Aerobic Culture Result 2 - Pending 06/01/22 06:47 Toe - L Big (Greater) - Pending 06/01/22 06:47 Toe - L Big (Greater) Aerobic Culture Result 4 - Pending 06/01/22 06:47 Toe - L Big (Greater) Aerobic & Anaerobic Susceptibility - Pending 06/01/22 06:47 Bone Culture - L Big (Greater) Anaerobic Culture - Pending 06/01/22 06:47 Bone Culture - L Big (Greater) Anaerobic Culture Result 1 - Pending 06/01/22 06:47 Bone Culture - L Big (Greater) Anaerobic Culture Result 2 - Pending 06/01/22 06:47 Bone Culture - L Big (Greater) Anaerobic Culture Result 3 - Pending 06/01/22 06:47 Bone Culture - L Big (Greater) Anaerobic Culture Result 4 - Pending 06/01/22 06:47 Bone Culture - L Big (Greater) Antimicrobic Susceptibility - Pending 06/01/22 06:47 Bone Culture - L Big (Greater) Tissue Culture - Pending 06/01/22 06:47 Bone Culture - L Big (Greater) Aerobic Culture Result 1 - Pending 06/01/22 06:47 Bone Culture - L Big (Greater) Aerobic Culture Result 2 - Pending 06/01/22 06:47 Bone Culture - L Big (Greater) - Pending 06/01/22 06:47 Bone Culture - L Big (Greater) Aerobic Culture Result 4 - Pending 06/01/22 06:47 Bone Culture - L Big (Greater) Aerobic & Anaerobic Susceptibility - Pending 05/30/22 17:15 Blood Blood Culture Gram Stain - Pending 05/30/22 17:15 Blood Blood Culture - Preliminary NO GROWTH TO DATE 05/30/22 17:10 Blood Blood Culture Gram Stain - Pending 05/30/22 17:10 Blood Blood Culture - Preliminary NO GROWTH TO DATE Laboratory Results (Last 24 hours) 06/01/22 Unknown Influenza Type A Ag NEGATIVE Influenza Type B Ag NEGATIVE RSV (PCR) NEGATIVE SARS-CoV-2 (PCR) NEGATIVE Orders (Last 24 hours) Category Date Time Status PICC Line Placement (Contract) ROUTINE Care 06/01/22 13:09 Active CHEST 1 VIEW (PORTABLE) Stat Exams 06/01/22 14:03 Completed Vancomycin, Trough Urgent Lab 06/03/22 09:30 Ordered Aspirin EC 81 mg [Ecotrin 81 mg] Med 06/01/22 10:00 Active 81 mg PO DAILY@0600 Hydromorphone 1 mg/1Ml Inj [Hydromorphone 1 mg/ml Med 06/02/22 04:38 Active Injection] 1 mg IV Q2H PRN PRN Piperacillin/Tazobactam 3.375G [Piperacillin/Tazobactam Med 06/01/22 12:00 Active ] 3.375 gm NaCl 0.9% 100 ml Mini-Bag Plus [Sodium Chloride 100ML MINI-BAG PLUS] 100 ml IV Q6HT Therapuetic Drug Level Monitor [Trough Drug Levels] Med 06/03/22 09:30 Once 1 IJ 1XONLY ONE Vancomycin/Water For Inj (Peg) [Vancomycin 1 Gram/200 Med 06/01/22 10:00 Active ml Bag] 1 gm in 200 ml IV Q12HT Patient Care Notes (Last 24 hours) 06/02/22 08:28 Nursing Note by Benita Pichardo Patient received prn dose of dilaudid at 0708 with no pain control at 30 minutes and 1 hour follow up. PRN [place] given at 0808. Physician notified. 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 New order obtained for Dilaudid 1mg Q 2hour prn intr Addendum entered by Gabriella Wang RN 06/02/22 06:44: intervals. Initialized on 06/02/22 06:41 - END OF NOTE 06/02/22 06:38 Nursing Note by Gabriella Wang Patient resting well; no acute distress noted or complaint of. Tylenol 650mg given for general left hip discomfort with position change.Helpful. Initialized on 06/02/22 06:38 - END OF NOTE 06/01/22 17:47 Nursing Note by Emili Veliz pt requests sleep med at this time, states this is is home routine to go to sleep early Initialized on 06/01/22 17:47 - END OF NOTE 06/01/22 15:48 Case Management Note by Katia Carver S/Flavio FIGUER[facility] AT [facility]- PATIENT HAS IN HOME INFUSION BENEFITS. HE WILL OWN NOTHING OUT OF POCKET FOR MEDS OR SUPPLIES. HE CAN START A NEW MED AT HOME LONG [facility] IS AGREE[facility] TO ADMINISTER THE FIRST DOSE. THEY ARE ABLE TO DO SAME DAY DELIVERY LONG ORDER IS RECEIVED BY 3 PM Initialized on 06/01/22 15:48 - END OF NOTE 06/01/22 13:19 Nursing Note by Emili Veliz RN here to place PICC line on pt at this time Initialized on 06/01/22 13:19 - END OF NOTE 06/01/22 12:03 Case Management Note by Junie Figueredo S/W PATIENT AND HE PLANS [place] WITH FAMILY SUPPORT. SPOKE WITH HIM ABOUT NEED FOR CONTINUING IV ANTIBIOTICS VIA A PICC LINE AND PATIENT WANTS TO HAVE IV ANTIBIOTICS AT HOME VIA HOME HEALTH CARE. 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 CONTACTED [facility] WITH PATIENT INSURANCE INFO TO SEE IF MEDICATIONS/HOME INFUSION SUPPLIES ARE COVERED. PATIENT WANTS [facility] IF ABLE TO DO AT HOME Initialized on 06/01/22 12:03 - END OF NOTE 06/01/22 11:45 (created 06/01/22 13:10) Nursing Note by Emili Veliz pt blood sugar 291 per pt dexcomm, pt requests 12 u humulin r and 12 units humulin N at this time Initialized on 06/01/22 13:10 - END OF NOTE (2) Osteomyelitis of left foot Current Visit: Yes Status: Acute Qualifiers: Osteomyelitis type: subacute Qualified Code(s): M86.272 - Subacute osteomyelitis, left ankle and foot Code(s): M86.9 - OSTEOMYELITIS, UNSPECIFIED (3) Peripheral vascular disease of extremity with claudication Current Visit: Yes Status: Acute Code(s): I73.9 - PERIPHERAL VASCULAR DISEASE, UNSPECIFIED
[2022-06-02] MEDS: ZOCOR 20MG PO SCH (10:46)
[2022-06-02] MEDS: SUBLIMAZE 100 MCG/2 ML IV PRN ×4 (12:34→22:08)
[2022-06-02] MEDS: Novolin N SQ SCH ×3 (13:20→22:11)
[2022-06-02] MEDS: HUMULIN R IJ SCH ×4 (13:29→22:14)
--- NOTE | 2022-06-02 15:07 | PCM.NOTE ---
Date and Time: 06/02/22 1503 Subjective Assessment: POD #1 s/p great toe amputation to left. Pain in the AM however controlled now. Denies constitutional symptoms of infection Physical Exam - Narrative Narrative Physical Exam: Podiatry Physical Exam OBJECTIVE DATA Vital Signs: Vital Signs - 24 hr Temp Pulse Resp BP Pulse Ox 06/02/22 11:00 97.5 F 58 L 17 130/62 93 L 06/02/22 07:30 98.2 F 63 18 144/63 95 06/02/22 04:00 98.2 F 60 21 157/67 95 06/01/22 23:32 97.7 F 59 L 16 114/55 94 L 06/01/22 20:00 97.6 F 69 18 134/60 94 L 06/01/22 16:00 97.5 F 56 L 16 134/62 94 L Pain Assessment - Last Documented Pain Intensity 3 Pain Scale Used 0-10 Pain Scale Intake and Output: Intake & Output 05/31/22 06/01/22 06/02/22 06/03/22 11:59 11:59 11:59 11:59 Intake Total 3462 2262 3700 Output Total 1800 2200 2450 1700 Balance 1662 62 1250 -1700 Weight 72.6 kg 72.6 kg Radiology Exams: Radiology Procedures Category Date Time Status CHEST 1 VIEW (PORTABLE) Stat Exams 06/01/22 14:03 Completed MRI LOWER EXT JOINT W&WO CON [MRI] Routine Exams 05/31/22 16:33 Completed Multi-Disciplinary Progress Notes: Multi-Disciplinary Progress Notes 06/02/22 14:56 Case Management Note by Katia Carver PAUL HAS ACCEPTED PATIENT Initialized on 06/02/22 14:56 - END OF NOTE 06/02/22 14:49 Case Management Note by Katia Carver KNEE SCOOTER RX SENT TO [facility] REPORTS ALL TYPES OF MEDICARE WILL NOT COVER KNEE SCOOTERS PATIENT NOTIFIED OF THIS AND OPTIONS TO RENT THEM- PATIENT DECLINED AND STATE HE WOULD NOT RENT ONE. S/W [facility] IN PHYSICAL THERAPY- SHE WAS NOTIFIED AND SAID PATIENT HAD SAID HE HAD A ROLLATOR WITH A SEAT AT HOME AND COULD USE THAT TO PROPEL HIMSELF AROUND HIS HOME. PATIENT ALSO REPORTS HE HAS STANDARD WALKER WITHOUT WHEELS THAT HE CAN USE FOR TRANSFER WELL. DR. RAY NOTIFIED AND OKAY WITH THIS PLAN Initialized on 06/02/22 14:49 - END OF NOTE 06/02/22 12:10 (created 06/02/22 14:57) Case Management Note by Katia Carver ADDITIONAL CLINICAL TO SUPPORT IV ANTIBIOTIC INFUSION FAXED TO [facility]. THIS PACKET ALSO INCLUDED THE INFORMATION ON PATIENT'S PICC LINE. Initialized on 06/02/22 14:57 - END OF NOTE 06/02/22 11:17 Case Management Note by Katia Carver REFERRAL FAXED TO [facility]- S/W REP- SHE REPORTS SHE ANTICIPATES THEY CAN SERVICE PATIENT WITHOUT TROUBLE. THEY WILL NEED NOTIFIED AT TIME OF DC AT [phone]. THEY WILL NEED FAXED THE DC INSTRUCTIONS, DC MED LIST, AND DC SUMMARY ( IF AVAILABLE) TO [phone] Initialized on 06/02/22 11:17 - END OF NOTE 06/01/22 15:48 Case Management Note by Katia Carver S/W [facility]- PATIENT HAS IN HOME INFUSION BENEFITS. HE WILL OWN NOTHING OUT OF POCKET FOR MEDS OR SUPPLIES. HE CAN START A NEW MED AT HOME LONG [facility] IS AGREEABLE TO ADMINISTER THE FIRST DOSE. THEY ARE ABLE TO DO SAME DAY DELIVERY LONG ORDER IS RECEIVED BY 3 PM Initialized on 06/01/22 15:48 - END OF NOTE Assessment/Plan (1) Peripheral vascular disease of extremity with claudication Current Visit: Yes Status: Acute Assessment & Plan: Patient examination evaluation. N.p.o. for midnight Pain control as prescribed DVT prophylaxis as prescribed. Continue nonweightbearing left lower extremity Surgical consent for Delayed primary closure, possible metatarsal resection. Noninvasive vascular studies demonstrating patient does have adequate healing based on ABIs however posterior tibial artery is noncompressible and this is the dominant artery to the left lower extremity. For this reason patient does have a follow-up with his vascular surgeon in [place] on Monday that I would like him to be present for. [facility] set for dressing changes 3x weekly Home infusions approved. [facility] + bacterial growth. Awaiting culture and sensitiveity. WBCs normal. We will proceed with surgical intervention tomorrow Ok for dc tomorrow if approved from medicine Code(s): I73.9 - PERIPHERAL VASCULAR DISEASE, UNSPECIFIED (2) Toe infection Current Visit: Yes Status: Acute Code(s): L08.9 - LOCAL INFECTION OF THE SKIN AND SUBCUTANEOUS TISSUE, UNSP (3) Osteomyelitis of left foot Current Visit: Yes Status: Acute Qualifiers: Osteomyelitis type: subacute Qualified Code(s): M86.272 - Subacute osteomyelitis, left ankle and foot Code(s): M86.9 - OSTEOMYELITIS, UNSPECIFIED
[2022-06-02] MEDS: Invanz *** 1 G in Sodium Chloride 100ML MINI-BAG PLUS 100 ML IV SCH (16:30)
[2022-06-02] MEDS ORDERED: ZOCOR 20MG PO SCH (18:00)
[2022-06-02] MEDS ORDERED: Ambien 10 MG PO SCH (18:00)
[2022-06-02] MEDS: ZYLOPRIM 300 MG PO SCH (18:19)
[2022-06-02] MEDS: Aricept 10 MG PO SCH (18:19)
[2022-06-03] MEDS: Sodium Chloride 0.9% 1000 ML 1,000 ML IV SCH ×2 (00:22→02:36)
[2022-06-03] MEDS: SUBLIMAZE 100 MCG/2 ML IV PRN ×3 (00:29→05:03)
[2022-06-03] MEDS ORDERED: CEFAZOLIN 2 GM-D5W BAG** 2 GM/50 ML ML IV SCH (06:00)
[2022-06-03] MEDS ORDERED: Marcaine Mpf 0.5% Vial 30 Ml ONE (06:28)
[2022-06-03] MEDS ORDERED: DIPRIVAN 200 MG/20 ML IV ONE ×2 (08:03→09:54)
[2022-06-03] MEDS ORDERED: SUBLIMAZE 100 MCG/2 ML ONE (08:03)
[2022-06-03] MEDS ORDERED: Versed 2 MG/2 ML Injection ONE (08:04)
[2022-06-03] MEDS: HUMULIN R IJ SCH ×2 (08:29→12:17)
[2022-06-03] MEDS: Novolin N SQ SCH ×2 (08:30→12:18)
[2022-06-03] MEDS ORDERED: TROUGH DRUG LEVELS IJ ONE (09:30)
[2022-06-03] MEDS ORDERED: KEFZOL 1 GM ONE (09:49)
[2022-06-03] MEDS: Invanz *** 1 G in Sodium Chloride 100ML MINI-BAG PLUS 100 ML IV SCH (11:53)
[2022-06-03] MEDS: Protonix 40MG Tablet PO SCH (12:15)
[2022-06-03] MEDS: NEURONTIN PO SCH (12:15)
[2022-06-03] MEDS: PLAVIX Tablet PO SCH (12:15)
[2022-06-03] MEDS: ECOTRIN 81 MG PO SCH (12:16)
[2022-06-03] MEDS: Cymbalta 30 MG Capsule PO SCH (12:16)
[2022-06-03] MEDS: LASIX 20 MG PO SCH (12:17)
[2022-06-03] MEDS: Zestril 10 MG PO SCH (12:24)
[2022-06-03] MEDS: Toprol Xl 100 MG PO SCH (12:24)
--- NOTE | 2022-06-03 12:30 | XRAY ---
Indication: Follow-up surgery. Comparison: May 31, 2022 2 nonweightbearing views left foot demonstrates interval great toe amputation with postsurgical soft tissue swelling and overlying bandage material. Stable osteopenia and scattered vascular calcifications. No other bony, articular, or soft tissue abnormalities.
[2022-06-03 13:21] VITALS: BP 131/61; PULSE 84; O2SAT 97
--- NOTE | 2022-06-03 13:35 | OP ---
SURGERY DATE/TIME: 06/03/2022 0940 PREOPERATIVE DIAGNOSES: 1) Osteomyelitis left great toe. 2) Diabetic foot infection. 3) Pain left foot. 4) Amputation of left great toe. POSTOPERATIVE DIAGNOSES: 1) Osteomyelitis left great toe. 2) Diabetic foot infection. 3) Pain left foot. 4) Amputation of left great toe. PROCEDURE: Delayed primary closure with repeat incision and drainage. SURGEON: Casey Villa DPM. RETAIL EVENT AND SALES ASSISTANT: None. ANESTHESIA: Monitored anesthesia care with a preoperative Hawk block. HEMOSTASIS: Pressure dressing. ESTIMATED BLOOD LOSS: Less than 5 cc. MATERIALS: 4-0 Monocryl, 3-0 Nylon with one suture guard. INJECTABLES: 20 cc of 1:1 mixture of 1% lidocaine plain and 0.5% bupivacaine plain injected in a Hawk block-type fashion. INDICATION FOR SURGERY: Galileo is a very pleasant 71 -year-old male who presented to the hospital with admission for an infected toe and significant pain. The patient was found to have a significant amount of osteomyelitis in the distal phalanx and to a degree the proximal phalanx of the left hallux. This has been infected multiple times over the course of the last two and a half years after an ingrown toenail was removed by another physician. At this time the patient unknowingly had peripheral vascular disease and subsequently was unable to heal. He had multiple interventions with Dr. Yoo in the past and does have an appointment set for Monday of this week with a vascular surgeon who is aware of his current condition. At this time recommendation was made since there was an infection to the great toe and subsequent amputation. Today, we would like to proceed with a delayed primary closure. The patient understands all risks, complications and benefits of surgical intervention at this time including but not limited to infection, hematoma, seroma, possibility of delayed wound healing, nonwound healing, possibility of further need for surgical intervention at a later date. No guarantees were provided as to the outcome of the surgical intervention. It is with that we decided to proceed. DESCRIPTION OF PROCEDURE AND FINDINGS: The patient is brought into the OR and placed on the OR table in the supine position. At this time adequate monitored anesthesia was administered until the patient was sedated. A 20 cc block of a 1:1 mixture of 1% lidocaine plain and 0.5% bupivacaine plain was injected in a Hawk block-type fashion to the left foot under aseptic technique and this was followed by the left lower extremity being prepped and draped in the typical sterile fashion. At this time attention was directed to the sutures which were removed and the incision was inspected. Significant amount of hematoma was cleansed out of the surgical site. The 15 blade rongeur and curettes were utilized to debride any devitalized tissue at the margins of the wound. The skin was incised at the margin in order to assess healthy bleeding which was appreciated. At this time copious amounts of sterile saline were utilized to flush the surgical site. On inspection of the surgical site following the flush, there appeared to be no residual necrosis or infection. From that standpoint we proceeded with closure. Under minimal tension the skin was closed in layered fashion utilizing a 4-0 Monocryl for the subcutaneous tissue and a 3-0 Nylon in horizontal mattress-type fashion for the skin this coapted nicely without significant tension. However for safety at the medial aspect of the incision a suture guard was introduced and this will relieve the tension to the medial aspect of the suture site. The foot was then cleansed and dried. A dressing consisting of Betadine, Adaptic, 4x4, Kerlix and JESSE was applied to the patients left lower extremity. The patient was then reversed from anesthesia and returned to the postoperative anesthesia care unit with vital signs stable and vascular status intact. The patient handled the anesthesia as well as procedure without significant complication. Postoperative orders as indicated in the patient's inpatient chart.
--- NOTE | 2022-06-04 08:02 | PCM.DS ---
Discharge Summary Date of Admission: 05/31/22 16:18 Admitting Physician: TERE BLANTON Consults: Consults on Case 05/31/22 00:18 Consult Podiatry ROUTINE Primary Care Provider: TERE BLANTON Allergies Allergies morphine Adverse Reaction (Intermediate, Verified 02/15/22 17:37) "It makes him agressive" Hospital Summary - Hospital Course Hospital Course: Chief Complaint Diagnosis PVD WITH VASCULAR DISEASE OF EXTREMITY WITH CLAUDICATION, OSTEOMYELITIS Allergies Allergy/AdvReac Type Severity Reaction Status Date / Time morphine AdvReac Intermediate Verified 02/15/22 17:37 Vital Signs (Last 24 hours) Temp Pulse Resp BP Pulse Ox 06/03/22 13:10 84 18 131/61 97 06/03/22 12:40 86 18 126/52 99 06/03/22 12:15 84 18 123/60 96 06/03/22 12:00 82 16 120/58 97 06/03/22 11:45 81 18 124/60 95 06/03/22 11:21 97.8 F 86 16 111/53 99 06/03/22 11:14 91 L Home Medications Medication Instructions Recorded Confirmed Last Taken Type Aspirin 81 mg PO DAILY 05/30/22 05/30/22 05/30/22 History Insulin Regular, Human [Novolin R] 100 unit IJ ACHS 05/30/22 05/30/22 05/30/22 History Metoprolol Succinate 100 mg 150 mg PO DAILY 05/30/22 05/31/22 05/30/22 History [Toprol Xl 100 MG] Ertapenem Sodium [Invanz ] 1 g IV DAILY #20 06/03/22 Unknown Rx Current Medications Discontinued Medications Generic Name Dose Route Start Last Admin Trade Name Freq PRN Reason Stop Dose Admin Hydrocodone Bitart/Acetaminophen 1 tab 06/01/22 09:22 06/02/22 23:05 Hydrocodone/Apap 5/325 1 Tab Tablet PO 06/06/22 09:21 1 tab Q4H PRN PRN Administration BREAKTHROUGH PAIN Allopurinol 300 mg 05/30/22 22:42 05/30/22 22:51 Allopurinol 300 Mg Tablet PO 05/30/22 22:43 300 mg ONCE ONE Administration Allopurinol 300 mg 05/31/22 18:00 06/02/22 18:19 Allopurinol 300 Mg Tablet PO 06/30/22 17:59 300 mg DAILY@1800 XIMENA Administration Aspirin Confirm 05/30/22 22:45 Aspirin 81 Mg Tablet.Ec Administered 05/30/22 22:46 Dose 81 mg PO .STK-MED ONE Aspirin 81 mg 05/31/22 06:00 05/31/22 06:11 Aspirin 81 Mg Tablet.Ec PO 05/31/22 06:01 81 mg ONCE ONE Administration Aspirin 81 mg 06/01/22 06:00 06/01/22 10:17 Aspirin 81 Mg Tablet.Ec PO 07/01/22 05:59 Not Given DAILY@0600 XIMENA Aspirin 81 mg 06/01/22 10:00 06/03/22 12:16 Aspirin 81 Mg Tablet.Ec PO 07/01/22 09:59 81 mg DAILY@0600 XIMENA Administration Bupivacaine HCl Confirm 06/01/22 06:12 Bupivacaine Hcl/Pf 150 Mg/30 Ml Vial Administered 06/01/22 06:13 Dose 150 mg .ROUTE .STK-MED ONE Bupivacaine HCl Confirm 06/03/22 06:28 Bupivacaine Hcl/Pf 150 Mg/30 Ml Vial Administered 06/03/22 06:29 Dose 150 mg .ROUTE .STK-MED ONE Cefazolin Sodium Confirm 06/03/22 09:49 Cefazolin Sodium 1 Gm Vial Administered 06/03/22 09:50 Dose 2 g .ROUTE .STK-MED ONE Clopidogrel Bisulfate 75 mg 05/31/22 06:00 05/31/22 06:11 Clopidogrel Bisulfate 75 Mg Tablet PO 05/31/22 06:01 75 mg ONCE ONE Administration Clopidogrel Bisulfate 75 mg 06/01/22 06:00 06/03/22 12:15 Clopidogrel Bisulfate 75 Mg Tablet PO 07/01/22 05:59 75 mg DAILY@0600 XIMENA Administration Device 1 06/03/22 09:30 Therapuetic Drug Level Monitor Each IJ 06/03/22 09:31 1XONLY ONE Donepezil HCl 5 mg 05/31/22 18:00 06/02/22 18:19 Donepezil Hcl 10 Mg Tablet PO 06/30/22 17:59 5 mg DAILY@1800 XIMENA Administration Duloxetine HCl 60 mg 05/31/22 06:00 05/31/22 06:10 Duloxetine Hcl 30 Mg Cap PO 05/31/22 06:01 60 mg ONCE ONE Administration Duloxetine HCl 60 mg 06/01/22 06:00 06/03/22 12:16 Duloxetine Hcl 30 Mg Cap PO 07/01/22 05:59 60 mg DAILY@0600 XIMENA Administration Famotidine 20 mg 05/31/22 13:29 05/31/22 15:54 Famotidine 20 Mg/1 Vial IV 05/31/22 13:30 Not Given 1HRPRIOR ONE Famotidine 20 mg 06/01/22 06:00 06/01/22 06:03 Famotidine 20 Mg/1 Vial IV 06/01/22 06:01 20 mg 1HRPRIOR ONE Administration Fentanyl Citrate Confirm 06/01/22 06:23 Fentanyl Citrate 100 Mcg/2 Ml* Vial Administered 06/01/22 06:24 Dose 100 mcg .ROUTE .STK-MED ONE Fentanyl Citrate 50 mcg 06/02/22 11:30 06/02/22 17:16 Fentanyl Citrate 100 Mcg/2 Ml* Vial IV 06/07/22 11:29 50 mcg Q4H PRN PRN Administration SEVERE PAIN Fentanyl Citrate 50 mcg 06/02/22 18:36 06/03/22 05:03 Fentanyl Citrate 100 Mcg/2 Ml* Vial IV 06/07/22 18:33 50 mcg Q2H PRN PRN Administration SEVERE PAIN Fentanyl Citrate Confirm 06/03/22 08:03 Fentanyl Citrate 100 Mcg/2 Ml* Vial Administered 06/03/22 08:04 Dose 100 mcg .ROUTE .STK-MED ONE Furosemide 20 mg 05/31/22 06:00 05/31/22 06:11 Furosemide 20 Mg Tablet PO 05/31/22 06:01 20 mg ONCE ONE Administration Furosemide 20 mg 06/01/22 06:00 06/03/22 12:17 Furosemide 20 Mg Tablet PO 07/01/22 05:59 20 mg DAILY@0600 XIMENA Administration Gabapentin 600 mg 05/30/22 22:00 Gabapentin 300 Mg Capsule PO 06/29/22 21:59 HS XIMENA Gabapentin 600 mg 05/30/22 20:09 05/30/22 20:38 Gabapentin 300 Mg Capsule PO 05/30/22 20:10 600 mg ONCE ONE Administration Gabapentin 300 mg 05/31/22 06:00 05/31/22 06:13 Gabapentin 300 Mg Capsule PO 05/31/22 06:01 300 mg ONCE ONE Administration Gabapentin 300 mg 05/31/22 12:00 06/03/22 12:15 Gabapentin 300 Mg Capsule PO 06/30/22 11:59 300 mg TID@0600,1200,1800 XIMENA Administration Hydromorphone HCl 1 mg 05/30/22 16:33 06/02/22 01:57 Hydromorphone 1 Mg/1ml Inj 1 Mg/Ml Syringe IV 06/04/22 16:32 1 mg Q4H PRN PRN Administration PAIN Hydromorphone HCl 1 mg 05/30/22 18:30 05/30/22 22:49 Hydromorphone 1 Mg/1ml Inj 1 Mg/Ml Syringe IV 05/30/22 18:31 1 mg ONCE ONE Administration Hydromorphone HCl 1 mg 06/02/22 04:38 06/02/22 09:51 Hydromorphone 1 Mg/1ml Inj 1 Mg/Ml Syringe IV 06/07/22 04:37 1 mg Q2H PRN PRN Administration PAIN Ceftriaxone Sodium/Dextrose 2 g in 50 mls @ 100 mls/hr 05/30/22 17:00 05/31/22 12:52 Rocephin 2 Gm-D5w 50ml Bag IV 06/02/22 16:59 100 mls/hr Q24H10 XIMENA Administration Sodium Chloride 1,000 mls @ 999 mls/hr 05/30/22 16:33 05/30/22 20:03 Sodium Chloride 0.9% 1000 Ml IV 05/30/22 17:33 999 mls/hr .Q1H1M STA Administration Sodium Chloride 1,000 mls @ 100 mls/hr 05/30/22 18:00 06/03/22 02:36 Sodium Chloride 0.9% 1000 Ml IV 06/29/22 17:59 100 mls/hr .Q10H XIMENA Administration Lactated Ringer's Confirm 06/01/22 06:12 Lactated Ringers Administered 06/01/22 06:13 Dose 1,000 mls @ ud IV .STK-MED ONE Sodium Chloride Confirm 06/01/22 06:35 Sodium Chloride 0.9% 1000 Ml Administered 06/01/22 06:36 Dose 1,000 mls @ ud .ROUTE .STK-MED ONE Piperacillin Sod/Tazobactam 100 mls @ 200 mls/hr 06/01/22 12:00 06/02/22 12:44 Sod 3.375 gm/ Sodium Chloride IV 06/04/22 11:59 200 mls/hr Q6HT XIMENA Administration Vancomycin HCl 1 gm in 200 mls @ 125 mls/hr 06/01/22 10:00 06/02/22 10:33 Vancomycin 1 Gram/200 Ml Bag IV 07/01/22 09:59 125 mls/hr Q12HT XIMENA Administration Ertapenem 1 g/ Sodium Chloride 100 mls @ 200 mls/hr 06/02/22 16:00 06/03/22 11:53 IV 06/23/22 15:59 200 mls/hr DAILY XIMENA Administration Cefazolin Sodium/Dextrose 2 gm in 50 mls @ 100 mls/hr 06/03/22 06:00 Cefazolin 2 Gm-D5w Bag IV 06/03/22 06:29 ONCALLTOOR XIMENA Ibuprofen 600 mg 06/01/22 09:23 06/02/22 11:15 Ibuprofen 600 Mg Tablet PO 07/01/22 09:22 600 mg Q6H PRN PRN Administration BREAKTHROUGH PAIN Insulin Human Lispro 0 unit 05/30/22 16:33 06/01/22 03:18 Insulin Lispro 1 Unit SQ 06/29/22 16:32 9 unit UD PRN Administration HYPERGLYCEMIA Insulin Human NPH Confirm 05/30/22 20:30 Insulin Nph Human Recom 1 Unit Administered 05/30/22 20:31 Dose 15 unit .ROUTE .STK-MED ONE Insulin Human NPH 15 unit 05/31/22 21:00 05/30/22 21:00 Insulin Nph Human Recom 1 Unit SQ 05/31/22 21:01 15 unit ONCE ONE Administration Insulin Human NPH 20 unit 05/31/22 07:30 06/03/22 12:18 Insulin Nph Human Recom 1 Unit SQ 06/30/22 07:29 15 unit ACHS XIMENA Administration Insulin Human Regular Confirm 05/30/22 20:32 Insulin Regular, Human 1 Unit Administered 05/30/22 20:33 Dose 15 unit .ROUTE .STK-MED ONE Insulin Human Regular 15 unit 05/31/22 21:00 05/30/22 21:00 Insulin Regular, Human 1 Unit SQ 05/31/22 21:01 15 unit ONCE ONE Administration Insulin Human Regular 0 unit 05/31/22 07:30 06/03/22 12:17 Insulin Regular, Human 1 Unit IJ 06/30/22 07:29 15 unit ACHS XIMENA Administration Lidocaine HCl Confirm 06/01/22 06:12 Lidocaine Hcl/Pf 1 % 30 Ml Pf Sdv Administered 06/01/22 06:13 Dose 30 ml IJ .STK-MED ONE Lisinopril 10 mg 05/31/22 06:00 05/31/22 06:11 Lisinopril 10 Mg Tablet PO 05/31/22 06:01 10 mg ONCE ONE Administration Lisinopril 10 mg 06/01/22 06:00 06/03/22 12:24 Lisinopril 10 Mg Tablet PO 07/01/22 05:59 Not Given DAILY@0600 [facility] Metoclopramide HCl 10 mg 05/31/22 13:30 05/31/22 15:54 Metoclopramide Hcl 10 Mg/2 Ml Vial IV 05/31/22 13:31 Not Given 1HRPRIOR ONE Metoclopramide HCl 10 mg 06/01/22 06:00 06/01/22 06:03 Metoclopramide Hcl 10 Mg/2 Ml Vial IV 06/01/22 06:01 10 mg 1HRPRIOR ONE Administration Metoprolol Succinate 50 mg 05/31/22 22:00 05/30/22 22:51 Metoprolol Succinate 50 Mg Tablet.Sa PO 06/30/22 21:59 50 mg HS XIMENA Administration Metoprolol Succinate Confirm 05/30/22 22:44 Metoprolol Succinate 50 Mg Tablet.Sa Administered 05/30/22 22:45 Dose 50 mg PO .STK-MED ONE Metoprolol Succinate 100 mg 05/31/22 06:00 05/31/22 06:12 Metoprolol Succinate 50 Mg Tablet.Sa PO 05/31/22 06:01 100 mg ONCE ONE Administration Metoprolol Succinate 150 mg 06/01/22 06:00 06/03/22 12:24 Metoprolol Succinate 100 Mg Tablet.Sa PO 07/01/22 05:59 Not Given DAILY@0600 [facility] Metoprolol Tartrate 50 mg 05/31/22 06:00 05/31/22 06:12 Metoprolol Tartrate 50 Mg Tablet PO 05/31/22 06:01 50 mg ONCE ONE Administration Midazolam HCl Confirm 06/01/22 06:23 Midazolam Hcl 2 Mg/2 Ml Vial Administered 06/01/22 06:24 Dose 2 mg .ROUTE .STK-MED ONE Midazolam HCl Confirm 06/03/22 08:04 Midazolam Hcl 2 Mg/2 Ml Vial Administered 06/03/22 08:05 Dose 2 mg .ROUTE .STK-MED ONE Pantoprazole Sodium 40 mg 05/31/22 06:00 05/31/22 06:10 Protonix (Pantoprazole) 40 Mg Tablet PO 05/31/22 06:01 40 mg ONCE ONE Administration Pantoprazole Sodium 40 mg 06/01/22 06:00 06/03/22 12:15 Protonix (Pantoprazole) 40 Mg Tablet PO 07/01/22 05:59 40 mg DAILY@0600 XIMENA Administration Prochlorperazine 10 mg 05/31/22 07:28 Prochlorperazine Maleate 5 Mg Tablet PO 06/30/22 07:27 TID PRN PRN NAUSEA Propofol Confirm 06/01/22 06:23 Propofol 10 Mg/Ml 20ml Vial Administered 06/01/22 06:24 Dose 200 mg IV .STK-MED ONE Propofol Confirm 06/03/22 08:03 Propofol 10 Mg/Ml 20ml Vial Administered 06/03/22 08:04 Dose 200 mg IV .STK-MED ONE Propofol Confirm 06/03/22 09:54 Propofol 10 Mg/Ml 20ml Vial Administered 06/03/22 09:55 Dose 200 mg IV .STK-MED ONE Simvastatin 40 mg 05/31/22 06:00 05/31/22 06:13 Simvastatin 20 Mg Tablet PO 05/31/22 06:01 40 mg ONCE ONE Administration Simvastatin 40 mg 05/31/22 10:00 06/02/22 10:46 Simvastatin 20 Mg Tablet PO 06/30/22 09:59 40 mg DAILY XIMENA Administration Simvastatin 40 mg 06/02/22 18:00 06/02/22 18:22 Simvastatin 20 Mg Tablet PO 06/30/22 09:59 Not Given 1800 XIMENA Zolpidem Tartrate 10 mg 05/31/22 22:00 05/30/22 22:50 Zolpidem Tartrate 10 Mg Tablet PO 06/30/22 21:59 10 mg HS XIMENA Administration Zolpidem Tartrate Confirm 05/30/22 22:43 Zolpidem Tartrate 10 Mg Tablet Administered 05/30/22 22:44 Dose 10 mg .ROUTE .STK-MED ONE Zolpidem Tartrate 10 mg 05/31/22 22:00 06/01/22 17:47 Zolpidem Tartrate 10 Mg Tablet PO 06/30/22 21:59 10 mg HS XIMENA Administration Zolpidem Tartrate Confirm 05/31/22 18:11 Zolpidem Tartrate 10 Mg Tablet Administered 05/31/22 18:12 Dose 10 mg .ROUTE .STK-MED ONE Zolpidem Tartrate 10 mg 06/02/22 18:00 06/02/22 18:19 Zolpidem Tartrate 10 Mg Tablet PO 06/30/22 21:59 10 mg 1800 XIMENA Administration Intake & Output (Last 24 hours) 06/01/22 06/02/22 06/03/22 06/04/22 11:59 11:59 11:59 11:59 Intake Total 2262 3700 3417 240 Output Total 2200 2450 5075 Balance 62 1250 -1658 240 Weight 72.6 kg 72.6 kg Microbiology Results (Last 24 hours) 06/01/22 06:47 Bone Culture - L Big (Greater) Anaerobic Culture - Pending 06/01/22 06:47 Bone Culture - L Big (Greater) Tissue Culture - Preliminary 06/01/22 06:47 Bone Culture - L Big (Greater) Aerobic Culture Result 1 - Preliminary 06/01/22 06:47 Bone Culture - L Big (Greater) Aerobic Culture Result 2 - Preliminary 06/01/22 06:47 Toe - L Big (Greater) Anaerobic Culture - Pending 06/01/22 06:47 Toe - L Big (Greater) Tissue Culture - Preliminary 06/01/22 06:47 Toe - L Big (Greater) Aerobic Culture Result 1 - Preliminary 06/01/22 06:47 Toe - L Big (Greater) Aerobic Culture Result 2 - Preliminary 05/30/22 14:02 Toe - L Big (Greater) Wound Culture - Final Staphylococcus Lugdunensis Orders (Last 24 hours) Category Date Time Status Dressing Care ROUTINE Care 06/03/22 11:20 Completed Carb Diet 1800 [Consistent Carbohydrate Diet 1800 Diet 06/03/22 Lunch Completed Calorie] Discharge Routine Discharge 06/03/22 13:00 Ordered FOOT (2 VIEWS) Urgent Exams 06/03/22 12:03 Completed Cefazolin Sodium 1 gm [Kefzol 1 gm] Med 06/03/22 09:49 Discontinued 2 g .ROUTE .STK-MED ONE Fentanyl Citrate 100 Mcg/2 ml* [Sublimaze 100 Mcg/2 ml* Med 06/03/22 08:03 Discontinued ] 100 mcg .ROUTE .STK-MED ONE Midazolam HCl 2 mg/2 ml [Versed 2 MG/2 ML Injection* Med 06/03/22 08:04 Discontinued ] 2 mg .ROUTE .STK-MED ONE Propofol 200 mg/20 ml [Diprivan 200 mg/20 ml] Med 06/03/22 08:03 Discontinued 200 mg IV .STK-MED ONE Propofol 200 mg/20 ml [Diprivan 200 mg/20 ml] Med 06/03/22 09:54 Discontinued 200 mg IV .STK-MED ONE Therapuetic Drug Level Monitor [Trough Drug Levels] Med 06/03/22 09:30 Discontinued 1 IJ 1XONLY ONE Oxygen NASAL CANNULA 2 lpm RT 06/03/22 11:14 Completed Pulse Oximetry ROUTINE RT 06/03/22 11:14 Completed Patient Care Notes (Last 24 hours) 06/03/22 14:21 Physical Therapy Note by Aidan (L#[id number])Marilee PT SPOKE WITH FLAT IRONER THIS AM. PATIENT HAD STATED HE WAS NOT INTERESTED IN A KNEE SCOOTER OR A SLING FOR HIS WALKER TO MAINTAIN NON WEIGHT BEARING ON SURGICAL FOOT. HE HAD STATED HE WOULD SCOOT AROUND ON HIS ROLLATOR AND WOULD HAVE FAMILY HOME THIS WEEKEND TO ASSIST WHERE NEEDED. Initialized on 06/03/22 14:21 - END OF NOTE 06/03/22 14:16 (created 06/03/22 14:20) Nursing Note by Toshia Geronimo faxed records to [facility] Initialized on 06/03/22 14:20 - END OF NOTE 06/03/22 14:12 Nursing Note by Toshia Geronimo Called [facility] to notify them that patient was dc'd. (Kenyatta) Initialized on 06/03/22 14:12 - END OF NOTE 06/03/22 13:45 Case Management Note by Katia Carver S/W PATIENT AND GRANDDAUGHTER ABOUT ARRANGEMENTS SET UP FOR DC. [facility] HAS ORDERS FOR INVANZ AND HAS CONTACTED THE FAMILY FOR DELIVERY THIS AFTERNOON. [facility] HAS BEEN SET UP FOR INFUSIONS AND DRESSING CHANGES. THEY WILL CONTACT PATIENT TO SEE HIM IN THE AM TO GIVE INFUSION. PATIENT HAS PICC IN PLACE FOR INFUSIONS. PATIENT HAS WALKER AND ROLLATOR AT HOME TO USE TO MAINTAIN NON WT BEARING AND REPORTS FAMILY WILL BE WITH HIM ALL WEEKEND TO HELP HIM. HE DENIES ANY OTHER NEW NEEDS AT THIS TIME Initialized on 06/03/22 13:45 - END OF NOTE 06/03/22 12:45 (created 06/03/22 13:00) Case Management Note by Yancy Dangelo DR ROUNDED AND EVALUATED. MAY DC HOME TODAY. ACTIVITY/IV ANTIBIOTIC ORDERS PER DR RAY. F/U WITH DR. RAY ORDERED. Initialized on 06/03/22 13:00 - END OF NOTE 06/03/22 11:50 Case Management Note by Katia Carver Addendum entered by Katia Carver 06/03/22 12:18: [facility] HAS ARRANGED FOR DELIVERY OF MEDICATIONS WITH FAMILY Original Note: [facility] WILL DELIVER MEDICATION THIS AFTERNOON AFTER 1500. [facility] UPDATED- THEY WILL CONTACT PATIENT AND SEE HIM THE AM TO ADMIT AND GIVE INSTRUCTION ON INFUSIONS. D/T LATE DELIVERY OF MED- PATIENT NEEDS TO GET INVANZ DOSE HERE AT [facility] PRIOR TO DC. PRIMARY RN AWARE Initialized on 06/03/22 11:50 - END OF NOTE 06/03/22 11:05 (created 06/03/22 11:35) Nursing Note by Benita Pichardo Patient returned to room from OR. Arouses to name then dozes back to sleep. Patient denies pain at this time. Initialized on 06/03/22 11:35 - END OF NOTE 06/03/22 09:31 Case Management Note by Katia Carver DRESSING CHANGE ORDERS FAXED TO [facility]. S/W JARAD- SHE WAS NOTIFIED PATIENT WANTING TO GET TODAYS DOSE OF INVAZ AT HOME- SHE VERIFIED UNDERSTANDING AND WILL COORDINATE WITH NURSE. THIS FL[facility]ER WILL NOTIFY THEM TIME SCHEDULED FOR DELIVERY OF MEDS Initialized on 06/03/22 09:31 - END OF NOTE 06/03/22 09:30 Case Management Note by Katia Carver INVANZ ORDER FAXED TO [facility] 06/02 LATE AFTERNOON- THEY REPORT THEY HAVE EVERYTHING THEY NEED AND WILL CONTACT PATIENT FOR DELIVERY TODAY. THEY ARE AWARE PATIENT WOULD LIKE TO RECEIVED TODAYS DOSE AT HOME LATE THIS AFTERNOON. Initialized on 06/03/22 09:30 - END OF NOTE 06/03/22 08:57 Nursing Note by Benita Pichardo Patient off floor to OR. This nurse informed the nurse that took patient to surgery of patient accu check of 275 and that it was not treated r/t NPO status. Initialized on 06/03/22 08:57 - END OF NOTE 06/03/22 08:56 Nursing Note by Toshia Geronimo PATIENT TO OR FROM [facility] Initialized on 06/03/22 08:56 - END OF NOTE - Vitals & Intake/Output Vital Signs: Vital Signs Temperature 97.8 F 06/03/22 11:21 Pulse Rate 84 06/03/22 13:10 Respiratory Rate 18 06/03/22 13:10 Blood Pressure 131/61 06/03/22 13:10 O2 Sat by Pulse Oximetry 97 06/03/22 13:10 Intake & Output: Intake & Output 06/01/22 06/02/22 06/03/22 06/04/22 11:59 11:59 11:59 11:59 Intake Total 2262 3700 3417 240 Output Total 2200 2450 5075 Balance 62 1250 -1658 240 Weight 72.6 kg 72.6 kg - Lab Result Diagrams: 05/31/22 04:00 05/31/22 04:55 Micro Results-Entire Visit: Microbiology 06/01/22 06:47 Tissue Culture - Preliminary Bone Culture - L Big (Greater) Aerobic Culture Result 1 - Preliminary Aerobic Culture Result 2 - Preliminary 06/01/22 06:47 Tissue Culture - Preliminary Toe - L Big (Greater) Aerobic Culture Result 1 - Preliminary Aerobic Culture Result 2 - Preliminary 05/30/22 14:02 Wound Culture - Final Toe - L Big (Greater) Staphylococcus Lugdunensis 05/30/22 17:15 Blood Culture - Preliminary Blood NO GROWTH TO DATE 05/30/22 17:10 Blood Culture - Preliminary Blood NO GROWTH TO DATE Accuchecks Date 06/03/22 Time 11:20 - Radiology Exams Ordered Rad Exams-Entire Visit: Radiology Procedures Category Date Time Status FOOT (2 VIEWS) Urgent Exams 06/03/22 12:03 Completed - Procedures and Test Procedures and Tests throughout Hospitalization: Therapy Orders & Screens 05/31/22 13:24 EKG STAT Comment: Diagnosis: diabetic foot ulcer 06/01/22 07:02 PT Eval & Treat ( Order) ONCE Reason for Eval:: non weight bearing s/p left hallux amputation Diagnosis: diabetic foot ulcer 06/03/22 11:14 Oxygen NASAL CANNULA 2 lpm Comment: Diagnosis: PVD WITH VASCULAR DISEASE OF EXTREMITY WITH CLAUDICATION, OSTEOMYELITIS Discharge Exam General Appearance: no apparent distress, alert Neurologic Exam: alert, oriented x 3, cooperative, normal mood/affect, nml cerebellar function, sensation nml, No motor deficits Eye Exam: PERRL, EOMI, eyes nml inspection Ears, Nose, Throat Exam: normal ENT inspection, pharynx normal, moist mucous membranes Neck Exam: normal inspection, non-tender, supple, full range of motion Respiratory Exam: normal breath sounds, lungs clear, No respiratory distress Cardiovascular Exam: regular rate/rhythm, normal heart sounds Gastrointestinal/Abdomen Exam: soft, No tenderness, No mass Male Genitalia Exam: deferred Rectal Exam: deferred Back Exam: normal inspection, normal range of motion, No CVA tenderness, No vertebral tenderness Extremity Exam: normal inspection, normal range of motion Skin Exam: normal color, warm, dry Final Diagnosis/Problem List - Final Discharge Diagnosis/Problem (1) Osteomyelitis of left foot Status: Acute Assessment & Plan: Last Vital Signs Temp 97.8 F 06/03/22 11:21 Pulse 84 06/03/22 13:10 Resp 18 06/03/22 13:10 BP 131/61 06/03/22 13:10 Pulse Ox 97 06/03/22 13:10 Allergies morphine Adverse Reaction (Intermediate, Verified 02/15/22 17:37) "It makes him agressive" Intake & Output 06/03/22 06/04/22 11:59 11:59 Intake Total 3417 240 Output Total 5075 Balance -1658 240 Weight 72.6 kg Orders 06/03/22 13:00 Discharge Routine Microbiology 06/01/22 06:47 Bone Culture - L Big (Greater) Tissue Culture - Preliminary 06/01/22 06:47 Bone Culture - L Big (Greater) Aerobic Culture Result 1 - Preliminary 06/01/22 06:47 Bone Culture - L Big (Greater) Aerobic Culture Result 2 - Preliminary 06/01/22 06:47 Toe - L Big (Greater) Tissue Culture - Preliminary 06/01/22 06:47 Toe - L Big (Greater) Aerobic Culture Result 1 - Preliminary 06/01/22 06:47 Toe - L Big (Greater) Aerobic Culture Result 2 - Preliminary 05/30/22 14:02 Toe - L Big (Greater) Wound Culture - Final Staphylococcus Lugdunensis Code(s): M86.9 - OSTEOMYELITIS, UNSPECIFIED (2) Type 2 diabetes mellitus Status: Acute (3) Peripheral vascular disease of extremity with claudication Status: Acute Code(s): I73.9 - PERIPHERAL VASCULAR DISEASE, UNSPECIFIED - Discharge Discharge Date: 06/03/22 Disposition: Home, Self-Care Condition: Stable Prescriptions: New Ertapenem Sodium [Invanz ] 1 g IV DAILY #20 Continue Zolpidem Tartrate 10 mg [Ambien 10 MG] 10 mg PO HS Pravastatin Sodium 40 mg PO DAILY Duloxetine HCl 30 mg [Cymbalta 30 MG Capsule] 60 mg PO DAILY Clopidogrel Bisulfate [PLAVIX Tablet] 75 mg PO DAILY Lisinopril 5 mg [Zestril 5 MG] 10 mg PO DAILY Allopurinol 100 mg [Zyloprim 100 mg] 300 mg PO HS Insulin NPH Human Isophane [Novolin N] 20 unit SQ ACHS Furosemide 20 mg [Lasix 20 mg] 20 mg PO DAILY Omeprazole Magnesium [Prilosec Otc] 20 mg PO DAILY Gabapentin [Neurontin ] 300 mg PO BID Donepezil HCl [Aricept] 5 mg PO HS Prochlorperazine Maleate 10 mg PO TID PRN PRN Reason: Nausea Insulin Regular, Human [Novolin R] 100 unit IJ ACHS Metoprolol Succinate 100 mg [Toprol Xl 100 MG] 150 mg PO DAILY Aspirin 81 mg PO DAILY Instructions: Peripheral Vascular (Arterial) Disease (DC), Osteomyelitis (DC) Additional Instructions: -YOU WILL BE GETTING IV INFUSIONS FOR 19 DAYS AT HOME THRU YOUR PICC LINE. -THE MEDICATION [facility] BE DELIVER[facility] BY [facility]- YOU CAN CALL THEM AT [phone] FOR ANY QUESTIONS/CONCERNS. -HOME HEALTHCARE HAS BEEN SET UP THRU [facility]- THEY WILL CALL YOU TO SET UP A TIME TO COME SEE YOU IN THE AM TO GIVE YOUR FIRST HOME INFUSION. YOU CAN REACH THEM AT [phone]. -THEY WILL TEACH YOU/YOUR FAMILY HOW TO DO THE HOME INFUSIONS AND THE NURSE WILL DO YOUR DRESSING CHANGES ON MONDAYS AND FRIDAYS. -YOU WILL SEE DR. RAY ON WEDNESDAYS- HE WILL DO THEM ON THAT DAY. -YOU NEED TO MAINTAIN NON WEIGHTBEARING STATUS ON THE LEFT FOOT. -ELEVATE LEFT FOOT ABOVE LEVEL OF HEART TO REDUCE INFLAMMATION AND PAIN -CONTINUE TO TAKE YOUR PLAVIX AND YOUR ASPIRIN -DR. RAY'S OFFICE IS GOING TO SEND IN PRESCRIPTION FOR PAIN MEDICATION TO [facility] Follow up with: CORY LYNCH DPM [ACTIVE STAFF] - 06/08/22 8:30 am TERE BLANTON MD [Primary Care Provider] - 06/10/22 2:30 pm ([place])
== END 2022-06-03 13:48 | disposition home health service (06) | DRG 505 ==
LOC: MED SURG 15:53 → OBSVTOIN 05-31 16:18
PROVIDERS: ADMIT General Practice; ATTEND General Practice
PROC: 0Y6Q0Z0 Detachment at Left 1st Toe, Complete, Open Approach (ICD-10-PCS; principal; 2022-06-01)
PROC: 0Y6Q0Z0 Detachment at Left 1st Toe, Complete, Open Approach (ICD-10-PCS; 2022-06-01)
PROC: 0HQNXZZ Repair Left Foot Skin, External Approach (ICD-10-PCS; 2022-06-03)
PROC: 0HQNXZZ Repair Left Foot Skin, External Approach (ICD-10-PCS; 2022-06-03)
DX: M86.9 Osteomyelitis, unspecified (principal); E11.621 Type 2 diabetes mellitus with foot ulcer; L97.529 Non-pressure chronic ulcer of other part of left foot with unspecified severity; I73.9 Peripheral vascular disease, unspecified; L08.9 Local infection of the skin and subcutaneous tissue, unspecified; Z79.01 Long term (current) use of anticoagulants; Z79.899 Other long term (current) drug therapy; Z20.828 Contact with and (suspected) exposure to other viral communicable diseases; Z79.4 Long term (current) use of insulin
CPT/HCPCS: 01480; 0241U; 12021; 13160; 28820; 36410; 36415; 71045; 73620; 73630; 73723; 80048; 80053; 82947; 83036; 84134; 85025; 85027; 87040; 87070; 87075; 87077; 87186; 93005; 93268; 93922; 93926; 94760; 97161; 97530; 99222; 99232; G0378; A6260; G0379; J0690; J0696; J1170; J1335; J1815; J1817; J2001; J2250; J2704; J3010; A9270-GY; J3370

== ENCOUNTER 2022-07-01 06:38 | Day surgery (SDC) | payer MEDICARE ==
[~2022-07-01 06:38] MED LIST: Marcaine Mpf 0.5% Vial 30 Ml ONE; Xylocaine 1% Vial 30 ML PF IJ ONE
[2022-07-01] MEDS ORDERED: CEFAZOLIN 2 GM-D5W BAG** 2 GM/50 ML ML IV SCH (07:00)
[2022-07-01] MEDS ORDERED: Lactated Ringers 1,000 ML IV SCH (07:00)
[2022-07-01] MEDS ORDERED: Lactated Ringers 1,000 ML IV ONE (07:10)
[2022-07-01] MEDS ORDERED: CEFAZOLIN 2 GM-D5W BAG** 2 GM/50 ML ML IV ONE (07:10)
[2022-07-01 07:17] VITALS: O2SAT 92
[2022-07-01 07:48] LABS: Hematocrit 36.8 % (42-50); Hemoglobin 11.2 g/dL (12.5-18.0); Mean Cell Volume 77.1 fL (78-100); Mean Corpuscular Hemoglobin 23.5 pg (26-32); Mean Corpuscular Hgb Concent. 30.4 g/dL (32-36); Mean Platelet Volume 8.5 fL (7.5-11.0); Platelet Count 279 x10^3/uL (150-450); Red Blood Count 4.77 x10^6/uL (4.1-5.6); Red Cell Distribution Width 18.7 % (11.5-14.0); White Blood Count 9.8 x10^3/uL (4.0-10.5)
[2022-07-01 08:01] LABS: ALBUMIN 3.5 g/dL (3.5-5.0); ALKALINE PHOSPHATASE 97 U/L (38-126); ANION GAP 10.8 MEQ/L (5-15); BLOOD UREA NITROGEN 16 mg/dL (9-20); CHLORIDE 103 mmol/L (98-107); Calcium 8.7 mg/dL (8.4-10.2); Carbon Dioxide 29 mmol/L (22-30); Creatinine 1 0.88 mg/dL (0.66-1.25); EST GLOMERULAR FILTRATION RATE > 60.0 ML/MIN; Glucose 250 mg/dL (74-106); Potassium 3.9 mmol/L (3.5-5.1); SGOT/AST 27 U/L (17-59); SGPT/ALT 21 U/L (0-50); SODIUM 139 mmol/L (137-145); Total Protein 6.9 g/dL (6.3-8.2)
[2022-07-01 08:03] LABS: INR 1.02 (0.8-3.0); PROTIME 11.1 SECONDS (9.4-12.5); PTT 25.8 SECONDS (25.1-36.5)
[2022-07-01] MEDS ORDERED: Xylocaine-Mpf 2% 5 Ml Vial ONE (09:32)
[2022-07-01] MEDS ORDERED: DIPRIVAN 200 MG/20 ML IV ONE ×2 (09:32→10:30)
[2022-07-01] MEDS ORDERED: Versed 2 MG/2 ML Injection ONE (09:32)
[2022-07-01] MEDS ORDERED: SUBLIMAZE 100 MCG/2 ML ONE (09:32)
[2022-07-01] MEDS ORDERED: VANCOCIN INJECTION IV ONE (10:05)
[2022-07-01] MEDS ORDERED: Dextrose 5%/Water IV Soln. 50 ML 50 ML IV ONE (10:24)
[2022-07-01] MEDS ORDERED: D50W 50 ml Abboject IV ONE (10:28)
--- NOTE | 2022-07-01 11:09 | XRAY ---
Indication: Left foot partial resection 1st metatarsal. Intraoperative fluoroscopy provided for 12 seconds. 6 digital spot images submitted for interpretation ultimately demonstrates amputation great toe and mid to distal 1st metatarsal. Cement like material in remaining 1st metatarsal and distal foot. Correlate with intraoperative findings/report.
[2022-07-01 13:38] VITALS: BP 151/64; PULSE 67
--- NOTE | 2022-07-01 16:02 | OP ---
SURGERY DATE/TIME: 07/01/2022 0933 PREOPERATIVE DIAGNOSES: 1) Diabetic foot ulcer. 2) Peripheral vascular disease with gangrenous changes. 3) Diabetic peripheral angiopathy. 4) Osteomyelitis. 5) Left foot pain. 6) Surgical wound dehiscence. POSTOPERATIVE DIAGNOSES: 1) Diabetic foot ulcer. 2) Peripheral vascular disease with gangrenous changes. 3) Diabetic peripheral angiopathy. 4) Osteomyelitis. 5) Left foot pain. 6) Surgical wound dehiscence. 7) Bone abscess first metatarsal. PROCEDURES: 1) Incision and drainage with bone debridement. 2) Partial first metatarsal resection. 3) Abductor hallucis flap. 4) Application of antibiotic spacer. SURGEON: Casey Villa DPM. MEAL ROOM HAND: None. ANESTHESIA: MAC plus intraoperative local. MATERIALS: 2-0 Vicryl, 3-0 Nylon, genex antibiotic beads with vancomycin 1 gm and 1,000 ml of Bactisure. INJECTABLES: 20 cc of a 1:1 mixture of 1% lidocaine plain and 0.5% bupivacaine plain injected in Hawk block-type fashion to the left lower extremity. INDICATION FOR SURGERY: Galileo is a very pleasant 71-year-old male well known to my service for osteomyelitis to the left great toe. The patient did have an amputation not so long ago with a delayed primary closure. The patient has had a hard time healing this wound and was sent to vascular surgery in order to get a better assessment of his vascular status. Overall the patient's vascular status does appear to be adequate for wound healing according to his vascular surgeon. However, he does have brachial indices of 0.5 to the bilateral lower extremity which is relatively low for possible healing at this level. The vascular surgeon is convinced that the patient will do well with adequate wound care. However over the course of the last several weeks his wound has dehisced and exposure of bone has been found. Multiple soft tissue cultures were obtained demonstrating no obvious infection of the wound. However with the exposed wound and bone as well as necrosis and demarcation of the skin at the dorsal aspect of the wound, options were discussed with the patient in regards to our plan. The patient wishes to proceed at this time understanding all risks, complications and benefits of surgical intervention including but not limited to infection, hematoma, seroma, possibility of delayed wound healing, nonwound healing, possibility of bone infection and possible need for surgical intervention at a later date. At this time what he intended prior to the procedure however at the procedure we are once again having to stage his procedure because of the failure identified within the intraoperative course. The patient understands all of this and was discussed with him and his daughter in depth. It is with that we decided to proceed. DESCRIPTION OF PROCEDURE AND FINDINGS: The patient is brought into the OR and placed on the OR table in the supine position. At this time monitored anesthesia care was administered until the patient was sedated. The left lower extremity was prepped and draped in the typical sterile fashion and lowered onto the surgical field. A 20 cc block of a 1:1 mixture of 1% lidocaine plain and 0.5% bupivacaine plain injected in Hawk block-type fashion. At this time attention the incision was deepened along the dehiscence plane. The sides of the incision were incised until healthy bleeding tissue was seen on both side and all demarcation and necrotic tissue was identified and removed from the surgical field. At this time partial metatarsal resection was going to be performed in order to get the tension off of the skin edges but as soon as a bone clamp was introduced to stabilize the first metatarsal, a large amount of pus drained from the metatarsal. At this time our initial intent for the procedure changed. We continued with the metatarsal resection, did a bone debridement on proximal segment that was left. Copious amounts of sterile saline were utilized to flush the site and 1,000 ml of Bactisure was then utilized to flush the surgical site and then a 3 liter bag of sterile saline was once again utilized to flush the site. At this time a genex antibiotic was introduced into intramedullary cavity in order to continue to work within the bone and then an abductor hallucis muscle flap was harvested from the plantar aspect of the incision site and wrapped around the metatarsal so as to secure and bring better blood supply to the residual metatarsal as well as prevent further bone infection should the patient suffer another wound dehiscence. At this time this is secured utilizing 2-0 Vicryl over the dorsal aspect of the residual margin of the first metatarsal resection site securing itself to the periosteum. Following this genex antibiotic beads were then introduced into the deficit of the soft tissue between the muscle flap and skin, utilizing 3-0 Nylon at four separate locations along the incision site leaving the distal aspect of the wound open for drainage of the infection. The leg was cleansed with Betadine, Adaptic, wet and dry laps. Dressings were applied to the left lower extremity consisting of Betadine, Adaptic, 4x4, Kerlix, ABD and JESSE. The patient then was reversed from anesthesia and returned to the postoperative anesthesia care unit with vital signs stable and vascular status intact. The patient handled the anesthesia as well as the procedure without significant complications. Postoperative orders as indicated in the patient's discharge chart.
== END 2022-07-01 13:10 | disposition home or self-care (01) ==
LOC: SDC 06:38
PROVIDERS: ATTEND Podiatrist Foot & Ankle Surgery
DX: E11.621 Type 2 diabetes mellitus with foot ulcer (principal); E11.52 Type 2 diabetes mellitus with diabetic peripheral angiopathy with gangrene; I96 Gangrene, not elsewhere classified; M86.9 Osteomyelitis, unspecified; M79.672 Pain in left foot; T81.30XA Disruption of wound, unspecified, initial encounter; Z95.1 Presence of aortocoronary bypass graft
CPT/HCPCS: 36415; 73630; 76000; 80053; 82947; 85027; 85610; 85730; 87070; 87075; A6260; J0690; J1642; J2001; J2250; J2704; J3010; J3370

== ENCOUNTER 2022-07-05 19:07 | Emergency (ER) | payer MEDICARE ==
[2022-07-05] MEDS ORDERED: D50W 50 ml Abboject IV ONE ×2 (19:51→19:52)
[2022-07-05 19:53] LABS: Absolute Neutrophil Ct (ANC) 8.04 x10^3/uL (1.4-6.9); BASOPHIL % 0.6 % (0.0-0.4); Basophil (Absolute #) 0.09 x10^3/uL (0-0.4); Eosinophil % 6.1 % (0.00-5.0); Eosinophil (Absolute #) 0.95 x10^3/uL (0-0.5); Hematocrit 33.1 % (42-50); Hemoglobin 10.5 g/dL (12.5-18.0); IMMATURE GRAN # 0.06 x10^3u/L (0.00-0.03); IMMATURE GRAN % 0.4 % (0.00-0.4); Lymphocyte (Absolute #) 4.57 x10^3/uL (1.0-4.6); Lymphocytes % 29.4 % (24.0-44.0); Mean Corpuscular Hemoglobin 24.4 pg (26-32); Mean Corpuscular Hgb Concent. 31.7 g/dL (32-36); Mean Platelet Volume 8.5 fL (7.5-11.0); Monocyte (Absolute #) 1.85 x10^3/uL (0.0-1.3); Monocytes % 11.9 % (0.0-12.0); Neutrophil % 51.6 % (36.0-66.0); Platelet Count 347 x10^3/uL (150-450); Red Cell Distribution Width 18.6 % (11.5-14.0); White Blood Count 15.6 x10^3/uL (4.0-10.5)
[2022-07-05 20:07] LABS: ALBUMIN 3.6 g/dL (3.5-5.0); ALKALINE PHOSPHATASE 117 U/L (38-126); ANION GAP 12.4 MEQ/L (5-15); BLOOD UREA NITROGEN 24 mg/dL (9-20); CHLORIDE 101 mmol/L (98-107); Calcium 9.7 mg/dL (8.4-10.2); Carbon Dioxide 30 mmol/L (22-30); Creatinine 1 0.98 mg/dL (0.66-1.25); EST GLOMERULAR FILTRATION RATE > 60.0 ML/MIN; ETHYL ALCOHOL < 10 mg/dL (0-10); Potassium 4.3 mmol/L (3.5-5.1); SGOT/AST 28 U/L (17-59); SGPT/ALT 17 U/L (0-50); SODIUM 139 mmol/L (137-145); Total Protein 6.8 g/dL (6.3-8.2)
[2022-07-05 20:15] LABS: Glucose 34 mg/dL (74-106)
--- NOTE | 2022-07-05 20:34 | ERPHSYRPT ---
- History of Present Illness Time Seen by Provider: 07/05/22 19:20 Source: patient Exam Limitations: other (Altered mental status) Patient Subjective Stated Complaint: pt states "my daughter made me come" then starts talking about needing to go because he needs to make a doctor's appt- unable to determine name of doctor he is saying. alert and oriented times three but speaking nonsensically when asked questions. Triage Nursing Assessment: pt brought into room6 via ems and transfered to cot with full assist of EMS staff. pt is alert and oriented times three but then answers other questions with nonsensical answers. is able to follow commands. resp even and unlabored. able to move all extremities but weakness in all extremities. left foot with noemi bandage wrap noted with dried blood to dressing. no active bleeding noted at this time. left single lumen picc line in place with dsg CDI. Physician History: Patient is a 71-year-old male presents to our ED via EMS for evaluation of confusion. Patient is a diabetic on insulin. Patient comes from home. EMS reports patient's glucose was 71. Patient arrives wearing 2 L nasal cannula. Patient alert and oriented x3 however tends to answer questions nonsensically aside from questions related to orientation. We were informed that patient recently had foot surgery. Patient currently has a PICC line for IV antibiotics. Patient denies pain. No nausea vomiting or diaphoresis ordered. No neck pain no fever no photophobia. No meningeal signs. It is difficult to obtain information due to mental status. EMS served as independent historian upon arrival. Portions of this note were created with voice recognition technology. There may be grammatical, spelling, punctuation or sound alike errors Timing/Duration: today Severity: moderate Modifying Factors: Improves With: nothing Associated Symptoms: denies symptoms Allergies/Adverse Reactions: morphine Adverse Reaction (Intermediate, Verified 07/01/22 07:02) "It makes him agressive" Home Medications: Pravastatin Sodium 40 mg PO DAILY 09/19/12 [History] Zolpidem Tartrate 10 mg [Ambien 10 MG] 10 mg PO HS 09/19/12 [History] Allopurinol 100 mg [Zyloprim 100 mg] 300 mg PO HS 04/23/18 [History] Clopidogrel Bisulfate [PLAVIX Tablet] 75 mg PO DAILY 04/23/18 [History] Duloxetine HCl 30 mg [Cymbalta 30 MG Capsule] 60 mg PO DAILY 04/23/18 [History] Lisinopril 5 mg [Zestril 5 MG] 10 mg PO DAILY 04/23/18 [History] Furosemide 20 mg [Lasix 20 mg] 20 mg PO DAILY 05/04/21 [History] Gabapentin [Neurontin ] 300 mg PO BID 05/04/21 [History] Insulin NPH Human Isophane [Novolin N] 30 unit SQ ACHS 05/04/21 [History] Omeprazole Magnesium [Prilosec Otc] 20 mg PO DAILY 05/04/21 [History] Donepezil HCl [Aricept] 5 mg PO HS 02/15/22 [History] Prochlorperazine Maleate 10 mg PO TID PRN 02/15/22 [History] Aspirin 81 mg PO DAILY 05/30/22 [History] Insulin Regular, Human [Novolin R] 30 unit SQ BID 05/30/22 [History] Metoprolol Succinate 100 mg [Toprol Xl 100 MG] 150 mg PO DAILY 05/30/22 [History] Sertraline HCl 50 mg [Zoloft 50 mg Tablet] 50 mg PO HS 06/28/22 [History] Hx Tetanus, Diphtheria Vaccination/Date Given: (unable to assess due to pt's confusion) Hx Influenza Vaccination/Date Given: (unable to assess due to pt's confusion) Hx Pneumococcal Vaccination/Date Given: (unable to assess due to pt's confusion) Immunizations Up to Date: (unable to assess due to pt's confusion) Travel Risk - International Travel Have you traveled outside of the country in past 3 weeks: No - Coronavirus Screening Are you exhibiting any of the following symptoms?: No Close contact with a COVID-19 positive Pt in past 14-21 Days: No - Vaccine Status Have you recieved a Covid-19 vaccination: Yes 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 - Vaccination Dates Date of 2cond Vaccination (if applicable): unknown - Review of Systems All Other Systems: Unable due to condition - Past Medical History Pertinent Past Medical History: Yes Neurological History: Peripheral Neuropathy ENT History: Other Cardiac History: Coronary Artery Disease, High Cholesterol, Hypertension, Myocardial Infarction ([place]), Peripheral Vascular Disease Respiratory History: CHF, COPD, Emphysema, Other Endocrine Medical History: Diabetes Type II, Other Musculoskeletal History: Fractures, Osteoarthritis GI Medical History: Esophageal Disorder, GERD History: No Pertinent History Psycho-Social History: No Pertinent History Male Reproductive Disorders: Prostate Problems Other Medical History: HX FX LEFT HIP WITH ORIF 2012, SURGERY UPPER AND LOWER BACK BUT PATIENT UNABLE TO STATE WHAT WAS DONE (STATES WAS ALSO IN 2013) skin ca melanoma. 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 ALSO STENTS IN BOTH GROINS. IN REGARDS TO COPD/EMPHYSEMA STATES WAS TOLD HE HAD ABOUT 2 YEARS. STATES HE HAS O2 AND USES IT AT NIGHT AND IS "SUPPOSED" TO WEAR IT ALL THE TIME. STATES HE IS GETTING A SMART VEST TOMORROW TO USE 2X DAY TO HELP WITH LUNGS - Past Surgical History Past Surgical History: Yes Neuro Surgical History: No Pertinent History Cardiac: CABG Respiratory: No Pertinent History Gastrointestinal: No Pertinent History Genitourinary: No Pertinent History Musculoskeletal: Orthopedic Surgery Male Surgical History: Prostate Surgery Other Surgical History: R shoulder, L hip surgeries, L hand surgery, spine surgery , stents in legs for circulation - Social History Smoking Status: Current every day smoker How long have you smoked: 50 years Exposure to second hand smoke: Yes Drug Use: none Patient Lives Alone: (unable to assess due to pt's confusion) - Nursing Vital Signs Nursing Vital Signs: Initial Vital Signs Pulse Rate 93 H 07/05/22 19:10 Respiratory Rate 17 07/05/22 19:10 Blood Pressure 107/55 07/05/22 19:10 O2 Sat by Pulse Oximetry 94 L 07/05/22 19:10 Pain Scale Pain Intensity 0 - Physical Exam General Appearance: no apparent distress, alert Eye Exam: PERRL/EOMI, eyes nml inspection Ears, Nose, Throat Exam: normal ENT inspection, TMs normal, pharynx normal, moist mucous membranes Neck Exam: normal inspection, non-tender, supple, full range of motion Respiratory Exam: normal breath sounds, lungs clear, airway intact, No respiratory distress Cardiovascular Exam: regular rate/rhythm, normal heart sounds, normal peripheral pulses Gastrointestinal/Abdomen Exam: soft, normal bowel sounds, No tenderness, No mass Back Exam: normal inspection, normal range of motion, No CVA tenderness, No vertebral tenderness Extremity Exam: normal inspection, normal range of motion, pelvis stable, other (Left foot dressing intact. Patient had foot surgery last week.) Neurologic Exam: alert, oriented x 3, cooperative, normal mood/affect, sensation nml, No motor deficits Skin Exam: normal color, warm, dry, No rash Lymphatic Exam: No adenopathy SpO2 Interpretation: normal SpO2: 97 O2 Delivery: Room Air - Course Nursing assessment & vital signs reviewed: Yes EKG Interpreted by Me: RATE (89), Sinus Rhythm, NORMAL AXIS, NORMAL INTERVALS - Radiology Exams Chest X-ray Interpretation: Interpreted by me (Bibasilar atelectasis. Left lower lobe atelectasis versus infiltrate, hyperinflated lung. Osteopenia sternotomy wires and cervical hardware observed and intact. Normal cardiac silhouette.) - CT Exams Head CT Interpretation: Tele-radiologist Report (CT head normal with incidental mild paranasal sinus disease) Ordered Tests: Active Orders 24 hr Category Date Time Status Manager Social Services STAT Care 07/05/22 19:16 Active Catheter-[place] STAT Care 07/05/22 20:54 Active EKG-ER Only STAT Care 07/05/22 19:15 Active IV Insertion STAT Care 07/05/22 19:15 Active Pulse Oximetry (ED) STAT Care 07/05/22 19:15 Active CHEST 1 VIEW (PORTABLE) Stat Exams 07/05/22 19:16 Taken HEAD WITHOUT CONTRAST [CT] Stat Exams 07/05/22 19:15 Taken ABG [ARTERIAL BLOOD GASES] Stat Lab 07/05/22 23:48 Completed BLOOD CULTURE Stat Lab 07/05/22 19:48 Received CBC Q48H Lab 07/06/22 06:00 Ordered CBC Q48H Lab 07/08/22 06:00 Ordered CBC Q48H Lab 07/10/22 06:00 Ordered CBC Q48H Lab 07/12/22 06:00 Ordered CBC Q48H Lab 07/14/22 06:00 Ordered CBC Q48H Lab 07/16/22 06:00 Ordered CBC Q48H Lab 07/18/22 06:00 Ordered CBC W DIFF Stat Lab 07/05/22 19:48 Completed CMP Stat Lab 07/05/22 19:48 Completed CULTURE,URINE Stat Lab 07/05/22 20:54 Received ETHYL ALCOHOL Stat Lab 07/05/22 19:48 Completed Lactic Acid Stat Lab 07/05/22 23:39 Completed POCT GLUCOSE Stat Lab 07/05/22 19:50 Completed POCT GLUCOSE Stat Lab 07/05/22 20:13 Completed POCT GLUCOSE Stat Lab 07/05/22 23:27 Completed PROCALCITONIN Stat Lab 07/05/22 22:00 Completed PROTIME WITH INR Stat Lab 07/05/22 19:40 Completed PTT Q4H Lab 07/06/22 02:45 Ordered PTT Q4H Lab 07/06/22 06:45 Ordered PTT Q4H Lab 07/06/22 10:45 Ordered PTT Q4H Lab 07/06/22 14:45 Ordered PTT Q4H Lab 07/06/22 18:45 Ordered PTT Q4H Lab 07/06/22 22:45 Ordered PTT Q4H Lab 07/07/22 02:45 Ordered PTT Q4H Lab 07/07/22 06:45 Ordered PTT Q4H Lab 07/07/22 10:45 Ordered PTT Q4H Lab 07/07/22 14:45 Ordered PTT Q4H Lab 07/07/22 18:45 Ordered PTT Stat Lab 07/05/22 19:40 Completed TROPONIN Q4H Lab 07/05/22 19:48 Completed TROPONIN Q4H Lab 07/05/22 22:00 Completed TROPONIN Q4H Lab 07/06/22 03:30 Ordered UA W/RFX UR CULTURE Stat Lab 07/05/22 20:57 Completed Urine Triage Profile Stat Lab 07/05/22 20:55 Completed Medication Summary Generic Name Dose Route Start Last Admin Trade Name Freq PRN Reason Stop Dose Admin Heparin Sodium/Dextrose 25,000 units in 250 mls @ 8.556 mls/hr 07/05/22 23:00 07/05/22 23:31 Heparin 25,000 Units/D5w: Use Order Set Artie IV 08/04/22 22:59 12 units/kg/hr .Q24H XIMENA 8.556 mls/hr Administration Protocol 12 UNITS/KG/HR Dextrose/Sodium Chloride 500 mls @ 50 mls/hr 07/05/22 23:45 07/05/22 23:50 Dextrose 5%-1/2ns Iv Soln. 500 Ml IV 08/04/22 23:44 Not Given .Q10H XIMENA Vancomycin HCl 1 gm in 200 mls @ 125 mls/hr 07/05/22 23:45 07/06/22 00:20 Vancomycin 1 Gram/200 Ml Bag IV 08/04/22 23:44 125 mls/hr Q24H XIMENA 125 mls/hr Administration Dextrose/Sodium Chloride 500 mls @ 50 mls/hr 07/05/22 23:45 07/05/22 23:53 Dextrose 5% -0.45 Nacl 1000 Ml IV 08/04/22 23:44 50 mls/hr .Q10H XIMENA Administration Discontinued Medications Generic Name Dose Route Start Last Admin Trade Name Freq PRN Reason Stop Dose Admin Aspirin 324 mg 07/05/22 21:48 07/05/22 21:54 Aspirin 81 Mg Tab.Chew PO 07/05/22 21:49 324 mg STAT ONE Administration Dextrose 50 ml 07/05/22 19:52 07/05/22 19:53 Dextrose 50%-Water 50 Ml Abboject IV 07/05/22 19:53 50 ml STAT ONE Administration Dextrose Confirm 07/05/22 19:51 Dextrose 50%-Water 50 Ml Abboject Administered 07/05/22 19:52 Dose 50 ml IV .STK-MED ONE Heparin Sodium (Beef Lung) 4,300 unit 07/05/22 22:36 07/05/22 23:33 Heparin 5000 Units/0.5 Ml 5,000 Unit/0.5 Ml Syr 60 unit/kg (4300 unit) 07/05/22 22:37 4,300 unit IV Administration STAT STA Heparin Sodium (Beef Lung) Confirm 07/05/22 23:23 Heparin 5000 Units/0.5 Ml 5,000 Unit/0.5 Ml Syr Administered 07/05/22 23:24 Dose 5,000 unit .ROUTE .STK-MED ONE Ceftriaxone Sodium/Dextrose 1 g in 50 mls @ 100 mls/hr 07/05/22 21:43 07/06/22 00:18 Rocephin 1 Gm-D5w 50 Ml Bag IV 07/05/22 22:12 Infused STAT STA Infusion Ceftriaxone Sodium/Dextrose Confirm 07/05/22 21:55 Rocephin 1 Gm-D5w 50 Ml Bag Administered 07/05/22 21:56 Dose 1 g in 50 mls @ ud IV .STK-MED ONE Piperacillin Sod/Tazobactam 100 mls @ 200 mls/hr 07/05/22 23:38 07/05/22 2 3:49 Sod 3.375 gm/ Sodium Chloride IV 07/06/22 00:07 200 mls/hr STAT ONE Administration Sodium Chloride Confirm 07/05/22 23:42 Sodium Chloride 100ml Mini-Bag Plus Administered 07/05/22 23:43 Dose 100 mls @ ud IV .STK-MED ONE Dextrose/Sodium Chloride Confirm 07/05/22 23:42 Dextrose 5% -0.45 Nacl 1000 Ml Administered 07/05/22 23:43 Dose 1,000 mls @ ud IV .STK-MED ONE Piperacillin Sod/Tazobactam Sod Confirm 07/05/22 23:42 Piperacillin/Tazobactam Sodium 3.375 Gm Vial Administered 07/05/22 23:43 Dose 3.375 gm IV .STK-MED ONE Lab/Rad Data: Laboratory Result Diagrams 07/05/22 19:48 07/05/22 19:48 Laboratory Results 07/06/22 07/06/22 07/05/22 Range/Units 00:20 00:20 23:27 WBC (4.0-10.5) x10^3/uL RBC (4.1-5.6) x10^6/uL Hgb (12.5-18.0) g/dL Hct (42-50) % MCV (78-100) fL MCH (26-32) pg MCHC (32-36) g/dL RDW (11.5-14.0) % Plt Count (150-450) x10^3/uL MPV (7.5-11.0) fL Gran % (36.0-66.0) % Immature Gran % (Auto) (0.00-0.4) % Nucleat RBC Rel Count (0.00-0.1) % Eos # (Auto) (0-0.5) x10^3/uL Immature Gran # (Auto) (0.00-0.03) x10^3u/L Absolute Lymphs (auto) (1.0-4.6) x10^3/uL Absolute Monos (auto) (0.0-1.3) x10^3/uL Absolute Nucleated RBC (0.00-0.01) x10^3u/L Lymphocytes % (24.0-44.0) % Monocytes % (0.0-12.0) % Eosinophils % (0.00-5.0) % Basophils % (0.0-0.4) % Absolute Granulocytes (1.4-6.9) x10^3/uL Basophils # (0-0.4) x10^3/uL PT (9.4-12.5) SECONDS INR (0.8-3.0) APTT (25.1-36.5) SECONDS Puncture Site RIGHT RADIAL pCO2 43 (35-45) mmHg pO2 68 L (75-100) mmHg Base Excess 5.3 H (-2.0-2.0) O2 Saturation 92.9 L (94-100) g/dF ABG pH 7.45 (7.35-7.45) ABG HCO3 29.9 H* (22-28) ABG O2 Sat (Measured) 95.1 (95-100) % Daryl Test YES A-a Gradient 28 a/A Ratio 0.71 Hemoglobin 9.9 Carboxyhemoglobin 2.3 (0.0-6.9) % THgb Methemoglobin 0.0 L (1.4-1.5) % Temperature 37.0 C POC O2 Flow Rate 21 % Sodium (137-145) mmol/L Potassium 3.9 (3.5-5.1) mmol/L Chloride (98-107) mmol/L Carbon Dioxide (22-30) mmol/L Anion Gap (5-15) MEQ/L BUN (9-20) mg/dL Creatinine (0.66-1.25) mg/dL Estimated GFR ML/MIN Glucose (74-106) mg/dL POC Glucometer 70 L (50 to 500) mg/dL Lactic Acid 0.7 (0.4-2.0) Calcium (8.4-10.2) mg/dL Total Bilirubin (0.2-1.3) mg/dL AST (17-59) U/L ALT (0-50) U/L Alkaline Phosphatase (38-126) U/L Ammonia (9-30) umol/L Troponin I (0.000-0.034) ng/mL Serum Total Protein (6.3-8.2) g/dL Albumin (3.5-5.0) g/dL Procalcitonin (0.030-0.080) ng/mL Urine Color (Yellow) Urine Appearance (Clear) Urine pH (4.6-8.0) Ur Specific Hersey (1.005-1.030) Urine Protein (Negative) Urine Glucose (UA) (Negative) mg/dL Urine Ketones (Negative) Urine Blood (Negative) Urine Nitrite (Negative) Urine Bilirubin (Negative) Urine Urobilinogen (0.2) mg/dL Ur Leukocyte Esterase (Negative) U Hyaline Cast (Auto) (0-2) /LPF Urine Microscopic RBC (0-5) /HPF Urine Microscopic WBC (0-5) /HPF Ur Epithelial Cells (None Seen) /HPF Urine Bacteria (None Seen) /HPF Urine Culture Reflexed (NO) Urine Opiates Level (NEGATIVE) Ur Methadone (NEGATIVE) Urine Barbiturates (NEGATIVE) Ur Phencyclidine (PCP) (NEGATIVE) Urine Amphetamine (NEGATIVE) U Benzodiazepine Level (NEGATIVE) Urine Cocaine (NEGATIVE) Urine Marijuana (THC) (NEGATIVE) Ethyl Alcohol (0-10) mg/dL 07/05/22 07/05/22 07/05/22 Range/Units 22:00 22:00 20:57 WBC (4.0-10.5) x10^3/uL RBC (4.1-5.6) x10^6/uL Hgb (12.5-18.0) g/dL Hct (42-50) % MCV (78-100) fL MCH (26-32) pg MCHC (32-36) g/dL RDW (11.5-14.0) % Plt Count (150-450) x10^3/uL MPV (7.5-11.0) fL Gran % (36.0-66.0) % Immature Gran % (Auto) (0.00-0.4) % Nucleat RBC Rel Count (0.00-0.1) % Eos # (Auto) (0-0.5) x10^3/uL Immature Gran # (Auto) (0.00-0.03) x10^3u/L Absolute Lymphs (auto) (1.0-4.6) x10^3/uL Absolute Monos (auto) (0.0-1.3) x10^3/uL Absolute Nucleated RBC (0.00-0.01) x10^3u/L Lymphocytes % (24.0-44.0) % Monocytes % (0.0-12.0) % Eosinophils % (0.00-5.0) % Basophils % (0.0-0.4) % Absolute Granulocytes (1.4-6.9) x10^3/uL Basophils # (0-0.4) x10^3/uL PT (9.4-12.5) SECONDS INR (0.8-3.0) APTT (25.1-36.5) SECONDS Puncture Site pCO2 (35-45) mmHg pO2 (75-100) mmHg Base Excess (-2.0-2.0) O2 Saturation (94-100) g/dF ABG pH (7.35-7.45) ABG HCO3 (22-28) ABG O2 Sat (Measured) (95-100) % Daryl Test A-a Gradient a/A Ratio Hemoglobin Carboxyhemoglobin (0.0-6.9) % THgb Methemoglobin (1.4-1.5) % Temperature C POC O2 Flow Rate % Sodium (137-145) mmol/L Potassium (3.5-5.1) mmol/L Chloride (98-107) mmol/L Carbon Dioxide (22-30) mmol/L Anion Gap (5-15) MEQ/L BUN (9-20) mg/dL Creatinine (0.66-1.25) mg/dL Estimated GFR ML/MIN Glucose (74-106) mg/dL POC Glucometer (50 to 500) mg/dL Lactic Acid (0.4-2.0) Calcium (8.4-10.2) mg/dL Total Bilirubin (0.2-1.3) mg/dL AST (17-59) U/L ALT (0-50) U/L Alkaline Phosphatase (38-126) U/L Ammonia (9-30) umol/L Troponin I 1.340 H* (0.000-0.034) ng/mL Serum Total Protein (6.3-8.2) g/dL Albumin (3.5-5.0) g/dL Procalcitonin 0.298 H (0.030-0.080) ng/mL Urine Color Yellow (Yellow) Urine Appearance Clear (Clear) Urine pH 6.0 (4.6-8.0) Ur Specific Hersey >=1.030 A (1.005-1.030) Urine Protein Trace A (Negative) Urine Glucose (UA) >=1000 A (Negative) mg/dL Urine Ketones 15 A (Negative) Urine Blood Negative (Negative) Urine Nitrite Negative (Negative) Urine Bilirubin Negative (Negative) Urine Urobilinogen 1.0 A (0.2) mg/dL Ur Leukocyte Esterase Negative (Negative) U Hyaline Cast (Auto) 3-5 A (0-2) /LPF Urine Microscopic RBC 0-2 (0-5) /HPF Urine Microscopic WBC 6-10 A (0-5) /HPF Ur Epithelial Cells None Seen (None Seen) /HPF Urine Bacteria None Seen (None Seen) /HPF Urine Culture Reflexed ORDERED SEPARATELY (NO) Urine Opiates Level (NEGATIVE) Ur Methadone (NEGATIVE) Urine Barbiturates (NEGATIVE) Ur Phencyclidine (PCP) (NEGATIVE) Urine Amphetamine (NEGATIVE) U Benzodiazepine Level (NEGATIVE) Urine Cocaine (NEGATIVE) Urine Marijuana (THC) (NEGATIVE) Ethyl Alcohol (0-10) mg/dL 07/05/22 07/05/22 07/05/22 Range/Units 20:55 20:13 19:50 WBC (4.0-10.5) x10^3/uL RBC (4.1-5.6) x10^6/uL Hgb (12.5-18.0) g/dL Hct (42-50) % MCV (78-100) fL MCH (26-32) pg MCHC (32-36) g/dL RDW (11.5-14.0) % Plt Count (150-450) x10^3/uL MPV (7.5-11.0) fL Gran % (36.0-66.0) % Immature Gran % (Auto) (0.00-0.4) % Nucleat RBC Rel Count (0.00-0.1) % Eos # (Auto) (0-0.5) x10^3/uL Immature Gran # (Auto) (0.00-0.03) x10^3u/L Absolute Lymphs (auto) (1.0-4.6) x10^3/uL Absolute Monos (auto) (0.0-1.3) x10^3/uL Absolute Nucleated RBC (0.00-0.01) x10^3u/L Lymphocytes % (24.0-44.0) % Monocytes % (0.0-12.0) % Eosinophils % (0.00-5.0) % Basophils % (0.0-0.4) % Absolute Granulocytes (1.4-6.9) x10^3/uL Basophils # (0-0.4) x10^3/uL PT (9.4-12.5) SECONDS INR (0.8-3.0) APTT (25.1-36.5) SECONDS Puncture Site pCO2 (35-45) mmHg pO2 (75-100) mmHg Base Excess (-2.0-2.0) O2 Saturation (94-100) g/dF ABG pH (7.35-7.45) ABG HCO3 (22-28) ABG O2 Sat (Measured) (95-100) % Daryl Test A-a Gradient a/A Ratio Hemoglobin Carboxyhemoglobin (0.0-6.9) % THgb Methemoglobin (1.4-1.5) % Temperature C POC O2 Flow Rate % Sodium (137-145) mmol/L Potassium (3.5-5.1) mmol/L Chloride (98-107) mmol/L Carbon Dioxide (22-30) mmol/L Anion Gap (5-15) MEQ/L BUN (9-20) mg/dL Creatinine (0.66-1.25) mg/dL Estimated GFR ML/MIN Glucose (74-106) mg/dL POC Glucometer 167 H 30 L* (50 to 500) mg/dL Lactic Acid (0.4-2.0) Calcium (8.4-10.2) mg/dL Total Bilirubin (0.2-1.3) mg/dL AST (17-59) U/L ALT (0-50) U/L Alkaline Phosphatase (38-126) U/L Ammonia (9-30) umol/L Troponin I (0.000-0.034) ng/mL Serum Total Protein (6.3-8.2) g/dL Albumin (3.5-5.0) g/dL Procalcitonin (0.030-0.080) ng/mL Urine Color (Yellow) Urine Appearance (Clear) Urine pH (4.6-8.0) Ur Specific Hersey (1.005-1.030) Urine Protein (Negative) Urine Glucose (UA) (Negative) mg/dL Urine Ketones (Negative) Urine Blood (Negative) Urine Nitrite (Negative) Urine Bilirubin (Negative) Urine Urobilinogen (0.2) mg/dL Ur Leukocyte Esterase (Negative) U Hyaline Cast (Auto) (0-2) /LPF Urine Microscopic RBC (0-5) /HPF Urine Microscopic WBC (0-5) /HPF Ur Epithelial Cells (None Seen) /HPF Urine Bacteria (None Seen) /HPF Urine Culture Reflexed (NO) Urine Opiates Level POSITIVE (NEGATIVE) Ur Methadone NEGATIVE (NEGATIVE) Urine Barbiturates NEGATIVE (NEGATIVE) Ur Phencyclidine (PCP) NEGATIVE (NEGATIVE) Urine Amphetamine NEGATIVE (NEGATIVE) U Benzodiazepine Level NEGATIVE (NEGATIVE) Urine Cocaine NEGATIVE (NEGATIVE) Urine Marijuana (THC) NEGATIVE (NEGATIVE) Ethyl Alcohol (0-10) mg/dL 07/05/22 07/05/22 07/05/22 Range/Units 19:48 19:48 19:48 WBC 15.6 H (4.0-10.5) x10^3/uL RBC 4.30 (4.1-5.6) x10^6/uL Hgb 10.5 L (12.5-18.0) g/dL Hct 33.1 L (42-50) % MCV 77.0 L (78-100) fL MCH 24.4 L (26-32) pg MCHC 31.7 L (32-36) g/dL RDW 18.6 H (11.5-14.0) % Plt Count 347 (150-450) x10^3/uL MPV 8.5 (7.5-11.0) fL Gran % 51.6 (36.0-66.0) % Immature Gran % (Auto) 0.4 (0.00-0.4) % Nucleat RBC Rel Count 0.0 (0.00-0.1) % Eos # (Auto) 0.95 H (0-0.5) x10^3/uL Immature Gran # (Auto) 0.06 H (0.00-0.03) x10^3u/L Absolute Lymphs (auto) 4.57 (1.0-4.6) x10^3/uL Absolute Monos (auto) 1.85 H (0.0-1.3) x10^3/uL Absolute Nucleated RBC 0.00 (0.00-0.01) x10^3u/L Lymphocytes % 29.4 (24.0-44.0) % Monocytes % 11.9 (0.0-12.0) % Eosinophils % 6.1 H (0.00-5.0) % Basophils % 0.6 (0.0-0.4) % Absolute Granulocytes 8.04 H (1.4-6.9) x10^3/uL Basophils # 0.09 (0-0.4) x10^3/uL PT (9.4-12.5) SECONDS INR (0.8-3.0) APTT (25.1-36.5) SECONDS Puncture Site pCO2 (35-45) mmHg pO2 (75-100) mmHg Base Excess (-2.0-2.0) O2 Saturation (94-100) g/dF ABG pH (7.35-7.45) ABG HCO3 (22-28) ABG O2 Sat (Measured) (95-100) % Daryl Test A-a Gradient a/A Ratio Hemoglobin Carboxyhemoglobin (0.0-6.9) % THgb Methemoglobin (1.4-1.5) % Temperature C POC O2 Flow Rate % Sodium 139 (137-145) mmol/L Potassium 4.3 (3.5-5.1) mmol/L Chloride 101 (98-107) mmol/L Carbon Dioxide 30 (22-30) mmol/L Anion Gap 12.4 (5-15) MEQ/L BUN 24 H (9-20) mg/dL Creatinine 0.98 (0.66-1.25) mg/dL Estimated GFR > 60.0 ML/MIN Glucose 34 L* (74-106) mg/dL POC Glucometer (50 to 500) mg/dL Lactic Acid (0.4-2.0) Calcium 9.7 (8.4-10.2) mg/dL Total Bilirubin 0.40 (0.2-1.3) mg/dL AST 28 (17-59) U/L ALT 17 (0-50) U/L Alkaline Phosphatase 117 (38-126) U/L Ammonia (9-30) umol/L Troponin I 1.450 H* (0.000-0.034) ng/mL Serum Total Protein 6.8 (6.3-8.2) g/dL Albumin 3.6 (3.5-5.0) g/dL Procalcitonin (0.030-0.080) ng/mL Urine Color (Yellow) Urine Appearance (Clear) Urine pH (4.6-8.0) Ur Specific Hersey (1.005-1.030) Urine Protein (Negative) Urine Glucose (UA) (Negative) mg/dL Urine Ketones (Negative) Urine Blood (Negative) Urine Nitrite (Negative) Urine Bilirubin (Negative) Urine Urobilinogen (0.2) mg/dL Ur Leukocyte Esterase (Negative) U Hyaline Cast (Auto) (0-2) /LPF Urine Microscopic RBC (0-5) /HPF Urine Microscopic WBC (0-5) /HPF Ur Epithelial Cells (None Seen) /HPF Urine Bacteria (None Seen) /HPF Urine Culture Reflexed (NO) Urine Opiates Level (NEGATIVE) Ur Methadone (NEGATIVE) Urine Barbiturates (NEGATIVE) Ur Phencyclidine (PCP) (NEGATIVE) Urine Amphetamine (NEGATIVE) U Benzodiazepine Level (NEGATIVE) Urine Cocaine (NEGATIVE) Urine Marijuana (THC) (NEGATIVE) Ethyl Alcohol < 10 (0-10) mg/dL 07/05/22 07/05/22 Range/Units 19:40 19:40 WBC (4.0-10.5) x10^3/uL RBC (4.1-5.6) x10^6/uL Hgb (12.5-18.0) g/dL Hct (42-50) % MCV (78-100) fL MCH (26-32) pg MCHC (32-36) g/dL RDW (11.5-14.0) % Plt Count (150-450) x10^3/uL MPV (7.5-11.0) fL Gran % (36.0-66.0) % Immature Gran % (Auto) (0.00-0.4) % Nucleat RBC Rel Count (0.00-0.1) % Eos # (Auto) (0-0.5) x10^3/uL Immature Gran # (Auto) (0.00-0.03) x10^3u/L Absolute Lymphs (auto) (1.0-4.6) x10^3/uL Absolute Monos (auto) (0.0-1.3) x10^3/uL Absolute Nucleated RBC (0.00-0.01) x10^3u/L Lymphocytes % (24.0-44.0) % Monocytes % (0.0-12.0) % Eosinophils % (0.00-5.0) % Basophils % (0.0-0.4) % Absolute Granulocytes (1.4-6.9) x10^3/uL Basophils # (0-0.4) x10^3/uL PT 10.9 (9.4-12.5) SECONDS INR 1.00 (0.8-3.0) APTT 27.4 (25.1-36.5) SECONDS Puncture Site pCO2 (35-45) mmHg pO2 (75-100) mmHg Base Excess (-2.0-2.0) O2 Saturation (94-100) g/dF ABG pH (7.35-7.45) ABG HCO3 (22-28) ABG O2 Sat (Measured) (95-100) % Daryl Test A-a Gradient a/A Ratio Hemoglobin Carboxyhemoglobin (0.0-6.9) % THgb Methemoglobin (1.4-1.5) % Temperature C POC O2 Flow Rate % Sodium (137-145) mmol/L Potassium (3.5-5.1) mmol/L Chloride (98-107) mmol/L Carbon Dioxide (22-30) mmol/L Anion Gap (5-15) MEQ/L BUN (9-20) mg/dL Creatinine (0.66-1.25) mg/dL Estimated GFR ML/MIN Glucose (74-106) mg/dL POC Glucometer (50 to 500) mg/dL Lactic Acid (0.4-2.0) Calcium (8.4-10.2) mg/dL Total Bilirubin (0.2-1.3) mg/dL AST (17-59) U/L ALT (0-50) U/L Alkaline Phosphatase (38-126) U/L Ammonia 10 (9-30) umol/L Troponin I (0.000-0.034) ng/mL Serum Total Protein (6.3-8.2) g/dL Albumin (3.5-5.0) g/dL Procalcitonin (0.030-0.080) ng/mL Urine Color (Yellow) Urine Appearance (Clear) Urine pH (4.6-8.0) Ur Specific Hersey (1.005-1.030) Urine Protein (Negative) Urine Glucose (UA) (Negative) mg/dL Urine Ketones (Negative) Urine Blood (Negative) Urine Nitrite (Negative) Urine Bilirubin (Negative) Urine Urobilinogen (0.2) mg/dL Ur Leukocyte Esterase (Negative) U Hyaline Cast (Auto) (0-2) /LPF Urine Microscopic RBC (0-5) /HPF Urine Microscopic WBC (0-5) /HPF Ur Epithelial Cells (None Seen) /HPF Urine Bacteria (None Seen) /HPF Urine Culture Reflexed (NO) Urine Opiates Level (NEGATIVE) Ur Methadone (NEGATIVE) Urine Barbiturates (NEGATIVE) Ur Phencyclidine (PCP) (NEGATIVE) Urine Amphetamine (NEGATIVE) U Benzodiazepine Level (NEGATIVE) Urine Cocaine (NEGATIVE) Urine Marijuana (THC) (NEGATIVE) Ethyl Alcohol (0-10) mg/dL - Progress Progress: improved Progress Note: Case discussed with ER physician at [facility] 11:30. There are no beds available for transfer. 07/05/22 23:48 [facility] return call at 12:09 AM and stated they now have a bed available. Dr. Anderson is excepting physician. Family and patient updated that they will be transferred to [facility] for further evaluation and treatment. 71-year-old male presents to our ED with altered mental status. Patient has been experiencing bouts of hypoglycemia. Patient is a diabetic on insulin. Patient received amp of D50. Blood sugar continue to trend down. Patient started on D5 4 5 normal saline. Leukocytosis of 15.6. No clear origin however patient is noted to have osteomyelitis and it is likely that this white blood cell count may be in part due to the osteomyelitis. CMP within normal limits. Troponin positive x2. However appears to be trending down. Patient has no chest pain at all. However in light of the elevated troponin patient received aspirin and is currently on heparin drip. Patient does not appear to be septic. He is afebrile. Patient not tachycardic. Patient is not acidotic. Patient received a dose of Rocephin. Findings urine suggest urinary tract infection. Patient also received a dose of vancomycin and Zosyn. 07/06/22 00:32 Complexity of problem addressed is high severe exacerbation or threat to bodily function. Possible treatment side effect of osteomyelitis COPA (number of complexity of problem addressed) Minimal, Straight forward, one self limited or minor problem Low. Acute uncomplicated stable +/- admission, Any acute or chronic illness, 2 or more self-limited or minor problems. Moderate. Acute, complicated or with systemic illness. Chronic illness with exacerbation, New diagnosis with uncertain prognosis. 2 or more chronic stable illnesses. High. Any severe exacerbation or threat to bodily function, Any treatment side effects Care time is approximately 3 hours. Troponin elevated. No renal insufficiency to explain elevated troponin. Hypoglycemia. Possible acute coronary syndrome. Patient received aspirin and heparin drip. Immediate treatment indicated to pre vent further deterioration. Complexity of data reviewed and analyzed is extensive. Test ordered. Test reviewed independently analyzed by Dr. Gallardo. Patient could not service in a pen historian due to altered mental status. EMS and family provided most of the information for HPI. Management discussed with receiving physician at [facility] who steps transfer. Risk of complication and or risk morbidity/mortality patient management is high. Patient will require hospitalization for further evaluation and treatment. Patient transferred to [facility] in stable condition. Portions of this note were created with voice recognition technology. There may be grammatical, spelling, punctuation or sound alike errors 07/06/22 00:58 Counseled pt/family regarding: lab results, diagnosis, rad results - Departure Clinical Impression: AMS (altered mental status), Microcytic anemia, Leukocytosis, Hypoglycemia, Gl ucosuria, Elevated troponin, UTI (urinary tract infection) Condition: Stable Critical Care Time: No Referrals: TERE BLANTON MD [Primary Care Provider] - Follow up/PCP as directed
[2022-07-05 21:19] LABS: Appearance Clear (Clear); Bacteria None Seen /HPF (None Seen); Bilirubin Negative (Negative); Blood Negative (Negative); Epithelial Cells None Seen /HPF (None Seen); Glucose, Urine >=1000 mg/dL (Negative); Ketones 15 (Negative); Leukocyte Esterase Negative (Negative); Nitrite Negative (Negative); Protein,Urine Dip Trace (Negative); RBC 0-2 /HPF (0-5); Specific Gravity >=1.030 (1.005-1.030)
[2022-07-05 21:22] LABS: Amphetamine,Urine NEGATIVE (NEGATIVE); Barbiturate,Urine NEGATIVE (NEGATIVE); Benzodiazepine,Urine NEGATIVE (NEGATIVE); Cocaine,Urine NEGATIVE (NEGATIVE); Methadone,Urine NEGATIVE (NEGATIVE); Opiate,Urine POSITIVE (NEGATIVE); PCP,Urine NEGATIVE (NEGATIVE); THC,Urine NEGATIVE (NEGATIVE)
[2022-07-05 21:26] LABS: ADD URINE CULTURE? ORDERED SEPARATELY (NO)
[2022-07-05] MEDS ORDERED: ROCEPHIN 1 Gm-D5w 50 ml Bag** 1 G/50 ML IVPB IV STA (21:43)
[2022-07-05] MEDS ORDERED: BABY ASPIRIN 81 MG CHEW PO ONE (21:48)
[2022-07-05] MEDS ORDERED: ROCEPHIN 1 Gm-D5w 50 ml Bag** 1 G/50 ML IVPB IV ONE (21:55)
[2022-07-05] MEDS ORDERED: HEPARIN 5000 UNITS/0.5 ML (HIGH RISK MED) IV STA (22:36)
[2022-07-05 22:51] LABS: PROTIME 10.9 SECONDS (9.4-12.5); PTT 27.4 SECONDS (25.1-36.5)
[2022-07-05] MEDS ORDERED: Heparin 25,000 units/D5W: USE ORDER SET PROTO 25,000 UNITS/250 ML BAG IV SCH (23:00)
[2022-07-05] MEDS ORDERED: HEPARIN 5000 UNITS/0.5 ML (HIGH RISK MED) ONE (23:23)
[2022-07-05] MEDS ORDERED: Heparin 25,000 units/D5W: USE ORDER SET PROTO 25,000 UNITS/250 ML BAG IV ONE (23:24)
[2022-07-05] MEDS ORDERED: PIPERACILLIN/TAZOBACTAM 3.375 GM in Sodium Chloride 100ML MINI-BAG PLUS 100 ML IV ONE (23:38)
[2022-07-05] MEDS ORDERED: PIPERACILLIN/TAZOBACTAM IV ONE (23:42)
[2022-07-05] MEDS ORDERED: Sodium Chloride 100ML MINI-BAG PLUS 100 ML IV ONE (23:42)
[2022-07-05] MEDS ORDERED: Dextrose 5% -0.45 NaCl 1000 ML 1,000 ML IV ONE (23:42)
[2022-07-05] MEDS ORDERED: VANCOMYCIN 1 GRAM/200 ML BAG 1 GM/200 ML PIGGYBACK IV SCH (23:45)
[2022-07-05] MEDS ORDERED: NACL IV SCH (23:45)
[2022-07-05] MEDS ORDERED: DEXTROSE 5% IV SCH (23:45)
[2022-07-05] MEDS ORDERED: Dextrose 5%-1/2NS IV Soln. 500 ML 500 ML IV SCH (23:45)
[2022-07-06 00:32] LABS: A-aADO2 28; ABG HEMOGLOBIN 9.9; ABG POTASSIUM 3.9 (3.5-5.1); ABG SITE RIGHT RADIAL; ALLEN TEST OK? YES; ARTERIAL BLD GAS O2 SATURATION 95.1 % (95-100); ARTERIAL BLOOD GAS BASE EXCESS 5.3 (-2.0-2.0); ARTERIAL BLOOD GAS FIO2 21 %; ARTERIAL BLOOD GAS PCO2 43 mmHg (35-45); ARTERIAL BLOOD GAS PO2 68 mmHg (75-100); ARTERIAL BLOOD GAS pH 7.45 (7.35-7.45); CARBOXYHEMOGLOBIN 2.3 % THgb (0.0-6.9); HCO3- 29.9 (22-28); HGB O2 SAT 92.9 g/dF (94-100); paO2 pAO1 0.71
[2022-07-06 00:36] VITALS: BP 118/57; PULSE 86
[2022-07-06 00:45] VITALS: O2SAT 97
--- NOTE | 2022-07-06 08:43 | XRAY ---
Indication: Confusion. Status post fall. Multiple contiguous images obtained through the head without contrast. Comparison: January 20, 2017 Normal appearing brain parenchyma, ventricles, and bony calvarium. Increasing moderate fluid leveling right maxillary sinus with new minimal fluid leveling left maxillary sinus. Mastoid air cells are clear. Impression: Again incidental paranasal sinus disease. Otherwise continued normal CT head without contrast exam.
--- NOTE | 2022-07-06 08:59 | XRAY ---
Indication: Short of breath. Confusion. Comparison: June 01, 2022 Portable chest unchanged again hyperinflated with chronic lung markings. Heart not enlarged again with CABG and left arm PICC line. Bony thorax intact again with osteopenia, degenerative changes, and partially visualized cervical fusion hardware. No new/acute findings.
== END 2022-07-06 00:57 | disposition short-term general hospital (02) ==
LOC: ED 19:07
DX: R41.82 Altered mental status, unspecified (principal); N39.0 Urinary tract infection, site not specified; D50.9 Iron deficiency anemia, unspecified; D72.829 Elevated white blood cell count, unspecified; E11.649 Type 2 diabetes mellitus with hypoglycemia without coma; R81 Glycosuria; R77.8 Other specified abnormalities of plasma proteins; E78.5 Hyperlipidemia, unspecified; I13.0 Hypertensive heart and chronic kidney disease with heart failure and stage 1 through stage 4 chronic kidney disease, or unspecified chronic kidney disease; E11.22 Type 2 diabetes mellitus with diabetic chronic kidney disease; N18.9 Chronic kidney disease, unspecified; J43.9 Emphysema, unspecified; Z79.02 Long term (current) use of antithrombotics/antiplatelets; Z79.4 Long term (current) use of insulin; Z79.899 Other long term (current) drug therapy; Z72.0 Tobacco use
CPT/HCPCS: 36000; 36415; 36600; 51702; 70450; 71045; 80053; 80307; 81001; 82077; 82140; 82375; 82803; 82947; 83605; 84145; 84484; 85025; 85610; 85730; 87040; 87086; 93005; 93041; 94760; 96365; 96367; 96374; 96375; 99285; J0696; J1644; A9270-GY; J3370

== ENCOUNTER 2022-08-01 10:52 | Inpatient (IN) | payer MEDICARE ==
[2022-08-01 15:55] LABS: Absolute Neutrophil Ct (ANC) 6.09 x10^3/uL (1.4-6.9); BASOPHIL % 0.6 % (0.0-0.4); Basophil (Absolute #) 0.08 x10^3/uL (0-0.4); Eosinophil % 9.3 % (0.00-5.0); Eosinophil (Absolute #) 1.15 x10^3/uL (0-0.5); Hematocrit 33.9 % (42-50); Hemoglobin 10.6 g/dL (12.5-18.0); IMMATURE GRAN # 0.04 x10^3u/L (0.00-0.03); IMMATURE GRAN % 0.3 % (0.00-0.4); Lymphocyte (Absolute #) 4.17 x10^3/uL (1.0-4.6); Lymphocytes % 33.7 % (24.0-44.0); Mean Cell Volume 78.7 fL (78-100); Mean Corpuscular Hemoglobin 24.6 pg (26-32); Mean Corpuscular Hgb Concent. 31.3 g/dL (32-36); Mean Platelet Volume 8.7 fL (7.5-11.0); Monocyte (Absolute #) 0.86 x10^3/uL (0.0-1.3); Monocytes % 6.9 % (0.0-12.0); Neutrophil % 49.2 % (36.0-66.0); Platelet Count 412 x10^3/uL (150-450); Red Blood Count 4.31 x10^6/uL (4.1-5.6); Red Cell Distribution Width 18.2 % (11.5-14.0); White Blood Count 12.4 x10^3/uL (4.0-10.5)
[2022-08-01 16:18] LABS: INR 0.98 (0.8-3.0); PROTIME 10.7 SECONDS (9.4-12.5); PTT 26.4 SECONDS (25.1-36.5)
[2022-08-01 16:24] LABS: ALBUMIN 3.7 g/dL (3.5-5.0); ALKALINE PHOSPHATASE 123 U/L (38-126); ANION GAP 14.6 MEQ/L (5-15); BLOOD UREA NITROGEN 15 mg/dL (9-20); CHLORIDE 101 mmol/L (98-107); Carbon Dioxide 25 mmol/L (22-30); Creatinine 1 0.79 mg/dL (0.66-1.25); EST GLOMERULAR FILTRATION RATE > 60.0 ML/MIN; Glucose 183 mg/dL (74-106); PREALBUMIN 17.99 mg/dL (17.6-36.0); Potassium 4.2 mmol/L (3.5-5.1); SGOT/AST 30 U/L (17-59); SGPT/ALT 21 U/L (0-50); SODIUM 136 mmol/L (137-145); Total Protein 7.4 g/dL (6.3-8.2)
[2022-08-01] MEDS: VANCOMYCIN 1 GRAM/200 ML BAG 1 GM/200 ML PIGGYBACK IV SCH (16:40)
[2022-08-01 16:52] LABS: ABO TYPING A; Antibody Screen NEGATIVE (NEGATIVE); RH TYPING POSITIVE
[2022-08-01] MEDS: PIPERACILLIN/TAZOBACTAM 3.375 GM in Sodium Chloride 100ML MINI-BAG PLUS 100 ML IV SCH (18:42)
[2022-08-01] MEDS ORDERED: Compazine 5 MG PO PRN (18:59)
[2022-08-01] MEDS: HYDROCODONE-ACETAMIN 10-325 MG PO PRN (19:31)
[2022-08-01] MEDS ORDERED: Dextrose 5%/Water IV Soln. 1000 ML 1,000 ML IV ONE (21:49)
[2022-08-01] MEDS ORDERED: DEXTROSE 5%-NORMAL SALINE 500 ML 500 ML IV SCH (22:00)
[2022-08-01] MEDS ORDERED: Ambien 10 MG PO ONE (22:00)
[2022-08-01] MEDS ORDERED: ECOTRIN 81 MG PO ONE (22:00)
[2022-08-01] MEDS ORDERED: Aricept 10 MG PO ONE (22:00)
[2022-08-01] MEDS ORDERED: ZOLOFT 50 MG TABLET PO ONE (22:00)
[2022-08-01] MEDS ORDERED: ZYLOPRIM 100 MG PO ONE (22:00)
[2022-08-01] MEDS ORDERED: NEURONTIN PO ONE (22:00)
[2022-08-02] MEDS: PIPERACILLIN/TAZOBACTAM 3.375 GM in Sodium Chloride 100ML MINI-BAG PLUS 100 ML IV SCH ×4 (00:44→18:55)
[2022-08-02] MEDS: HYDROCODONE-ACETAMIN 10-325 MG PO PRN ×2 (00:47→08:24)
[2022-08-02] MEDS: VANCOMYCIN 1 GRAM/200 ML BAG 1 GM/200 ML PIGGYBACK IV SCH ×2 (03:09→17:16)
[2022-08-02 05:04] LABS: Absolute Neutrophil Ct (ANC) 5.33 x10^3/uL (1.4-6.9); BASOPHIL % 0.9 % (0.0-0.4); Basophil (Absolute #) 0.12 x10^3/uL (0-0.4); Eosinophil % 16.5 % (0.00-5.0); Eosinophil (Absolute #) 2.13 x10^3/uL (0-0.5); Hematocrit 34.2 % (42-50); Hemoglobin 10.3 g/dL (12.5-18.0); IMMATURE GRAN # 0.03 x10^3u/L (0.00-0.03); IMMATURE GRAN % 0.2 % (0.00-0.4); Lymphocyte (Absolute #) 4.05 x10^3/uL (1.0-4.6); Lymphocytes % 31.4 % (24.0-44.0); Mean Cell Volume 79.2 fL (78-100); Mean Corpuscular Hemoglobin 23.8 pg (26-32); Mean Corpuscular Hgb Concent. 30.1 g/dL (32-36); Mean Platelet Volume 8.3 fL (7.5-11.0); Monocyte (Absolute #) 1.23 x10^3/uL (0.0-1.3); Monocytes % 9.5 % (0.0-12.0); Neutrophil % 41.5 % (36.0-66.0); Platelet Count 387 x10^3/uL (150-450); Red Blood Count 4.32 x10^6/uL (4.1-5.6); Red Cell Distribution Width 18.3 % (11.5-14.0); White Blood Count 12.9 x10^3/uL (4.0-10.5)
[2022-08-02 05:25] LABS: ALBUMIN 3.6 g/dL (3.5-5.0); ALKALINE PHOSPHATASE 126 U/L (38-126); ANION GAP 12.7 MEQ/L (5-15); BLOOD UREA NITROGEN 11 mg/dL (9-20); CHLORIDE 97 mmol/L (98-107); Calcium 8.7 mg/dL (8.4-10.2); Carbon Dioxide 29 mmol/L (22-30); Creatinine 1 0.82 mg/dL (0.66-1.25); EST GLOMERULAR FILTRATION RATE > 60.0 ML/MIN; Glucose 221 mg/dL (74-106); Potassium 4.7 mmol/L (3.5-5.1); SGOT/AST 31 U/L (17-59); SGPT/ALT 19 U/L (0-50); SODIUM 134 mmol/L (137-145); Total Protein 7.1 g/dL (6.3-8.2)
[2022-08-02 05:36] LABS: Slide Review 1 YES
[2022-08-02] MEDS ORDERED: Marcaine Mpf 0.5% Vial 30 Ml ONE ×2 (06:55→15:09)
[2022-08-02] MEDS ORDERED: Xylocaine 1% Vial 30 ML PF IJ ONE (06:55)
[2022-08-02] MEDS: HUMULIN R SQ SCH ×4 (09:22→21:28)
[2022-08-02] MEDS: Novolin N SQ SCH ×2 (09:23→17:23)
[2022-08-02] MEDS ORDERED: NON-FORMULARY ITEM (Pravastatin Sodium [Pravastatin Sodium] 40 MG Tablet) PO SCH (10:00)
[2022-08-02] MEDS ORDERED: NON-FORMULARY ITEM (Omeprazole Magnesium [Prilosec Otc] 20 MG Tablet.Dr) PO SCH (10:00)
[2022-08-02] MEDS ORDERED: Zestril 5 MG PO SCH (10:00)
[2022-08-02] MEDS: Toprol Xl 100 MG PO SCH (10:22)
[2022-08-02] MEDS: Cymbalta 30 MG Capsule PO SCH (10:22)
[2022-08-02] MEDS: PLAVIX Tablet PO SCH (10:22)
[2022-08-02] MEDS: LASIX 20 MG PO SCH (10:23)
[2022-08-02] MEDS: ZOCOR 20MG PO SCH (10:23)
[2022-08-02] MEDS: Protonix 40MG Tablet PO SCH (10:23)
[2022-08-02] MEDS: Toprol Xl 50 MG PO SCH (10:23)
[2022-08-02] MEDS: Zestril 10 MG PO SCH (10:23)
[2022-08-02] MEDS: NEURONTIN PO SCH ×2 (10:23→21:28)
--- NOTE | 2022-08-02 13:07 | PCM.CONS ---
Podiatry HPI - Consult Reason for Consult: osteomyelitis to forefoot left Consulting Provider: CORY LYNCH DPM - HPI History of Present Illness: is a 71 year old male with failure of therapy and spread of osteomyeliti to the left forefoot. Patient instructed to present for amputation and IV abx management Medications & Allergies Home Medications: Home Medication List Pravastatin Sodium 40 mg PO DAILY 09/19/12 [History Confirmed 08/01/22] Zolpidem Tartrate 10 mg [Ambien 10 MG] 10 mg PO HS 09/19/12 [History Confirmed 08/01/22] Allopurinol 100 mg [Zyloprim 100 mg] 300 mg PO HS 04/23/18 [History Confirmed 08/01/22] Clopidogrel Bisulfate [PLAVIX Tablet] 75 mg PO DAILY 04/23/18 [History Confirmed 08/01/22] Duloxetine HCl 30 mg [Cymbalta 30 MG Capsule] 60 mg PO DAILY 04/23/18 [History Confirmed 08/01/22] Lisinopril 5 mg [Zestril 5 MG] 10 mg PO DAILY 04/23/18 [History Confirmed 08/01/22] Furosemide 20 mg [Lasix 20 mg] 20 mg PO DAILY 05/04/21 [History Confirmed 08/01/22] Gabapentin [Neurontin ] 300 mg PO BID 05/04/21 [History Confirmed 08/01/22] Insulin NPH Human Isophane [Novolin N] 15 unit SQ ACHS 05/04/21 [History Confirmed 08/01/22] Omeprazole Magnesium [Prilosec Otc] 20 mg PO DAILY 05/04/21 [History Confirmed 08/01/22] Donepezil HCl [Aricept] 5 mg PO HS 02/15/22 [History Confirmed 08/01/22] Prochlorperazine Maleate 10 mg PO TID PRN 02/15/22 [History Confirmed 08/01/22] Aspirin 81 mg PO QHS 05/30/22 [History Confirmed 08/01/22] Insulin Regular, Human [Novolin R] 15 unit SQ BID 05/30/22 [History Confirmed 08/01/22] Metoprolol Succinate 100 mg [Toprol Xl 100 MG] 150 mg PO DAILY 05/30/22 [History Confirmed 08/01/22] Sertraline HCl 50 mg [Zoloft 50 mg Tablet] 50 mg PO HS 06/28/22 [History Confirmed 08/01/22] Hydrocodone/Acetaminophen [Hydrocodone-Acetamin 10-325 mg] 1 tablet PO Q4H PRN PRN 08/01/22 [History Confirmed 08/01/22] Allergies/Adverse Reactions: Allergies Allergy/AdvReac Type Severity Reaction Status Date / Time morphine AdvReac Intermediate Verified 07/01/22 07:02 - Past Medical History Past Medical History: Yes Neurological History: Peripheral Neuropathy ENT History: Other Cardiac History: Coronary Artery Disease, High Cholesterol, Hypertension, Myoca rdial Infarction (PR), Peripheral Vascular Disease Respiratory History: Bronchitis, CHF, COPD, Emphysema, Pneumonia, Other Endocrine Medical History: Diabetes Type II, Other Musculoskelatal History: Fractures, Osteoarthritis GI Medical History: Esophageal Disorder, GERD, Hernia History: No Pertinent History Pyscho-Social History: No Pertinent History Male Reproductive Disorders: Prostate Problems Comment: HX FX LEFT HIP WITH ORIF 2012, SURGERY UPPER AND LOWER BACK BUT PATIENT UNABLE TO STATE WHAT WAS DONE (STATES WAS ALSO IN 2013) skin ca melanoma. 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 ALSO STENTS IN BOTH GROINS. IN REGARDS TO COPD/EMPHYSEMA STATES WAS TOLD HE HAD ABOUT 2 YEARS. STATES HE HAS O2 AND USES IT AT NIGHT AND IS "SUPPOSED" TO WEAR IT ALL THE TIME. STATES HE IS GETTING A SMART VEST TOMORROW TO USE 2X DAY TO HELP WITH LUNGS - Past Surgical History Past Surgical History: Yes Neuro Surgical History: No Pertinent History Cardiac History: CABG Respiratory Surgery: No Pertinent History GI Surgical History: No Pertinent History Genitourinary Surgical Hx: No Pertinent History Musculskeletal Surgical Hx: Orthopedic Surgery Male Surgical History: Prostate Surgery Other Surgical History: bilat shoulder, L hip surgeries, L hand surgery, spine surgery , stents in legs for circulation - Social History Smoking Status: Current every day smoker How long have you smoked: 50 years Exposure to second hand smoke: Yes Alcohol: None Drug Use: none Physical Exam - Narrative Narrative Physical Exam: Podiatry Physical Exam Results - Labs Lab/Micro Results: Lab Results-Last 24 Hours 08/01/22 08/01/22 08/01/22 Range/Units 15:30 15:40 15:40 WBC 12.4 H (4.0-10.5) x10^3/uL RBC 4.31 (4.1-5.6) x10^6/uL Hgb 10.6 L (12.5-18.0) g/dL Hct 33.9 L (42-50) % MCV 78.7 (78-100) fL MCH 24.6 L (26-32) pg MCHC 31.3 L (32-36) g/dL RDW 18.2 H (11.5-14.0) % Plt Count 412 (150-450) x10^3/uL MPV 8.7 (7.5-11.0) fL Gran % 49.2 (36.0-66.0) % Immature Gran % (Auto) 0.3 (0.00-0.4) % Nucleat RBC Rel Count 0.0 (0.00-0.1) % Eos # (Auto) 1.15 H (0-0.5) x10^3/uL Immature Gran # (Auto) 0.04 H (0.00-0.03) x10^3u/L Absolute Lymphs (auto) 4.17 (1.0-4.6) x10^3/uL Absolute Monos (auto) 0.86 (0.0-1.3) x10^3/uL Absolute Nucleated RBC 0.00 (0.00-0.01) x10^3u/L Lymphocytes % 33.7 (24.0-44.0) % Monocytes % 6.9 (0.0-12.0) % Eosinophils % 9.3 H (0.00-5.0) % Basophils % 0.6 (0.0-0.4) % Absolute Granulocytes 6.09 (1.4-6.9) x10^3/uL Basophils # 0.08 (0-0.4) x10^3/uL ESR (0-15) mm/hr PT (9.4-12.5) SECONDS INR (0.8-3.0) APTT (25.1-36.5) SECONDS Sodium 136 L (137-145) mmol/L Potassium 4.2 (3.5-5.1) mmol/L Chloride 101 (98-107) mmol/L Carbon Dioxide 25 (22-30) mmol/L Anion Gap 14.6 (5-15) MEQ/L BUN 15 (9-20) mg/dL Creatinine 0.79 (0.66-1.25) mg/dL Estimated GFR > 60.0 ML/MIN Glucose 183 H (74-106) mg/dL POC Glucometer (74 to 106) mg/dL Hemoglobin A1c (4.5-6.0) % Lactic Acid 2.2 H (0.4-2.0) Calcium 9.0 (8.4-10.2) mg/dL Total Bilirubin 0.30 (0.2-1.3) mg/dL AST 30 (17-59) U/L ALT 21 (0-50) U/L Alkaline Phosphatase 123 (38-126) U/L Serum Total Protein 7.4 (6.3-8.2) g/dL Albumin 3.7 (3.5-5.0) g/dL Prealbumin 17.99 (17.6-36.0) mg/dL Slides for Path Review ABO Group Rh Factor Antibody Screen (NEGATIVE) 08/01/22 08/01/22 08/01/22 Range/Units 15:40 15:40 15:50 WBC (4.0-10.5) x10^3/uL RBC (4.1-5.6) x10^6/uL Hgb (12.5-18.0) g/dL Hct (42-50) % MCV (78-100) fL MCH (26-32) pg MCHC (32-36) g/dL RDW (11.5-14.0) % Plt Count (150-450) x10^3/uL MPV (7.5-11.0) fL Gran % (36.0-66.0) % Immature Gran % (Auto) (0.00-0.4) % Nucleat RBC Rel Count (0.00-0.1) % Eos # (Auto) (0-0.5) x10^3/uL Immature Gran # (Auto) (0.00-0.03) x10^3u/L Absolute Lymphs (auto) (1.0-4.6) x10^3/uL Absolute Monos (auto) (0.0-1.3) x10^3/uL Absolute Nucleated RBC (0.00-0.01) x10^3u/L Lymphocytes % (24.0-44.0) % Monocytes % (0.0-12.0) % Eosinophils % (0.00-5.0) % Basophils % (0.0-0.4) % Absolute Granulocytes (1.4-6.9) x10^3/uL Basophils # (0-0.4) x10^3/uL ESR 73 H (0-15) mm/hr PT 10.7 (9.4-12.5) SECONDS INR 0.98 (0.8-3.0) APTT 26.4 (25.1-36.5) SECONDS Sodium (137-145) mmol/L Potassium (3.5-5.1) mmol/L Chloride (98-107) mmol/L Carbon Dioxide (22-30) mmol/L Anion Gap (5-15) MEQ/L BUN (9-20) mg/dL Creatinine (0.66-1.25) mg/dL Estimated GFR ML/MIN Glucose (74-106) mg/dL POC Glucometer (74 to 106) mg/dL Hemoglobin A1c (4.5-6.0) % Lactic Acid (0.4-2.0) Calcium (8.4-10.2) mg/dL Total Bilirubin (0.2-1.3) mg/dL AST (17-59) U/L ALT (0-50) U/L Alkaline Phosphatase (38-126) U/L Serum Total Protein (6.3-8.2) g/dL Albumin (3.5-5.0) g/dL Prealbumin (17.6-36.0) mg/dL Slides for Path Review ABO Group A Rh Factor POSITIVE Antibody Screen NEGATIVE (NEGATIVE) 08/01/22 08/02/22 08/02/22 Range/Units 21:27 04:47 04:47 WBC 12.9 H (4.0-10.5) x10^3/uL RBC 4.32 (4.1-5.6) x10^6/uL Hgb 10.3 L (12.5-18.0) g/dL Hct 34.2 L (42-50) % MCV 79.2 (78-100) fL MCH 23.8 L (26-32) pg MCHC 30.1 L (32-36) g/dL RDW 18.3 H (11.5-14.0) % Plt Count 387 (150-450) x10^3/uL MPV 8.3 (7.5-11.0) fL Gran % 41.5 (36.0-66.0) % Immature Gran % (Auto) 0.2 (0.00-0.4) % Nucleat RBC Rel Count 0.0 (0.00-0.1) % Eos # (Auto) 2.13 H (0-0.5) x10^3/uL Immature Gran # (Auto) 0.03 (0.00-0.03) x10^3u/L Absolute Lymphs (auto) 4.05 (1.0-4.6) x10^3/uL Absolute Monos (auto) 1.23 (0.0-1.3) x10^3/uL Absolute Nucleated RBC 0.00 (0.00-0.01) x10^3u/L Lymphocytes % 31.4 (24.0-44.0) % Monocytes % 9.5 (0.0-12.0) % Eosinophils % 16.5 H (0.00-5.0) % Basophils % 0.9 (0.0-0.4) % Absolute Granulocytes 5.33 (1.4-6.9) x10^3/uL Basophils # 0.12 (0-0.4) x10^3/uL ESR (0-15) mm/hr PT (9.4-12.5) SECONDS INR (0.8-3.0) APTT (25.1-36.5) SECONDS Sodium 134 L (137-145) mmol/L Potassium 4.7 (3.5-5.1) mmol/L Chloride 97 L (98-107) mmol/L Carbon Dioxide 29 (22-30) mmol/L Anion Gap 12.7 (5-15) MEQ/L BUN 11 (9-20) mg/dL Creatinine 0.82 (0.66-1.25) mg/dL Estimated GFR > 60.0 ML/MIN Glucose 221 H (74-106) mg/dL POC Glucometer 59 L (74 to 106) mg/dL Hemoglobin A1c (4.5-6.0) % Lactic Acid (0.4-2.0) Calcium 8.7 (8.4-10.2) mg/dL Total Bilirubin 0.30 (0.2-1.3) mg/dL AST 31 (17-59) U/L ALT 19 (0-50) U/L Alkaline Phosphatase 126 (38-126) U/L Serum Total Protein 7.1 (6.3-8.2) g/dL Albumin 3.6 (3.5-5.0) g/dL Prealbumin (17.6-36.0) mg/dL Slides for Path Review YES ABO Group Rh Factor Antibody Screen (NEGATIVE) 08/02/22 Range/Units 04:47 WBC (4.0-10.5) x10^3/uL RBC (4.1-5.6) x10^6/uL Hgb (12.5-18.0) g/dL Hct (42-50) % MCV (78-100) fL MCH (26-32) pg MCHC (32-36) g/dL RDW (11.5-14.0) % Plt Count (150-450) x10^3/uL MPV (7.5-11.0) fL Gran % (36.0-66.0) % Immature Gran % (Auto) (0.00-0.4) % Nucleat RBC Rel Count (0.00-0.1) % Eos # (Auto) (0-0.5) x10^3/uL Immature Gran # (Auto) (0.00-0.03) x10^3u/L Absolute Lymphs (auto) (1.0-4.6) x10^3/uL Absolute Monos (auto) (0.0-1.3) x10^3/uL Absolute Nucleated RBC (0.00-0.01) x10^3u/L Lymphocytes % (24.0-44.0) % Monocytes % (0.0-12.0) % Eosinophils % (0.00-5.0) % Basophils % (0.0-0.4) % Absolute Granulocytes (1.4-6.9) x10^3/uL Basophils # (0-0.4) x10^3/uL ESR (0-15) mm/hr PT (9.4-12.5) SECONDS INR (0.8-3.0) APTT (25.1-36.5) SECONDS Sodium (137-145) mmol/L Potassium (3.5-5.1) mmol/L Chloride (98-107) mmol/L Carbon Dioxide (22-30) mmol/L Anion Gap (5-15) MEQ/L BUN (9-20) mg/dL Creatinine (0.66-1.25) mg/dL Estimated GFR ML/MIN Glucose (74-106) mg/dL POC Glucometer (74 to 106) mg/dL Hemoglobin A1c 8.48 H (4.5-6.0) % Lactic Acid (0.4-2.0) Calcium (8.4-10.2) mg/dL Total Bilirubin (0.2-1.3) mg/dL AST (17-59) U/L ALT (0-50) U/L Alkaline Phosphatase (38-126) U/L Serum Total Protein (6.3-8.2) g/dL Albumin (3.5-5.0) g/dL Prealbumin (17.6-36.0) mg/dL Slides for Path Review ABO Group Rh Factor Antibody Screen (NEGATIVE) Microbiology 08/01/22 18:55 Wound Culture - Preliminary Foot - Left GRAM NEGATIVE ID AND SENSITIVITY PENDING Accuchecks Date 08/02/22 Date 08/02/22 Date 08/02/22 Date 08/01/22 Date 08/01/22 Date 08/01/22 Time 11:49 Time 06:56 Time 22:28 Time 16:34 Assessment/Plan (1) Peripheral vascular disease of extremity with claudication Current Visit: No Status: Acute Assessment & Plan: To OR for transmetatarsal amputation today Positive MRI with metatarsal 2-4 with OM. IV abx vancomycin and zosyn. Will follow with you Code(s): I73.9 - PERIPHERAL VASCULAR DISEASE, UNSPECIFIED (2) Toe infection Current Visit: No Status: Acute Code(s): L08.9 - LOCAL INFECTION OF THE SKIN AND SUBCUTANEOUS TISSUE, UNSP (3) Osteomyelitis of left foot Current Visit: No Status: Acute Qualifiers: Code(s): M86.9 - OSTEOMYELITIS, UNSPECIFIED (4) Type 2 diabetes mellitus Current Visit: No Status: Acute Qualifiers: (5) Leukocytosis Current Visit: No Status: Acute Code(s): D72.829 - ELEVATED WHITE BLOOD CELL COUNT, UNSPECIFIED
[2022-08-02] MEDS: Lactated Ringers 1,000 ML IV SCH (13:11)
[2022-08-02] MEDS ORDERED: DIPRIVAN 200 MG/20 ML IV ONE (14:35)
[2022-08-02] MEDS ORDERED: Versed 2 MG/2 ML Injection ONE (14:35)
[2022-08-02] MEDS ORDERED: SUBLIMAZE 100 MCG/2 ML ONE (14:35)
[2022-08-02] MEDS ORDERED: Xylocaine-Mpf 2% 5 Ml Vial ONE (14:35)
[2022-08-02] MEDS ORDERED: Ephedrine Sulfate 50 MG/ML ONE (14:58)
[2022-08-02] MEDS ORDERED: PHENYLEPHRINE HCL ONE (15:02)
[2022-08-02] MEDS ORDERED: XYLOCAINE 1% HCL 20 ML MDV ONE (15:15)
[2022-08-02] MEDS ORDERED: D50W 50 ml Abboject IV ONE (16:19)
[2022-08-02] MEDS ORDERED: PITRESSIN 20 UNITS IJ ONE (16:19)
[2022-08-02 16:32] LABS: Hemoglobin 9.4 g/dL (12.5-18.0)
[2022-08-02] MEDS: Dextrose 5%-NS IV Solution 1000 ML 1,000 ML IV SCH (16:37)
--- NOTE | 2022-08-02 16:46 | XRAY ---
Indication: Left foot transmetatarsal amputation. Intraoperative fluoroscopy provided for 7 seconds. 3 digital spot images submitted for interpretation demonstrates amputation of all phalanges and all mid to distal metatarsals. Correlate with intraoperative findings/report.
--- NOTE | 2022-08-02 21:07 | PCM.HP ---
History of Present Illness - Chief Complaint Chief Complaint: left foot ulcer for fewweeks History of Present Illness: is a 71 year old male admitted with left foot ulcer for further management - Review of Systems Constitutional: No Fever, No Chills Eyes: No Symptoms Ears, Nose, & Throat: No Symptoms Respiratory: No Cough, No Short Of Breath Cardiac: No Chest Pain, No Edema, No Syncope Abdominal/Gastrointestinal: No Abdominal Pain, No Nausea, No Vomiting, No Diarrhea Genitourinary Symptoms: No Dysuria Musculoskeletal: No Back Pain, No Neck Pain Skin: Cellulitis, No Rash Neurological: No Dizziness, No Focal Weakness, No Sensory Changes Psychological: No Symptoms Endocrine: No Symptoms Hematologic/Lymphatic: No Symptoms Immunological/Allergic: No Symptoms Medications & Allergies Home Medications: Home Medication List Pravastatin Sodium 40 mg PO DAILY 09/19/12 [History Confirmed 08/01/22] Zolpidem Tartrate 10 mg [Ambien 10 MG] 10 mg PO HS 09/19/12 [History Confirmed 08/01/22] Allopurinol 100 mg [Zyloprim 100 mg] 300 mg PO HS 04/23/18 [History Confirmed 08/01/22] Clopidogrel Bisulfate [PLAVIX Tablet] 75 mg PO DAILY 04/23/18 [History Confirmed 08/01/22] Duloxetine HCl 30 mg [Cymbalta 30 MG Capsule] 60 mg PO DAILY 04/23/18 [History Confirmed 08/01/22] Lisinopril 5 mg [Zestril 5 MG] 10 mg PO DAILY 04/23/18 [History Confirmed 08/01/22] Furosemide 20 mg [Lasix 20 mg] 20 mg PO DAILY 05/04/21 [History Confirmed 08/01/22] Gabapentin [Neurontin ] 300 mg PO BID 05/04/21 [History Confirmed 08/01/22] Insulin NPH Human Isophane [Novolin N] 15 unit SQ ACHS 05/04/21 [History Confirmed 08/01/22] Omeprazole Magnesium [Prilosec Otc] 20 mg PO DAILY 05/04/21 [History Confirmed 08/01/22] Donepezil HCl [Aricept] 5 mg PO HS 02/15/22 [History Confirmed 08/01/22] Prochlorperazine Maleate 10 mg PO TID PRN 02/15/22 [History Confirmed 08/01/22] Aspirin 81 mg PO QHS 05/30/22 [History Confirmed 08/01/22] Insulin Regular, Human [Novolin R] 15 unit SQ BID 05/30/22 [History Confirmed 08/01/22] Metoprolol Succinate 100 mg [Toprol Xl 100 MG] 150 mg PO DAILY 05/30/22 [History Confirmed 08/01/22] Sertraline HCl 50 mg [Zoloft 50 mg Tablet] 50 mg PO HS 06/28/22 [History Confirmed 08/01/22] Hydrocodone/Acetaminophen [Hydrocodone-Acetamin 10-325 mg] 1 tablet PO Q4H PRN PRN 08/01/22 [History Confirmed 08/01/22] Allergies/Adverse Reactions: Allergies Allergy/AdvReac Type Severity Reaction Status Date / Time morphine AdvReac Intermediate Verified 07/01/22 07:02 - Past Medical History Past Medical History: Yes Neurological History: Peripheral Neuropathy ENT History: Other Cardiac History: Coronary Artery Disease, High Cholesterol, Hypertension, Myocardial Infarction ([place]), Peripheral Vascular Disease Respiratory History: Bronchitis, CHF, COPD, Emphysema, Pneumonia, Other Endocrine Medical History: Diabetes Type II, Other Musculoskelatal History: Fractures, Osteoarthritis GI Medical History: Esophageal Disorder, GERD, Hernia History: No Pertinent History Pyscho-Social History: No Pertinent History Male Reproductive Disorders: Prostate Problems Comment: HX FX LEFT HIP WITH ORIF 2012, SURGERY UPPER AND LOWER BACK BUT PATIENT UNABLE TO STATE WHAT WAS DONE (STATES WAS ALSO IN 2013) skin ca melanoma. 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 ALSO STENTS IN BOTH GROINS. IN REGARDS TO COPD/EMPHYSEMA STATES WAS TOLD HE HAD ABOUT 2 YEARS. STATES HE HAS O2 AND USES IT AT NIGHT AND IS "SUPPOSED" TO WEAR IT ALL THE TIME. STATES HE IS GETTING A SMART VEST TOMORROW TO USE 2X DAY TO HELP WITH LUNGS - Past Surgical History Past Surgical History: Yes Neuro Surgical History: No Pertinent History Cardiac History: CABG Respiratory Surgery: No Pertinent History GI Surgical History: No Pertinent History Genitourinary Surgical Hx: No Pertinent History Musculskeletal Surgical Hx: Orthopedic Surgery Male Surgical History: Prostate Surgery Other Surgical History: bilat shoulder, L hip surgeries, L hand surgery, spine surgery , stents in legs for circulation - Social History Smoking Status: Current every day smoker How long have you smoked: 50 years Exposure to second hand smoke: Yes Alcohol: None Drug Use: none - Physical Exam Vital Signs: Vital Signs - 24 hr Temp Pulse Resp BP Pulse Ox 08/02/22 17:06 97.9 F 64 16 114/61 94 L 08/02/22 16:00 97.9 F 64 16 126/60 93 L 08/02/22 14:21 98.1 F 79 16 108/68 97 08/02/22 11:48 98.1 F 79 16 108/68 97 08/02/22 06:56 97.9 F 101 H 16 154/78 96 08/02/22 04:00 97.7 F 87 16 122/58 92 L 08/01/22 23:42 97.7 F 107 H 16 101/59 95 General Appearance: no apparent distress, alert Neurologic Exam: alert, oriented x 3, cooperative, normal mood/affect, nml cerebellar function, nml station & gait, sensation nml, No motor deficits Eye Exam: PERRL/EOMI, eyes nml inspection Ears, Nose, Throat Exam: normal ENT inspection, TMs normal, pharynx normal, moist mucous membranes Neck Exam: normal inspection, non-tender, supple, full range of motion Respiratory Exam: normal breath sounds, lungs clear, No respiratory distress Cardiovascular Exam: regular rate/rhythm, normal heart sounds, normal peripheral pulses Gastrointestinal/Abdomen Exam: soft, normal bowel sounds, No tenderness, No mass Back Exam: normal inspection, normal range of motion, No CVA tenderness, No vertebral tenderness Extremity Exam: normal inspection, normal range of motion, pelvis stable Skin Exam: normal color, warm, dry, other (ulcer on left foot toes), No rash Wound Assessment: Skin/Wound Assessment Wound/Incision Assessment Start: 08/01/22 15:26 Text: Status: Active Freq: Q6H Protocol: Document 08/02/22 20:00 LB (Rec: 08/02/22 20:12 LB [id number]) Wound/Incision Assessment Left Foot Wound Assessment Shift Assessment Comment gauze dressing cdi Lymphatic Exam: No adenopathy Results - Labs Lab/Micro Results: Lab Results-Last 24 Hours 08/01/22 08/02/22 08/02/22 Range/Units 21:27 04:47 04:47 WBC 12.9 H (4.0-10.5) x10^3/uL RBC 4.32 (4.1-5.6) x10^6/uL Hgb 10.3 L (12.5-18.0) g/dL Hct 34.2 L (42-50) % MCV 79.2 (78-100) fL MCH 23.8 L (26-32) pg MCHC 30.1 L (32-36) g/dL RDW 18.3 H (11.5-14.0) % Plt Count 387 (150-450) x10^3/uL MPV 8.3 (7.5-11.0) fL Gran % 41.5 (36.0-66.0) % Immature Gran % (Auto) 0.2 (0.00-0.4) % Nucleat RBC Rel Count 0.0 (0.00-0.1) % Eos # (Auto) 2.13 H (0-0.5) x10^3/uL Immature Gran # (Auto) 0.03 (0.00-0.03) x10^3u/L Absolute Lymphs (auto) 4.05 (1.0-4.6) x10^3/uL Absolute Monos (auto) 1.23 (0.0-1.3) x10^3/uL Absolute Nucleated RBC 0.00 (0.00-0.01) x10^3u/L Lymphocytes % 31.4 (24.0-44.0) % Monocytes % 9.5 (0.0-12.0) % Eosinophils % 16.5 H (0.00-5.0) % Basophils % 0.9 (0.0-0.4) % Absolute Granulocytes 5.33 (1.4-6.9) x10^3/uL Basophils # 0.12 (0-0.4) x10^3/uL Sodium 134 L (137-145) mmol/L Potassium 4.7 (3.5-5.1) mmol/L Chloride 97 L (98-107) mmol/L Carbon Dioxide 29 (22-30) mmol/L Anion Gap 12.7 (5-15) MEQ/L BUN 11 (9-20) mg/dL Creatinine 0.82 (0.66-1.25) mg/dL Estimated GFR > 60.0 ML/MIN Glucose 221 H (74-106) mg/dL POC Glucometer 59 L (74 to 106) mg/dL Hemoglobin A1c (4.5-6.0) % Calcium 8.7 (8.4-10.2) mg/dL Total Bilirubin 0.30 (0.2-1.3) mg/dL AST 31 (17-59) U/L ALT 19 (0-50) U/L Alkaline Phosphatase 126 (38-126) U/L Serum Total Protein 7.1 (6.3-8.2) g/dL Albumin 3.6 (3.5-5.0) g/dL Slides for Path Review YES 08/02/22 08/02/22 08/02/22 Range/Units 04:47 16:05 16:25 WBC (4.0-10.5) x10^3/uL RBC (4.1-5.6) x10^6/uL Hgb 9.4 L (12.5-18.0) g/dL Hct 30.0 L (42-50) % MCV (78-100) fL MCH (26-32) pg MCHC (32-36) g/dL RDW (11.5-14.0) % Plt Count (150-450) x10^3/uL MPV (7.5-11.0) fL Gran % (36.0-66.0) % Immature Gran % (Auto) (0.00-0.4) % Nucleat RBC Rel Count (0.00-0.1) % Eos # (Auto) (0-0.5) x10^3/uL Immature Gran # (Auto) (0.00-0.03) x10^3u/L Absolute Lymphs (auto) (1.0-4.6) x10^3/uL Absolute Monos (auto) (0.0-1.3) x10^3/uL Absolute Nucleated RBC (0.00-0.01) x10^3u/L Lymphocytes % (24.0-44.0) % Monocytes % (0.0-12.0) % Eosinophils % (0.00-5.0) % Basophils % (0.0-0.4) % Absolute Granulocytes (1.4-6.9) x10^3/uL Basophils # (0-0.4) x10^3/uL Sodium (137-145) mmol/L Potassium (3.5-5.1) mmol/L Chloride (98-107) mmol/L Carbon Dioxide (22-30) mmol/L Anion Gap (5-15) MEQ/L BUN (9-20) mg/dL Creatinine (0.66-1.25) mg/dL Estimated GFR ML/MIN Glucose (74-106) mg/dL POC Glucometer 148 H (74 to 106) mg/dL Hemoglobin A1c 8.48 H (4.5-6.0) % Calcium (8.4-10.2) mg/dL Total Bilirubin (0.2-1.3) mg/dL AST (17-59) U/L ALT (0-50) U/L Alkaline Phosphatase (38-126) U/L Serum Total Protein (6.3-8.2) g/dL Albumin (3.5-5.0) g/dL Slides for Path Review Microbiology 08/01/22 18:55 Wound Culture - Preliminary Foot - Left GRAM NEGATIVE ID AND SENSITIVITY PENDING Accuchecks Date 08/02/22 Date 08/02/22 Date 08/02/22 Date 08/02/22 Date 08/01/22 Date 08/01/22 Time 16:41 Time 11:49 Time 06:56 Time 22:28 - Radiology Impressions Radiology Exams & Impressions: Radiology Procedures Category Date Time Status FLUOROSCOPY UP TO 1 HR Routine Exams 08/02/22 14:26 Taken FOOT (MINIMUM 3 VIEWS) Routine Exams 08/02/22 14:26 Completed Assessment/Plan (1) Foot osteomyelitis, left Current Visit: Yes Status: Acute Qualifiers: Osteomyelitis type: other chronic hematogenous Qualified Code(s): M86.572 - Other chronic hematogenous osteomyelitis, left ankle and foot Assessment & Plan: Chief Complaint Diagnosis Osteomyelitis Allergies Allergy/AdvReac Type Severity Reaction Status Date / Time morphine AdvReac Intermediate Verified 07/01/22 07:02 Vital Signs (Last 24 hours) Temp Pulse Resp BP Pulse Ox 08/02/22 17:06 97.9 F 64 16 114/61 94 L 06/13/23 16:00 97.9 F 64 16 126/60 93 L 08/02/22 14:21 98.1 F 79 16 108/68 97 08/02/22 11:48 98.1 F 79 16 108/68 97 08/02/22 06:56 97.9 F 101 H 16 154/78 96 08/02/22 04:00 97.7 F 87 16 122/58 92 L 08/01/22 23:42 97.7 F 107 H 16 101/59 95 Home Medications Medication Instructions Recorded Confirmed Last Taken Type Hydrocodone/Acetaminophen 1 tablet PO Q4H PRN PRN 08/01/22 08/01/22 Unknown History [Hydrocodone-Acetamin 10-325 mg] Current Medications Generic Name Dose Route Start Last Admin Trade Name Eloyq PRN Reason Stop Dose Admin Hydrocodone Bitart/Acetaminophen 1 tablet 08/01/22 18:58 08/02/22 08:24 Hydrocodone/Acetamin 10-325 Mg Tablet PO 08/06/22 18:57 1 tablet Q4H PRN PRN Administration PAIN Allopurinol 300 mg 08/02/22 22:00 Allopurinol 300 Mg Tablet PO 09/01/22 21:59 HS XIMENA Aspirin 81 mg 08/02/22 22:00 Aspirin 81 Mg Tablet.Ec PO 09/01/22 21:59 QHS XIMENA Clopidogrel Bisulfate 75 mg 08/02/22 10:00 08/02/22 10:22 Clopidogrel Bisulfate 75 Mg Tablet PO 09/01/22 09:59 75 mg DAILY XIMENA Administration Device 1 08/03/22 15:30 Therapuetic Drug Level Monitor Each IJ 08/03/22 15:31 1XONLY ONE Donepezil HCl 5 mg 08/02/22 22:00 Donepezil Hcl 10 Mg Tablet PO 09/01/22 21:59 HS XIMENA Duloxetine HCl 60 mg 08/02/22 10:00 08/02/22 10:22 Duloxetine Hcl 30 Mg Cap PO 09/01/22 09:59 60 mg DAILY XIMENA Administration Furosemide 20 mg 08/02/22 10:00 08/02/22 10:23 Furosemide 20 Mg Tablet PO 09/01/22 09:59 Not Given DAILY XIMENA Gabapentin 300 mg 08/02/22 10:00 08/02/22 10:23 Gabapentin 300 Mg Capsule PO 09/01/22 09:59 300 mg BID XIMENA Administration Hydromorphone HCl 0.5 mg 08/02/22 16:07 Hydromorphone 1 Mg/1ml Inj IV 08/07/22 16:06 Q4H PRN PRN Breakthrough Pain Piperacillin Sod/Tazobactam 100 mls @ 200 mls/hr 08/01/22 18:00 08/02/22 18:55 Sod 3.375 gm/ Sodium Chloride IV 08/04/22 17:59 200 mls/hr Q6HT XIMENA Administration Vancomycin HCl 1 gm in 200 mls @ 133.333 mls/hr 08/01/22 16:00 08/02/22 17:16 Vancomycin 1 Gram/200 Ml Bag IV 08/31/22 15:59 133.333 mls/hr Q12H XIMENA Administration Dextrose/Sodium Chloride 1,000 mls @ 50 mls/hr 08/02/22 10:00 08/02/22 16:37 Dextrose 5%-Ns Iv Solution 1000 Ml IV 09/01/22 09:59 50 mls/hr .Q20H XIMENA Administration Lactated Ringer's 1,000 mls @ 50 mls/hr 08/02/22 10:00 08/02/22 13:11 Lactated Ringers IV 09/01/22 09:59 50 mls/hr .Q20H XIMENA Administration Insulin Human NPH 15 unit 08/02/22 09:15 08/02/22 17:23 Insulin Nph Human Recom 1 Unit SQ 09/01/22 09:14 Not Given BIDAC XIMENA Insulin Human Regular 15 unit 08/02/22 09:15 08/02/22 17:22 Insulin Regular, Human 1 Unit SQ 09/01/22 09:14 Not Given ACHS XIMENA Lisinopril 10 mg 08/02/22 10:00 08/02/22 10:23 Lisinopril 10 Mg Tablet PO 09/01/22 09:59 Not Given DAILY XIMENA Metoprolol Succinate 100 mg 08/02/22 10:00 08/02/22 10:22 Metoprolol Succinate 100 Mg Tablet.Sa PO 09/01/22 09:59 100 mg DAILY XIMENA Administration Metoprolol Succinate 50 mg 08/02/22 10:00 08/02/22 10:23 Metoprolol Succinate 50 Mg Tablet.Sa PO 09/01/22 09:59 50 mg DAILY XIMENA Administration Pantoprazole Sodium 40 mg 08/02/22 10:00 08/02/22 10:23 Protonix (Pantoprazole) 40 Mg Tablet PO 09/01/22 09:59 40 mg DAILY XIMENA Administration Prochlorperazine 10 mg 08/01/22 18:59 Prochlorperazine Maleate 5 Mg Tablet PO 08/31/22 18:58 TID PRN PRN NAUSEA Sertraline HCl 50 mg 08/02/22 22:00 Sertraline Hcl 50 Mg Tab PO 09/01/22 21:59 HS XIMENA Simvastatin 40 mg 08/02/22 10:00 08/02/22 10:23 Simvastatin 20 Mg Tablet PO 09/01/22 09:59 Not Given DAILY XIMENA Zolpidem Tartrate 10 mg 08/02/22 22:00 Zolpidem Tartrate 10 Mg Tablet PO 09/01/22 21:59 HS XIMENA Discontinued Medications Generic Name Dose Route Start Last Admin Trade Name Freq PRN Reason Stop Dose Admin Allopurinol 100 mg 08/01/22 22:00 08/01/22 21:51 Allopurinol 100 Mg Tablet PO 08/01/22 22:01 100 mg ONCE ONE Administration Aspirin 81 mg 08/01/22 22:00 08/01/22 21:50 Aspirin 81 Mg Tablet.Ec PO 08/01/22 22:01 81 mg 1XONLY ONE Administration Bupivacaine HCl Confirm 08/02/22 06:55 Bupivacaine Hcl/Pf 150 Mg/30 Ml Vial Administered 08/02/22 06:56 Dose 150 mg .ROUTE .STK-MED ONE Bupivacaine HCl Confirm 08/02/22 15:09 Bupivacaine Hcl/Pf 150 Mg/30 Ml Vial Administered 08/02/22 15:10 Dose 150 mg .ROUTE .STK-MED ONE Dextrose 50 ml 08/02/22 16:19 Dextrose 50%-Water 50 Ml Abboject IV 08/02/22 16:20 .STK-MED ONE Donepezil HCl 5 mg 08/01/22 22:00 08/01/22 21:50 Donepezil Hcl 10 Mg Tablet PO 08/01/22 22:01 5 mg ONCE ONE Administration Ephedrine Sulfate Confirm 08/02/22 14:58 Ephedrine Sulfate 50 Mg/Ml Administered 08/02/22 14:59 Dose 50 mg .ROUTE .STK-MED ONE Fentanyl Citrate Confirm 08/02/22 14:35 Fentanyl Citrate 100 Mcg/2 Ml* Vial Administered 08/02/22 14:36 Dose 100 mcg .ROUTE .STK-MED ONE Gabapentin 300 mg 08/01/22 22:00 08/01/22 21:50 Gabapentin 300 Mg Capsule PO 08/01/22 22:01 300 mg ONCE ONE Administration Dextrose/Sodium Chloride 500 mls @ 50 mls/hr 08/01/22 22:00 08/01/22 21:56 Dextrose 5%-Normal Saline 500 Ml IV 08/31/22 21:59 50 mls/hr .Q10H XIMENA Administration Dextrose Confirm 08/01/22 21:49 Dextrose 5%/Water Iv Soln. 1000 Ml Administered 08/01/22 21:50 Dose 1,000 mls @ ud IV .STK-MED ONE Lidocaine HCl Confirm 08/02/22 06:55 Lidocaine Hcl/Pf 1 % 30 Ml Pf Sdv Administered 08/02/22 06:56 Dose 30 ml IJ .STK-MED ONE Lidocaine HCl Confirm 08/02/22 14:35 Lidocaine - Mpf 2% 5 Ml Vial Administered 08/02/22 14:36 Dose 5 ml .ROUTE .STK-MED ONE Lidocaine HCl Confirm 08/02/22 15:15 Lidocaine Hcl 1% 20 Ml Mdv 20 Ml Ml Administered 08/02/22 15:16 Dose 20 ml .ROUTE .STK-MED ONE Midazolam HCl Confirm 08/02/22 14:35 Midazolam Hcl 2 Mg/2 Ml Vial Administered 08/02/22 14:36 Dose 2 mg .ROUTE .STK-MED ONE Phenylephrine HCl Confirm 08/02/22 15:02 Phenylephrine 10 Mg/Ml Vial Administered 08/02/22 15:03 Dose 10 mg .ROUTE .STK-MED ONE Propofol Confirm 08/02/22 14:35 Propofol 10 Mg/Ml 20ml Vial Administered 08/02/22 14:36 Dose 400 mg IV .STK-MED ONE Sertraline HCl 50 mg 08/01/22 22:00 08/01/22 21:51 Sertraline Hcl 50 Mg Tab PO 08/01/22 22:01 50 mg ONCE ONE Administration Vasopressin 20 unit 08/02/22 16:19 Vasopressin 20 Unit/Ml Ml IJ 08/02/22 16:20 .STK-MED ONE Zolpidem Tartrate 10 mg 08/01/22 22:00 08/01/22 21:50 Zolpidem Tartrate 10 Mg Tablet PO 08/01/22 22:01 10 mg ONCE ONE Administration Intake & Output (Last 24 hours) 07/31/22 08/01/22 08/02/22 08/03/22 11:59 11:59 11:59 11:59 Intake Total 1532 846 Output Total 1850 Balance -318 846 Weight 67.8 kg 67.8 kg Microbiology Results (Last 24 hours) 08/02/22 15:47 Foot - Left Blood Fungus Aerobic Culture - Pending 08/02/22 15:47 Foot - Left Yeast/Fungus Susceptibility - Pending 08/02/22 15:47 Foot - Left Aerobic Culture - Pending 08/02/22 15:47 Foot - Left Aerobic Organism ID Result 1 - Pending 08/02/22 15:47 Foot - Left Anaerobic Culture - Pending 08/02/22 15:47 Foot - Left Anaerobic Culture - Pending 08/02/22 15:47 Foot - Left Anaerobic Culture Result 1 - Pending 08/02/22 15:47 Foot - Left Anaerobic Culture Result 3 - Pending 08/02/22 15:47 Foot - Left Anaerobic Culture Result 4 - Pending 08/02/22 15:47 Foot - Left Anaerobic Bacterial Sensitivity - Pending 08/02/22 15:47 Foot - Left Gram Stain - Pending 08/02/22 15:47 Foot - Left Gram Stain Result 1 - Pending 08/02/22 15:47 Foot - Left Gram Stain Result 2 - Pending 08/02/22 15:47 Foot - Left Gram Stain Result 3 - Pending 08/02/22 15:47 Foot - Left Gram Stain Result 4 - Pending 08/02/22 15:47 Foot - Left AFB Specimen Processing - Pending 08/02/22 15:47 Foot - Left Acid Fast Bacilli Smear - Pending 08/02/22 15:47 Foot - Left Acid Fast Bacilli Culture - Pending 08/02/22 15:47 Foot - Left Mycobacterium Identification - Pending 08/02/22 15:47 Foot - Left AFB Suscept Streptomycin 1 ug/mL - Pending 08/02/22 15:47 Foot - Left AFB Suscept Isoniazid 0.1 ug/mL - Pending 08/02/22 15:47 Foot - Left AFB Susceptibility Rifampin 1 ug/mL - Pending 08/02/22 15:47 Foot - Left AFB Suscept Ethambutol 5 ug/mL - Pending 08/02/22 15:47 Foot - Left AFB Suscept Pyrazinamide 100 ug/mL - Pending 08/02/22 15:47 Foot - Left [place] Proportion Confirmation - Pending 08/02/22 15:47 Foot - Left AFB Suscept Streptomycin 2 ug/mL - Pending 08/02/22 15:47 Foot - Left AFB Suscept Streptomycin 10 ug/mL - Pending 08/02/22 15:47 Foot - Left AFB Suscept Isoniazid 0.2 ug/mL - Pending 08/02/22 15:47 Foot - Left AFB Suscept Isoniazid 1 ug/mL - Pending 08/02/22 15:47 Foot - Left AFB Susceptibility Rifampin 1 ug/mL - Pending 08/02/22 15:47 Foot - Left AFB Suscept Ethambutol 5 ug/mL - Pending 08/02/22 15:47 Foot - Left M.avium-intracell & tuberculosis ID - Pending 08/02/22 15:47 Foot - Left AFB Susceptibility Note - Pending 08/02/22 15:47 Foot - Left AFB Susceptibility Amikacin - Pending 08/02/22 15:47 Foot - Left AFB Susceptibility Clarithromycin - Pending 08/02/22 15:47 Foot - Left AFB Susceptibility Linezolid - Pending 08/02/22 15:47 Foot - Left AFB Susceptibility Moxifloxacin - Pending 08/02/22 15:47 Foot - Left AFB Susceptibility Streptomycin - Pending 08/02/22 15:47 Foot - Left Mycobacterium Identification - Pending 08/02/22 15:47 Foot - Left AFB Susceptibility Amikacin - Pending 08/02/22 15:47 Foot - Left AFB Susceptibility Ciprofloxacin - Pending 08/02/22 15:47 Foot - Left AFB Susceptibility Clarithromycin - Pending 08/02/22 15:47 Foot - Left AFB Susceptibility Doxycycline - Pending 08/02/22 15:47 Foot - Left AFB Susceptibility Linezolid - Pending 08/02/22 15:47 Foot - Left AFB Susceptibility Moxifloxacin - Pending 08/02/22 15:47 Foot - Left AFB Susceptibility Rifampin - Pending 08/02/22 15:47 Foot - Left AFB Susceptibility Rifabutin - Pending 08/02/22 15:47 Foot - Left AFB Susceptibility Streptomycin - Pending 08/02/22 15:47 Foot - Left AFB Susceptibility Trimethoprim/Sul - Pending 08/02/22 15:47 Foot - Left Mycobacterium Identification - Pending 08/02/22 15:47 Foot - Left AFB Susceptibility Note - Pending 08/02/22 15:47 Foot - Left AFB Susceptibility Amikacin - Pending 08/02/22 15:47 Foot - Left AFB Susceptibility Clarithromycin - Pending 08/02/22 15:47 Foot - Left AFB Susceptibility Ethambutol - Pending 08/02/22 15:47 Foot - Left AFB Susceptibility Minocycline - Pending 08/02/22 15:47 Foot - Left AFB Susceptibility Rifampin - Pending 08/02/22 15:47 Foot - Left AFB Susceptibility Trimethoprim/Sul - Pending 08/02/22 15:47 Foot - Left Mycobacterium Identification - Pending 08/02/22 15:47 Foot - Left AFB Susceptibility Amikacin - Pending 08/02/22 15:47 Foot - Left AFB Susceptibility Amoxicillin/CA - Pending 08/02/22 15:47 Foot - Left AFB Susceptibility Ceftriaxone - Pending 08/02/22 15:47 Foot - Left AFB Susceptibility Ciprofloxacin - Pending 08/02/22 15:47 Foot - Left AFB Susceptibility Clarithromycin - Pending 08/02/22 15:47 Foot - Left AFB Susceptibility Doxycycline - Pending 08/02/22 15:47 Foot - Left AFB Susceptibility Imipenem - Pending 08/02/22 15:47 Foot - Left AFB Susceptibility Linezolid - Pending 08/02/22 15:47 Foot - Left AFB Susceptibility Minocycline - Pending 08/02/22 15:47 Foot - Left AFB Susceptibility Moxifloxacin - Pending 08/02/22 15:47 Foot - Left AFB Susceptibility Tobramycin - Pending 08/02/22 15:47 Foot - Left AFB Susceptibility Trimethoprim/Sul - Pending 08/02/22 15:47 Foot - Left Mycobacterium Identification - Pending 08/02/22 15:47 Foot - Left AFB Susceptibility Note - Pending 08/02/22 15:47 Foot - Left AFB Susceptibility Amikacin - Pending 08/02/22 15:47 Foot - Left AFB Susceptibility Cefoxitin - Pending 08/02/22 15:47 Foot - Left AFB Susceptibility Ciprofloxacin - Pending 08/02/22 15:47 Foot - Left AFB Susceptibility Clarithromycin - Pending 08/02/22 15:47 Foot - Left AFB Susceptibility Doxycycline - Pending 08/02/22 15:47 Foot - Left AFB Susceptibility Imipenem - Pending 08/02/22 15:47 Foot - Left AFB Susceptibility Linezolid - Pending 08/02/22 15:47 Foot - Left AFB Susceptibility Minocycline - Pending 08/02/22 15:47 Foot - Left AFB Susceptibility Moxifloxacin - Pending 08/02/22 15:47 Foot - Left AFB Susceptibility Tigecycline - Pending 08/02/22 15:47 Foot - Left AFB Susceptibility Tobramycin - Pending 08/02/22 15:47 Foot - Left AFB Susceptibility Trimethoprim/Sul - Pending 08/02/22 15:47 Foot - Left Organism Identification - Pending 08/02/22 15:47 Foot - Left Nocardia ID - Pending 08/02/22 15:47 Foot - Left Organism ID (Sequencing) - Pending 08/02/22 15:47 Foot - Left Nocardia, ID by Sequencing - Pending 08/02/22 15:47 Foot - Left Organism Identification 1 - Pending 08/02/22 15:47 Foot - Left Mycobacterium Identification - Pending 08/02/22 15:47 Foot - Left Mycobacteria, ID by Sequencing - Pending 08/02/22 15:47 Foot - Left Organism Identification 2 - Pending 08/01/22 18:55 Foot - Left Wound Culture - Preliminary GRAM NEGATIVE ID AND SENSITIVITY PENDING Laboratory Results (Last 24 hours) 08/02/22 08/02/22 08/02/22 16:25 16:05 04:47 WBC RBC Hgb 9.4 L Hct 30.0 L MCV MCH MCHC RDW Plt Count MPV Gran % Immature Gran % (Auto) Nucleat RBC Rel Count Eos # (Auto) Immature Gran # (Auto) Absolute Lymphs (auto) Absolute Monos (auto) Absolute Nucleated RBC Lymphocytes % Monocytes % Eosinophils % Basophils % Absolute Granulocytes Basophils # Sodium Potassium Chloride Carbon Dioxide Anion Gap BUN Creatinine Estimated GFR Glucose POC Glucometer 148 H Hemoglobin A1c 8.48 H Calcium Total Bilirubin AST ALT Alkaline Phosphatase Serum Total Protein Albumin Slides for Path Review 08/02/22 08/02/22 08/01/22 04:47 04:47 21:27 WBC 12.9 H RBC 4.32 Hgb 10.3 L Hct 34.2 L MCV 79.2 MCH 23.8 L MCHC 30.1 L RDW 18.3 H Plt Count 387 MPV 8.3 Gran % 41.5 Immature Gran % (Auto) 0.2 Nucleat RBC Rel Count 0.0 Eos # (Auto) 2.13 H Immature Gran # (Auto) 0.03 Absolute Lymphs (auto) 4.05 Absolute Monos (auto) 1.23 Absolute Nucleated RBC 0.00 Lymphocytes % 31.4 Monocytes % 9.5 Eosinophils % 16.5 H Basophils % 0.9 Absolute Granulocytes 5.33 Basophils # 0.12 Sodium 134 L Potassium 4.7 Chloride 97 L Carbon Dioxide 29 Anion Gap 12.7 BUN 11 Creatinine 0.82 Estimated GFR > 60.0 Glucose 221 H POC Glucometer 59 L Hemoglobin A1c Calcium 8.7 Total Bilirubin 0.30 AST 31 ALT 19 Alkaline Phosphatase 126 Serum Total Protein 7.1 Albumin 3.6 Slides for Path Review YES Orders (Last 24 hours) Category Date Time Status Miscellaneous Nursing Order ROUTINE Care 08/02/22 16:10 Active Miscellaneous Nursing Order ROUTINE Care 08/02/22 16:12 Active Consult Podiatry ROUTINE Cons 08/02/22 11:24 Active FLUOROSCOPY UP TO 1 HR Routine Exams 08/02/22 14:26 Taken FOOT (MINIMUM 3 VIEWS) Routine Exams 08/02/22 14:26 Completed Acid Fast Smear+Culture W/Rflx [MR] Routine Lab 08/02/22 15:47 Received Aerobic Culture [MR] Routine Lab 08/02/22 15:47 Received Anaerobic Culture [MR] Routine Lab 08/02/22 15:47 Received CBC W DIFF AM.LAB Lab 08/02/22 04:47 Completed CBC W DIFF AM.LAB Lab 08/03/22 04:00 Ordered CBC W DIFF AM.LAB Lab 08/04/22 04:00 Ordered CBC W DIFF AM.LAB Lab 08/05/22 04:00 Ordered CBC W DIFF AM.LAB Lab 08/06/22 04:00 Ordered CBC W DIFF AM.LAB Lab 08/07/22 04:00 Ordered CBC W DIFF AM.LAB Lab 08/08/22 04:00 Ordered CMP AM.LAB Lab 08/02/22 04:47 Completed CMP AM.LAB Lab 08/03/22 04:00 Ordered CMP AM.LAB Lab 08/04/22 04:00 Ordered CMP AM.LAB Lab 08/05/22 04:00 Ordered CMP AM.LAB Lab 08/06/22 04:00 Ordered CMP AM.LAB Lab 08/07/22 04:00 Ordered CMP AM.LAB Lab 08/08/22 04:00 Ordered Fungus (Mycology) Culture [MR] Routine Lab 08/02/22 15:47 Received HEMOGLOBIN A1C Routine Lab 08/02/22 04:47 Completed HEMOGLOBIN AND HEMATOCRIT Urgent Lab 08/02/22 16:25 Completed POCT GLUCOSE Stat Lab 08/01/22 21:27 Completed POCT GLUCOSE Stat Lab 08/02/22 16:05 Completed SURGICAL PATHOLOGY Routine Lab 08/02/22 15:18 Received Vancomycin, Trough Urgent Lab 08/03/22 15:30 Ordered Allopurinol 100 mg [Zyloprim 100 mg] Med 08/01/22 22:00 Discontinued 100 mg PO ONCE ONE Allopurinol 300 mg [Zyloprim 300 mg] Med 08/02/22 22:00 Active 300 mg PO HS Aspirin EC 81 mg [Ecotrin 81 mg] Med 08/01/22 22:00 Discontinued 81 mg PO 1XONLY ONE Aspirin EC 81 mg [Ecotrin 81 mg] Med 08/02/22 22:00 Active 81 mg PO QHS Bupivacaine HCl/Pf [Marcaine Mpf 0.5% Vial 30 Ml] Med 08/02/22 06:55 Discontinued 150 mg .ROUTE .STK-MED ONE Bupivacaine HCl/Pf [Marcaine Mpf 0.5% Vial 30 Ml] Med 08/02/22 15:09 Discontinued 150 mg .ROUTE .STK-MED ONE Clopidogrel Bisulfate [PLAVIX Tablet] Med 08/02/22 10:00 Active 75 mg PO DAILY D5ns 1000 ml [Dextrose 5%-NS IV Solution 1000 ML] 1,000 Med 08/02/22 10:00 Active ml IV 50 mls/hr D5ns 500 ml [Dextrose 5%-Normal Saline 500 ml] 500 ml Med 08/01/22 22:00 Discontinued IV 50 mls/hr D5w 1000 ml [Dextrose 5%/Water IV Soln. 1000 ML] 1,000 Med 08/01/22 21:49 Discontinued ml IV UD Dextrose 50%-Water Syringe [D50W 50 ml Abboject] Med 08/02/22 16:19 Discontinued 50 ml IV .STK-MED ONE Donepezil HCl 10 mg [Aricept 10 MG] Med 08/02/22 22:00 Active 5 mg PO HS Donepezil HCl 10 mg [Aricept 10 MG] Med 08/01/22 22:00 Discontinued 5 mg PO ONCE ONE Duloxetine HCl 30 mg [Cymbalta 30 MG Capsule] Med 08/02/22 10:00 Active 60 mg PO DAILY Ephedrine Sulfate 50 mg/ml [Ephedrine Sulfate 50 MG/ Med 08/02/22 14:58 Discontinued ML] 50 mg .ROUTE .STK-MED ONE Fentanyl Citrate 100 Mcg/2 ml* [Sublimaze 100 Mcg/2 ml* Med 08/02/22 14:35 Discontinued ] 100 mcg .ROUTE .STK-MED ONE Furosemide 20 mg [Lasix 20 mg] Med 08/02/22 10:00 Active 20 mg PO DAILY Gabapentin [Neurontin ] Med 08/02/22 10:00 Active 300 mg PO BID Gabapentin [Neurontin ] Med 08/01/22 22:00 Discontinued 300 mg PO ONCE ONE Hydromorphone 1 mg/1Ml Inj [Hydromorphone 1 mg/ml Med 08/02/22 16:07 Active Injection] 0.5 mg IV Q4H PRN PRN Insulin NPH Human Recom [Novolin N] Med 08/02/22 09:15 Active 15 unit SQ BIDAC Insulin Regular, Human [Humulin R] Med 08/02/22 09:15 Active 15 unit SQ ACHS Lidocaine HCl 1% 20 ml Mdv [Xylocaine 1% HCl 20 ml Med 08/02/22 15:15 Discontinued Mdv] 20 ml .ROUTE .STK-MED ONE Lidocaine HCl 2% Mpf 5 ml [Xylocaine-Mpf 2% 5 Ml Med 08/02/22 14:35 Discontinued Vial] 5 ml .ROUTE .STK-MED ONE Lidocaine HCl/PF 1% 30 ML [Xylocaine 1% Vial 30 ML Med 08/02/22 06:55 Discontinued PF] 30 ml IJ .STK-MED ONE Lisinopril 10 mg [Zestril 10 MG] Med 08/02/22 10:00 Active 10 mg PO DAILY Metoprolol Succinate 100 mg [Toprol Xl 100 MG] Med 08/02/22 10:00 Active 100 mg PO DAILY Metoprolol Succinate 50 mg [Toprol Xl 50 MG] Med 08/02/22 10:00 Active 50 mg PO DAILY Midazolam HCl 2 mg/2 ml [Versed 2 MG/2 ML Injection* Med 08/02/22 14:35 Discontinued ] 2 mg .ROUTE .STK-MED ONE PANTOPRAZOLE 40 mg Tablet [Protonix 40MG Tablet] Med 08/02/22 10:00 Active 40 mg PO DAILY Phenylephrine 10 mg/ml [Phenylephrine HCl] Med 08/02/22 15:02 Discontinued 10 mg .ROUTE .STK-MED ONE Propofol 200 mg/20 ml [Diprivan 200 mg/20 ml] Med 08/02/22 14:35 Discontinued 400 mg IV .STK-MED ONE Ringers Solution,Lactated [Lactated Ringers] 1,000 ml Med 08/02/22 10:00 A ctive IV 50 mls/hr Sertraline HCl 50 mg [Zoloft 50 mg Tablet] Med 08/02/22 22:00 Active 50 mg PO HS Sertraline HCl 50 mg [Zoloft 50 mg Tablet] Med 08/01/22 22:00 Discontinued 50 mg PO ONCE ONE Simvastatin 20Mg [Zocor 20Mg] Med 08/02/22 10:00 Active 40 mg PO DAILY Therapuetic Drug Level Monitor [Trough Drug Levels] Med 08/03/22 15:30 Once 1 IJ 1XONLY ONE Vasopressin 20 Units [Pitressin 20 Units] Med 08/02/22 16:19 Discontinued 20 unit IJ .STK-MED ONE Zolpidem Tartrate 10 mg [Ambien 10 MG] Med 08/02/22 22:00 Active 10 mg PO HS Zolpidem Tartrate 10 mg [Ambien 10 MG] Med 08/01/22 22:00 Discontinued 10 mg PO ONCE ONE Patient Care Notes (Last 24 hours) 08/02/22 16:30 Nursing Note by Toshia Geronimo BACK TO FLOOR FROM OR Initialized on 08/02/22 16:30 - END OF NOTE 08/02/22 12:47 Case Management Note by Junie Figueredo PATIENT HAS [facility]. THEY WERE NOTIFIED PATIENT HERE. THEY WILL NOTIFIED AT TIME OF DC AT [phone]. THEY WILL NEED FAXED DC INSTRUCTIONS, DC MED LIST, AND DC SUMMARY ( IF AVAILABLE) TO [phone]. Initialized on 08/02/22 12:47 - END OF NOTE 08/01/22 22:28 Nursing Note by Brody Parkinson glucose on self meter is 95 Initialized on 08/01/22 22:28 - END OF NOTE 08/01/22 21:39 Nursing Note by Brody Parkinson Notified Dr Pozo that pts glucose on self meter was 65 and hospital accucheck was 59. Pt is asytomatic at this time and is taking po crackers and juice at this time. Per , start d5 ns at 50ml/hr and obtain a1c with am labs. Initialized on 08/01/22 21:39 - END OF NOTE Code(s): M86.9 - OSTEOMYELITIS, UNSPECIFIED (2) Diabetic foot ulcer with osteomyelitis Current Visit: Yes Status: Acute Code(s): E11.621 - TYPE 2 DIABETES MELLITUS WITH FOOT ULCER; E11.69 - TYPE 2 DIABETES MELLITUS WITH OTHER SPECIFIED COMPLICATION; L97.509 - NON-PRESSURE CHRONIC ULCER OTH PRT UNSP FOOT W UNSP SEVERITY; M86.9 - OSTEOMYELITIS, UNSPECIFIED
[2022-08-02] MEDS: ZYLOPRIM 300 MG PO SCH (21:27)
[2022-08-02] MEDS: ZOLOFT 50 MG TABLET PO SCH (21:27)
[2022-08-02] MEDS: Ambien 10 MG PO SCH (21:27)
[2022-08-02] MEDS: Aricept 10 MG PO SCH (21:27)
[2022-08-02] MEDS: ECOTRIN 81 MG PO SCH (21:28)
[2022-08-02] MEDS ORDERED: ZYLOPRIM 100 MG PO SCH (22:00)
[2022-08-02] MEDS ORDERED: BABY ASPIRIN 81 MG CHEW PO SCH (22:00)
[2022-08-02] MEDS ORDERED: NON-FORMULARY ITEM (Donepezil Hcl [Aricept] 5 MG Tablet) PO SCH (22:00)
[2022-08-03] MEDS: PIPERACILLIN/TAZOBACTAM 3.375 GM in Sodium Chloride 100ML MINI-BAG PLUS 100 ML IV SCH ×4 (00:30→19:39)
[2022-08-03] MEDS: HYDROCODONE-ACETAMIN 10-325 MG PO PRN ×4 (01:33→16:37)
[2022-08-03] MEDS ORDERED: TROUGH DRUG LEVELS IJ ONE ×2 (03:30→15:30)
[2022-08-03] MEDS: Hydromorphone 1 mg/ml Injection IV PRN ×2 (03:49→08:16)
[2022-08-03] MEDS: VANCOMYCIN 1 GRAM/200 ML BAG 1 GM/200 ML PIGGYBACK IV SCH (03:50)
[2022-08-03 04:52] LABS: Absolute Neutrophil Ct (ANC) 11.12 x10^3/uL (1.4-6.9); BASOPHIL % 0.5 % (0.0-0.4); Basophil (Absolute #) 0.08 x10^3/uL (0-0.4); Eosinophil % 7.3 % (0.00-5.0); Eosinophil (Absolute #) 1.29 x10^3/uL (0-0.5); Hematocrit 34.7 % (42-50); Hemoglobin 10.7 g/dL (12.5-18.0); IMMATURE GRAN # 0.07 x10^3u/L (0.00-0.03); IMMATURE GRAN % 0.4 % (0.00-0.4); Lymphocyte (Absolute #) 3.23 x10^3/uL (1.0-4.6); Lymphocytes % 18.4 % (24.0-44.0); Mean Cell Volume 78.5 fL (78-100); Mean Corpuscular Hemoglobin 24.2 pg (26-32); Mean Corpuscular Hgb Concent. 30.8 g/dL (32-36); Mean Platelet Volume 8.3 fL (7.5-11.0); Monocytes % 10.2 % (0.0-12.0); Neutrophil % 63.2 % (36.0-66.0); Platelet Count 417 x10^3/uL (150-450); Red Blood Count 4.42 x10^6/uL (4.1-5.6); Red Cell Distribution Width 18.2 % (11.5-14.0); White Blood Count 17.6 x10^3/uL (4.0-10.5)
[2022-08-03 05:23] LABS: ALBUMIN 3.7 g/dL (3.5-5.0); ALKALINE PHOSPHATASE 126 U/L (38-126); ANION GAP 11.4 MEQ/L (5-15); BLOOD UREA NITROGEN 9 mg/dL (9-20); CHLORIDE 101 mmol/L (98-107); Calcium 8.9 mg/dL (8.4-10.2); Carbon Dioxide 28 mmol/L (22-30); EST GLOMERULAR FILTRATION RATE > 60.0 ML/MIN; Glucose 115 mg/dL (74-106); Potassium 4.2 mmol/L (3.5-5.1); SGOT/AST 28 U/L (17-59); SGPT/ALT 19 U/L (0-50); SODIUM 136 mmol/L (137-145); Total Protein 7.4 g/dL (6.3-8.2)
[2022-08-03] MEDS ORDERED: Hydromorphone 1 mg/ml Injection IV ONE (06:25)
[2022-08-03 06:56] LABS: Slide Review 1 YES
[2022-08-03] MEDS ORDERED: TORAdol 30 mg Injection IM PRN (07:50)
--- NOTE | 2022-08-03 07:53 | PCM.NOTE ---
Date and Time: 08/03/22 0752 Subjective Assessment: c/o pain in foot - Review of Systems Constitutional: No Fever, No Chills Eyes: No Symptoms Ears, Nose, & Throat: No Symptoms Respiratory: No Cough, No Short Of Breath Cardiac: No Chest Pain, No Edema, No Syncope Abdominal/Gastrointestinal: No Abdominal Pain, No Nausea, No Vomiting, No Diarrhea Genitourinary Symptoms: No Dysuria Musculoskeletal: No Back Pain, No Neck Pain Skin: No Rash Neurological: No Dizziness, No Focal Weakness, No Sensory Changes Psychological: No Symptoms Endocrine: No Symptoms Hematologic/Lymphatic: No Symptoms Immunological/Allergic: No Symptoms Objective Exam General Appearance: moderate distress, alert Neurologic Exam: alert, oriented x 3, cooperative, sensation nml, No motor deficits Skin Exam: normal color, warm, dry Wound Assessment: Skin/Wound Assessment Wound/Incision Assessment Start: 08/01/22 15:26 Text: Status: Active Freq: Q6H Protocol: Document 08/03/22 02:00 LB (Rec: 08/03/22 04:12 LB [id number]) Wound/Incision Assessment Left Foot Wound Assessment Shift Assessment Comment gauze dressing cdi Eye Exam: PERRL, EOMI, eyes nml inspection Ears, Nose, Throat Exam: normal ENT inspection, pharynx normal, moist mucous membranes Neck Exam: normal inspection, non-tender, supple, full range of motion Respiratory Exam: normal breath sounds, lungs clear, No respiratory distress Cardiovascular Exam: regular rate/rhythm, normal heart sounds Gastrointestinal/Abdomen Exam: soft, No tenderness, No mass Extremity Exam: normal inspection, normal range of motion Back Exam: normal inspection, normal range of motion, No CVA tenderness, No vertebral tenderness Male Genitalia Exam: deferred Rectal Exam: deferred OBJECTIVE DATA Vital Signs: Vital Signs - 24 hr Temp Pulse Resp BP Pulse Ox 08/03/22 07:00 98.2 F 120 H 19 130/77 93 L 08/03/22 03:00 98.7 F 102 H 19 123/67 95 08/02/22 23:58 98.3 F 75 18 133/64 95 08/02/22 21:00 97.7 F 65 16 130/58 95 08/02/22 17:06 97.9 F 64 16 114/61 94 L 08/02/22 16:00 97.9 F 64 16 126/60 93 L 08/02/22 14:21 98.1 F 79 16 108/68 97 08/02/22 11:48 98.1 F 79 16 108/68 97 Pain Assessment - Last Documented Pain Intensity 10 Pain Scale Used 0-10 Pain Scale Intake and Output: Intake & Output 07/31/22 08/01/22 08/02/22 08/03/22 11:59 11:59 11:59 11:59 Intake Total 1532 1326 Output Total 1850 1300 Balance -318 26 Weight 67.8 kg 67.8 kg Lab Results: Lab Results-Last 24 Hours 08/02/22 08/02/22 08/03/22 Range/Units 16:05 16:25 04:36 WBC 17.6 H (4.0-10.5) x10^3/uL RBC 4.42 (4.1-5.6) x10^6/uL Hgb 9.4 L 10.7 L (12.5-18.0) g/dL Hct 30.0 L 34.7 L (42-50) % MCV 78.5 (78-100) fL MCH 24.2 L (26-32) pg MCHC 30.8 L (32-36) g/dL RDW 18.2 H (11.5-14.0) % Plt Count 417 (150-450) x10^3/uL MPV 8.3 (7.5-11.0) fL Gran % 63.2 (36.0-66.0) % Immature Gran % (Auto) 0.4 (0.00-0.4) % Nucleat RBC Rel Count 0.0 (0.00-0.1) % Eos # (Auto) 1.29 H (0-0.5) x10^3/uL Immature Gran # (Auto) 0.07 H (0.00-0.03) x10^3u/L Absolute Lymphs (auto) 3.23 (1.0-4.6) x10^3/uL Absolute Monos (auto) 1.80 H (0.0-1.3) x10^3/uL Absolute Nucleated RBC 0.00 (0.00-0.01) x10^3u/L Lymphocytes % 18.4 L (24.0-44.0) % Monocytes % 10.2 (0.0-12.0) % Eosinophils % 7.3 H (0.00-5.0) % Basophils % 0.5 (0.0-0.4) % Absolute Granulocytes 11.12 H (1.4-6.9) x10^3/uL Basophils # 0.08 (0-0.4) x10^3/uL Sodium (137-145) mmol/L Potassium (3.5-5.1) mmol/L Chloride (98-107) mmol/L Carbon Dioxide (22-30) mmol/L Anion Gap (5-15) MEQ/L BUN (9-20) mg/dL Creatinine (0.66-1.25) mg/dL Estimated GFR ML/MIN Glucose (74-106) mg/dL POC Glucometer 148 H (74 to 106) mg/dL Calcium (8.4-10.2) mg/dL Total Bilirubin (0.2-1.3) mg/dL AST (17-59) U/L ALT (0-50) U/L Alkaline Phosphatase (38-126) U/L Serum Total Protein (6.3-8.2) g/dL Albumin (3.5-5.0) g/dL Slides for Path Review YES 08/03/22 Range/Units 04:36 WBC (4.0-10.5) x10^3/uL RBC (4.1-5.6) x10^6/uL Hgb (12.5-18.0) g/dL Hct (42-50) % MCV (78-100) fL MCH (26-32) pg MCHC (32-36) g/dL RDW (11.5-14.0) % Plt Count (150-450) x10^3/uL MPV (7.5-11.0) fL Gran % (36.0-66.0) % Immature Gran % (Auto) (0.00-0.4) % Nucleat RBC Rel Count (0.00-0.1) % Eos # (Auto) (0-0.5) x10^3/uL Immature Gran # (Auto) (0.00-0.03) x10^3u/L Absolute Lymphs (auto) (1.0-4.6) x10^3/uL Absolute Monos (auto) (0.0-1.3) x10^3/uL Absolute Nucleated RBC (0.00-0.01) x10^3u/L Lymphocytes % (24.0-44.0) % Monocytes % (0.0-12.0) % Eosinophils % (0.00-5.0) % Basophils % (0.0-0.4) % Absolute Granulocytes (1.4-6.9) x10^3/uL Basophils # (0-0.4) x10^3/uL Sodium 136 L (137-145) mmol/L Potassium 4.2 (3.5-5.1) mmol/L Chloride 101 (98-107) mmol/L Carbon Dioxide 28 (22-30) mmol/L Anion Gap 11.4 (5-15) MEQ/L BUN 9 (9-20) mg/dL Creatinine 0.70 (0.66-1.25) mg/dL Estimated GFR > 60.0 ML/MIN Glucose 115 H (74-106) mg/dL POC Glucometer (74 to 106) mg/dL Calcium 8.9 (8.4-10.2) mg/dL Total Bilirubin 0.40 (0.2-1.3) mg/dL AST 28 (17-59) U/L ALT 19 (0-50) U/L Alkaline Phosphatase 126 (38-126) U/L Serum Total Protein 7.4 (6.3-8.2) g/dL Albumin 3.7 (3.5-5.0) g/dL Slides for Path Review Radiology Exams: Radiology Procedures Category Date Time Status FLUOROSCOPY UP TO 1 HR Routine Exams 08/02/22 14:26 Taken FOOT (MINIMUM 3 VIEWS) Routine Exams 08/02/22 14:26 Completed Multi-Disciplinary Progress Notes: Multi-Disciplinary Progress Notes 08/02/22 12:47 Case Management Note by Junie Figueredo PATIENT HAS [facility]. THEY WERE NOTIFIED PATIENT HERE. THEY WILL NOTIFIED AT TIME OF DC AT [phone]. THEY WILL NEED FAXED DC INSTRUCTIONS, DC MED LIST, AND DC SUMMARY ( IF AVAILABLE) TO [phone]. 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, left ankle and foot Assessment & Plan: Chief Complaint Diagnosis left foot ulcer for fewweeks Allergies Allergy/AdvReac Type Severity Reaction Status Date / Time morphine AdvReac Intermediate Verified 07/01/22 07:02 Vital Signs (Last 24 hours) Temp Pulse Resp BP Pulse Ox 08/03/22 07:00 98.2 F 120 H 19 130/77 93 L 08/03/22 03:00 98.7 F 102 H 19 123/67 95 08/02/22 23:58 98.3 F 75 18 133/64 95 08/02/22 21:00 97.7 F 65 16 130/58 95 08/02/22 17:06 97.9 F 64 16 114/61 94 L 08/02/22 16:00 97.9 F 64 16 126/60 93 L 08/02/22 14:21 98.1 F 79 16 108/68 97 08/02/22 11:48 98.1 F 79 16 108/68 97 Home Medications Medication Instructions Recorded Confirmed Last Taken Type Hydrocodone/Acetaminophen 1 tablet PO Q4H PRN PRN 08/01/22 08/01/22 Unknown History [Hydrocodone-Acetamin 10-325 mg] Current Medications Generic Name Dose Route Start Last Admin Trade Name Freq PRN Reason Stop Dose Admin Hydrocodone Bitart/Acetaminophen 1 tablet 08/01/22 18:58 08/03/22 05:04 Hydrocodone/Acetamin 10-325 Mg Tablet PO 08/06/22 18:57 1 tablet Q4H PRN PRN Administration PAIN Allopurinol 300 mg 08/02/22 22:00 08/02/22 21:27 Allopurinol 300 Mg Tablet PO 09/01/22 21:59 300 mg HS XIMENA Administration Aspirin 81 mg 08/02/22 22:00 08/02/22 21:28 Aspirin 81 Mg Tablet.Ec PO 09/01/22 21:59 81 mg QHS XIMENA Administration Clopidogrel Bisulfate 75 mg 08/02/22 10:00 08/02/22 10:22 Clopidogrel Bisulfate 75 Mg Tablet PO 09/01/22 09:59 75 mg DAILY XIMENA Administration Device 1 08/03/22 15:30 Therapuetic Drug Level Monitor Each IJ 08/03/22 15:31 1XONLY ONE Donepezil HCl 5 mg 08/02/22 22:00 08/02/22 21:27 Donepezil Hcl 10 Mg Tablet PO 09/01/22 21:59 5 mg HS XIMENA Administration Duloxetine HCl 60 mg 08/02/22 10:00 08/02/22 10:22 Duloxetine Hcl 30 Mg Cap PO 09/01/22 09:59 60 mg DAILY XIMENA Administration Furosemide 20 mg 08/02/22 10:00 08/02/22 10:23 Furosemide 20 Mg Tablet PO 09/01/22 09:59 Not Given DAILY XIMENA Gabapentin 300 mg 08/02/22 10:00 08/02/22 21:28 Gabapentin 300 Mg Capsule PO 09/01/22 09:59 300 mg BID XIMENA Administration Hydromorphone HCl 0.5 mg 08/02/22 16:07 08/03/22 03:49 Hydromorphone 1 Mg/1ml Inj IV 08/07/22 16:06 0.5 mg Q4H PRN PRN Administration Breakthrough Pain Piperacillin Sod/Tazobactam 100 mls @ 200 mls/hr 08/01/22 18:00 08/03/22 06:29 Sod 3.375 gm/ Sodium Chloride IV 08/04/22 17:59 200 mls/hr Q6HT XIMENA Administration Vancomycin HCl 1 gm in 200 mls @ 133.333 mls/hr 08/01/22 16:00 08/03/22 03:50 Vancomycin 1 Gram/200 Ml Bag IV 08/31/22 15:59 133.333 mls/hr Q12H XIMENA Administration Dextrose/Sodium Chloride 1,000 mls @ 50 mls/hr 08/02/22 10:00 08/02/22 16:37 Dextrose 5%-Ns Iv Solution 1000 Ml IV 09/01/22 09:59 50 mls/hr .Q20H XIMENA Administration Lactated Ringer's 1,000 mls @ 50 mls/hr 08/02/22 10:00 08/02/22 13:11 Lactated Ringers IV 09/01/22 09:59 50 mls/hr .Q20H XIMENA Administration Insulin Human NPH 15 unit 08/02/22 09:15 08/02/22 17:23 Insulin Nph Human Recom 1 Unit SQ 09/01/22 09:14 Not Given BIDAC XIMENA Insulin Human Regular 15 unit 08/02/22 09:15 08/02/22 21:28 Insulin Regular, Human 1 Unit SQ 09/01/22 09:14 15 unit ACHS XIMENA Administration Ketorolac Tromethamine 30 mg 08/03/22 07:50 Ketorolac Tromethamine 30 Mg/Ml Inj IM 08/08/22 07:49 Q6H PRN PRN PAIN Lisinopril 10 mg 08/02/22 10:00 08/02/22 10:23 Lisinopril 10 Mg Tablet PO 09/01/22 09:59 Not Given DAILY XIMENA Metoprolol Succinate 100 mg 08/02/22 10:00 08/02/22 10:22 Metoprolol Succinate 100 Mg Tablet.Sa PO 09/01/22 09:59 100 mg DAILY XIMENA Administration Metoprolol Succinate 50 mg 08/02/22 10:00 08/02/22 10:23 Metoprolol Succinate 50 Mg Tablet.Sa PO 09/01/22 09:59 50 mg DAILY XIMENA Administration Pantoprazole Sodium 40 mg 08/02/22 10:00 08/02/22 10:23 Protonix (Pantoprazole) 40 Mg Tablet PO 09/01/22 09:59 40 mg DAILY XIMENA Administration Prochlorperazine 10 mg 08/01/22 18:59 08/02/22 22:13 Prochlorperazine Maleate 5 Mg Tablet PO 08/31/22 18:58 10 mg TID PRN PRN Administration NAUSEA Sertraline HCl 50 mg 08/02/22 22:00 08/02/22 21:27 Sertraline Hcl 50 Mg Tab PO 09/01/22 21:59 50 mg HS XIMENA Administration Simvastatin 40 mg 08/02/22 10:00 08/02/22 10:23 Simvastatin 20 Mg Tablet PO 09/01/22 09:59 Not Given DAILY XIMENA Zolpidem Tartrate 10 mg 08/02/22 22:00 08/02/22 21:27 Zolpidem Tartrate 10 Mg Tablet PO 09/01/22 21:59 10 mg HS XIMENA Administration Discontinued Medications Generic Name Dose Route Start Last Admin Trade Name Freq PRN Reason Stop Dose Admin Allopurinol 100 mg 08/01/22 22:00 08/01/22 21:51 Allopurinol 100 Mg Tablet PO 08/01/22 22:01 100 mg ONCE ONE Administration Aspirin 81 mg 08/01/22 22:00 08/01/22 21:50 Aspirin 81 Mg Tablet.Ec PO 08/01/22 22:01 81 mg 1XONLY ONE Administration Bupivacaine HCl Confirm 08/02/22 06:55 Bupivacaine Hcl/Pf 150 Mg/30 Ml Vial Administered 08/02/22 06:56 Dose 150 mg .ROUTE .STK-MED ONE Bupivacaine HCl Confirm 08/02/22 15:09 Bupivacaine Hcl/Pf 150 Mg/30 Ml Vial Administered 08/02/22 15:10 Dose 150 mg .ROUTE .STK-MED ONE Dextrose 50 ml 08/02/22 16:19 Dextrose 50%-Water 50 Ml Abboject IV 08/02/22 16:20 .STK-MED ONE Donepezil HCl 5 mg 08/01/22 22:00 08/01/22 21:50 Donepezil Hcl 10 Mg Tablet PO 08/01/22 22:01 5 mg ONCE ONE Administration Ephedrine Sulfate Confirm 08/02/22 14:58 Ephedrine Sulfate 50 Mg/Ml Administered 08/02/22 14:59 Dose 50 mg .ROUTE .STK-MED ONE Fentanyl Citrate Confirm 08/02/22 14:35 Fentanyl Citrate 100 Mcg/2 Ml* Vial Administered 08/02/22 14:36 Dose 100 mcg .ROUTE .STK-MED ONE Gabapentin 300 mg 08/01/22 22:00 08/01/22 21:50 Gabapentin 300 Mg Capsule PO 08/01/22 22:01 300 mg ONCE ONE Administration Hydromorphone HCl 0.5 mg 08/03/22 06:25 08/03/22 06:29 Hydromorphone 1 Mg/1ml Inj IV 08/03/22 06:26 0.5 mg STAT ONE Administration Dextrose/Sodium Chloride 500 mls @ 50 mls/hr 08/01/22 22:00 08/01/22 21:56 Dextrose 5%-Normal Saline 500 Ml IV 08/31/22 21:59 50 mls/hr .Q10H XIMENA Administration Dextrose Confirm 08/01/22 21:49 Dextrose 5%/Water Iv Soln. 1000 Ml Administered 08/01/22 21:50 Dose 1,000 mls @ ud IV .STK-MED ONE Lidocaine HCl Confirm 08/02/22 06:55 Lidocaine Hcl/Pf 1 % 30 Ml Pf Sdv Administered 08/02/22 06:56 Dose 30 ml IJ .STK-MED ONE Lidocaine HCl Confirm 08/02/22 14:35 Lidocaine - Mpf 2% 5 Ml Vial Administered 08/02/22 14:36 Dose 5 ml .ROUTE .STK-MED ONE Lidocaine HCl Confirm 08/02/22 15:15 Lidocaine Hcl 1% 20 Ml Mdv 20 Ml Ml Administered 08/02/22 15:16 Dose 20 ml .ROUTE .STK-MED ONE Midazolam HCl Confirm 08/02/22 14:35 Midazolam Hcl 2 Mg/2 Ml Vial Administered 08/02/22 14:36 Dose 2 mg .ROUTE .STK-MED ONE Phenylephrine HCl Confirm 08/02/22 15:02 Phenylephrine 10 Mg/Ml Vial Administered 08/02/22 15:03 Dose 10 mg .ROUTE .STK-MED ONE Propofol Confirm 08/02/22 14:35 Propofol 10 Mg/Ml 20ml Vial Administered 08/02/22 14:36 Dose 400 mg IV .STK-MED ONE Sertraline HCl 50 mg 08/01/22 22:00 08/01/22 21:51 Sertraline Hcl 50 Mg Tab PO 08/01/22 22:01 50 mg ONCE ONE Administration Vasopressin 20 unit 08/02/22 16:19 Vasopressin 20 Unit/Ml Ml IJ 08/02/22 16:20 .STK-MED ONE Zolpidem Tartrate 10 mg 08/01/22 22:00 08/01/22 21:50 Zolpidem Tartrate 10 Mg Tablet PO 08/01/22 22:01 10 mg ONCE ONE Administration Intake & Output (Last 24 hours) 07/31/22 08/01/22 08/02/22 08/03/22 11:59 11:59 11:59 11:59 Intake Total 1532 1326 Output Total 1850 1300 Balance -318 26 Weight 67.8 kg 67.8 kg Microbiology Results (Last 24 hours) 08/02/22 15:47 Foot - Left Blood Fungus Aerobic Culture - Pending 08/02/22 15:47 Foot - Left Yeast/Fungus Susceptibility - Final Not Reportable 08/02/22 15:47 Foot - Left Aerobic Culture - Pending 08/02/22 15:47 Foot - Left Aerobic Organism ID Result 1 - Pending 08/02/22 15:47 Foot - Left Anaerobic Culture - Pending 08/02/22 15:47 Foot - Left Anaerobic Culture - Pending 08/02/22 15:47 Foot - Left Anaerobic Culture Result 1 - Pending 08/02/22 15:47 Foot - Left Anaerobic Culture Result 3 - Pending 08/02/22 15:47 Foot - Left Anaerobic Culture Result 4 - Pending 08/02/22 15:47 Foot - Left Anaerobic Bacterial Sensitivity - Pending 08/02/22 15:47 Foot - Left Gram Stain - Pending 08/02/22 15:47 Foot - Left Gram Stain Result 1 - Pending 08/02/22 15:47 Foot - Left Gram Stain Result 2 - Pending 08/02/22 15:47 Foot - Left Gram Stain Result 3 - Pending 08/02/22 15:47 Foot - Left Gram Stain Result 4 - Pending 08/02/22 15:47 Foot - Left AFB Specimen Processing - Pending 08/02/22 15:47 Foot - Left Acid Fast Bacilli Smear - Pending 08/02/22 15:47 Foot - Left Acid Fast Bacilli Culture - Pending 08/02/22 15:47 Foot - Left Mycobacterium Identification - Pending 08/02/22 15:47 Foot - Left AFB Suscept Streptomycin 1 ug/mL - Pending 08/02/22 15:47 Foot - Left AFB Suscept Isoniazid 0.1 ug/mL - Pending 08/02/22 15:47 Foot - Left AFB Susceptibility Rifampin 1 ug/mL - Pending 08/02/22 15:47 Foot - Left AFB Suscept Ethambutol 5 ug/mL - Pending 08/02/22 15:47 Foot - Left AFB Suscept Pyrazinamide 100 ug/mL - Pending 08/02/22 15:47 Foot - Left [place] Proportion Confirmation - Pending 08/02/22 15:47 Foot - Left AFB Suscept Streptomycin 2 ug/mL - Pending 08/02/22 15:47 Foot - Left AFB Suscept Streptomycin 10 ug/mL - Pending 08/02/22 15:47 Foot - Left AFB Suscept Isoniazid 0.2 ug/mL - Pending 08/02/22 15:47 Foot - Left AFB Suscept Isoniazid 1 ug/mL - Pending 08/02/22 15:47 Foot - Left AFB Susceptibility Rifampin 1 ug/mL - Pending 08/02/22 15:47 Foot - Left AFB Suscept Ethambutol 5 ug/mL - Pending 08/02/22 15:47 Foot - Left M.avium-intracell & tuberculosis ID - Pending 08/02/22 15:47 Foot - Left AFB Susceptibility Note - Pending 08/02/22 15:47 Foot - Left AFB Susceptibility Amikacin - Pending 08/02/22 15:47 Foot - Left AFB Susceptibility Clarithromycin - Pending 08/02/22 15:47 Foot - Left AFB Susceptibility Linezolid - Pending 08/02/22 15:47 Foot - Left AFB Susceptibility Moxifloxacin - Pending 08/02/22 15:47 Foot - Left AFB Susceptibility Streptomycin - Pending 08/02/22 15:47 Foot - Left Mycobacterium Identification - Pending 08/02/22 15:47 Foot - Left AFB Susceptibility Amikacin - Pending 08/02/22 15:47 Foot - Left AFB Susceptibility Ciprofloxacin - Pending 08/02/22 15:47 Foot - Left AFB Susceptibility Clarithromycin - Pending 08/02/22 15:47 Foot - Left AFB Susceptibility Doxycycline - Pending 08/02/22 15:47 Foot - Left AFB Susceptibility Linezolid - Pending 08/02/22 15:47 Foot - Left AFB Susceptibility Moxifloxacin - Pending 08/02/22 15:47 Foot - Left AFB Susceptibility Rifampin - Pending 08/02/22 15:47 Foot - Left AFB Susceptibility Rifabutin - Pending 08/02/22 15:47 Foot - Left AFB Susceptibility Streptomycin - Pending 08/02/22 15:47 Foot - Left AFB Susceptibility Trimethoprim/Sul - Pending 08/02/22 15:47 Foot - Left Mycobacterium Identification - Pending 08/02/22 15:47 Foot - Left AFB Susceptibility Note - Pending 08/02/22 15:47 Foot - Left AFB Susceptibility Amikacin - Pending 08/02/22 15:47 Foot - Left AFB Susceptibility Clarithromycin - Pending 08/02/22 15:47 Foot - Left AFB Susceptibility Ethambutol - Pending 08/02/22 15:47 Foot - Left AFB Susceptibility Minocycline - Pending 08/02/22 15:47 Foot - Left AFB Susceptibility Rifampin - Pending 08/02/22 15:47 Foot - Left AFB Susceptibility Trimethoprim/Sul - Pending 08/02/22 15:47 Foot - Left Mycobacterium Identification - Pending 08/02/22 15:47 Foot - Left AFB Susceptibility Amikacin - Pending 08/02/22 15:47 Foot - Left AFB Susceptibility Amoxicillin/CA - Pending 08/02/22 15:47 Foot - Left AFB Susceptibility Ceftriaxone - Pending 08/02/22 15:47 Foot - Left AFB Susceptibility Ciprofloxacin - Pending 08/02/22 15:47 Foot - Left AFB Susceptibility Clarithromycin - Pending 08/02/22 15:47 Foot - Left AFB Susceptibility Doxycycline - Pending 08/02/22 15:47 Foot - Left AFB Susceptibility Imipenem - Pending 08/02/22 15:47 Foot - Left AFB Susceptibility Linezolid - Pending 08/02/22 15:47 Foot - Left AFB Susceptibility Minocycline - Pending 08/02/22 15:47 Foot - Left AFB Susceptibility Moxifloxacin - Pending 08/02/22 15:47 Foot - Left AFB Susceptibility Tobramycin - Pending 08/02/22 15:47 Foot - Left AFB Susceptibility Trimethoprim/Sul - Pending 08/02/22 15:47 Foot - Left Mycobacterium Identification - Pending 08/02/22 15:47 Foot - Left AFB Susceptibility Note - Pending 08/02/22 15:47 Foot - Left AFB Susceptibility Amikacin - Pending 08/02/22 15:47 Foot - Left AFB Susceptibility Cefoxitin - Pending 08/02/22 15:47 Foot - Left AFB Susceptibility Ciprofloxacin - Pending 08/02/22 15:47 Foot - Left AFB Susceptibility Clarithromycin - Pending 08/02/22 15:47 Foot - Left AFB Susceptibility Doxycycline - Pending 08/02/22 15:47 Foot - Left AFB Susceptibility Imipenem - Pending 08/02/22 15:47 Foot - Left AFB Susceptibility Linezolid - Pending 08/02/22 15:47 Foot - Left AFB Susceptibility Minocycline - Pending 08/02/22 15:47 Foot - Left AFB Susceptibility Moxifloxacin - Pending 08/02/22 15:47 Foot - Left AFB Susceptibility Tigecycline - Pending 08/02/22 15:47 Foot - Left AFB Susceptibility Tobramycin - Pending 08/02/22 15:47 Foot - Left AFB Susceptibility Trimethoprim/Sul - Pending 08/02/22 15:47 Foot - Left Organism Identification - Pending 08/02/22 15:47 Foot - Left Nocardia ID - Pending 08/02/22 15:47 Foot - Left Organism ID (Sequencing) - Pending 08/02/22 15:47 Foot - Left Nocardia, ID by Sequencing - Pending 08/02/22 15:47 Foot - Left Organism Identification 1 - Pending 08/02/22 15:47 Foot - Left Mycobacterium Identification - Pending 08/02/22 15:47 Foot - Left Mycobacteria, ID by Sequencing - Pending 08/02/22 15:47 Foot - Left Organism Identification 2 - Pending 08/01/22 18:55 Foot - Left Wound Culture - Preliminary GRAM NEGATIVE ID AND SENSITIVITY PENDING Laboratory Results (Last 24 hours) 08/03/22 08/03/22 08/02/22 04:36 04:36 16:25 WBC 17.6 H RBC 4.42 Hgb 10.7 L 9.4 L Hct 34.7 L 30.0 L MCV 78.5 MCH 24.2 L MCHC 30.8 L RDW 18.2 H Plt Count 417 MPV 8.3 Gran % 63.2 Immature Gran % (Auto) 0.4 Nucleat RBC Rel Count 0.0 Eos # (Auto) 1.29 H Immature Gran # (Auto) 0.07 H Absolute Lymphs (auto) 3.23 Absolute Monos (auto) 1.80 H Absolute Nucleated RBC 0.00 Lymphocytes % 18.4 L Monocytes % 10.2 Eosinophils % 7.3 H Basophils % 0.5 Absolute Granulocytes 11.12 H Basophils # 0.08 Sodium 136 L Potassium 4.2 Chloride 101 Carbon Dioxide 28 Anion Gap 11.4 BUN 9 Creatinine 0.70 Estimated GFR > 60.0 Glucose 115 H POC Glucometer Calcium 8.9 Total Bilirubin 0.40 AST 28 ALT 19 Alkaline Phosphatase 126 Serum Total Protein 7.4 Albumin 3.7 Slides for Path Review YES 08/02/22 16:05 WBC RBC Hgb Hct MCV MCH MCHC RDW Plt Count MPV Gran % Immature Gran % (Auto) Nucleat RBC Rel Count Eos # (Auto) Immature Gran # (Auto) Absolute Lymphs (auto) Absolute Monos (auto) Absolute Nucleated RBC Lymphocytes % Monocytes % Eosinophils % Basophils % Absolute Granulocytes Basophils # Sodium Potassium Chloride Carbon Dioxide Anion Gap BUN Creatinine Estimated GFR Glucose POC Glucometer 148 H Calcium Total Bilirubin AST ALT Alkaline Phosphatase Serum Total Protein Albumin Slides for Path Review Orders (Last 24 hours) Category Date Time Status Miscellaneous Nursing Order ROUTINE Care 08/02/22 16:10 Active Miscellaneous Nursing Order ROUTINE Care 08/02/22 16:12 Active Consult Podiatry ROUTINE Cons 08/02/22 11:24 Active FLUOROSCOPY UP TO 1 HR Routine Exams 08/02/22 14:26 Taken FOOT (MINIMUM 3 VIEWS) Routine Exams 08/02/22 14:26 Completed Acid Fast Smear+Culture W/Rflx [MR] Routine Lab 08/02/22 15:47 Received Aerobic Culture [MR] Routine Lab 08/02/22 15:47 Received Anaerobic Culture [MR] Routine Lab 08/02/22 15:47 Received CBC W DIFF AM.LAB Lab 08/03/22 04:36 Completed CBC W DIFF AM.LAB Lab 08/04/22 04:00 Ordered CBC W DIFF AM.LAB Lab 08/05/22 04:00 Ordered CBC W DIFF AM.LAB Lab 08/06/22 04:00 Ordered CBC W DIFF AM.LAB Lab 08/07/22 04:00 Ordered CBC W DIFF AM.LAB Lab 08/08/22 04:00 Ordered CMP AM.LAB Lab 08/03/22 04:36 Completed CMP AM.LAB Lab 08/04/22 04:00 Ordered CMP AM.LAB Lab 08/05/22 04:00 Ordered CMP AM.LAB Lab 08/06/22 04:00 Ordered CMP AM.LAB Lab 08/07/22 04:00 Ordered CMP AM.LAB Lab 08/08/22 04:00 Ordered Fungus (Mycology) Culture [MR] Routine Lab 08/02/22 15:47 Received HEMOGLOBIN AND HEMATOCRIT Urgent Lab 08/02/22 16:25 Completed POCT GLUCOSE Stat Lab 08/02/22 16:05 Completed SURGICAL PATHOLOGY Routine Lab 08/02/22 15:18 Received Vancomycin, Trough Urgent Lab 08/03/22 15:30 Ordered Allopurinol 300 mg [Zyloprim 300 mg] Med 08/02/22 22:00 Active 300 mg PO HS Aspirin EC 81 mg [Ecotrin 81 mg] Med 08/02/22 22:00 Active 81 mg PO QHS Bupivacaine HCl/Pf [Marcaine Mpf 0.5% Vial 30 Ml] Med 08/02/22 06:55 Discontinued 150 mg .ROUTE .STK-MED ONE Bupivacaine HCl/Pf [Marcaine Mpf 0.5% Vial 30 Ml] Med 08/02/22 15:09 Discontinued 150 mg .ROUTE .STK-MED ONE Clopidogrel Bisulfate [PLAVIX Tablet] Med 08/02/22 10:00 Active 75 mg PO DAILY D5ns 1000 ml [Dextrose 5%-NS IV Solution 1000 ML] 1,000 Med 08/02/22 10:00 Active ml IV 50 mls/hr Dextrose 50%-Water Syringe [D50W 50 ml Abboject] Med 08/02/22 16:19 Discontinued 50 ml IV .STK-MED ONE Donepezil HCl 10 mg [Aricept 10 MG] Med 08/02/22 22:00 Active 5 mg PO HS Duloxetine HCl 30 mg [Cymbalta 30 MG Capsule] Med 08/02/22 10:00 Active 60 mg PO DAILY Ephedrine Sulfate 50 mg/ml [Ephedrine Sulfate 50 MG/ Med 08/02/22 14:58 Discontinued ML] 50 mg .ROUTE .STK-MED ONE Fentanyl Citrate 100 Mcg/2 ml* [Sublimaze 100 Mcg/2 ml* Med 08/02/22 14:35 Discontinued ] 100 mcg .ROUTE .STK-MED ONE Furosemide 20 mg [Lasix 20 mg] Med 08/02/22 10:00 Active 20 mg PO DAILY Gabapentin [Neurontin ] Med 08/02/22 10:00 Active 300 mg PO BID Hydromorphone 1 mg/1Ml Inj [Hydromorphone 1 mg/ml Med 08/02/22 16:07 Active Injection] 0.5 mg IV Q4H PRN PRN Hydromorphone 1 mg/1Ml Inj [Hydromorphone 1 mg/ml Med 08/03/22 06:25 Discontinued Injection] 0.5 mg IV STAT ONE Insulin NPH Human Recom [Novolin N] Med 08/02/22 09:15 Active 15 unit SQ BIDAC Insulin Regular, Human [Humulin R] Med 08/02/22 09:15 Active 15 unit SQ ACHS KETOROLAC trometh 30 mg Inj [TORAdol 30 mg Injection Med 08/03/22 07:50 Ordered ] 30 mg IM Q6H PRN PRN Lidocaine HCl 1% 20 ml Mdv [Xylocaine 1% HCl 20 ml Med 08/02/22 15:15 Discontinued Mdv] 20 ml .ROUTE .STK-MED ONE Lidocaine HCl 2% Mpf 5 ml [Xylocaine-Mpf 2% 5 Ml Med 08/02/22 14:35 Discontinued Vial] 5 ml .ROUTE .STK-MED ONE Lidocaine HCl/PF 1% 30 ML [Xylocaine 1% Vial 30 ML Med 08/02/22 06:55 Dis continued PF] 30 ml IJ .STK-MED ONE Lisinopril 10 mg [Zestril 10 MG] Med 08/02/22 10:00 Active 10 mg PO DAILY Metoprolol Succinate 100 mg [Toprol Xl 100 MG] Med 08/02/22 10:00 Active 100 mg PO DAILY Metoprolol Succinate 50 mg [Toprol Xl 50 MG] Med 08/02/22 10:00 Active 50 mg PO DAILY Midazolam HCl 2 mg/2 ml [Versed 2 MG/2 ML Injection* Med 08/02/22 14:35 Discontinued ] 2 mg .ROUTE .STK-MED ONE PANTOPRAZOLE 40 mg Tablet [Protonix 40MG Tablet] Med 08/02/22 10:00 Active 40 mg PO DAILY Phenylephrine 10 mg/ml [Phenylephrine HCl] Med 08/02/22 15:02 Discontinued 10 mg .ROUTE .STK-MED ONE Propofol 200 mg/20 ml [Diprivan 200 mg/20 ml] Med 08/02/22 14:35 Discontinued 400 mg IV .STK-MED ONE Ringers Solution,Lactated [Lactated Ringers] 1,000 ml Med 08/02/22 10:00 Active IV 50 mls/hr Sertraline HCl 50 mg [Zoloft 50 mg Tablet] Med 08/02/22 22:00 Active 50 mg PO HS Simvastatin 20Mg [Zocor 20Mg] Med 08/02/22 10:00 Active 40 mg PO DAILY Therapuetic Drug Level Monitor [Trough Drug Levels] Med 08/03/22 15:30 Once 1 IJ 1XONLY ONE Vasopressin 20 Units [Pitressin 20 Units] Med 08/02/22 16:19 Discontinued 20 unit IJ .STK-MED ONE Zolpidem Tartrate 10 mg [Ambien 10 MG] Med 08/02/22 22:00 Active 10 mg PO HS Patient Care Notes (Last 24 hours) 08/03/22 06:25 Nursing Note by Brody Parkinson NOTIFIED DR WOO THAT PT IS HAVING PAIN 10/10 DESPITE PRN ANALGESICS ADMINISTERED. PER MD, GIVE AN ADDITION 0.5MG DILUADID X ONE DOSE AT THIS TIME. Initialized on 08/03/22 06:25 - END OF NOTE 08/02/22 16:30 Nursing Note by Toshia Geronimo BACK TO FLOOR FROM OR Initialized on 08/02/22 16:30 - END OF NOTE 08/02/22 12:47 Case Management Note by Junie Figueredo PATIENT HAS [facility]. THEY WERE NOTIFIED PATIENT HERE. THEY WILL NOTIFIED AT TIME OF DC AT [phone]. THEY WILL NEED FAXED DC INSTRUCTIONS, DC MED LIST, AND DC SUMMARY ( IF AVAILABLE) TO [phone]. Initialized on 08/02/22 12:47 - END OF NOTE Code(s): M86.9 - OSTEOMYELITIS, UNSPECIFIED (2) Diabetic foot ulcer with osteomyelitis Current Visit: Yes Status: Acute Code(s): E11.621 - TYPE 2 DIABETES MELLITUS WITH FOOT ULCER; E11.69 - TYPE 2 DIABETES MELLITUS WITH OTHER SPECIFIED COMPLICATION; L97.509 - NON-PRESSURE CHRONIC ULCER OTH PRT UNSP FOOT W UNSP SEVERITY; M86.9 - OSTEOMYELITIS, UNSPECIFIED
[2022-08-03] MEDS: Novolin N SQ SCH ×2 (08:15→16:51)
[2022-08-03] MEDS: HUMULIN R SQ SCH ×4 (08:16→22:07)
--- NOTE | 2022-08-03 08:33 | OP ---
SURGERY DATE/TIME: 08/02/2022 7743 PREOPERATIVE DIAGNOSES: 1) Osteomyelitis. 2) Peripheral vascular disease. 3) Pain left foot. POSTOPERATIVE DIAGNOSES: 1) Osteomyelitis. 2) Peripheral vascular disease. 3) Pain left foot. PROCEDURE: Open transmetatarsal amputation left foot. SURGEON: Casey Villa DPM. UNITIZER: None. ANESTHESIA: Monitored anesthesia care. HEMOSTASIS: Pressure dressing. ESTIMATED BLOOD LOSS: Approximately 50 cc. MATERIALS: 3-0 Nylon, 0.25 inch Iodoform packing, 1,000 ml Bactisure. INJECTABLES: 30 cc of a 1:1 mixture of 1% lidocaine plain and 0.5% bupivacaine plain injected in an ankle block-type fashion to the left ankle. INDICATION FOR SURGERY: Galileo is a very pleasant 71-year-old male well known to my service for osteomyelitis to the hallux that started this. Another provider did an indirect toenail two years ago. The patient has peripheral vascular disease. In recent history the patient presented for infection to the toe as well as significant pain. Vascular studies were taken demonstrating ankle-brachial index of 0.5 as well as monophasic ulcers to the dorsalis pedis and the posterior tibial arteries. He was sent for vascular consultation. His vascular surgeon Dr. Yoo no longer sees peripheral vascular so he sent him to a provider in [place]. The provider in [place] thought the patient was capable of healing and was told to proceed. That wound dehisced and he presented back for a repair of a wound dehiscence and during that procedure a significant amount of osteomyelitis was found within the first metatarsal where an abscess was present. The procedure was changed to being left open. On following that the patient's mental status changed suddenly and he was discharged to another hospital. During that period of time, the patient did not have the dressing changed for any period of time and then followed up approximately three weeks to one month later with signs of increasing pain and signs of infection to the forefoot. MRI was taken demonstrating osteomyelitis that had spread to the second, third and fourth metatarsals. Discussion was held in regards to treatment options. The patient is amenable to proceeding with surgical intervention today consisting of a transmetatarsal amputation. The patient understands all risks, complications and benefits of surgical intervention at this time including but not limited to infection, hematoma, seroma, possibility of delayed wound healing, nonwound healing, and possibility of possible need for further surgical intervention as this is a staged procedure to begin with. There is also possibility of failure of surgical intervention at this time and possible need for below knee amputation at a later date. This reality is unclear however, is more of a reality than it was on previous procedure. The patient understands all of these risks. Plenty of time was allowed for the patient to ask questions which were answered to the patients apparent satisfaction. It is with that we decided to proceed. DESCRIPTION OF PROCEDURE AND FINDINGS: The patient is brought into the OR and placed and placed on the OR table in the supine position. At this time monitored anesthesia care was administered until the patient was sedated. The left lower extremity was prepped and draped in the typical sterile fashion and lowered onto the surgical field. At this time a fish mouth incision was drawn ellipsing the previous wound dehiscence as well as the toes. A 10 blade was utilized to take the incision down to the level of bone. It was noted at this point that there was some delay in the bleeding. Disarticulation of the metatarsophalangeal joint were performed. Following this full thickness flap dissection was carried down along the metatarsal. A Juárez was then utilized to elevate the full thickness flaps more proximally at the metatarsal bases. A total joint saw was utilized to resect the metatarsals at their midpoint. Following this, 1 liter of Bactisure was utilized to flush the metatarsals as well as the flaps and then 3 liters of sterile saline was utilized to flush this. The incision was coapted partially under minimal tension utilizing 3-0 Nylon in a trauma suture-type fashion. Following this, a portion of the central aspect of the wound was left open and iodine soaked 0.25 inch Iodoform packing was then packed into the site. From that standpoint a dressing consisting of Betadine, Adaptic, 4x4, Kerlix, JESSE as well as ABD was applied to the patient's left lower extremity. The patient was then reversed from anesthesia and returned to the postoperative anesthesia care unit with vital signs stable and vascular status intact. The patient handled the anesthesia as well as the procedure without significant complication. Postoperative orders as indicated in the patient's inpatient chart.
[2022-08-03] MEDS: PLAVIX Tablet PO SCH (10:17)
[2022-08-03] MEDS: Toprol Xl 100 MG PO SCH (10:18)
[2022-08-03] MEDS: Toprol Xl 50 MG PO SCH (10:18)
[2022-08-03] MEDS: Zestril 10 MG PO SCH (10:18)
[2022-08-03] MEDS: NEURONTIN PO SCH ×3 (10:18→22:06)
[2022-08-03] MEDS: LASIX 20 MG PO SCH (10:18)
[2022-08-03] MEDS: Protonix 40MG Tablet PO SCH (10:18)
[2022-08-03] MEDS: Cymbalta 30 MG Capsule PO SCH (10:19)
[2022-08-03] MEDS: MORPHINE SULFATE 4 MG INJ IV PRN ×3 (10:19→20:23)
[2022-08-03] MEDS: ZOCOR 20MG PO SCH (10:19)
[2022-08-03] MEDS: Dextrose 5%-NS IV Solution 1000 ML 1,000 ML IV SCH (16:10)
[2022-08-03] MEDS: VANCOMYCIN 1.25 GM/250 ML BAG 1.25 GM/250 ML PIGGYBACK IV SCH (16:37)
[2022-08-03] MEDS: ECOTRIN 81 MG PO SCH (22:06)
[2022-08-03] MEDS: Aricept 10 MG PO SCH (22:06)
[2022-08-03] MEDS: ZOLOFT 50 MG TABLET PO SCH (22:06)
[2022-08-03] MEDS: Ambien 10 MG PO SCH (22:06)
[2022-08-03] MEDS: ZYLOPRIM 300 MG PO SCH (22:07)
[2022-08-04] MEDS: PIPERACILLIN/TAZOBACTAM 3.375 GM in Sodium Chloride 100ML MINI-BAG PLUS 100 ML IV SCH ×5 (01:24→23:54)
[2022-08-04] MEDS: VANCOMYCIN 1.25 GM/250 ML BAG 1.25 GM/250 ML PIGGYBACK IV SCH ×2 (03:34→16:46)
[2022-08-04] MEDS: MORPHINE SULFATE 4 MG INJ IV PRN ×4 (03:40→22:53)
[2022-08-04 04:55] LABS: Absolute Neutrophil Ct (ANC) 10.65 x10^3/uL (1.4-6.9); BASOPHIL % 0.5 % (0.0-0.4); Basophil (Absolute #) 0.09 x10^3/uL (0-0.4); Eosinophil % 3.7 % (0.00-5.0); Eosinophil (Absolute #) 0.61 x10^3/uL (0-0.5); Hematocrit 32.7 % (42-50); Hemoglobin 9.9 g/dL (12.5-18.0); IMMATURE GRAN # 0.05 x10^3u/L (0.00-0.03); IMMATURE GRAN % 0.3 % (0.00-0.4); Lymphocyte (Absolute #) 2.75 x10^3/uL (1.0-4.6); Lymphocytes % 16.6 % (24.0-44.0); Mean Cell Volume 79.2 fL (78-100); Mean Corpuscular Hgb Concent. 30.3 g/dL (32-36); Mean Platelet Volume 8.3 fL (7.5-11.0); Monocytes % 14.5 % (0.0-12.0); Neutrophil % 64.4 % (36.0-66.0); Platelet Count 363 x10^3/uL (150-450); Red Blood Count 4.13 x10^6/uL (4.1-5.6); Red Cell Distribution Width 18.2 % (11.5-14.0); White Blood Count 16.6 x10^3/uL (4.0-10.5)
[2022-08-04 05:08] LABS: ALBUMIN 3.6 g/dL (3.5-5.0); ALKALINE PHOSPHATASE 114 U/L (38-126); ANION GAP 14.4 MEQ/L (5-15); BLOOD UREA NITROGEN 12 mg/dL (9-20); CHLORIDE 95 mmol/L (98-107); Calcium 8.3 mg/dL (8.4-10.2); Carbon Dioxide 27 mmol/L (22-30); Creatinine 1 0.75 mg/dL (0.66-1.25); EST GLOMERULAR FILTRATION RATE > 60.0 ML/MIN; Glucose 310 mg/dL (74-106); Potassium 4.5 mmol/L (3.5-5.1); SGOT/AST 21 U/L (17-59); SGPT/ALT 17 U/L (0-50); SODIUM 132 mmol/L (137-145); Total Protein 7.2 g/dL (6.3-8.2)
[2022-08-04] MEDS: Novolin N SQ SCH ×2 (07:33→16:46)
[2022-08-04] MEDS: HUMULIN R SQ SCH ×4 (07:34→21:07)
[2022-08-04] MEDS ORDERED: HUMALOG SQ PRN (07:47)
[2022-08-04 10:00] LABS: Slide Review 1 YES
[2022-08-04] MEDS: Cymbalta 30 MG Capsule PO SCH (11:00)
[2022-08-04] MEDS: PLAVIX Tablet PO SCH (11:01)
[2022-08-04] MEDS: Protonix 40MG Tablet PO SCH (11:01)
[2022-08-04] MEDS: ZOCOR 20MG PO SCH (11:02)
[2022-08-04] MEDS: Toprol Xl 100 MG PO SCH (11:02)
[2022-08-04] MEDS: Zestril 10 MG PO SCH (11:03)
[2022-08-04] MEDS: Toprol Xl 50 MG PO SCH (11:03)
[2022-08-04] MEDS: NEURONTIN PO SCH ×4 (11:04→21:07)
[2022-08-04] MEDS: HYDROCODONE-ACETAMIN 10-325 MG PO PRN (11:04)
[2022-08-04] MEDS: LASIX 20 MG PO SCH (11:09)
[2022-08-04] MEDS: Lactated Ringers 1,000 ML IV SCH (12:46)
--- NOTE | 2022-08-04 16:57 | PCM.NOTE ---
Date and Time: 08/04/22 1655 Subjective Assessment: POD #2 s.p TMA. Doing well pain better controlled. Physical Exam - Narrative Narrative Physical Exam: Podiatry Physical Exam OBJECTIVE DATA Vital Signs: Vital Signs - 24 hr Temp Pulse Resp BP Pulse Ox 08/04/22 15:00 97.9 F 77 16 116/57 94 L 08/04/22 11:00 97.6 F 104 H 16 117/58 95 08/04/22 06:51 98.5 F 101 H 16 105/51 92 L 08/04/22 03:00 99.8 F 81 18 121/59 93 L 08/03/22 23:00 99.8 F 81 18 121/59 93 L 08/03/22 19:00 99.0 F 83 18 131/61 94 L Pain Assessment - Last Documented Pain Intensity 0 Pain Scale Used 0-10 Pain Scale Intake and Output: Intake & Output 08/02/22 08/03/22 08/04/22 08/05/22 11:59 11:59 11:59 11:59 Intake Total 1532 1566 2900 380 Output Total 1850 1300 1550 Balance -449 191 0914 380 Weight 67.8 kg 67.8 kg 67.8 kg Lab Results: Lab Results-Last 24 Hours 08/04/22 08/04/22 Range/Units 04:44 04:44 WBC 16.6 H (4.0-10.5) x10^3/uL RBC 4.13 (4.1-5.6) x10^6/uL Hgb 9.9 L (12.5-18.0) g/dL Hct 32.7 L (42-50) % MCV 79.2 (78-100) fL MCH 24.0 L (26-32) pg MCHC 30.3 L (32-36) g/dL RDW 18.2 H (11.5-14.0) % Plt Count 363 (150-450) x10^3/uL MPV 8.3 (7.5-11.0) fL Gran % 64.4 (36.0-66.0) % Immature Gran % (Auto) 0.3 (0.00-0.4) % Nucleat RBC Rel Count 0.0 (0.00-0.1) % Eos # (Auto) 0.61 H (0-0.5) x10^3/uL Immature Gran # (Auto) 0.05 H (0.00-0.03) x10^3u/L Absolute Lymphs (auto) 2.75 (1.0-4.6) x10^3/uL Absolute Monos (auto) 2.40 H (0.0-1.3) x10^3/uL Absolute Nucleated RBC 0.00 (0.00-0.01) x10^3u/L Lymphocytes % 16.6 L (24.0-44.0) % Monocytes % 14.5 H (0.0-12.0) % Eosinophils % 3.7 (0.00-5.0) % Basophils % 0.5 (0.0-0.4) % Absolute Granulocytes 10.65 H (1.4-6.9) x10^3/uL Basophils # 0.09 (0-0.4) x10^3/uL Sodium 132 L (137-145) mmol/L Potassium 4.5 (3.5-5.1) mmol/L Chloride 95 L (98-107) mmol/L Carbon Dioxide 27 (22-30) mmol/L Anion Gap 14.4 (5-15) MEQ/L BUN 12 (9-20) mg/dL Creatinine 0.75 (0.66-1.25) mg/dL Estimated GFR > 60.0 ML/MIN Glucose 310 H (74-106) mg/dL Calcium 8.3 L (8.4-10.2) mg/dL Total Bilirubin 0.70 (0.2-1.3) mg/dL AST 21 (17-59) U/L ALT 17 (0-50) U/L Alkaline Phosphatase 114 (38-126) U/L Serum Total Protein 7.2 (6.3-8.2) g/dL Albumin 3.6 (3.5-5.0) g/dL Slides for Path Review YES Multi-Disciplinary Progress Notes: Multi-Disciplinary Progress Notes 08/04/22 11:30 Case Management Note by Katia Carver S/W DEBRA- ORTHO NAVIGATOR- NOTIFIED OF WOUND CULTURE RESULTS. HE WILL S/W CORY AND TRY TO FIGURE OUT IF PATIENT WILL DC HOME ON PO ANTIBIOTICS OR IV ANTIBIOTICS. NOTIFIED IF IV- PATIENT WILL LIKELY NEED PICC LINE IF ANTIBIOTICS WILL BE FPC- HE VERIFIED UNDERSTANDING Initialized on 08/04/22 11:30 - END OF NOTE Assessment/Plan (1) Peripheral vascular disease of extremity with claudication Current Visit: No Status: Acute Assessment & Plan: To OR tomorrow Consent for: Incision and drainage, Partial bone resection, intrinsic muscle flap, Complex closure of wound. Contine IV abx for now. Dc PO Pain control Non weight bearing left lower extremity DVT prophylaxis Ok for D/c following procedure. Code(s): I73.9 - PERIPHERAL VASCULAR DISEASE, UNSPECIFIED (2) Toe infection Current Visit: No Status: Acute Code(s): L08.9 - LOCAL INFECTION OF THE SKIN AND SUBCUTANEOUS TISSUE, UNSP (3) Osteomyelitis of left foot Current Visit: No Status: Acute Qualifiers: Code(s): M86.9 - OSTEOMYELITIS, UNSPECIFIED (4) Type 2 diabetes mellitus Current Visit: No Status: Acute Qualifiers: (5) Leukocytosis Current Visit: No Status: Acute Code(s): D72.829 - ELEVATED WHITE BLOOD CELL COUNT, UNSPECIFIED
--- NOTE | 2022-08-04 20:40 | PCM.NOTE ---
Date and Time: 08/04/22829 Subjective Assessment: No acute events overnight - Review of Systems Constitutional: No Fever, No Chills Eyes: No Symptoms Ears, Nose, & Throat: No Symptoms Respiratory: No Cough, No Short Of Breath Cardiac: No Chest Pain, No Edema, No Syncope Abdominal/Gastrointestinal: No Abdominal Pain, No Nausea, No Vomiting, No Diarrhea Genitourinary Symptoms: No Dysuria Musculoskeletal: Other (FOOT PAIN) Skin: No Rash Neurological: No Dizziness, No Focal Weakness, No Sensory Changes Psychological: No Symptoms Endocrine: No Symptoms Hematologic/Lymphatic: No Symptoms Immunological/Allergic: No Symptoms Objective Exam General Appearance: no apparent distress, alert Neurologic Exam: alert, oriented x 3, cooperative, normal mood/affect, nml cerebellar function, sensation nml, No motor deficits Skin Exam: normal color, warm, dry Wound Assessment: Skin/Wound Assessment Wound/Incision Assessment Start: 08/01/22 15:26 Text: Status: Active Freq: Q6H Protocol: Document 08/04/22 20:00 LB (Rec: 08/04/22 20:14 LB [id number]) Wound/Incision Assessment Left Foot Wound Assessment Shift Assessment Wound Type Incision Wound Stage Non Pressure Wound Dressing Status Dry & Intact Drainage Amount None Comment DRESSING TO LEFT FOOT IS CLEAN , DRY AND INTACT AT TIME OF ASSESSMENT Wound Photo Photo Taken No Eye Exam: PERRL, EOMI, eyes nml inspection Ears, Nose, Throat Exam: normal ENT inspection, pharynx normal, moist mucous membranes Neck Exam: normal inspection, non-tender, supple, full range of motion Respiratory Exam: normal breath sounds, lungs clear, No respiratory distress Cardiovascular Exam: regular rate/rhythm, normal heart sounds Gastrointestinal/Abdomen Exam: soft, No tenderness, No mass Extremity Exam: other (LEFT FOOT BANDAGED) Back Exam: normal inspection, normal range of motion, No CVA tenderness, No vertebral tenderness Male Genitalia Exam: deferred Rectal Exam: deferred OBJECTIVE DATA Vital Signs: Vital Signs - 24 hr Temp Pulse Resp BP Pulse Ox 08/04/22 15:00 97.9 F 77 16 116/57 94 L 08/04/22 11:00 97.6 F 104 H 16 117/58 95 08/04/22 06:51 98.5 F 101 H 16 105/51 92 L 08/04/22 03:00 99.8 F 81 18 121/59 93 L 08/03/22 23:00 99.8 F 81 18 121/59 93 L Pain Assessment - Last Documented Pain Intensity 0 Pain Scale Used 0-10 Pain Scale Intake and Output: Intake & Output 08/02/22 08/03/22 08/04/22 08/05/22 11:59 11:59 11:59 11:59 Intake Total 1532 1566 2900 902 Output Total 1850 1300 1550 700 Balance -911 426 6240 202 Weight 67.8 kg 67.8 kg 67.8 kg Lab Results: Lab Results-Last 24 Hours 08/04/22 08/04/22 Range/Units 04:44 04:44 WBC 16.6 H (4.0-10.5) x10^3/uL RBC 4.13 (4.1-5.6) x10^6/uL Hgb 9.9 L (12.5-18.0) g/dL Hct 32.7 L (42-50) % MCV 79.2 (78-100) fL MCH 24.0 L (26-32) pg MCHC 30.3 L (32-36) g/dL RDW 18.2 H (11.5-14.0) % Plt Count 363 (150-450) x10^3/uL MPV 8.3 (7.5-11.0) fL Gran % 64.4 (36.0-66.0) % Immature Gran % (Auto) 0.3 (0.00-0.4) % Nucleat RBC Rel Count 0.0 (0.00-0.1) % Eos # (Auto) 0.61 H (0-0.5) x10^3/uL Immature Gran # (Auto) 0.05 H (0.00-0.03) x10^3u/L Absolute Lymphs (auto) 2.75 (1.0-4.6) x10^3/uL Absolute Monos (auto) 2.40 H (0.0-1.3) x10^3/uL Absolute Nucleated RBC 0.00 (0.00-0.01) x10^3u/L Lymphocytes % 16.6 L (24.0-44.0) % Monocytes % 14.5 H (0.0-12.0) % Eosinophils % 3.7 (0.00-5.0) % Basophils % 0.5 (0.0-0.4) % Absolute Granulocytes 10.65 H (1.4-6.9) x10^3/uL Basophils # 0.09 (0-0.4) x10^3/uL Sodium 132 L (137-145) mmol/L Potassium 4.5 (3.5-5.1) mmol/L Chloride 95 L (98-107) mmol/L Carbon Dioxide 27 (22-30) mmol/L Anion Gap 14.4 (5-15) MEQ/L BUN 12 (9-20) mg/dL Creatinine 0.75 (0.66-1.25) mg/dL Estimated GFR > 60.0 ML/MIN Glucose 310 H (74-106) mg/dL Calcium 8.3 L (8.4-10.2) mg/dL Total Bilirubin 0.70 (0.2-1.3) mg/dL AST 21 (17-59) U/L ALT 17 (0-50) U/L Alkaline Phosphatase 114 (38-126) U/L Serum Total Protein 7.2 (6.3-8.2) g/dL Albumin 3.6 (3.5-5.0) g/dL Slides for Path Review YES Multi-Disciplinary Progress Notes: Multi-Disciplinary Progress Notes 08/04/22 11:30 Case Management Note by Katia Carver S/W DEBRA- ORTHO NAVIGATOR- NOTIFIED OF WOUND CULTURE RESULTS. HE WILL S/W CORY AND TRY TO FIGURE OUT IF PATIENT WILL DC HOME ON PO ANTIBIOTICS OR IV ANTIBIOTICS. NOTIFIED IF IV- PATIENT WILL LIKELY NEED PICC LINE IF ANTIBIOTICS WILL BE ALF- HE VERIFIED UNDERSTANDING Initialized on 08/04/22 11:30 - END OF NOTE Assessment/Plan (1) Osteomyelitis of left foot Current Visit: No Status: Acute Qualifiers: Assessment & Plan: ASSESSMENT 1. Left Foot Osteomyelitis s/p Transmetatarsal Amputation, POD 2 2. Hyponatremia 3. Hypertension 4. Hyperlipidemia 5. Type II Diabetes Mellitus 6. Coronary Artery Disease s/p CABG 7. Peripheral Vascular Disease s/p Stents 8. Chronic Emphysematous COPD 9. Chart Diagnosis of CHF 10. Chronic Anemia PLAN 1. Doing well; still with some pain - controlled on gabapentin/morphine/norco 2. Podiatry managing post-op care 3. Cultures with pansensitive; continue zoysn as per podiatry; vancomycin stopped 4. Fluids stopped 5. ISS added with hyperglycemia 6. Monitor serum sodium 7. H/H stable 8. Blood pressure with good control 9. COPD under good control; PRN nebs if needed 10. PT/OT The entirety of this encounter was done via telemedicine Harley Pang MD Pulmonary and Critical Care Medicine Code(s): M86.9 - OSTEOMYELITIS, UNSPECIFIED
[2022-08-04] MEDS: ECOTRIN 81 MG PO SCH (21:07)
[2022-08-04] MEDS: Ambien 10 MG PO SCH (21:07)
[2022-08-04] MEDS: ZOLOFT 50 MG TABLET PO SCH (21:07)
[2022-08-04] MEDS: Aricept 10 MG PO SCH (21:07)
[2022-08-04] MEDS: ZYLOPRIM 300 MG PO SCH (21:07)
[2022-08-05 04:43] LABS: Absolute Neutrophil Ct (ANC) 9.66 x10^3/uL (1.4-6.9); BASOPHIL % 0.6 % (0.0-0.4); Eosinophil % 4.5 % (0.00-5.0); Eosinophil (Absolute #) 0.76 x10^3/uL (0-0.5); Hemoglobin 9.5 g/dL (12.5-18.0); IMMATURE GRAN # 0.06 x10^3u/L (0.00-0.03); IMMATURE GRAN % 0.4 % (0.00-0.4); Lymphocyte (Absolute #) 3.75 x10^3/uL (1.0-4.6); Lymphocytes % 22.2 % (24.0-44.0); Mean Cell Volume 78.1 fL (78-100); Mean Corpuscular Hemoglobin 23.9 pg (26-32); Mean Corpuscular Hgb Concent. 30.6 g/dL (32-36); Mean Platelet Volume 8.5 fL (7.5-11.0); Monocyte (Absolute #) 2.56 x10^3/uL (0.0-1.3); Monocytes % 15.2 % (0.0-12.0); Neutrophil % 57.1 % (36.0-66.0); Platelet Count 361 x10^3/uL (150-450); Red Blood Count 3.97 x10^6/uL (4.1-5.6); Red Cell Distribution Width 18.3 % (11.5-14.0); White Blood Count 16.9 x10^3/uL (4.0-10.5)
[2022-08-05] MEDS: VANCOMYCIN 1.25 GM/250 ML BAG 1.25 GM/250 ML PIGGYBACK IV SCH (04:59)
[2022-08-05 05:10] LABS: ALBUMIN 3.4 g/dL (3.5-5.0); ALKALINE PHOSPHATASE 108 U/L (38-126); ANION GAP 12.3 MEQ/L (5-15); BLOOD UREA NITROGEN 13 mg/dL (9-20); CHLORIDE 97 mmol/L (98-107); Calcium 8.5 mg/dL (8.4-10.2); Carbon Dioxide 29 mmol/L (22-30); Creatinine 1 0.73 mg/dL (0.66-1.25); EST GLOMERULAR FILTRATION RATE > 60.0 ML/MIN; Glucose 203 mg/dL (74-106); Potassium 4.8 mmol/L (3.5-5.1); SGOT/AST 25 U/L (17-59); SGPT/ALT 15 U/L (0-50); SODIUM 134 mmol/L (137-145)
[2022-08-05 05:21] LABS: Slide Review 1 YES
[2022-08-05] MEDS: PIPERACILLIN/TAZOBACTAM 3.375 GM in Sodium Chloride 100ML MINI-BAG PLUS 100 ML IV SCH (05:42)
[2022-08-05] MEDS ORDERED: Lactated Ringers 1,000 ML IV ONE (07:08)
[2022-08-05] MEDS: Lactated Ringers 1,000 ML IV SCH (07:10)
[2022-08-05] MEDS ORDERED: Marcaine Mpf 0.5% Vial 30 Ml ONE (07:18)
[2022-08-05] MEDS ORDERED: XYLOCAINE 1% HCL 20 ML MDV ONE (07:18)
[2022-08-05] MEDS ORDERED: Lactated Ringers 1,000 ML IV SCH (07:30)
[2022-08-05] MEDS ORDERED: SUBLIMAZE 100 MCG/2 ML ONE ×2 (07:39→08:10)
[2022-08-05] MEDS ORDERED: DIPRIVAN 200 MG/20 ML IV ONE ×3 (07:39→08:24)
[2022-08-05] MEDS ORDERED: Versed 2 MG/2 ML Injection ONE (07:39)
[2022-08-05] MEDS ORDERED: GARAMYCIN INJ ONE (07:40)
[2022-08-05] MEDS ORDERED: DILAUDID 2 MG INJECTION ONE (08:21)
[2022-08-05] MEDS ORDERED: PHENYLEPHRINE HCL ONE (09:30)
--- NOTE | 2022-08-05 09:49 | XRAY ---
Indication: Left foot partial bone resection. Intraoperative fluoroscopy provided for 6 seconds. 6 digital spot images submitted for interpretation demonstrates amputation all toes and majority of all mid to distal metatarsals. Correlate with intraoperative findings/report.
[2022-08-05] MEDS: HUMULIN R SQ SCH ×2 (09:56→11:21)
[2022-08-05] MEDS: Novolin N SQ SCH (09:56)
[2022-08-05] MEDS: Toprol Xl 100 MG PO SCH (10:37)
[2022-08-05] MEDS: LASIX 20 MG PO SCH (10:37)
[2022-08-05] MEDS: Toprol Xl 50 MG PO SCH (10:37)
[2022-08-05] MEDS: Zestril 10 MG PO SCH (10:37)
[2022-08-05 10:40] VITALS: BP 98/51; PULSE 106; O2SAT 93
[2022-08-05] MEDS: PLAVIX Tablet PO SCH (11:19)
[2022-08-05] MEDS: Protonix 40MG Tablet PO SCH (11:19)
[2022-08-05] MEDS: ZOCOR 20MG PO SCH (11:20)
[2022-08-05] MEDS: Cymbalta 30 MG Capsule PO SCH (11:20)
[2022-08-05] MEDS: NEURONTIN PO SCH (11:20)
--- NOTE | 2022-08-05 12:07 | XRAY ---
6 seconds of fluoroscopy was used in surgery for a left foot partial bone resection.
--- NOTE | 2022-08-05 12:23 | PCM.DS ---
Discharge Summary Date of Admission: 08/01/22 14:12 Date of Discharge: 08/05/22 Admitting Physician: TERE BLANTON Consults: Consults on Case 08/02/22 11:24 Consult Podiatry ROUTINE Primary Care Provider: TERE BLANTON Allergies Allergies morphine Adverse Reaction (Mild, Verified 08/03/22 16:12) "It makes him agressive" Hospital Summary - Hospital Course Hospital Course: Patient has tolerated his procedure and has received clearance from Podiatry for discharge. Podiatry to address antibiotics, wound care, and analgesia. Patient will follow up with podiatry as an outpatient. The patient was seen and examined via telemedicine. The entirety of this encounter was performed via telemedicine. The patient consented to this telemedicine encounter. - Vitals & Intake/Output Vital Signs: Vital Signs Temperature 97.9 F 08/05/22 10:39 Pulse Rate 106 H 08/05/22 10:39 Respiratory Rate 16 08/05/22 10:39 Blood Pressure 98/51 08/05/22 10:39 O2 Sat by Pulse Oximetry 93 L 08/05/22 10:39 Intake & Output: Intake & Output 08/03/22 08/04/22 08/05/22 08/06/22 11:59 11:59 11:59 11:59 Intake Total 1566 2900 1084 Output Total 1300 1550 700 Balance 266 1350 384 Weight 67.8 kg 67.8 kg 67.8 kg - Lab Result Diagrams: 08/05/22 04:37 08/05/22 04:37 Lab Results-Last 24 Hrs: Lab Results-Last 24 Hours 08/05/22 08/05/22 Range/Units 04:37 04:37 WBC 16.9 H (4.0-10.5) x10^3/uL RBC 3.97 L (4.1-5.6) x10^6/uL Hgb 9.5 L (12.5-18.0) g/dL Hct 31.0 L (42-50) % MCV 78.1 (78-100) fL MCH 23.9 L (26-32) pg MCHC 30.6 L (32-36) g/dL RDW 18.3 H (11.5-14.0) % Plt Count 361 (150-450) x10^3/uL MPV 8.5 (7.5-11.0) fL Gran % 57.1 (36.0-66.0) % Immature Gran % (Auto) 0.4 (0.00-0.4) % Nucleat RBC Rel Count 0.0 (0.00-0.1) % Eos # (Auto) 0.76 H (0-0.5) x10^3/uL Immature Gran # (Auto) 0.06 H (0.00-0.03) x10^3u/L Absolute Lymphs (auto) 3.75 (1.0-4.6) x10^3/uL Absolute Monos (auto) 2.56 H (0.0-1.3) x10^3/uL Absolute Nucleated RBC 0.00 (0.00-0.01) x10^3u/L Lymphocytes % 22.2 L (24.0-44.0) % Monocytes % 15.2 H (0.0-12.0) % Eosinophils % 4.5 (0.00-5.0) % Basophils % 0.6 (0.0-0.4) % Absolute Granulocytes 9.66 H (1.4-6.9) x10^3/uL Basophils # 0.10 (0-0.4) x10^3/uL Sodium 134 L (137-145) mmol/L Potassium 4.8 (3.5-5.1) mmol/L Chloride 97 L (98-107) mmol/L Carbon Dioxide 29 (22-30) mmol/L Anion Gap 12.3 (5-15) MEQ/L BUN 13 (9-20) mg/dL Creatinine 0.73 (0.66-1.25) mg/dL Estimated GFR > 60.0 ML/MIN Glucose 203 H (74-106) mg/dL Calcium 8.5 (8.4-10.2) mg/dL Total Bilirubin 0.50 (0.2-1.3) mg/dL AST 25 (17-59) U/L ALT 15 (0-50) U/L Alkaline Phosphatase 108 (38-126) U/L Serum Total Protein 7.0 (6.3-8.2) g/dL Albumin 3.4 L (3.5-5.0) g/dL Slides for Path Review YES Micro Results-Entire Visit: Microbiology 08/01/22 18:55 Wound Culture - Final Foot - Left Escherichia Coli Accuchecks Date 08/05/22 Date 08/05/22 Date 08/04/22 Date 08/04/22 Time 11:05 Time 06:58 Time 21:40 Time 16:12 - Radiology Exams Ordered Rad Exams-Entire Visit: Radiology Procedures Category Date Time Status FLUOROSCOPY UP TO 1 HR Routine Exams 08/05/22 07:05 Completed FOOT (MINIMUM 3 VIEWS) Routine Exams 08/05/22 07:05 Completed - Procedures and Test Procedures and Tests throughout Hospitalization: Therapy Orders & Screens 08/01/22 15:30 EKG ROUTINE Comment: Diagnosis: Oseomyelitis Discharge Exam General Appearance: no apparent distress Neurologic Exam: alert, oriented x 3, cooperative, wiener packer II-XII nml as tested, normal mood/affect, nml cerebellar function Eye Exam: PERRL, EOMI, eyes nml inspection Ears, Nose, Throat Exam: normal ENT inspection Neck Exam: normal inspection, non-tender, supple, full range of motion Respiratory Exam: normal breath sounds, lungs clear Cardiovascular Exam: regular rate/rhythm, normal heart sounds Gastrointestinal/Abdomen Exam: soft Back Exam: normal range of motion Extremity Exam: normal inspection, normal range of motion Wound Assessment: Skin/Wound Assessment Wound/Incision Assessment Start: 08/01/22 15:26 Text: Status: Active Freq: Q6H Protocol: Document 08/05/22 02:00 LB (Rec: 08/05/22 02:03 LB [id number]) Wound/Incision Assessment Left Foot Wound Assessment Shift Assessment Wound Type Incision Wound Stage Non Pressure Wound Dressing Status Dry & Intact Drainage Amount None Comment DRESSING TO LEFT FOOT IS CLEAN , DRY AND INTACT AT TIME OF ASSESSMENT Wound Photo Photo Taken No Final Diagnosis/Problem List - Final Discharge Diagnosis/Problem (1) Diabetic foot ulcer with osteomyelitis Current Visit: Yes Status: Acute Assessment & Plan: Podiatry has authorized discharge. Code(s): E11.621 - TYPE 2 DIABETES MELLITUS WITH FOOT ULCER; E11.69 - TYPE 2 DIABETES MELLITUS WITH OTHER SPECIFIED COMPLICATION; L97.509 - NON-PRESSURE CHRONIC ULCER OTH PRT UNSP FOOT W UNSP SEVERITY; M86.9 - OSTEOMYELITIS, UNSPECIFIED - Discharge Disposition: HOME HEALTH SERVICE Condition: Stable Prescriptions: No Action Zolpidem Tartrate 10 mg [Ambien 10 MG] 10 mg PO HS Pravastatin Sodium 40 mg PO DAILY Duloxetine HCl 30 mg [Cymbalta 30 MG Capsule] 60 mg PO DAILY Clopidogrel Bisulfate [PLAVIX Tablet] 75 mg PO DAILY Lisinopril 5 mg [Zestril 5 MG] 10 mg PO DAILY Allopurinol 100 mg [Zyloprim 100 mg] 300 mg PO HS Insulin NPH Human Isophane [Novolin N] 15 unit SQ ACHS Furosemide 20 mg [Lasix 20 mg] 20 mg PO DAILY Omeprazole Magnesium [Prilosec Otc] 20 mg PO DAILY Gabapentin [Neurontin ] 300 mg PO BID Donepezil HCl [Aricept] 5 mg PO HS Prochlorperazine Maleate 10 mg PO TID PRN PRN Reason: Nausea Insulin Regular, Human [Novolin R] 15 unit SQ BID Metoprolol Succinate 100 mg [Toprol Xl 100 MG] 150 mg PO DAILY Aspirin 81 mg PO QHS Sertraline HCl 50 mg [Zoloft 50 mg Tablet] 50 mg PO HS Hydrocodone/Acetaminophen [Hydrocodone-Acetamin 10-325 mg] 1 tablet PO Q4H PRN PRN PRN Reason: Pain Additional Instructions: LEAVE DRESSING IN PLACE, KEEP CLEAN AND DRY KEEP NON WTBEARING STATUS TO OP FOOT Follow up with: CORY LYNCH DPM [ACTIVE STAFF] - 08/11/22 1:00 pm TERE BLANTON MD [Primary Care Provider] - 08/12/22 3:15 pm (amonate )
--- NOTE | 2022-08-08 10:55 | OP ---
SURGERY DATE/TIME: 08/05/2022 0817 PREOPERATIVE DIAGNOSES: 1) Left foot osteomyelitis. 2) Diabetes mellitus. 3) Diabetic foot ulcer 4) Peripheral vascular disease. 5) Escherichia coli infected wound. 6) Dehiscence of surgical wound. POSTOPERATIVE DIAGNOSES: 1) Left foot osteomyelitis. 2) Diabetes mellitus. 3) Diabetic foot ulcer 4) Peripheral vascular disease. 5) Escherichia coli infected wound. 6) Dehiscence of surgical wound. PROCEDURES: 1) Tarsometatarsal resection 1 through 5. 2) Incision and drainage with bone debridement. 3) Intrinsic muscle flap left foot. 4) Complex wound closure left foot. SURGEON: Casey Villa DPM. SENIOR SALES EXECUTIVE: None. ANESTHESIA: Monitored anesthesia care with a preoperative ankle block. HEMOSTASIS: Pressure dressing. ESTIMATED BLOOD LOSS: Approximately 50 cc. MATERIALS: 2-0 Vicryl, 4-0 Monocryl, 3-0 Nylon, 2-0 Nylon and two Suturegards. INJECTABLES: 30 cc of 1:1 mixture of 1% lidocaine plain and 0.5% bupivacaine plain injected in ankle block-type fashion to the left ankle. INDICATION FOR SURGERY: Galileo is a very pleasant 71-year-old male known to my service for osteomyelitis of the left foot. The patient has had multiple procedures in order to rid the patient of the burden of the osteomyelitis. However, so far we have been unsuccessful. We have attempted with IV antibiotics, referrals to vascular surgery, non-weight bearing to which, per the patient's family, the patient has been noncompliant. At this time we are dealing with a surgical wound dehiscence. MRI was taken demonstrating residual osteomyelitis definitively to the second metatarsal. However, there was also indication of osteomyelitis to the third and fourth with positive drop out on T1, MRI and positive radiolucency on T2 for the second, third and fourth metatarsals. Options were discussed with the patient and the patient wishes to proceed with surgical intervention today. No guarantees were provided as to the surgical outcome. There are risks and complications which include but not limited to infection, hematoma, seroma, possibility of delayed wound healing or nonwound healing, possibility of failure of surgical intervention and need for further surgical intervention at a later date. No guarantees were provided as to the outcome. Plenty of time was allowed for the patient to ask questions which were answered to the patient's apparent satisfaction. It is with that we decided to proceed. DESCRIPTION OF PROCEDURE AND FINDINGS: The patient is brought into the OR and placed on the OR table in the supine position. At this time the monitored anesthesia care was administered until the patient was sedated. The left lower extremity was prepped and draped in the typical sterile fashion and lowered onto the surgical field. At this time attention was directed to the sutures that first coapted the initial index procedure as this was staged. We removed these and inspected the wound. Any nonviable or infected tissue was resected from the surgical site. A 15 blade was utilized to resect the skin margin to a healthy bleeding edge at both the plantar and dorsal aspects of the surgical site. At this time the sagittal saw was utilized to resect a portion of the metatarsal for better closure of the wound under minimal tension this was carried out and the bones were handed off the field for pathologic assessment. At this time an intrinsic muscle flap was harvested from the plantar aspect as the wound flap. At this time surgical planning was made with the wound flap for closure to provide bulk at the end of the metatarsal to provide for increased vascularity to the metatarsal and prevent exposure to the bones if there is a subsequent wound dehiscence. Copious amounts of sterile saline were utilized with Pulsavac to flush the surgical site. Both sides of the flap were flushed as well as the remaining resected metatarsal. At this the muscle flap was obtained. New instrumentation was brought into the field and a clean Hawk stand was utilized. The 2-0 Vicryl was then utilized to coapt the muscle flap to the periosteum dorsally of the metatarsal gaining very tight apposition of this muscle flap against the metatarsal distally. Following this a Suturegard was placed at the medial aspect of the incision and was coapted utilizing a vertical mattress-type suture with 2-0 Nylon. Following this 3-0 Nylon was utilized to coapt the subcutaneous skin edges medially. 2-0 Vicryl was then utilized to coapt the subcutaneous edges inverting the skin. Dog ears were removed utilizing a 10 blade and this process continued until the wound was closed. 3-0 Nylon was utilized at the skin edges in a horizontal mattress-type fashion coapting the skin edges. Following this towards the end of the procedure, 3-0 Nylon was utilized in a simple interrupted for any areas that had some tension to take the tension off of these areas. The foot was then cleansed with sterile saline and a dressing consisting of Betadine, Adaptic, 4x4, Kerlix and JESSE was applied to the left lower extremity with minimal compression. The patient was then reversed from anesthesia and returned to the preoperative care unit with vital signs and vascular status intact. The patient handled the anesthesia as well as the procedure without significant complication. Postoperative orders as indicated in the patient's inpatient chart.
== END 2022-08-05 13:05 | disposition home health service (06) | DRG 616 ==
LOC: MED SURG 14:12
PROVIDERS: ADMIT General Practice; ATTEND General Practice
PROC: 0Y6N0Z9 Detachment at Left Foot, Partial 1st Ray, Open Approach (ICD-10-PCS; principal; 2022-08-02)
PROC: 0Y6N0ZB Detachment at Left Foot, Partial 2nd Ray, Open Approach (ICD-10-PCS; 2022-08-02)
PROC: 0Y6N0ZC Detachment at Left Foot, Partial 3rd Ray, Open Approach (ICD-10-PCS; 2022-08-02)
PROC: 0Y6N0ZD Detachment at Left Foot, Partial 4th Ray, Open Approach (ICD-10-PCS; 2022-08-02)
PROC: 0Y6N0ZF Detachment at Left Foot, Partial 5th Ray, Open Approach (ICD-10-PCS; 2022-08-02)
PROC: 0JRR07Z Replacement of Left Foot Subcutaneous Tissue and Fascia with Autologous Tissue Substitute, Open Approach (ICD-10-PCS; 2022-08-05)
PROC: 0JQR0ZZ Repair Left Foot Subcutaneous Tissue and Fascia, Open Approach (ICD-10-PCS; 2022-08-05)
PROC: 0J9R0ZZ Drainage of Left Foot Subcutaneous Tissue and Fascia, Open Approach (ICD-10-PCS; 2022-08-05)
DX: E11.621 Type 2 diabetes mellitus with foot ulcer (principal); A41.51 Sepsis due to Escherichia coli [E. coli]; M86.572 Other chronic hematogenous osteomyelitis, left ankle and foot; T81.49XA Infection following a procedure, other surgical site, initial encounter; T81.30XA Disruption of wound, unspecified, initial encounter; E87.1 Hypo-osmolality and hyponatremia; I73.9 Peripheral vascular disease, unspecified; J44.9 Chronic obstructive pulmonary disease, unspecified; I11.0 Hypertensive heart disease with heart failure; I50.9 Heart failure, unspecified; D72.829 Elevated white blood cell count, unspecified; I25.10 Atherosclerotic heart disease of native coronary artery without angina pectoris; E78.5 Hyperlipidemia, unspecified; L97.529 Non-pressure chronic ulcer of other part of left foot with unspecified severity; M79.672 Pain in left foot; Z79.01 Long term (current) use of anticoagulants; Z79.899 Other long term (current) drug therapy; Z20.828 Contact with and (suspected) exposure to other viral communicable diseases; Z85.828 Personal history of other malignant neoplasm of skin; Z95.1 Presence of aortocoronary bypass graft; Z72.0 Tobacco use
CPT/HCPCS: 10180; 13160; 15738; 28122; 28805; 36415; 73630; 76000; 80053; 80202; 82947; 83036; 83605; 84134; 85014; 85018; 85025; 85610; 85652; 85730; 86140; 86850; 86900; 86901; 87046; 87070; 87075; 87077; 87116; 87186; 87205; 87206; 93005; Q3014; A6260; J1170; J1580; J1815; J1885; J2001; J2250; J2270; J2370; J2704; J3010; A9270-GY; J3370

== ENCOUNTER 2022-08-22 03:05 | Inpatient (IN) | payer MEDICARE ==
[2022-08-22] MEDS ORDERED: Zofran 4 MG/2 ML VIAL IV ONE (03:37)
[2022-08-22] MEDS ORDERED: Hydromorphone 1 mg/ml Injection IV ONE ×3 (03:37→06:07)
[2022-08-22] MEDS ORDERED: Zofran 4 MG/2 ML VIAL ONE (03:50)
[2022-08-22] MEDS ORDERED: Hydromorphone 1 mg/ml Injection ONE ×3 (03:50→06:37)
[2022-08-22] MEDS ORDERED: Sodium Chloride 0.9% 1000 ML 1,000 ML IV STA (04:12)
[2022-08-22] MEDS ORDERED: Sodium Chloride 0.9% 1000 ML 1,000 ML ONE ×2 (04:14→08:23)
[2022-08-22 04:27] LABS: Hematocrit 30.6 % (42-50); Hemoglobin 9.2 g/dL (12.5-18.0); Mean Cell Volume 78.1 fL (78-100); Mean Corpuscular Hemoglobin 23.5 pg (26-32); Mean Corpuscular Hgb Concent. 30.1 g/dL (32-36); Mean Platelet Volume 9.2 fL (7.5-11.0); Platelet Count 515 x10^3/uL (150-450); Red Blood Count 3.92 x10^6/uL (4.1-5.6); Red Cell Distribution Width 17.5 % (11.5-14.0)
[2022-08-22 04:32] LABS: White Blood Count 29.3 x10^3/uL (4.0-10.5)
[2022-08-22 04:33] LABS: ALBUMIN 3.5 g/dL (3.5-5.0); ANION GAP 29.5 MEQ/L (5-15); BILIRUBIN,TOTAL 0.9 mg/dL (0.2-1.3); Calcium 8.7 mg/dL (8.4-10.2); Creatinine 1 2.33 mg/dL (0.66-1.25); EST GLOMERULAR FILTRATION RATE 29.6 ML/MIN; Potassium 5.1 mmol/L (3.5-5.1); Total Protein 7.6 g/dL (6.3-8.2)
[2022-08-22 05:25] LABS: VBG BASE EXCESS -10.5 (-2.0-2.0); VBG CARBOXYHEMOGLOBIN 2.8 % T HGB (0.0-6.9); VBG HCO3- 15.7 meq/L (22-28); VBG HEMOGLOBIN 9.8; VBG O2 SATURATION 40.4 (95-100); VBG pH 7.26 (7.32-7.42)
[2022-08-22] MEDS ORDERED: MYXREDLIN 100 UNIT/100 ML BAG 100 UNIT/100 ML PLAST..BAG IV ONE (05:27)
[2022-08-22] MEDS: MYXREDLIN 100 UNIT/100 ML BAG 100 UNIT/100 ML PLAST..BAG IV PRN ×2 (05:29→06:47)
--- NOTE | 2022-08-22 05:29 | ERPHSYRPT ---
- History of Present Illness Time Seen by Provider: 08/22/22 03:40 Source: patient, other (Daughter at bedside) Patient Subjective Stated Complaint: pt states he has had surgery on his lt foot twice with dr barreto, last week dr barreto did a nerve block to help with pain. the last 2 days pt has had increased pain and has been vomiting and not able to keep his pills down, including his percocet for pain Triage Nursing Assessment: pt awake and alert. Physician History: Patient is a 71-year-old male 1 month postop left partial foot amputation pr esents to our ED for evaluation and treatment of pain at the surgical site. Patient received a nerve block for pain however patient states nerve block is worn off. Patient is experiencing nausea and vomiting. Patient unable to hold down his pain medication which is likely contributing to patient's discomfort. Patient has history of diabetes. No fever. No chills. No diarrhea. No rash. Symptoms started 4 to 5 days ago.. Symptoms are progressive. Symptoms are moderate in intensity. No specific worsening or improving factors. Daughter at bedside. They voiced no other complaints or concerns at this time. Portions of this note were created with voice recognition technology. There may be grammatical, spelling, punctuation or sound alike errors Timing/Duration: day(s) (4 to 5 days ago) Severity: moderate Modifying Factors: Improves With: nothing Associated Symptoms: denies symptoms Allergies/Adverse Reactions: morphine Adverse Reaction (Mild, Verified 08/03/22 16:12) "It makes him agressive" Home Medications: Pravastatin Sodium 40 mg PO DAILY 09/19/12 [History] Zolpidem Tartrate 10 mg [Ambien 10 MG] 10 mg PO HS 09/19/12 [History] Allopurinol 100 mg [Zyloprim 100 mg] 300 mg PO HS 04/23/18 [History] Clopidogrel Bisulfate [PLAVIX Tablet] 75 mg PO DAILY 04/23/18 [History] Duloxetine HCl 30 mg [Cymbalta 30 MG Capsule] 60 mg PO DAILY 04/23/18 [History] Lisinopril 5 mg [Zestril 5 MG] 10 mg PO DAILY 04/23/18 [History] Furosemide 20 mg [Lasix 20 mg] 20 mg PO DAILY 05/04/21 [History] Gabapentin [Neurontin ] 300 mg PO BID 05/04/21 [History] Insulin NPH Human Isophane [Novolin N] 15 unit SQ ACHS 05/04/21 [History] Omeprazole Magnesium [Prilosec Otc] 20 mg PO DAILY 05/04/21 [History] Donepezil HCl [Aricept] 5 mg PO HS 02/15/22 [History] Prochlorperazine Maleate 10 mg PO TID PRN 02/15/22 [History] Aspirin 81 mg PO QHS 05/30/22 [History] Insulin Regular, Human [Novolin R] 15 unit SQ BID 05/30/22 [History] Metoprolol Succinate 100 mg [Toprol Xl 100 MG] 150 mg PO DAILY 05/30/22 [History] Sertraline HCl 50 mg [Zoloft 50 mg Tablet] 50 mg PO HS 06/28/22 [History] Hydrocodone/Acetaminophen [Hydrocodone-Acetamin 10-325 mg] 1 tablet PO Q4H PRN PRN 08/01/22 [History] Hx Tetanus, Diphtheria Vaccination/Date Given: Yes Hx Influenza Vaccination/Date Given: (unable to assess due to pt's confusion) Hx Pneumococcal Vaccination/Date Given: (unable to assess due to pt's confusion) Immunizations Up to Date: Yes Travel Risk - International Travel Have you traveled outside of the country in past 3 weeks: No - Coronavirus Screening Are you exhibiting any of the following symptoms?: No Close contact with a COVID-19 positive Pt in past 14-21 Days: No - Vaccine Status Have you recieved a Covid-19 vaccination: Yes Vertical Borer: Moderna - Vaccination Dates Date of 2cond Vaccination (if applicable): unknown - Review of Systems Constitutional: No Symptoms Eyes: No Symptoms Ears, Nose, & Throat: No Symptoms Respiratory: No Symptoms Cardiac: No Symptoms Abdominal/Gastrointestinal: No Symptoms Genitourinary Symptoms: No Symptoms Musculoskeletal: No Symptoms Skin: No Symptoms Neurological: No Symptoms Psychological: No Symptoms Endocrine: No Symptoms Hematologic/Lymphatic: No Symptoms Immunological/Allergic: No Symptoms - Past Medical History Pertinent Past Medical History: Yes Neurological History: Peripheral Neuropathy ENT History: Other Cardiac History: Coronary Artery Disease, High Cholesterol, Hypertension, Myocardial Infarction ([place]), Peripheral Vascular Disease Respiratory History: Bronchitis, CHF, COPD, Emphysema, Pneumonia, Other Endocrine Medical History: Diabetes Type II, Other Musculoskeletal History: Fractures, Osteoarthritis GI Medical History: Esophageal Disorder, GERD, Hernia History: No Pertinent History Psycho-Social History: No Pertinent History Male Reproductive Disorders: Prostate Problems Other Medical History: HX FX LEFT HIP WITH ORIF 2012, SURGERY UPPER AND LOWER BACK BUT PATIENT UNABLE TO STATE WHAT WAS DONE (STATES WAS ALSO IN 2013) skin ca melanoma. 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 ALSO STENTS IN BOTH GROINS. IN REGARDS TO COPD/EMPHYSEMA STATES WAS TOLD HE HAD ABOUT 2 YEARS. STATES HE HAS O2 AND USES IT AT NIGHT AND IS "SUPPOSED" TO WEAR IT ALL THE TIME. STATES HE IS GETTING A SMART VEST TOMORROW TO USE 2X DAY TO HELP WITH LUNGS - Past Surgical History Past Surgical History: Yes Neuro Surgical History: No Pertinent History Cardiac: CABG Respiratory: No Pertinent History Gastrointestinal: No Pertinent History Genitourinary: No Pertinent History Musculoskeletal: Orthopedic Surgery Male Surgical History: Prostate Surgery Other Surgical History: bilat shoulder, L hip surgeries, L hand surgery, spine surgery , stents in legs for circulation - Social History Smoking Status: Current every day smoker How long have you smoked: 50 years Exposure to second hand smoke: Yes Drug Use: none Patient Lives Alone: No - Nursing Vital Signs Nursing Vital Signs: Initial Vital Signs Temperature 98.1 F 08/22/22 03:21 Pulse Rate 139 H 08/22/22 03:21 Respiratory Rate 28 H 08/22/22 03:21 Blood Pressure 106/62 08/22/22 03:21 O2 Sat by Pulse Oximetry 95 08/22/22 03:21 Pain Scale Pain Intensity 5 - Physical Exam General Appearance: no apparent distress, alert Eye Exam: PERRL/EOMI, eyes nml inspection Ears, Nose, Throat Exam: normal ENT inspection, TMs normal, pharynx normal, moist mucous membranes Neck Exam: normal inspection, non-tender, supple, full range of motion Respiratory Exam: normal breath sounds, lungs clear, No respiratory distress Cardiovascular Exam: regular rate/rhythm, normal heart sounds, normal peripheral pulses Gastrointestinal/Abdomen Exam: soft, normal bowel sounds, No tenderness, No mass Back Exam: normal inspection, normal range of motion, No CVA tenderness, No vertebral tenderness Extremity Exam: normal inspection, normal range of motion, pelvis stable, other (Partial left foot amputation) Neurologic Exam: alert, oriented x 3, cooperative, normal mood/affect, nml cerebellar function, nml station & gait, sensation nml, No motor deficits Skin Exam: normal color, warm, dry, No rash Lymphatic Exam: No adenopathy SpO2 Interpretation: normal SpO2: 100 O2 Delivery: Room Air - Course Nursing assessment & vital signs reviewed: Yes EKG Interpreted by Me: RATE ([id number]), Sinus Rhythm, NORMAL AXIS, NORMAL INTERVALS Ordered Tests: Active Orders 24 hr Category Date Time Status EKG-ER Only STAT Care 08/22/22 05:44 Active IV Insertion STAT Care 08/22/22 03:36 Active BLOOD CULTURE Stat Lab 08/22/22 05:27 Received CBC W DIFF Stat Lab 08/22/22 04:25 Completed CMP Stat Lab 08/22/22 04:25 Completed CULTURE,URINE Stat Lab 08/22/22 05:46 Received Lactic Acid Stat Lab 08/22/22 05:08 Completed MAGNESIUM Stat Lab 08/22/22 05:27 Completed Manual Differential NC Stat Lab 08/22/22 04:25 Completed PHOSPHOROUS Stat Lab 08/22/22 05:27 Completed PROCALCITONIN Stat Lab 08/22/22 05:18 Completed TROPONIN Q4H Lab 08/22/22 04:25 Completed TROPONIN Q4H Lab 08/22/22 08:30 Ordered TROPONIN Q4H Lab 08/22/22 12:30 Ordered TROPONIN Q4H Lab 08/22/22 16:30 Ordered TROPONIN Q4H Lab 08/22/22 20:30 Ordered UA W/RFX UR CULTURE Stat Lab 08/22/22 05:24 Ordered UA W/RFX UR CULTURE Stat Lab 08/22/22 05:46 Received VBG [VENOUS BLOOD GAS] Stat Lab 08/22/22 05:21 Completed Transfer Order Routine Transfer 08/22/22 Ordered Medication Summary Generic Name Dose Route Start Last Admin Trade Name Freq PRN Reason Stop Dose Admin INSULIN REGULAR IN 0.9 % NACL 100 unit in 100 mls @ 6.2 mls/hr 08/22/22 05:23 08/22/22 05:29 Myxredlin 100 Unit/100 Ml Bag IV 09/21/22 05:22 0.1 unit/kg/hr .Q16H8M PRN 6.2 mls/hr HYPERGLYCEMIA Administration Protocol 0.1 UNIT/KG/HR Lactated Ringer's 1,000 mls @ 999 mls/hr 08/22/22 05:34 08/22/22 05:35 Lactated Ringers IV 08/22/22 06:34 999 mls/hr .Q1H1M ONE Administration Piperacillin Sod/Tazobactam 100 mls @ 200 mls/hr 08/22/22 06:09 Sod 3.375 gm/ Sodium Chloride IV 08/22/22 06:38 STAT ONE Discontinued Medications Generic Name Dose Route Start Last Admin Trade Name Freq PRN Reason Stop Dose Admin Hydromorphone HCl 0.5 mg 08/22/22 03:37 08/22/22 04:01 Hydromorphone 1 Mg/1ml Inj IV 08/22/22 03:38 0.5 mg STAT ONE Administration Hydromorphone HCl Confirm 08/22/22 03:50 Hydromorphone 1 Mg/1ml Inj Administered 08/22/22 03:51 Dose 1 mg .ROUTE .STK-MED ONE Hydromorphone HCl Confirm 08/22/22 04:20 Hydromorphone 1 Mg/1ml Inj Administered 08/22/22 04:21 Dose 1 mg .ROUTE .STK-MED ONE Hydromorphone HCl 0.5 mg 08/22/22 04:30 08/22/22 04:23 Hydromorphone 1 Mg/1ml Inj IV 08/22/22 04:31 0.5 mg STAT ONE Administration Hydromorphone HCl 1 mg 08/22/22 06:07 Hydromorphone 1 Mg/1ml Inj IV 08/22/22 06:08 STAT ONE Sodium Chloride 1,000 mls @ 999 mls/hr 08/22/22 04:12 08/22/22 05:53 Sodium Chloride 0.9% 1000 Ml IV 08/22/22 05:12 Infused .Q1H1M STA Infusion Sodium Chloride Confirm 08/22/22 04:14 Sodium Chloride 0.9% 1000 Ml Administered 08/22/22 04:15 Dose 1,000 mls @ ud .ROUTE .STK-MED ONE Lactated Ringer's Confirm 08/22/22 05:33 Lactated Ringers Administered 08/22/22 05:34 Dose 1,000 mls @ ud IV .STK-MED ONE Ondansetron HCl 4 mg 08/22/22 03:37 08/22/22 04:01 Ondansetron Hcl 4 Mg/2 Ml Vial IV 08/22/22 03:38 4 mg STAT ONE Administration Ondansetron HCl Confirm 08/22/22 03:50 Ondansetron Hcl 4 Mg/2 Ml Vial Administered 08/22/22 03:51 Dose 4 mg .ROUTE .STK-MED ONE Lab/Rad Data: Laboratory Result Diagrams 08/22/22 04:25 08/22/22 04:25 Laboratory Results 08/22/22 08/22/22 08/22/22 Range/Units 05:27 05:21 05:18 WBC (4.0-10.5) x10^3/uL RBC (4.1-5.6) x10^6/uL Hgb (12.5-18.0) g/dL Hct (42-50) % MCV (78-100) fL MCH (26-32) pg MCHC (32-36) g/dL RDW (11.5-14.0) % Plt Count (150-450) x10^3/uL MPV (7.5-11.0) fL pO2/FiO2 Ratio 21.0 % VBG pH 7.26 L (7.32-7.42) VBG pCO2 at Pat Temp 35 L (42-55) mm/Hg VBG pO2 at Pat Temp 30 (25-40) mm/Hg VBG HCO3 15.7 L* (22-28) meq/L VBG O2 Sat (Susan) 40.4 L (95-100) VBG Base Excess -10.5 L (-2.0-2.0) VBG Hemoglobin 9.8 VBG Carboxyhemoglobin 2.8 (0.0-6.9) % T HGB POC Potassium 6.0 H* (3.5-5.1) Sodium (137-145) mmol/L Potassium (3.5-5.1) mmol/L Chloride (98-107) mmol/L Carbon Dioxide (22-30) mmol/L Anion Gap (5-15) MEQ/L BUN (9-20) mg/dL Creatinine (0.66-1.25) mg/dL Estimated GFR ML/MIN Glucose (74-106) mg/dL Lactic Acid (0.4-2.0) Calcium (8.4-10.2) mg/dL Phosphorus 4.1 (2.5-4.5) mg/dL Magnesium 1.6 (1.6-2.3) mg/dL Total Bilirubin (0.2-1.3) mg/dL AST (17-59) U/L ALT (0-50) U/L Alkaline Phosphatase (38-126) U/L Troponin I (0.000-0.034) ng/mL Serum Total Protein (6.3-8.2) g/dL Albumin (3.5-5.0) g/dL Procalcitonin 52.600 H* (0.030-0.080) ng/mL 08/22/22 08/22/22 08/22/22 Range/Units 05:08 04:25 04:25 WBC (4.0-10.5) x10^3/uL RBC (4.1-5.6) x10^6/uL Hgb (12.5-18.0) g/dL Hct (42-50) % MCV (78-100) fL MCH (26-32) pg MCHC (32-36) g/dL RDW (11.5-14.0) % Plt Count (150-450) x10^3/uL MPV (7.5-11.0) fL pO2/FiO2 Ratio % VBG pH (7.32-7.42) VBG pCO2 at Pat Temp (42-55) mm/Hg VBG pO2 at Pat Temp (25-40) mm/Hg VBG HCO3 (22-28) meq/L VBG O2 Sat (Susan) (95-100) VBG Base Excess (-2.0-2.0) VBG Hemoglobin VBG Carboxyhemoglobin (0.0-6.9) % T HGB POC Potassium (3.5-5.1) Sodium 132 L (137-145) mmol/L Potassium 5.1 (3.5-5.1) mmol/L Chloride 94 L (98-107) mmol/L Carbon Dioxide 15 L* (22-30) mmol/L Anion Gap 29.5 H (5-15) MEQ/L BUN 33 H (9-20) mg/dL Creatinine 2.33 H (0.66-1.25) mg/dL Estimated GFR 29.6 ML/MIN Glucose 623 H* (74-106) mg/dL Lactic Acid 11.8 H (0.4-2.0) Calcium 8.7 (8.4-10.2) mg/dL Phosphorus (2.5-4.5) mg/dL Magnesium (1.6-2.3) mg/dL Total Bilirubin 0.90 (0.2-1.3) mg/dL AST 66 H (17-59) U/L ALT 45 (0-50) U/L Alkaline Phosphatase 86 (38-126) U/L Troponin I 0.023 (0.000-0.034) ng/mL Serum Total Protein 7.6 (6.3-8.2) g/dL Albumin 3.5 (3.5-5.0) g/dL Procalcitonin (0.030-0.080) ng/mL 08/22/22 Range/Units 04:25 WBC 29.3 H* (4.0-10.5) x10^3/uL RBC 3.92 L (4.1-5.6) x10^6/uL Hgb 9.2 L (12.5-18.0) g/dL Hct 30.6 L (42-50) % MCV 78.1 (78-100) fL MCH 23.5 L (26-32) pg MCHC 30.1 L (32-36) g/dL RDW 17.5 H (11.5-14.0) % Plt Count 515 H (150-450) x10^3/uL MPV 9.2 (7.5-11.0) fL pO2/FiO2 Ratio % VBG pH (7.32-7.42) VBG pCO2 at Pat Temp (42-55) mm/Hg VBG pO2 at Pat Temp (25-40) mm/Hg VBG HCO3 (22-28) meq/L VBG O2 Sat (Susan) (95-100) VBG Base Excess (-2.0-2.0) VBG Hemoglobin VBG Carboxyhemoglobin (0.0-6.9) % T HGB POC Potassium (3.5-5.1) Sodium (137-145) mmol/L Potassium (3.5-5.1) mmol/L Chloride (98-107) mmol/L Carbon Dioxide (22-30) mmol/L Anion Gap (5-15) MEQ/L BUN (9-20) mg/dL Creatinine (0.66-1.25) mg/dL Estimated GFR ML/MIN Glucose (74-106) mg/dL Lactic Acid (0.4-2.0) Calcium (8.4-10.2) mg/dL Phosphorus (2.5-4.5) mg/dL Magnesium (1.6-2.3) mg/dL Total Bilirubin (0.2-1.3) mg/dL AST (17-59) U/L ALT (0-50) U/L Alkaline Phosphatase (38-126) U/L Troponin I (0.000-0.034) ng/mL Serum Total Protein (6.3-8.2) g/dL Albumin (3.5-5.0) g/dL Procalcitonin (0.030-0.080) ng/mL - Progress Progress: improved Progress Note: Patient is 71-year-old man with diabetes, 1 month postop partial left foot amputation presents to our ED with left foot pain nausea and vomiting. Patient states he is unable to tolerate his oral pain medications. Physical exam reveals a 71-year-old male with severe pain at the postsurgical site. Patient states that his nerve block is wearing down. Symptoms started approximately 5 days ago. Symptoms are progressively worsening. Due to complaints of ongoing nausea and vomiting laboratory orders entered. Patient received an EKG which revealed a sinus tachycardia. CBC CMP ordered. Patient has a leukocytosis of 29.3. Patient states that he had an amputation of his left foot due to osteomyelitis. It is possible that the leukocytosis is stemming from osteomyelitis. Antibiotics will be initiated. Normocytic anemia of 9.2. Thrombocytosis of 515. CMP reveals a hyponatremia at 132. There is a glucose of 623 and an anion gap of 29.5. Patient has DKA based on these numbers. Patient's corrected sodium is 141. Patient received a bolus of normal saline. In light of the profound metabolic acidosis we switched IV fluids from normal saline to lactated ringer. Zofran administered for nausea and vomiting. Insulin drip initiated. Lactic acidosis of 11.8. Magnesium pending. Calculated serum osmolarity is 310. Phosphorus pending. Procalcitonin pending. Initial troponin negative. Urinalysis pending. We placed a Mcdonnell catheter to measure urine output. VBG reveals a metabolic acidosis. In light of these abnormalities, patient will be admitted to the intensive care unit. Plan of care discussed with patient. He agrees to admission at [facility] for further evaluation and treatment. Portions of this note were created with voice recognition technology. There may be grammatical, spelling, punctuation or sound alike errors Complexity of problem addressed is high, severe exacerbation with threat to bodily function. Critical care time is over 5 hours. Immediate intervention initiated to prevent further deterioration. Complex of data reviewed and analyzed is extensive. Test ordered. Test revi ewed and analyzed. Findings were correlated with clinical exam findings. Patient in DKA possibly triggered to osteomyelitis of left foot/postop Risk of complication and or risk morbidity/mortality patient management is high. Patient on insulin drip. Patient will require hospitalization/ICU admission for further evaluation and treatment. Plan of care discussed with patient. He agrees to admission at [facility] for further evaluation and treatment. 08/22/22 05:55 Dr. Isaac excepts admission at 6:19 AM. The floor/ICU will not be able to accommodate our patient until 7:30 AM. 08/22/22 06:20 Will see patient in: hospital (observation) Counseled pt/family regarding: lab results, diagnosis - Departure Departure Disposition: Observation Clinical Impression: DKA (diabetic ketoacidosis), Nausea and vomiting, Leukocytosis, Normocytic anemia, Thrombocytosis, Hyponatremia, Hyperglycemia, High anion gap metabolic acidosis, Tachycardia Condition: Stable Critical Care Time: Yes Critical Care Time(excluding separately billable procedures): Critcal > 194 mins Referrals: TERE BLANTON MD [Primary Care Provider] - Follow up/PCP as directed
[2022-08-22] MEDS ORDERED: Lactated Ringers 1,000 ML IV ONE ×2 (05:33→05:34)
[2022-08-22] MEDS ORDERED: PIPERACILLIN/TAZOBACTAM 3.375 GM in Sodium Chloride 100ML MINI-BAG PLUS 100 ML IV ONE (06:09)
[2022-08-22 06:15] LABS: MAGNESIUM 1.6 mg/dL (1.6-2.3); PHOSPHOROUS 4.1 mg/dL (2.5-4.5)
[2022-08-22 06:17] LABS: Appearance Clear (Clear); Bacteria None Seen /HPF (None Seen); Bilirubin Negative (Negative); Blood Negative (Negative); Epithelial Cells None Seen /HPF (None Seen); Glucose, Urine >=1000 mg/dL (Negative); Ketones Trace (Negative); Leukocyte Esterase Negative (Negative); Nitrite Negative (Negative); Ph 5.5 (4.6-8.0); Protein,Urine Dip 30 (Negative); Specific Gravity 1.025 (1.005-1.030); Urobilinogen 0.2 mg/dL (0.2)
[2022-08-22 06:21] LABS: ADD URINE CULTURE? NO (NO)
[2022-08-22] MEDS ORDERED: Sodium Chloride 100ML MINI-BAG PLUS 100 ML IV ONE (06:37)
[2022-08-22] MEDS ORDERED: PIPERACILLIN/TAZOBACTAM IV ONE (06:37)
[2022-08-22 07:10] LABS: BAND 4 % (0.0-2.0); Monocyte 3 % (0.0-12.0); Neutrophils 93 % (36.-66.); Total Cells Counted 100
[2022-08-22 07:11] LABS: Platelet Estimate INCREASED (NORMAL)
[2022-08-22] MEDS ORDERED: VANCOMYCIN 1 GRAM/200 ML BAG 1 GM/200 ML PIGGYBACK IV ONE (08:22)
[2022-08-22] MEDS ORDERED: MYXREDLIN 100 UNIT/100 ML BAG 100 UNIT/100 ML PLAST..BAG IV PRN (08:29)
[2022-08-22] MEDS: Sodium Chloride 0.9% 1000 ML 1,000 ML IV SCH ×3 (09:27→18:27)
[2022-08-22] MEDS: HYDROCODONE-ACETAMIN 10-325 MG PO PRN ×2 (09:34→15:22)
[2022-08-22] MEDS: PLAVIX Tablet PO SCH (09:34)
[2022-08-22] MEDS: Zofran 4 MG/2 ML VIAL IV PRN ×2 (09:34→16:33)
[2022-08-22 10:00] LABS: ANION GAP 21.3 MEQ/L (5-15); Calcium 8.5 mg/dL (8.4-10.2); Creatinine 1 2.07 mg/dL (0.66-1.25); EST GLOMERULAR FILTRATION RATE 33.9 ML/MIN; Potassium 3.8 mmol/L (3.5-5.1); TROPONIN 0.023 ng/mL (0.000-0.034)
[2022-08-22] MEDS ORDERED: D5W/0.45NS W/ 20mEq KCl 1000 ML 1,000 ML IV SCH (11:00)
[2022-08-22] MEDS: MORPHINE SULFATE 2 MG INJ IV PRN ×2 (11:20→16:42)
--- NOTE | 2022-08-22 11:32 | PCM.HP ---
History of Present Illness - Chief Complaint Chief Complaint: DKA, SEPSIS Date: 08/22/22 History of Present Illness: is a 71 year old male. He presents with days of pain and nausea and vomiting. He has a history of diabetes louann diabetic foot disease. 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 In the ED he was found to be in DKA. WBC was also elevated. He follows with Dr. Peña from podiatry. - Review of Systems Eyes: No Symptoms Ears, Nose, & Throat: No Symptoms Respiratory: No Symptoms Cardiac: No Symptoms Abdominal/Gastrointestinal: No Symptoms Genitourinary Symptoms: No Symptoms Musculoskeletal: Joint Redness, Joint Pain Psychological: No Symptoms Medications & Allergies Home Medications: Home Medication List Pravastatin Sodium 40 mg PO DAILY 09/19/12 [History Confirmed 08/22/22] Zolpidem Tartrate 10 mg [Ambien 10 MG] 10 mg PO HS 09/19/12 [History Confirmed 08/22/22] Allopurinol 100 mg [Zyloprim 100 mg] 300 mg PO HS 04/23/18 [History Confirmed 08/22/22] Clopidogrel Bisulfate [PLAVIX Tablet] 75 mg PO DAILY 04/23/18 [History Confirmed 08/22/22] Duloxetine HCl 30 mg [Cymbalta 30 MG Capsule] 60 mg PO DAILY 04/23/18 [History Confirmed 08/22/22] Lisinopril 5 mg [Zestril 5 MG] 10 mg PO DAILY 04/23/18 [History Confirmed 08/22/22] Furosemide 20 mg [Lasix 20 mg] 20 mg PO DAILY 05/04/21 [History Confirmed 08/22/22] Gabapentin [Neurontin ] 300 mg PO BID 05/04/21 [History Confirmed 08/22/22] Insulin NPH Human Isophane [Novolin N] 10 unit SQ BID 05/04/21 [History Confirmed 08/22/22] Omeprazole Magnesium [Prilosec Otc] 20 mg PO DAILY 05/04/21 [History Confirmed 08/22/22] Donepezil HCl [Aricept] 5 mg PO HS 02/15/22 [History Confirmed 08/22/22] Prochlorperazine Maleate 10 mg PO TID PRN 02/15/22 [History Confirmed 08/22/22] Aspirin 81 mg PO QHS 05/30/22 [History Confirmed 08/22/22] Insulin Regular, Human [Novolin R] 20 unit SQ BID 05/30/22 [History Confirmed 08/22/22] Metoprolol Succinate 100 mg [Toprol Xl 100 MG] 150 mg PO DAILY 05/30/22 [History Confirmed 08/22/22] Sertraline HCl 50 mg [Zoloft 50 mg Tablet] 50 mg PO HS 06/28/22 [History Confirmed 08/22/22] Hydrocodone/Acetaminophen [Hydrocodone-Acetamin 10-325 mg] 1 tablet PO Q4H PRN PRN 08/01/22 [History Confirmed 08/22/22] Allergies/Adverse Reactions: Allergies Allergy/AdvReac Type Severity Reaction Status Date / Time No Known Drug Allergies Allergy Unverified 08/22/22 11:13 - Past Medical History Past Medical History: Yes Neurological History: Peripheral Neuropathy ENT History: Other Cardiac History: Coronary Artery Disease, High Cholesterol, Hypertension, Myocardial Infarction (ME), Peripheral Vascular Disease Respiratory History: Bronchitis, CHF, COPD, Emphysema, Pneumonia, Other Endocrine Medical History: Diabetes Type II, Other Musculoskelatal History: Fractures, Osteoarthritis GI Medical History: Esophageal Disorder, GERD, Hernia History: No Pertinent History Pyscho-Social History: No Pertinent History Male Reproductive Disorders: Prostate Problems Comment: HX FX LEFT HIP WITH ORIF 2012, SURGERY UPPER AND LOWER BACK BUT PATIENT UNABLE TO STATE WHAT WAS DONE (STATES WAS ALSO IN 2013) skin ca melanoma. 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 ALSO STENTS IN BOTH GROINS. IN REGARDS TO COPD/EMPHYSEMA STATES WAS TOLD HE HAD ABOUT 2 YEARS. STATES HE HAS O2 AND USES IT AT NIGHT AND IS "SUPPOSED" TO WEAR IT ALL THE TIME. STATES HE IS GETTING A SMART VEST TOMORROW TO USE 2X DAY TO HELP WITH LUNGS - Past Surgical History Past Surgical History: Yes Neuro Surgical History: No Pertinent History Cardiac History: CABG Respiratory Surgery: No Pertinent History GI Surgical History: No Pertinent History Genitourinary Surgical Hx: No Pertinent History Musculskeletal Surgical Hx: Orthopedic Surgery Male Surgical History: Prostate Surgery Other Surgical History: bilat shoulder, L hip surgeries, L hand surgery, spine surgery , stents in legs for circulation - Social History Smoking Status: Current every day smoker How long have you smoked: 50 years Exposure to second hand smoke: Yes Alcohol: None Drug Use: none - Physical Exam Vital Signs: Vital Signs - 24 hr Temp Pulse Resp BP BP Pulse Ox 08/22/22 11:00 119 H 21 101/57 100 08/22/22 09:59 125 H 19 95/56 100 08/22/22 08:52 125 H 21 94/51 100 08/22/22 08:31 123 H 10 L 84/68 100 08/22/22 08:00 123 H 10 L 121/105 97 08/22/22 07:37 120 H 20 100/55 96 08/22/22 07:36 124 H 12 100/55 97 08/22/22 07:30 125 H 24 88/51 98 08/22/22 07:00 112 H 16 103/52 100 08/22/22 06:21 100 08/22/22 06:00 125 H 25 H 126/53 100 08/22/22 05:00 125 H 14 129/67 96 08/22/22 04:06 139 H 18 115/58 100 08/22/22 03:21 98.1 F 139 H 28 H 106/62 95 General Appearance: mild distress Neurologic Exam: alert, oriented x 3 Neck Exam: normal inspection Respiratory Exam: normal breath sounds Cardiovascular Exam: regular rate/rhythm Gastrointestinal/Abdomen Exam: soft Extremity Exam: amputations, deformities Results - Labs Lab/Micro Results: Lab Results-Last 24 Hours 08/22/22 08/22/22 08/22/22 Range/Units 04:25 04:25 04:25 WBC 29.3 H* (4.0-10.5) x10^3/uL RBC 3.92 L (4.1-5.6) x10^6/uL Hgb 9.2 L (12.5-18.0) g/dL Hct 30.6 L (42-50) % MCV 78.1 (78-100) fL MCH 23.5 L (26-32) pg MCHC 30.1 L (32-36) g/dL RDW 17.5 H (11.5-14.0) % Plt Count 515 H (150-450) x10^3/uL MPV 9.2 (7.5-11.0) fL Segmented Neutrophils 93 H (36.-66.) % Band Neutrophils 4 H (0.0-2.0) % Monocytes (Manual) 3 (0.0-12.0) % Platelet Estimate INCREASED (NORMAL) RBC Morphology NORMAL pO2/FiO2 Ratio % VBG pH (7.32-7.42) VBG pCO2 at Pat Temp (42-55) mm/Hg VBG pO2 at Pat Temp (25-40) mm/Hg VBG HCO3 (22-28) meq/L VBG O2 Sat (Susan) (95-100) VBG Base Excess (-2.0-2.0) VBG Hemoglobin VBG Carboxyhemoglobin (0.0-6.9) % T HGB POC Potassium (3.5-5.1) Sodium 132 L Cancelled (137-145) mmol/L Potassium 5.1 Cancelled (3.5-5.1) mmol/L Chloride 94 L Cancelled (98-107) mmol/L Carbon Dioxide 15 L* Cancelled (22-30) mmol/L Anion Gap 29.5 H Cancelled (5-15) MEQ/L BUN 33 H Cancelled (9-20) mg/dL Creatinine 2.33 H Cancelled (0.66-1.25) mg/dL Estimated GFR 29.6 Cancelled ML/MIN Glucose 623 H* Cancelled (74-106) mg/dL POC Glucometer (74 to 106) mg/dL Lactic Acid (0.4-2.0) Calcium 8.7 Cancelled (8.4-10.2) mg/dL Phosphorus (2.5-4.5) mg/dL Magnesium (1.6-2.3) mg/dL Total Bilirubin 0.90 (0.2-1.3) mg/dL AST 66 H (17-59) U/L ALT 45 (0-50) U/L Alkaline Phosphatase 86 (38-126) U/L Troponin I 0.023 (0.000-0.034) ng/mL Serum Total Protein 7.6 (6.3-8.2) g/dL Albumin 3.5 (3.5-5.0) g/dL Procalcitonin (0.030-0.080) ng/mL Urine Color (Yellow) Urine Appearance (Clear) Urine pH (4.6-8.0) Ur Specific [place] (1.005-1.030) Urine Protein (Negative) Urine Glucose (UA) (Negative) mg/dL Urine Ketones (Negative) Urine Blood (Negative) Urine Nitrite (Negative) Urine Bilirubin (Negative) Urine Urobilinogen (0.2) mg/dL Ur Leukocyte Esterase (Negative) U Hyaline Cast (Auto) (0-2) /LPF Urine Microscopic RBC (0-5) /HPF Urine Microscopic WBC (0-5) /HPF Ur Epithelial Cells (None Seen) /HPF Urine Bacteria (None Seen) /HPF Urine Culture Reflexed (NO) 08/22/22 08/22/22 08/22/22 Range/Units 05:08 05:18 05:21 WBC (4.0-10.5) x10^3/uL RBC (4.1-5.6) x10^6/uL Hgb (12.5-18.0) g/dL Hct (42-50) % MCV (78-100) fL MCH (26-32) pg MCHC (32-36) g/dL RDW (11.5-14.0) % Plt Count (150-450) x10^3/uL MPV (7.5-11.0) fL Segmented Neutrophils (36.-66.) % Band Neutrophils (0.0-2.0) % Monocytes (Manual) (0.0-12.0) % Platelet Estimate (NORMAL) RBC Morphology pO2/FiO2 Ratio 21.0 % VBG pH 7.26 L (7.32-7.42) VBG pCO2 at Pat Temp 35 L (42-55) mm/Hg VBG pO2 at Pat Temp 30 (25-40) mm/Hg VBG HCO3 15.7 L* (22-28) meq/L VBG O2 Sat (Susan) 40.4 L (95-100) VBG Base Excess -10.5 L (-2.0-2.0) VBG Hemoglobin 9.8 VBG Carboxyhemoglobin 2.8 (0.0-6.9) % T HGB POC Potassium 6.0 H* (3.5-5.1) Sodium (137-145) mmol/L Potassium (3.5-5.1) mmol/L Chloride (98-107) mmol/L Carbon Dioxide (22-30) mmol/L Anion Gap (5-15) MEQ/L BUN (9-20) mg/dL Creatinine (0.66-1.25) mg/dL Estimated GFR ML/MIN Glucose (74-106) mg/dL POC Glucometer (74 to 106) mg/dL Lactic Acid 11.8 H (0.4-2.0) Calcium (8.4-10.2) mg/dL Phosphorus (2.5-4.5) mg/dL Magnesium (1.6-2.3) mg/dL Total Bilirubin (0.2-1.3) mg/dL AST (17-59) U/L ALT (0-50) U/L Alkaline Phosphatase (38-126) U/L Troponin I (0.000-0.034) ng/mL Serum Total Protein (6.3-8.2) g/dL Albumin (3.5-5.0) g/dL Procalcitonin 52.600 H* (0.030-0.080) ng/mL Urine Color (Yellow) Urine Appearance (Clear) Urine pH (4.6-8.0) Ur Specific [place] (1.005-1.030) Urine Protein (Negative) Urine Glucose (UA) (Negative) mg/dL Urine Ketones (Negative) Urine Blood (Negative) Urine Nitrite (Negative) Urine Bilirubin (Negative) Urine Urobilinogen (0.2) mg/dL Ur Leukocyte Esterase (Negative) U Hyaline Cast (Auto) (0-2) /LPF Urine Microscopic RBC (0-5) /HPF Urine Microscopic WBC (0-5) /HPF Ur Epithelial Cells (None Seen) /HPF Urine Bacteria (None Seen) /HPF Urine Culture Reflexed (NO) 08/22/22 08/22/22 08/22/22 Range/Units 05:27 05:46 06:43 WBC (4.0-10.5) x10^3/uL RBC (4.1-5.6) x10^6/uL Hgb (12.5-18.0) g/dL Hct (42-50) % MCV (78-100) fL MCH (26-32) pg MCHC (32-36) g/dL RDW (11.5-14.0) % Plt Count (150-450) x10^3/uL MPV (7.5-11.0) fL Segmented Neutrophils (36.-66.) % Band Neutrophils (0.0-2.0) % Monocytes (Manual) (0.0-12.0) % Platelet Estimate (NORMAL) RBC Morphology pO2/FiO2 Ratio % VBG pH (7.32-7.42) VBG pCO2 at Pat Temp (42-55) mm/Hg VBG pO2 at Pat Temp (25-40) mm/Hg VBG HCO3 (22-28) meq/L VBG O2 Sat (Susan) (95-100) VBG Base Excess (-2.0-2.0) VBG Hemoglobin VBG Carboxyhemoglobin (0.0-6.9) % T HGB POC Potassium (3.5-5.1) Sodium (137-145) mmol/L Potassium (3.5-5.1) mmol/L Chloride (98-107) mmol/L Carbon Dioxide (22-30) mmol/L Anion Gap (5-15) MEQ/L BUN (9-20) mg/dL Creatinine (0.66-1.25) mg/dL Estimated GFR ML/MIN Glucose (74-106) mg/dL POC Glucometer 389 H (74 to 106) mg/dL Lactic Acid (0.4-2.0) Calcium (8.4-10.2) mg/dL Phosphorus 4.1 (2.5-4.5) mg/dL Magnesium 1.6 (1.6-2.3) mg/dL Total Bilirubin (0.2-1.3) mg/dL AST (17-59) U/L ALT (0-50) U/L Alkaline Phosphatase (38-126) U/L Troponin I (0.000-0.034) ng/mL Serum Total Protein (6.3-8.2) g/dL Albumin (3.5-5.0) g/dL Procalcitonin (0.030-0.080) ng/mL Urine Color Dark Yellow (Yellow) Urine Appearance Clear (Clear) Urine pH 5.5 (4.6-8.0) Ur Specific [place] 1.025 (1.005-1.030) Urine Protein 30 (Negative) Urine Glucose (UA) >=1000 A (Negative) mg/dL Urine Ketones Trace A (Negative) Urine Blood Negative (Negative) Urine Nitrite Negative (Negative) Urine Bilirubin Negative (Negative) Urine Urobilinogen 0.2 (0.2) mg/dL Ur Leukocyte Esterase Negative (Negative) U Hyaline Cast (Auto) 6-10 A (0-2) /LPF Urine Microscopic RBC 3-5 (0-5) /HPF Urine Microscopic WBC 3-5 (0-5) /HPF Ur Epithelial Cells None Seen (None Seen) /HPF Urine Bacteria None Seen (None Seen) /HPF Urine Culture Reflexed NO (NO) 08/22/22 08/22/22 08/22/22 Range/Units 07:43 08:25 08:30 WBC (4.0-10.5) x10^3/uL RBC (4.1-5.6) x10^6/uL Hgb (12.5-18.0) g/dL Hct (42-50) % MCV (78-100) fL MCH (26-32) pg MCHC (32-36) g/dL RDW (11.5-14.0) % Plt Count (150-450) x10^3/uL MPV (7.5-11.0) fL Segmented Neutrophils (36.-66.) % Band Neutrophils (0.0-2.0) % Monocytes (Manual) (0.0-12.0) % Platelet Estimate (NORMAL) RBC Morphology pO2/FiO2 Ratio % VBG pH (7.32-7.42) VBG pCO2 at Pat Temp (42-55) mm/Hg VBG pO2 at Pat Temp (25-40) mm/Hg VBG HCO3 (22-28) meq/L VBG O2 Sat (Susan) (95-100) VBG Base Excess (-2.0-2.0) VBG Hemoglobin VBG Carboxyhemoglobin (0.0-6.9) % T HGB POC Potassium (3.5-5.1) Sodium 138 (137-145) mmol/L Potassium 3.8 D (3.5-5.1) mmol/L Chloride 102 (98-107) mmol/L Carbon Dioxide 19 L (22-30) mmol/L Anion Gap 21.3 H (5-15) MEQ/L BUN 32 H (9-20) mg/dL Creatinine 2.07 H (0.66-1.25) mg/dL Estimated GFR 33.9 ML/MIN Glucose 239 H (74-106) mg/dL POC Glucometer 286 H 261 H (74 to 106) mg/dL Lactic Acid (0.4-2.0) Calcium 8.5 (8.4-10.2) mg/dL Phosphorus (2.5-4.5) mg/dL Magnesium (1.6-2.3) mg/dL Total Bilirubin (0.2-1.3) mg/dL AST (17-59) U/L ALT (0-50) U/L Alkaline Phosphatase (38-126) U/L Troponin I 0.023 (0.000-0.034) ng/mL Serum Total Protein (6.3-8.2) g/dL Albumin (3.5-5.0) g/dL Procalcitonin (0.030-0.080) ng/mL Urine Color (Yellow) Urine Appearance (Clear) Urine pH (4.6-8.0) Ur Specific [place] (1.005-1.030) Urine Protein (Negative) Urine Glucose (UA) (Negative) mg/dL Urine Ketones (Negative) Urine Blood (Negative) Urine Nitrite (Negative) Urine Bilirubin (Negative) Urine Urobilinogen (0.2) mg/dL Ur Leukocyte Esterase (Negative) U Hyaline Cast (Auto) (0-2) /LPF Urine Microscopic RBC (0-5) /HPF Urine Microscopic WBC (0-5) /HPF Ur Epithelial Cells (None Seen) /HPF Urine Bacteria (None Seen) /HPF Urine Culture Reflexed (NO) 08/22/22 08/22/22 08/22/22 Range/Units 08:50 09:59 10:55 WBC (4.0-10.5) x10^3/uL RBC (4.1-5.6) x10^6/uL Hgb (12.5-18.0) g/dL Hct (42-50) % MCV (78-100) fL MCH (26-32) pg MCHC (32-36) g/dL RDW (11.5-14.0) % Plt Count (150-450) x10^3/uL MPV (7.5-11.0) fL Segmented Neutrophils (36.-66.) % Band Neutrophils (0.0-2.0) % Monocytes (Manual) (0.0-12.0) % Platelet Estimate (NORMAL) RBC Morphology pO2/FiO2 Ratio % VBG pH (7.32-7.42) VBG pCO2 at Pat Temp (42-55) mm/Hg VBG pO2 at Pat Temp (25-40) mm/Hg VBG HCO3 (22-28) meq/L VBG O2 Sat (Susan) (95-100) VBG Base Excess (-2.0-2.0) VBG Hemoglobin VBG Carboxyhemoglobin (0.0-6.9) % T HGB POC Potassium (3.5-5.1) Sodium (137-145) mmol/L Potassium (3.5-5.1) mmol/L Chloride (98-107) mmol/L Carbon Dioxide (22-30) mmol/L Anion Gap (5-15) MEQ/L BUN (9-20) mg/dL Creatinine (0.66-1.25) mg/dL Estimated GFR ML/MIN Glucose (74-106) mg/dL POC Glucometer 208 H 195 H (74 to 106) mg/dL Lactic Acid 9.8 H (0.4-2.0) Calcium (8.4-10.2) mg/dL Phosphorus (2.5-4.5) mg/dL Magnesium (1.6-2.3) mg/dL Total Bilirubin (0.2-1.3) mg/dL AST (17-59) U/L ALT (0-50) U/L Alkaline Phosphatase (38-126) U/L Troponin I (0.000-0.034) ng/mL Serum Total Protein (6.3-8.2) g/dL Albumin (3.5-5.0) g/dL Procalcitonin (0.030-0.080) ng/mL Urine Color (Yellow) Urine Appearance (Clear) Urine pH (4.6-8.0) Ur Specific [place] (1.005-1.030) Urine Protein (Negative) Urine Glucose (UA) (Negative) mg/dL Urine Ketones (Negative) Urine Blood (Negative) Urine Nitrite (Negative) Urine Bilirubin (Negative) Urine Urobilinogen (0.2) mg/dL Ur Leukocyte Esterase (Negative) U Hyaline Cast (Auto) (0-2) /LPF Urine Microscopic RBC (0-5) /HPF Urine Microscopic WBC (0-5) /HPF Ur Epithelial Cells (None Seen) /HPF Urine Bacteria (None Seen) /HPF Urine Culture Reflexed (NO) Assessment/Plan (1) Peripheral vascular disease of extremity with claudication Current Visit: No Status: Acute Code(s): I73.9 - PERIPHERAL VASCULAR DISEASE, UNSPECIFIED (2) DKA (diabetic ketoacidosis) Current Visit: Yes Status: Acute Qualifiers: Diabetes mellitus type: type 2 Assessment & Plan: Lactate coming down from 11 to 9, will treat with fluid and insulin and electrolyte replacement as needed. Code(s): E11.10 - TYPE 2 DIABETES MELLITUS WITH KETOACIDOSIS WITHOUT COMA (3) Osteomyelitis of left foot Current Visit: No Status: Acute Qualifiers: Assessment & Plan: Will continue vanc and zosyn for foot, pharmacy to dose, podiatry coming in to inspect foot Code(s): M86.9 - OSTEOMYELITIS, UNSPECIFIED (4) Type 2 diabetes mellitus Current Visit: No Status: Acute Qualifiers: Diabetes mellitus complication status: without complication Assessment & Plan: will treat as above (5) Microcytic anemia Current Visit: No Status: Acute Assessment & Plan: secondary to infection with underlying iron deficiency possible, will consider supplements on discharge Code(s): D50.9 - IRON DEFICIENCY ANEMIA, UNSPECIFIED Telemedicine Encounter - Telemedicine Encounter Telemedicine Encounter: The entirety of this encounter was performed via Telemedicine"
[2022-08-22 13:31] LABS: ANION GAP 16.1 MEQ/L (5-15); Calcium 7.8 mg/dL (8.4-10.2); Creatinine 1 1.67 mg/dL (0.66-1.25); EST GLOMERULAR FILTRATION RATE 43.4 ML/MIN; Potassium 4.8 mmol/L (3.5-5.1)
[2022-08-22] MEDS ORDERED: PHARMACY DOSING REQUIRED: VANCOMYCIN IV STA (14:57)
[2022-08-22] MEDS ORDERED: PHARMACY DOSING REQUEST MC ONE (14:57)
[2022-08-22] MEDS: Piperacillin/Tazobactam 2.25 GM 2.25 GM in Sodium Chloride 100ML MINI-BAG PLUS 100 ML IV SCH ×2 (15:17→20:45)
[2022-08-22] MEDS ORDERED: HYDROCODONE-ACETAMIN 10-325 MG PO PRN (16:07)
[2022-08-22] MEDS ORDERED: PROCHLORPERAZINE MALEATE 10 MG PO PRN (16:07)
[2022-08-22] MEDS: LASIX 20 MG PO SCH (16:22)
[2022-08-22] MEDS: ZOCOR 20MG PO SCH (16:33)
[2022-08-22] MEDS: Protonix 40MG Tablet PO SCH (16:33)
[2022-08-22] MEDS: Cymbalta 30 MG Capsule PO SCH (16:33)
[2022-08-22] MEDS: Novolin N SQ SCH (16:34)
[2022-08-22 17:01] LABS: ANION GAP 13.1 MEQ/L (5-15); Calcium 7.7 mg/dL (8.4-10.2); Creatinine 1 1.49 mg/dL (0.66-1.25); EST GLOMERULAR FILTRATION RATE 49.6 ML/MIN; MAGNESIUM 1.5 mg/dL (1.6-2.3); Potassium 5.1 mmol/L (3.5-5.1); TROPONIN 0.023 ng/mL (0.000-0.034)
[2022-08-22] MEDS: VANCOCIN 500 MG VIAL*** 500 MG in Sodium Chloride 100ML MINI-BAG PLUS 100 ML IV SCH (17:04)
[2022-08-22] MEDS: HUMULIN R SQ PRN ×2 (17:13→20:42)
--- NOTE | 2022-08-22 17:16 | PCM.CONS ---
Podiatry HPI - Consult Date of Consultation Date: 08/22/22 Reason for Consult: Post op pain, PVD, s/p TMA left foot Consulting Provider: CORY LYNCH DPM - [facility] History of Present Illness: Severe pain due to known severe peripheral vascular disease with one blood vessel runoff to the posterior tibial artery s/p TMA for Osteomyeltis. Was planned for intervention with Dr. Hogan today 08/22/2022 however here for pain and DKA. Patient denies any consistional symptoms of infection. Pain debilitating for patient Medications & Allergies Home Medications: Home Medication List Pravastatin Sodium 40 mg PO DAILY 09/19/12 [History Confirmed 08/22/22] Zolpidem Tartrate 10 mg [Ambien 10 MG] 10 mg PO HS 09/19/12 [History Confirmed 08/22/22] Allopurinol 100 mg [Zyloprim 100 mg] 300 mg PO HS 04/23/18 [History Confirmed 08/22/22] Clopidogrel Bisulfate [PLAVIX Tablet] 75 mg PO DAILY 04/23/18 [History Confirmed 08/22/22] Duloxetine HCl 30 mg [Cymbalta 30 MG Capsule] 60 mg PO DAILY 04/23/18 [History Confirmed 08/22/22] Lisinopril 5 mg [Zestril 5 MG] 10 mg PO DAILY 04/23/18 [History Confirmed 08/22/22] Furosemide 20 mg [Lasix 20 mg] 20 mg PO DAILY 05/04/21 [History Confirmed 08/22/22] Gabapentin [Neurontin ] 300 mg PO BID 05/04/21 [History Confirmed 08/22/22] Insulin NPH Human Isophane [Novolin N] 10 unit SQ BID 05/04/21 [History Confirmed 08/22/22] Omeprazole Magnesium [Prilosec Otc] 20 mg PO DAILY 05/04/21 [History Confirmed 08/22/22] Donepezil HCl [Aricept] 5 mg PO HS 02/15/22 [History Confirmed 08/22/22] Prochlorperazine Maleate 10 mg PO TID PRN 02/15/22 [History Confirmed 08/22/22] Aspirin 81 mg PO QHS 05/30/22 [History Confirmed 08/22/22] Insulin Regular, Human [Novolin R] 20 unit SQ BID 05/30/22 [History Confirmed 08/22/22] Metoprolol Succinate 100 mg [Toprol Xl 100 MG] 150 mg PO DAILY 05/30/22 [History Confirmed 08/22/22] Sertraline HCl 50 mg [Zoloft 50 mg Tablet] 50 mg PO HS 06/28/22 [History Confirmed 08/22/22] Hydrocodone/Acetaminophen [Hydrocodone-Acetamin 10-325 mg] 1 tablet PO Q4H PRN PRN 08/01/22 [History Confirmed 08/22/22] Allergies/Adverse Reactions: Allergies Allergy/AdvReac Type Severity Reaction Status Date / Time No Known Drug Allergies Allergy Unverified 08/22/22 11:13 - Past Medical History Past Medical History: Yes Neurological History: Peripheral Neuropathy ENT History: Other Cardiac History: Coronary Artery Disease, High Cholesterol, Hypertension, Myocardial Infarction (MS), Peripheral Vascular Disease Respiratory History: Bronchitis, CHF, COPD, Emphysema, Pneumonia, Other Endocrine Medical History: Diabetes Type II, Other Musculoskelatal History: Fractures, Osteoarthritis GI Medical History: Esophageal Disorder, GERD, Hernia History: No Pertinent History Pyscho-Social History: No Pertinent History Male Reproductive Disorders: Prostate Problems Comment: HX FX LEFT HIP WITH ORIF 2012, SURGERY UPPER AND LOWER BACK BUT PATIENT UNABLE TO STATE WHAT WAS DONE (STATES WAS ALSO IN 2013) skin ca melanoma. 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 ALSO STENTS IN BOTH GROINS. IN REGARDS TO COPD/EMPHYSEMA STATES WAS TOLD HE HAD ABOUT 2 YEARS. STATES HE HAS O2 AND USES IT AT NIGHT AND IS "SUPPOSED" TO WEAR IT ALL THE TIME. STATES HE IS GETTING A SMART VEST TOMORROW TO USE 2X DAY TO HELP WITH LUNGS - Past Surgical History Past Surgical History: Yes Neuro Surgical History: No Pertinent History Cardiac History: CABG Respiratory Surgery: No Pertinent History GI Surgical History: No Pertinent History Genitourinary Surgical Hx: No Pertinent History Musculskeletal Surgical Hx: Orthopedic Surgery Male Surgical History: Prostate Surgery Other Surgical History: bilat shoulder, L hip surgeries, L hand surgery, spine surgery , stents in legs for circulation - Social History Smoking Status: Current every day smoker How long have you smoked: 50 years Exposure to second hand smoke: Yes Alcohol: None Drug Use: none Physical Exam - Narrative Narrative Physical Exam: Podiatry Physical Exam Results - Labs Lab/Micro Results: Lab Results-Last 24 Hours 08/22/22 08/22/22 08/22/22 Range/Units 04:25 04:25 04:25 WBC 29.3 H* (4.0-10.5) x10^3/uL RBC 3.92 L (4.1-5.6) x10^6/uL Hgb 9.2 L (12.5-18.0) g/dL Hct 30.6 L (42-50) % MCV 78.1 (78-100) fL MCH 23.5 L (26-32) pg MCHC 30.1 L (32-36) g/dL RDW 17.5 H (11.5-14.0) % Plt Count 515 H (150-450) x10^3/uL MPV 9.2 (7.5-11.0) fL Segmented Neutrophils 93 H (36.-66.) % Band Neutrophils 4 H (0.0-2.0) % Monocytes (Manual) 3 (0.0-12.0) % Platelet Estimate INCREASED (NORMAL) RBC Morphology NORMAL pO2/FiO2 Ratio % VBG pH (7.32-7.42) VBG pCO2 at Pat Temp (42-55) mm/Hg VBG pO2 at Pat Temp (25-40) mm/Hg VBG HCO3 (22-28) meq/L VBG O2 Sat (Susan) (95-100) VBG Base Excess (-2.0-2.0) VBG Hemoglobin VBG Carboxyhemoglobin (0.0-6.9) % T HGB POC Potassium (3.5-5.1) Sodium 132 L Cancelled (137-145) mmol/L Potassium 5.1 Cancelled (3.5-5.1) mmol/L Chloride 94 L Cancelled (98-107) mmol/L Carbon Dioxide 15 L* Cancelled (22-30) mmol/L Anion Gap 29.5 H Cancelled (5-15) MEQ/L BUN 33 H Cancelled (9-20) mg/dL Creatinine 2.33 H Cancelled (0.66-1.25) mg/dL Estimated GFR 29.6 Cancelled ML/MIN Glucose 623 H* Cancelled (74-106) mg/dL POC Glucometer (74 to 106) mg/dL Lactic Acid (0.4-2.0) Calcium 8.7 Cancelled (8.4-10.2) mg/dL Phosphorus (2.5-4.5) mg/dL Magnesium (1.6-2.3) mg/dL Total Bilirubin 0.90 (0.2-1.3) mg/dL AST 66 H (17-59) U/L ALT 45 (0-50) U/L Alkaline Phosphatase 86 (38-126) U/L Troponin I 0.023 (0.000-0.034) ng/mL Serum Total Protein 7.6 (6.3-8.2) g/dL Albumin 3.5 (3.5-5.0) g/dL Procalcitonin (0.030-0.080) ng/mL Urine Color (Yellow) Urine Appearance (Clear) Urine pH (4.6-8.0) Ur Specific Temple (1.005-1.030) Urine Protein (Negative) Urine Glucose (UA) (Negative) mg/dL Urine Ketones (Negative) Urine Blood (Negative) Urine Nitrite (Negative) Urine Bilirubin (Negative) Urine Urobilinogen (0.2) mg/dL Ur Leukocyte Esterase (Negative) U Hyaline Cast (Auto) (0-2) /LPF Urine Microscopic RBC (0-5) /HPF Urine Microscopic WBC (0-5) /HPF Ur Epithelial Cells (None Seen) /HPF Urine Bacteria (None Seen) /HPF Urine Culture Reflexed (NO) 08/22/22 08/22/22 08/22/22 Range/Units 05:08 05:18 05:21 WBC (4.0-10.5) x10^3/uL RBC (4.1-5.6) x10^6/uL Hgb (12.5-18.0) g/dL Hct (42-50) % MCV (78-100) fL MCH (26-32) pg MCHC (32-36) g/dL RDW (11.5-14.0) % Plt Count (150-450) x10^3/uL MPV (7.5-11.0) fL Segmented Neutrophils (36.-66.) % Band Neutrophils (0.0-2.0) % Monocytes (Manual) (0.0-12.0) % Platelet Estimate (NORMAL) RBC Morphology pO2/FiO2 Ratio 21.0 % VBG pH 7.26 L (7.32-7.42) VBG pCO2 at Pat Temp 35 L (42-55) mm/Hg VBG pO2 at Pat Temp 30 (25-40) mm/Hg VBG HCO3 15.7 L* (22-28) meq/L VBG O2 Sat (Susan) 40.4 L (95-100) VBG Base Excess -10.5 L (-2.0-2.0) VBG Hemoglobin 9.8 VBG Carboxyhemoglobin 2.8 (0.0-6.9) % T HGB POC Potassium 6.0 H* (3.5-5.1) Sodium (137-145) mmol/L Potassium (3.5-5.1) mmol/L Chloride (98-107) mmol/L Carbon Dioxide (22-30) mmol/L Anion Gap (5-15) MEQ/L BUN (9-20) mg/dL Creatinine (0.66-1.25) mg/dL Estimated GFR ML/MIN Glucose (74-106) mg/dL POC Glucometer (74 to 106) mg/dL Lactic Acid 11.8 H (0.4-2.0) Calcium (8.4-10.2) mg/dL Phosphorus (2.5-4.5) mg/dL Magnesium (1.6-2.3) mg/dL Total Bilirubin (0.2-1.3) mg/dL AST (17-59) U/L ALT (0-50) U/L Alkaline Phosphatase (38-126) U/L Troponin I (0.000-0.034) ng/mL Serum Total Protein (6.3-8.2) g/dL Albumin (3.5-5.0) g/dL Procalcitonin 52.600 H* (0.030-0.080) ng/mL Urine Color (Yellow) Urine Appearance (Clear) Urine pH (4.6-8.0) Ur Specific Temple (1.005-1.030) Urine Protein (Negative) Urine Glucose (UA) (Negative) mg/dL Urine Ketones (Negative) Urine Blood (Negative) Urine Nitrite (Negative) Urine Bilirubin (Negative) Urine Urobilinogen (0.2) mg/dL Ur Leukocyte Esterase (Negative) U Hyaline Cast (Auto) (0-2) /LPF Urine Microscopic RBC (0-5) /HPF Urine Microscopic WBC (0-5) /HPF Ur Epithelial Cells (None Seen) /HPF Urine Bacteria (None Seen) /HPF Urine Culture Reflexed (NO) 08/22/22 08/22/22 08/22/22 Range/Units 05:27 05:46 06:43 WBC (4.0-10.5) x10^3/uL RBC (4.1-5.6) x10^6/uL Hgb (12.5-18.0) g/dL Hct (42-50) % MCV (78-100) fL MCH (26-32) pg MCHC (32-36) g/dL RDW (11.5-14.0) % Plt Count (150-450) x10^3/uL MPV (7.5-11.0) fL Segmented Neutrophils (36.-66.) % Band Neutrophils (0.0-2.0) % Monocytes (Manual) (0.0-12.0) % Platelet Estimate (NORMAL) RBC Morphology pO2/FiO2 Ratio % VBG pH (7.32-7.42) VBG pCO2 at Pat Temp (42-55) mm/Hg VBG pO2 at Pat Temp (25-40) mm/Hg VBG HCO3 (22-28) meq/L VBG O2 Sat (Susan) (95-100) VBG Base Excess (-2.0-2.0) VBG Hemoglobin VBG Carboxyhemoglobin (0.0-6.9) % T HGB POC Potassium (3.5-5.1) Sodium (137-145) mmol/L Potassium (3.5-5.1) mmol/L Chloride (98-107) mmol/L Carbon Dioxide (22-30) mmol/L Anion Gap (5-15) MEQ/L BUN (9-20) mg/dL Creatinine (0.66-1.25) mg/dL Estimated GFR ML/MIN Glucose (74-106) mg/dL POC Glucometer 389 H (74 to 106) mg/dL Lactic Acid (0.4-2.0) Calcium (8.4-10.2) mg/dL Phosphorus 4.1 (2.5-4.5) mg/dL Magnesium 1.6 (1.6-2.3) mg/dL Total Bilirubin (0.2-1.3) mg/dL AST (17-59) U/L ALT (0-50) U/L Alkaline Phosphatase (38-126) U/L Troponin I (0.000-0.034) ng/mL Serum Total Protein (6.3-8.2) g/dL Albumin (3.5-5.0) g/dL Procalcitonin (0.030-0.080) ng/mL Urine Color Dark Yellow (Yellow) Urine Appearance Clear (Clear) Urine pH 5.5 (4.6-8.0) Ur Specific Temple 1.025 (1.005-1.030) Urine Protein 30 (Negative) Urine Glucose (UA) >=1000 A (Negative) mg/dL Urine Ketones Trace A (Negative) Urine Blood Negative (Negative) Urine Nitrite Negative (Negative) Urine Bilirubin Negative (Negative) Urine Urobilinogen 0.2 (0.2) mg/dL Ur Leukocyte Esterase Negative (Negative) U Hyaline Cast (Auto) 6-10 A (0-2) /LPF Urine Microscopic RBC 3-5 (0-5) /HPF Urine Microscopic WBC 3-5 (0-5) /HPF Ur Epithelial Cells None Seen (None Seen) /HPF Urine Bacteria None Seen (None Seen) /HPF Urine Culture Reflexed NO (NO) 08/22/22 08/22/22 08/22/22 Range/Units 07:43 08:25 08:30 WBC (4.0-10.5) x10^3/uL RBC (4.1-5.6) x10^6/uL Hgb (12.5-18.0) g/dL Hct (42-50) % MCV (78-100) fL MCH (26-32) pg MCHC (32-36) g/dL RDW (11.5-14.0) % Plt Count (150-450) x10^3/uL MPV (7.5-11.0) fL Segmented Neutrophils (36.-66.) % Band Neutrophils (0.0-2.0) % Monocytes (Manual) (0.0-12.0) % Platelet Estimate (NORMAL) RBC Morphology pO2/FiO2 Ratio % VBG pH (7.32-7.42) VBG pCO2 at Pat Temp (42-55) mm/Hg VBG pO2 at Pat Temp (25-40) mm/Hg VBG HCO3 (22-28) meq/L VBG O2 Sat (Susan) (95-100) VBG Base Excess (-2.0-2.0) VBG Hemoglobin VBG Carboxyhemoglobin (0.0-6.9) % T HGB POC Potassium (3.5-5.1) Sodium 138 (137-145) mmol/L Potassium 3.8 D (3.5-5.1) mmol/L Chloride 102 (98-107) mmol/L Carbon Dioxide 19 L (22-30) mmol/L Anion Gap 21.3 H (5-15) MEQ/L BUN 32 H (9-20) mg/dL Creatinine 2.07 H (0.66-1.25) mg/dL Estimated GFR 33.9 ML/MIN Glucose 239 H (74-106) mg/dL POC Glucometer 286 H 261 H (74 to 106) mg/dL Lactic Acid (0.4-2.0) Calcium 8.5 (8.4-10.2) mg/dL Phosphorus (2.5-4.5) mg/dL Magnesium (1.6-2.3) mg/dL Total Bilirubin (0.2-1.3) mg/dL AST (17-59) U/L ALT (0-50) U/L Alkaline Phosphatase (38-126) U/L Troponin I 0.023 (0.000-0.034) ng/mL Serum Total Protein (6.3-8.2) g/dL Albumin (3.5-5.0) g/dL Procalcitonin (0.030-0.080) ng/mL Urine Color (Yellow) Urine Appearance (Clear) Urine pH (4.6-8.0) Ur Specific Temple (1.005-1.030) Urine Protein (Negative) Urine Glucose (UA) (Negative) mg/dL Urine Ketones (Negative) Urine Blood (Negative) Urine Nitrite (Negative) Urine Bilirubin (Negative) Urine Urobilinogen (0.2) mg/dL Ur Leukocyte Esterase (Negative) U Hyaline Cast (Auto) (0-2) /LPF Urine Microscopic RBC (0-5) /HPF Urine Microscopic WBC (0-5) /HPF Ur Epithelial Cells (None Seen) /HPF Urine Bacteria (None Seen) /HPF Urine Culture Reflexed (NO) 08/22/22 08/22/22 08/22/22 Range/Units 08:50 09:59 10:55 WBC (4.0-10.5) x10^3/uL RBC (4.1-5.6) x10^6/uL Hgb (12.5-18.0) g/dL Hct (42-50) % MCV (78-100) fL MCH (26-32) pg MCHC (32-36) g/dL RDW (11.5-14.0) % Plt Count (150-450) x10^3/uL MPV (7.5-11.0) fL Segmented Neutrophils (36.-66.) % Band Neutrophils (0.0-2.0) % Monocytes (Manual) (0.0-12.0) % Platelet Estimate (NORMAL) RBC Morphology pO2/FiO2 Ratio % VBG pH (7.32-7.42) VBG pCO2 at Pat Temp (42-55) mm/Hg VBG pO2 at Pat Temp (25-40) mm/Hg VBG HCO3 (22-28) meq/L VBG O2 Sat (Susan) (95-100) VBG Base Excess (-2.0-2.0) VBG Hemoglobin VBG Carboxyhemoglobin (0.0-6.9) % T HGB POC Potassium (3.5-5.1) Sodium (137-145) mmol/L Potassium (3.5-5.1) mmol/L Chloride (98-107) mmol/L Carbon Dioxide (22-30) mmol/L Anion Gap (5-15) MEQ/L BUN (9-20) mg/dL Creatinine (0.66-1.25) mg/dL Estimated GFR ML/MIN Glucose (74-106) mg/dL POC Glucometer 208 H 195 H (74 to 106) mg/dL Lactic Acid 9.8 H (0.4-2.0) Calcium (8.4-10.2) mg/dL Phosphorus (2.5-4.5) mg/dL Magnesium (1.6-2.3) mg/dL Total Bilirubin (0.2-1.3) mg/dL AST (17-59) U/L ALT (0-50) U/L Alkaline Phosphatase (38-126) U/L Troponin I (0.000-0.034) ng/mL Serum Total Protein (6.3-8.2) g/dL Albumin (3.5-5.0) g/dL Procalcitonin (0.030-0.080) ng/mL Urine Color (Yellow) Urine Appearance (Clear) Urine pH (4.6-8.0) Ur Specific Temple (1.005-1.030) Urine Protein (Negative) Urine Glucose (UA) (Negative) mg/dL Urine Ketones (Negative) Urine Blood (Negative) Urine Nitrite (Negative) Urine Bilirubin (Negative) Urine Urobilinogen (0.2) mg/dL Ur Leukocyte Esterase (Negative) U Hyaline Cast (Auto) (0-2) /LPF Urine Microscopic RBC (0-5) /HPF Urine Microscopic WBC (0-5) /HPF Ur Epithelial Cells (None Seen) /HPF Urine Bacteria (None Seen) /HPF Urine Culture Reflexed (NO) 08/22/22 08/22/22 08/22/22 Range/Units 12:01 12:56 13:09 WBC (4.0-10.5) x10^3/uL RBC (4.1-5.6) x10^6/uL Hgb (12.5-18.0) g/dL Hct (42-50) % MCV (78-100) fL MCH (26-32) pg MCHC (32-36) g/dL RDW (11.5-14.0) % Plt Count (150-450) x10^3/uL MPV (7.5-11.0) fL Segmented Neutrophils (36.-66.) % Band Neutrophils (0.0-2.0) % Monocytes (Manual) (0.0-12.0) % Platelet Estimate (NORMAL) RBC Morphology pO2/FiO2 Ratio % VBG pH (7.32-7.42) VBG pCO2 at Pat Temp (42-55) mm/Hg VBG pO2 at Pat Temp (25-40) mm/Hg VBG HCO3 (22-28) meq/L VBG O2 Sat (Susan) (95-100) VBG Base Excess (-2.0-2.0) VBG Hemoglobin VBG Carboxyhemoglobin (0.0-6.9) % T HGB POC Potassium (3.5-5.1) Sodium (137-145) mmol/L Potassium (3.5-5.1) mmol/L Chloride (98-107) mmol/L Carbon Dioxide (22-30) mmol/L Anion Gap (5-15) MEQ/L BUN (9-20) mg/dL Creatinine (0.66-1.25) mg/dL Estimated GFR ML/MIN Glucose (74-106) mg/dL POC Glucometer 217 H 199 H (74 to 106) mg/dL Lactic Acid (0.4-2.0) Calcium (8.4-10.2) mg/dL Phosphorus (2.5-4.5) mg/dL Magnesium (1.6-2.3) mg/dL Total Bilirubin (0.2-1.3) mg/dL AST (17-59) U/L ALT (0-50) U/L Alkaline Phosphatase (38-126) U/L Troponin I 0.026 (0.000-0.034) ng/mL Serum Total Protein (6.3-8.2) g/dL Albumin (3.5-5.0) g/dL Procalcitonin (0.030-0.080) ng/mL Urine Color (Yellow) Urine Appearance (Clear) Urine pH (4.6-8.0) Ur Specific Temple (1.005-1.030) Urine Protein (Negative) Urine Glucose (UA) (Negative) mg/dL Urine Ketones (Negative) Urine Blood (Negative) Urine Nitrite (Negative) Urine Bilirubin (Negative) Urine Urobilinogen (0.2) mg/dL Ur Leukocyte Esterase (Negative) U Hyaline Cast (Auto) (0-2) /LPF Urine Microscopic RBC (0-5) /HPF Urine Microscopic WBC (0-5) /HPF Ur Epithelial Cells (None Seen) /HPF Urine Bacteria (None Seen) /HPF Urine Culture Reflexed (NO) 08/22/22 08/22/22 08/22/22 Range/Units 13:09 13:12 14:07 WBC (4.0-10.5) x10^3/uL RBC (4.1-5.6) x10^6/uL Hgb (12.5-18.0) g/dL Hct (42-50) % MCV (78-100) fL MCH (26-32) pg MCHC (32-36) g/dL RDW (11.5-14.0) % Plt Count (150-450) x10^3/uL MPV (7.5-11.0) fL Segmented Neutrophils (36.-66.) % Band Neutrophils (0.0-2.0) % Monocytes (Manual) (0.0-12.0) % Platelet Estimate (NORMAL) RBC Morphology pO2/FiO2 Ratio % VBG pH (7.32-7.42) VBG pCO2 at Pat Temp (42-55) mm/Hg VBG pO2 at Pat Temp (25-40) mm/Hg VBG HCO3 (22-28) meq/L VBG O2 Sat (Susan) (95-100) VBG Base Excess (-2.0-2.0) VBG Hemoglobin VBG Carboxyhemoglobin (0.0-6.9) % T HGB POC Potassium (3.5-5.1) Sodium 138 (137-145) mmol/L Potassium 4.8 D (3.5-5.1) mmol/L Chloride 105 (98-107) mmol/L Carbon Dioxide 21 L (22-30) mmol/L Anion Gap 16.1 H (5-15) MEQ/L BUN 32 H (9-20) mg/dL Creatinine 1.67 H (0.66-1.25) mg/dL Estimated GFR 43.4 ML/MIN Glucose 213 H (74-106) mg/dL POC Glucometer 202 H (74 to 106) mg/dL Lactic Acid 4.5 H (0.4-2.0) Calcium 7.8 L (8.4-10.2) mg/dL Phosphorus (2.5-4.5) mg/dL Magnesium (1.6-2.3) mg/dL Total Bilirubin (0.2-1.3) mg/dL AST (17-59) U/L ALT (0-50) U/L Alkaline Phosphatase (38-126) U/L Troponin I (0.000-0.034) ng/mL Serum Total Protein (6.3-8.2) g/dL Albumin (3.5-5.0) g/dL Procalcitonin (0.030-0.080) ng/mL Urine Color (Yellow) Urine Appearance (Clear) Urine pH (4.6-8.0) Ur Specific Temple (1.005-1.030) Urine Protein (Negative) Urine Glucose (UA) (Negative) mg/dL Urine Ketones (Negative) Urine Blood (Negative) Urine Nitrite (Negative) Urine Bilirubin (Negative) Urine Urobilinogen (0.2) mg/dL Ur Leukocyte Esterase (Negative) U Hyaline Cast (Auto) (0-2) /LPF Urine Microscopic RBC (0-5) /HPF Urine Microscopic WBC (0-5) /HPF Ur Epithelial Cells (None Seen) /HPF Urine Bacteria (None Seen) /HPF Urine Culture Reflexed (NO) 08/22/22 08/22/22 Range/Units 14:59 16:05 WBC (4.0-10.5) x10^3/uL RBC (4.1-5.6) x10^6/uL Hgb (12.5-18.0) g/dL Hct (42-50) % MCV (78-100) fL MCH (26-32) pg MCHC (32-36) g/dL RDW (11.5-14.0) % Plt Count (150-450) x10^3/uL MPV (7.5-11.0) fL Segmented Neutrophils (36.-66.) % Band Neutrophils (0.0-2.0) % Monocytes (Manual) (0.0-12.0) % Platelet Estimate (NORMAL) RBC Morphology pO2/FiO2 Ratio % VBG pH (7.32-7.42) VBG pCO2 at Pat Temp (42-55) mm/Hg VBG pO2 at Pat Temp (25-40) mm/Hg VBG HCO3 (22-28) meq/L VBG O2 Sat (Susan) (95-100) VBG Base Excess (-2.0-2.0) VBG Hemoglobin VBG Carboxyhemoglobin (0.0-6.9) % T HGB POC Potassium (3.5-5.1) Sodium 136 L (137-145) mmol/L Potassium 5.1 (3.5-5.1) mmol/L Chloride 105 (98-107) mmol/L Carbon Dioxide 23 (22-30) mmol/L Anion Gap 13.1 (5-15) MEQ/L BUN 32 H (9-20) mg/dL Creatinine 1.49 H (0.66-1.25) mg/dL Estimated GFR 49.6 ML/MIN Glucose 228 H (74-106) mg/dL POC Glucometer 228 H (74 to 106) mg/dL Lactic Acid (0.4-2.0) Calcium 7.7 L (8.4-10.2) mg/dL Phosphorus (2.5-4.5) mg/dL Magnesium 1.5 L (1.6-2.3) mg/dL Total Bilirubin (0.2-1.3) mg/dL AST (17-59) U/L ALT (0-50) U/L Alkaline Phosphatase (38-126) U/L Troponin I 0.023 (0.000-0.034) ng/mL Serum Total Protein (6.3-8.2) g/dL Albumin (3.5-5.0) g/dL Procalcitonin (0.030-0.080) ng/mL Urine Color (Yellow) Urine Appearance (Clear) Urine pH (4.6-8.0) Ur Specific Temple (1.005-1.030) Urine Protein (Negative) Urine Glucose (UA) (Negative) mg/dL Urine Ketones (Negative) Urine Blood (Negative) Urine Nitrite (Negative) Urine Bilirubin (Negative) Urine Urobilinogen (0.2) mg/dL Ur Leukocyte Esterase (Negative) U Hyaline Cast (Auto) (0-2) /LPF Urine Microscopic RBC (0-5) /HPF Urine Microscopic WBC (0-5) /HPF Ur Epithelial Cells (None Seen) /HPF Urine Bacteria (None Seen) /HPF Urine Culture Reflexed (NO) Assessment/Plan (1) DKA (diabetic ketoacidosis) Current Visit: Yes Status: Acute Qualifiers: Diabetes mellitus type: type 2 Assessment & Plan: Patient examination and evaluation Patient missed vascular appointment for intervention for angioplasty with intervention today Follow up with vascular is necessary to salvage what is left of his left foot without resorting to below knee amputation. Patient with immense pain to the left lower extremity and appears distraught. States he has been unable to sleep and appetite is low. Patient provided an therapeutic block at the left of the ankle for relief. Patient experiencing some immediate relief thereafter Continue non-weight bearing protocol as prescribed. Vancomycin and Zosyn pharmacy to dose. Assess source of infection. Skeptical of residual infection to TMA site based surgical history. Assess other sources of infection. Continue DVT prophylaxis as prescribed. will follow with you. Code(s): E11.10 - TYPE 2 DIABETES MELLITUS WITH KETOACIDOSIS WITHOUT COMA (2) Leukocytosis Current Visit: Yes Status: Acute Code(s): D72.829 - ELEVATED WHITE BLOOD CELL COUNT, UNSPECIFIED (3) Nausea and vomiting Current Visit: Yes Status: Acute Code(s): R11.2 - NAUSEA WITH VOMITING, UNSPECIFIED (4) Diabetes with ketoacidosis Current Visit: No Status: Acute Qualifiers: Diabetes mellitus type: type 2 Diabetes mellitus intermediate teacher insulin use: with intermediate teacher use Diabetes mellitus complication detail: without coma Qualified Code(s): E11.10 - Type 2 diabetes mellitus with ketoacidosis without coma; 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 Code(s): E11.10 - TYPE 2 DIABETES MELLITUS WITH KETOACIDOSIS WITHOUT COMA (5) Diabetic foot ulcer with osteomyelitis Current Visit: No Status: Acute Code(s): E11.621 - TYPE 2 DIABETES MELLITUS WITH FOOT ULCER; E11.69 - TYPE 2 DIABETES MELLITUS WITH OTHER SPECIFIED COMPLICATION; L97.509 - NON-PRESSURE CHRONIC ULCER OTH PRT UNSP FOOT W UNSP SEVERITY; M86.9 - OSTEOMYELITIS, UNSPECIFIED (6) Osteomyelitis of left foot Current Visit: No Status: Acute Qualifiers: Code(s): M86.9 - OSTEOMYELITIS, UNSPECIFIED (7) Peripheral vascular disease of extremity with claudication Current Visit: No Status: Acute Code(s): I73.9 - PERIPHERAL VASCULAR DISEASE, UNSPECIFIED
[2022-08-22] MEDS ORDERED: MAGNESIUM SULF 2 G/50 ML BAG 2 GM/50 ML PIGGYBACK IV ONE (17:18)
[2022-08-22] MEDS ORDERED: Sodium Chloride 0.9% 500 ML 500 ML IV ONE (20:22)
[2022-08-22] MEDS: Aricept 10 MG PO SCH (21:30)
[2022-08-22] MEDS: ZYLOPRIM 300 MG PO SCH (21:30)
[2022-08-22] MEDS: ECOTRIN 81 MG PO SCH (21:30)
[2022-08-22] MEDS: Compazine 5 MG PO PRN (21:31)
[2022-08-22] MEDS: NEURONTIN PO SCH (21:31)
[2022-08-22] MEDS: ZOLOFT 50 MG TABLET PO SCH (21:31)
[2022-08-22] MEDS ORDERED: NON-FORMULARY ITEM (Donepezil Hcl [Aricept] 5 MG Tablet) PO SCH (22:00)
[2022-08-22] MEDS: PROAMATINE PO SCH (22:04)
[2022-08-22] MEDS: Ambien 10 MG PO SCH (22:12)
[2022-08-23] MEDS: Piperacillin/Tazobactam 2.25 GM 2.25 GM in Sodium Chloride 100ML MINI-BAG PLUS 100 ML IV SCH (02:40)
[2022-08-23] MEDS: VANCOCIN 500 MG VIAL*** 500 MG in Sodium Chloride 100ML MINI-BAG PLUS 100 ML IV SCH ×2 (05:31→17:51)
[2022-08-23] MEDS: Sodium Chloride 0.9% 1000 ML 1,000 ML IV SCH ×2 (05:31→17:04)
[2022-08-23 05:38] LABS: Hematocrit 23.2 % (42-50); Hemoglobin 7.1 g/dL (12.5-18.0); Mean Cell Volume 77.1 fL (78-100); Mean Corpuscular Hemoglobin 23.6 pg (26-32); Mean Corpuscular Hgb Concent. 30.6 g/dL (32-36); Mean Platelet Volume 9.1 fL (7.5-11.0); Platelet Count 324 x10^3/uL (150-450); Red Blood Count 3.01 x10^6/uL (4.1-5.6); Red Cell Distribution Width 17.4 % (11.5-14.0)
[2022-08-23 05:43] LABS: White Blood Count 27.2 x10^3/uL (4.0-10.5)
[2022-08-23 05:44] LABS: ALBUMIN 2.6 g/dL (3.5-5.0); ALKALINE PHOSPHATASE 85 U/L (38-126); ANION GAP 7.2 MEQ/L (5-15); BLOOD UREA NITROGEN 23 mg/dL (9-20); CHLORIDE 105 mmol/L (98-107); Calcium 7.9 mg/dL (8.4-10.2); Carbon Dioxide 26 mmol/L (22-30); Creatinine 1 1.01 mg/dL (0.66-1.25); EST GLOMERULAR FILTRATION RATE > 60.0 ML/MIN; Glucose 195 mg/dL (74-106); Potassium 4.6 mmol/L (3.5-5.1); SGOT/AST 30 U/L (17-59); SGPT/ALT 16 U/L (0-50); SODIUM 134 mmol/L (137-145); Total Protein 6.1 g/dL (6.3-8.2)
[2022-08-23] MEDS ORDERED: Piperacillin/Tazobactam 2.25 GM 2.25 GM in Sodium Chloride 100ML MINI-BAG PLUS 100 ML IV ONE (07:30)
[2022-08-23] MEDS: Novolin N SQ SCH ×2 (08:13→17:05)
[2022-08-23] MEDS: HUMULIN R SQ PRN ×3 (08:14→21:02)
[2022-08-23] MEDS: ZOCOR 20MG PO SCH (09:18)
[2022-08-23] MEDS: PLAVIX Tablet PO SCH (09:18)
[2022-08-23] MEDS: Cymbalta 30 MG Capsule PO SCH (09:18)
[2022-08-23] MEDS: NEURONTIN PO SCH ×2 (09:19→21:03)
[2022-08-23] MEDS: LASIX 20 MG PO SCH (09:19)
[2022-08-23] MEDS: PROAMATINE PO SCH ×3 (09:19→21:04)
[2022-08-23] MEDS: Protonix 40MG Tablet PO SCH (09:19)
[2022-08-23] MEDS ORDERED: NON-FORMULARY ITEM (Pravastatin Sodium [Pravastatin Sodium] 40 MG Tablet) PO SCH (10:00)
[2022-08-23] MEDS ORDERED: NON-FORMULARY ITEM (Omeprazole Magnesium [Prilosec Otc] 20 MG Tablet.Dr) PO SCH (10:00)
[2022-08-23] MEDS ORDERED: PLAVIX Tablet PO SCH (10:00)
[2022-08-23] MEDS: PIPERACILLIN/TAZOBACTAM 3.375 GM in Sodium Chloride 100ML MINI-BAG PLUS 100 ML IV SCH ×2 (11:30→17:04)
[2022-08-23] MEDS ORDERED: TYLENOL 325 MG PO PRN (11:37)
[2022-08-23] MEDS: Compazine 5 MG PO PRN (21:02)
[2022-08-23] MEDS: ECOTRIN 81 MG PO SCH (21:03)
[2022-08-23] MEDS: ZOLOFT 50 MG TABLET PO SCH (21:03)
[2022-08-23] MEDS: Aricept 10 MG PO SCH (21:03)
[2022-08-23] MEDS: Ambien 10 MG PO SCH (21:03)
[2022-08-23] MEDS: ZYLOPRIM 300 MG PO SCH (21:03)
[2022-08-24] MEDS: PIPERACILLIN/TAZOBACTAM 3.375 GM in Sodium Chloride 100ML MINI-BAG PLUS 100 ML IV SCH ×3 (00:36→12:15)
--- NOTE | 2022-08-24 02:11 | XRAY ---
CLINICAL HISTORY:Head injury; COMPARISON:CT dated 07-05-2022; TECHNIQUES:Axial non-contrast CT scan of the brain was performed from the skull base to the high parietal region. Coronal and sagittal reconstructions were also obtained; FINDINGS: The visualized brain parenchyma shows varela-white matter differentiation. Age-related cortical atrophic changes are noted. No midline shift. No intracerebral or extra axial hematoma. Normal size and configuration of the cerebral ventricles. Normal CT appearance of the posterior fossa structures. The osseous structures in the skull base are unremarkable. No definite calvarium fractures. Mild soft tissue swelling is noted along the left parietal convexity. Mucosal thickening is seen in the bilateral frontal sinus. The rest of the scanned paranasal sinuses and mastoid air cells are clear. Previously seen opacification of the right maxillary sinus is not visualized in the current study. IMPRESSION: No acute intracranial abnormality. Mild soft tissue swelling is seen along the left parietal convexity without underlying calvarial fracture. Electronically Signed by: Margaret Roberts MD. (08/24/2022 01:08:18 [employer])
[2022-08-24] MEDS: Sodium Chloride 0.9% 1000 ML 1,000 ML IV SCH (04:54)
[2022-08-24] MEDS ORDERED: TROUGH DRUG LEVELS IJ ONE (05:30)
[2022-08-24 05:54] LABS: Absolute Neutrophil Ct (ANC) 10.24 x10^3/uL (1.4-6.9); BASOPHIL % 0.3 % (0.0-0.4); Basophil (Absolute #) 0.05 x10^3/uL (0-0.4); Eosinophil (Absolute #) 0.44 x10^3/uL (0-0.5); Hematocrit 26.1 % (42-50); Hemoglobin 7.6 g/dL (12.5-18.0); IMMATURE GRAN # 0.07 x10^3u/L (0.00-0.03); IMMATURE GRAN % 0.5 % (0.00-0.4); Lymphocyte (Absolute #) 3.02 x10^3/uL (1.0-4.6); Lymphocytes % 20.9 % (24.0-44.0); Mean Cell Volume 80.1 fL (78-100); Mean Corpuscular Hemoglobin 23.3 pg (26-32); Mean Corpuscular Hgb Concent. 29.1 g/dL (32-36); Mean Platelet Volume 9.2 fL (7.5-11.0); Monocyte (Absolute #) 0.64 x10^3/uL (0.0-1.3); Monocytes % 4.4 % (0.0-12.0); Neutrophil % 70.9 % (36.0-66.0); Platelet Count 320 x10^3/uL (150-450); Red Blood Count 3.26 x10^6/uL (4.1-5.6); Red Cell Distribution Width 17.2 % (11.5-14.0); White Blood Count 14.5 x10^3/uL (4.0-10.5)
--- NOTE | 2022-08-24 06:39 | PCM.NOTE ---
Date and Time: 08/24/22 0637 Subjective Assessment: Pain better today after block given by podiatry, lactate is down, off insulin drip, feeling better. Per podaitruy, surgical wound of left TMA does not look infected. - Review of Systems Eyes: No Symptoms Ears, Nose, & Throat: No Symptoms Respiratory: No Symptoms Cardiac: No Symptoms Abdominal/Gastrointestinal: No Symptoms Genitourinary Symptoms: No Symptoms Objective Exam Neurologic Exam: alert, oriented x 3 Wound Assessment: Skin/Wound Assessment Wound/Incision Assessment Start: 08/22/22 18:06 Text: Status: Active Freq: Q6H Protocol: Document 08/24/22 01:52 SM (Rec: 08/24/22 01:55 SM [id number]) Wound/Incision Assessment Left Foot Wound Assessment Shift Assessment Wound Type Incision Wound Stage Non Pressure Wound Dressing Status Dry & Intact Drainage Amount None Comment DRESSINGS CLEAN, DRY, AND INTACT, NO DRAINAGE NOTED AT THIS TIME. DR. RAY TO MANAGE DRESSING CHANGES, STAFF NOT TO ALTER DRESSINGS IN ANY WAY WITHOUT CONSULTING DR CLAY. Wound Photo Photo Taken No Neck Exam: normal inspection Respiratory Exam: normal breath sounds, chest tenderness Cardiovascular Exam: regular rate/rhythm, normal heart sounds Gastrointestinal/Abdomen Exam: soft, normal bowel sounds OBJECTIVE DATA Vital Signs: Vital Signs - 24 hr Temp Pulse Resp BP Pulse Ox 08/24/22 04:00 97.7 F 93 H 16 134/66 96 08/24/22 00:00 98 F 95 H 16 115/54 97 08/23/22 20:00 97.8 F 91 H 18 103/55 97 08/23/22 16:23 90 20 105/46 99 08/23/22 15:02 98.4 F 82 20 102/49 96 08/23/22 11:13 97.5 F 81 18 101/55 98 08/23/22 09:00 95 H 20 103/51 97 08/23/22 08:00 97.8 F 103 H 26 H 108/53 95 08/23/22 07:45 97 H 08/23/22 07:00 97.3 F 96 H 20 95/57 96 Pain Assessment - Last Documented Pain Intensity 0 Pain Scale Used 0-10 Pain Scale Intake and Output: Intake & Output 08/21/22 08/22/22 08/23/22 08/24/22 11:59 11:59 11:59 11:59 Intake Total 8181 296 Output Total 20 9946 1073 Balance -20 8880 -6705 Weight 62 kg 65.5 kg Lab Results: Lab Results-Last 24 Hours 08/23/22 08/23/22 08/23/22 Range/Units 08:02 11:05 16:14 WBC (4.0-10.5) x10^3/uL RBC (4.1-5.6) x10^6/uL Hgb (12.5-18.0) g/dL Hct (42-50) % MCV (78-100) fL MCH (26-32) pg MCHC (32-36) g/dL RDW (11.5-14.0) % Plt Count (150-450) x10^3/uL MPV (7.5-11.0) fL Gran % (36.0-66.0) % Immature Gran % (Auto) (0.00-0.4) % Nucleat RBC Rel Count (0.00-0.1) % Eos # (Auto) (0-0.5) x10^3/uL Immature Gran # (Auto) (0.00-0.03) x10^3u/L Absolute Lymphs (auto) (1.0-4.6) x10^3/uL Absolute Monos (auto) (0.0-1.3) x10^3/uL Absolute Nucleated RBC (0.00-0.01) x10^3u/L Lymphocytes % (24.0-44.0) % Monocytes % (0.0-12.0) % Eosinophils % (0.00-5.0) % Basophils % (0.0-0.4) % Absolute Granulocytes (1.4-6.9) x10^3/uL Basophils # (0-0.4) x10^3/uL POC Glucometer 236 H 263 H 178 H (74 to 106) mg/dL 08/23/22 08/24/22 Range/Units 20:38 05:44 WBC 14.5 H (4.0-10.5) x10^3/uL RBC 3.26 L (4.1-5.6) x10^6/uL Hgb 7.6 L (12.5-18.0) g/dL Hct 26.1 L (42-50) % MCV 80.1 (78-100) fL MCH 23.3 L (26-32) pg MCHC 29.1 L (32-36) g/dL RDW 17.2 H (11.5-14.0) % Plt Count 320 (150-450) x10^3/uL MPV 9.2 (7.5-11.0) fL Gran % 70.9 H (36.0-66.0) % Immature Gran % (Auto) 0.5 H (0.00-0.4) % Nucleat RBC Rel Count 0.0 (0.00-0.1) % Eos # (Auto) 0.44 (0-0.5) x10^3/uL Immature Gran # (Auto) 0.07 H (0.00-0.03) x10^3u/L Absolute Lymphs (auto) 3.02 (1.0-4.6) x10^3/uL Absolute Monos (auto) 0.64 (0.0-1.3) x10^3/uL Absolute Nucleated RBC 0.00 (0.00-0.01) x10^3u/L Lymphocytes % 20.9 L (24.0-44.0) % Monocytes % 4.4 (0.0-12.0) % Eosinophils % 3.0 (0.00-5.0) % Basophils % 0.3 (0.0-0.4) % Absolute Granulocytes 10.24 H (1.4-6.9) x10^3/uL Basophils # 0.05 (0-0.4) x10^3/uL POC Glucometer 221 H (74 to 106) mg/dL Radiology Exams: Radiology Procedures Category Date Time Status HEAD WITHOUT CONTRAST [CT] Stat Exams 08/24/22 00:11 Completed Assessment/Plan (1) Peripheral vascular disease of extremity with claudication Current Visit: No Status: Acute Assessment & Plan: Assessment/Plan (1) Peripheral vascular disease of extremity with claudication Current Visit: No Status: Acute Code(s): I73.9 - PERIPHERAL VASCULAR DISEASE, UNSPECIFIED Podaitry came and saw patient, wound does not appear infected, may stop antibiotics. (2) DKA (diabetic ketoacidosis) Current Visit: Yes Status: Acute Qualifiers: Diabetes mellitus type: type 2 Assessment & Plan: Off insulin drip, appears resolved, will observe for one more day to ensure stability Code(s): E11.10 - TYPE 2 DIABETES MELLITUS WITH KETOACIDOSIS WITHOUT COMA (3) Osteomyelitis of left foot Current Visit: No Status: Acute Qualifiers: Assessment & Plan: Foot does not appear infected per podiatry, labs resolved, can stop antibiotics Code(s): M86.9 - OSTEOMYELITIS, UNSPECIFIED (4) Type 2 diabetes mellitus Current Visit: No Status: Acute Qualifiers: Diabetes mellitus complication status: without complication Assessment & Plan: will treat as above (5) Microcytic anemia Current Visit: No Status: Acute Assessment & Plan: secondary to infection with underlying iron deficiency possible, will consider supplements on discharge Code(s): D50.9 - IRON DEFICIENCY ANEMIA, UNSPECIFIED Code(s): I73.9 - PERIPHERAL VASCULAR DISEASE, UNSPECIFIED (2) DKA (diabetic ketoacidosis) Current Visit: Yes Status: Acute Qualifiers: Diabetes mellitus type: type 2 Code(s): E11.10 - TYPE 2 DIABETES MELLITUS WITH KETOACIDOSIS WITHOUT COMA (3) Osteomyelitis of left foot Current Visit: No Status: Acute Qualifiers: Code(s): M86.9 - OSTEOMYELITIS, UNSPECIFIED (4) Type 2 diabetes mellitus Current Visit: No Status: Acute Qualifiers: Diabetes mellitus complication status: without complication (5) Microcytic anemia Current Visit: No Status: Acute Code(s): D50.9 - IRON DEFICIENCY ANEMIA, UNSPECIFIED Telemedicine Encounter - Telemedicine Encounter Telemedicine Encounter: The entirety of this encounter was performed via Telemedicine"
[2022-08-24 07:01] LABS: ALBUMIN 2.9 g/dL (3.5-5.0); ALKALINE PHOSPHATASE 92 U/L (38-126); ANION GAP 12.2 MEQ/L (5-15); BLOOD UREA NITROGEN 12 mg/dL (9-20); CHLORIDE 102 mmol/L (98-107); Calcium 8.1 mg/dL (8.4-10.2); Carbon Dioxide 24 mmol/L (22-30); Creatinine 1 0.71 mg/dL (0.66-1.25); EST GLOMERULAR FILTRATION RATE > 60.0 ML/MIN; Glucose 169 mg/dL (74-106); Potassium 3.9 mmol/L (3.5-5.1); SGOT/AST 42 U/L (17-59); SGPT/ALT 22 U/L (0-50); SODIUM 135 mmol/L (137-145); Total Protein 6.7 g/dL (6.3-8.2)
[2022-08-24] MEDS: VANCOCIN 500 MG VIAL*** 500 MG in Sodium Chloride 100ML MINI-BAG PLUS 100 ML IV SCH (07:46)
[2022-08-24] MEDS: Novolin N SQ SCH (08:12)
[2022-08-24] MEDS: NEURONTIN PO SCH (10:04)
[2022-08-24] MEDS: ZOCOR 20MG PO SCH (10:05)
[2022-08-24] MEDS: LASIX 20 MG PO SCH (10:05)
[2022-08-24] MEDS: Protonix 40MG Tablet PO SCH (10:05)
[2022-08-24] MEDS: Compazine 5 MG PO PRN (10:05)
[2022-08-24] MEDS: Cymbalta 30 MG Capsule PO SCH (10:05)
[2022-08-24] MEDS: PLAVIX Tablet PO SCH (10:05)
[2022-08-24] MEDS: PROAMATINE PO SCH (10:06)
[2022-08-24] MEDS: HYDROCODONE-ACETAMIN 10-325 MG PO PRN (10:11)
--- NOTE | 2022-08-24 10:29 | PCM.DS ---
Discharge Summary Date of Admission: 08/22/22 08:20 Date of Discharge: 08/24/2022 Admitting Physician: JOVITA VAUGHN MD Consults: Consults on Case 08/22/22 14:12 Consult Podiatry ROUTINE Primary Care Provider: TERE BLANTON Allergies Allergies No Known Drug Allergies Allergy (Unverified 08/22/22 11:13) Hospital Summary - Hospital Course Hospital Course: 71-year-old man with history of hypertension and severe peripheral vascular disease, who recently underwent TMA for osteomyelitis, presented to the hospital for severe postoperative pain. On arrival, he was found to be in DKA, and was admitted to the ICU for DKA protocol. His white count was also elevated. His blood sugars were controlled after being on insulin drip, and he was successfully transitioned to subcutaneous insulin and a p.o. diet. He was tolerating both, with better control of his blood sugars. His white count came down to 14. Dr. Villa saw the patient, and did not feel that the surgical site had any signs of infection. Patient had no other focal symptoms of infection, and was feeling back to his baseline. Patient was supposed to have peripheral arterial intervention by Dr. Hogan on the day of admission, and patient is eager to be discharged so he can follow with Dr. Hogan and reschedule his intervention. - Vitals & Intake/Output Vital Signs: Vital Signs Temperature 97.3 F 08/24/22 07:12 Pulse Rate 94 H 08/24/22 07:12 Respiratory Rate 18 08/24/22 07:12 Blood Pressure 115/63 08/24/22 07:12 O2 Sat by Pulse Oximetry 96 08/24/22 07:12 Intake & Output: Intake & Output 08/21/22 08/22/22 08/23/22 08/24/22 11:59 11:59 11:59 11:59 Intake Total 6945 0876 Output Total 20 4462 0027 Balance -20 2148 -1243 Weight 62 kg 65.5 kg - Lab Result Diagrams: 08/24/22 05:44 08/24/22 05:44 Lab Results-Last 24 Hrs: Lab Results-Last 24 Hours 08/23/22 08/23/22 08/23/22 Range/Units 11:05 16:14 20:38 WBC (4.0-10.5) x10^3/uL RBC (4.1-5.6) x10^6/uL Hgb (12.5-18.0) g/dL Hct (42-50) % MCV (78-100) fL MCH (26-32) pg MCHC (32-36) g/dL RDW (11.5-14.0) % Plt Count (150-450) x10^3/uL MPV (7.5-11.0) fL Gran % (36.0-66.0) % Immature Gran % (Auto) (0.00-0.4) % Nucleat RBC Rel Count (0.00-0.1) % Eos # (Auto) (0-0.5) x10^3/uL Immature Gran # (Auto) (0.00-0.03) x10^3u/L Absolute Lymphs (auto) (1.0-4.6) x10^3/uL Absolute Monos (auto) (0.0-1.3) x10^3/uL Absolute Nucleated RBC (0.00-0.01) x10^3u/L Lymphocytes % (24.0-44.0) % Monocytes % (0.0-12.0) % Eosinophils % (0.00-5.0) % Basophils % (0.0-0.4) % Absolute Granulocytes (1.4-6.9) x10^3/uL Basophils # (0-0.4) x10^3/uL Sodium (137-145) mmol/L Potassium (3.5-5.1) mmol/L Chloride (98-107) mmol/L Carbon Dioxide (22-30) mmol/L Anion Gap (5-15) MEQ/L BUN (9-20) mg/dL Creatinine (0.66-1.25) mg/dL Estimated GFR ML/MIN Glucose (74-106) mg/dL POC Glucometer 263 H 178 H 221 H (74 to 106) mg/dL Calcium (8.4-10.2) mg/dL Total Bilirubin (0.2-1.3) mg/dL AST (17-59) U/L ALT (0-50) U/L Alkaline Phosphatase (38-126) U/L Serum Total Protein (6.3-8.2) g/dL Albumin (3.5-5.0) g/dL Vancomycin Trough (10-20) ug/mL 08/24/22 08/24/22 08/24/22 Range/Units 05:44 05:44 05:44 WBC 14.5 H (4.0-10.5) x10^3/uL RBC 3.26 L (4.1-5.6) x10^6/uL Hgb 7.6 L (12.5-18.0) g/dL Hct 26.1 L (42-50) % MCV 80.1 (78-100) fL MCH 23.3 L (26-32) pg MCHC 29.1 L (32-36) g/dL RDW 17.2 H (11.5-14.0) % Plt Count 320 (150-450) x10^3/uL MPV 9.2 (7.5-11.0) fL Gran % 70.9 H (36.0-66.0) % Immature Gran % (Auto) 0.5 H (0.00-0.4) % Nucleat RBC Rel Count 0.0 (0.00-0.1) % Eos # (Auto) 0.44 (0-0.5) x10^3/uL Immature Gran # (Auto) 0.07 H (0.00-0.03) x10^3u/L Absolute Lymphs (auto) 3.02 (1.0-4.6) x10^3/uL Absolute Monos (auto) 0.64 (0.0-1.3) x10^3/uL Absolute Nucleated RBC 0.00 (0.00-0.01) x10^3u/L Lymphocytes % 20.9 L (24.0-44.0) % Monocytes % 4.4 (0.0-12.0) % Eosinophils % 3.0 (0.00-5.0) % Basophils % 0.3 (0.0-0.4) % Absolute Granulocytes 10.24 H (1.4-6.9) x10^3/uL Basophils # 0.05 (0-0.4) x10^3/uL Sodium 135 L (137-145) mmol/L Potassium 3.9 (3.5-5.1) mmol/L Chloride 102 (98-107) mmol/L Carbon Dioxide 24 (22-30) mmol/L Anion Gap 12.2 (5-15) MEQ/L BUN 12 (9-20) mg/dL Creatinine 0.71 (0.66-1.25) mg/dL Estimated GFR > 60.0 ML/MIN Glucose 169 H (74-106) mg/dL POC Glucometer (74 to 106) mg/dL Calcium 8.1 L (8.4-10.2) mg/dL Total Bilirubin 0.40 (0.2-1.3) mg/dL AST 42 (17-59) U/L ALT 22 (0-50) U/L Alkaline Phosphatase 92 (38-126) U/L Serum Total Protein 6.7 (6.3-8.2) g/dL Albumin 2.9 L (3.5-5.0) g/dL Vancomycin Trough 7.21 L (10-20) ug/mL 08/24/22 Range/Units 06:58 WBC (4.0-10.5) x10^3/uL RBC (4.1-5.6) x10^6/uL Hgb (12.5-18.0) g/dL Hct (42-50) % MCV (78-100) fL MCH (26-32) pg MCHC (32-36) g/dL RDW (11.5-14.0) % Plt Count (150-450) x10^3/uL MPV (7.5-11.0) fL Gran % (36.0-66.0) % Immature Gran % (Auto) (0.00-0.4) % Nucleat RBC Rel Count (0.00-0.1) % Eos # (Auto) (0-0.5) x10^3/uL Immature Gran # (Auto) (0.00-0.03) x10^3u/L Absolute Lymphs (auto) (1.0-4.6) x10^3/uL Absolute Monos (auto) (0.0-1.3) x10^3/uL Absolute Nucleated RBC (0.00-0.01) x10^3u/L Lymphocytes % (24.0-44.0) % Monocytes % (0.0-12.0) % Eosinophils % (0.00-5.0) % Basophils % (0.0-0.4) % Absolute Granulocytes (1.4-6.9) x10^3/uL Basophils # (0-0.4) x10^3/uL Sodium (137-145) mmol/L Potassium (3.5-5.1) mmol/L Chloride (98-107) mmol/L Carbon Dioxide (22-30) mmol/L Anion Gap (5-15) MEQ/L BUN (9-20) mg/dL Creatinine (0.66-1.25) mg/dL Estimated GFR ML/MIN Glucose (74-106) mg/dL POC Glucometer 164 H (74 to 106) mg/dL Calcium (8.4-10.2) mg/dL Total Bilirubin (0.2-1.3) mg/dL AST (17-59) U/L ALT (0-50) U/L Alkaline Phosphatase (38-126) U/L Serum Total Protein (6.3-8.2) g/dL Albumin (3.5-5.0) g/dL Vancomycin Trough (10-20) ug/mL Micro Results-Entire Visit: Microbiology 08/22/22 05:27 Blood Culture - Preliminary Blood 08/22/22 05:18 Blood Culture - Preliminary Blood 08/22/22 05:46 Urine Culture - Final Urine, Catheterized NO GROWTH Accuchecks Date 08/24/22 Date 08/23/22 Date 08/23/22 Time 07:11 Time 16:14 Time 11:10 - Radiology Exams Ordered Rad Exams-Entire Visit: Radiology Procedures Category Date Time Status HEAD WITHOUT CONTRAST [CT] Stat Exams 08/24/22 00:[address] head: No acute intracranial abnormality. Mild soft tissue swelling along the left parietal convexity without underlying calvarial fracture. Discharge Exam General Appearance: no apparent distress Neurologic Exam: alert, oriented x 3 Eye Exam: eyes nml inspection Respiratory Exam: normal breath sounds, lungs clear, No respiratory distress Cardiovascular Exam: regular rate/rhythm, normal heart sounds, No edema Gastrointestinal/Abdomen Exam: soft, No tenderness, No distention Wound Assessment: Skin/Wound Assessment Wound/Incision Assessment Start: 08/22/22 18:06 Text: Status: Active Freq: Q6H Protocol: Document 08/24/22 08:00 (Rec: 08/24/22 08:47 [id number]) Wound/Incision Assessment Right Arm Wound Assessment Shift Assessment Wound Type Skin Tear Wound Stage Non Pressure Wound General Appearance Well Approximated Comment tegaderm in place Right Shoulder Wound Assessment Shift Assessment Wound Type Abrasion Wound Stage Non Pressure Wound Drainage Amount Minimal Comment tegaderm in place Right Head Wound Assessment Shift Assessment Wound Type Abrasion Drainage Amount Minimal Drainage Description bloody General Appearance Well Approximated Primary Dressing tegaderm Comment tegaderm in place Left Foot Wound Assessment Shift Assessment Wound Type Incision Wound Stage Non Pressure Wound Dressing Status Dry & Intact Drainage Amount None Comment dressing C/D/I Wound Photo Photo Taken No Final Diagnosis/Problem List - Final Discharge Diagnosis/Problem (1) DKA (diabetic ketoacidosis) Current Visit: Yes Status: Acute Code(s): E11.10 - TYPE 2 DIABETES MELLITUS WITH KETOACIDOSIS WITHOUT COMA (2) Peripheral vascular disease of extremity with claudication Current Visit: No Status: Acute Code(s): I73.9 - PERIPHERAL VASCULAR DISEASE, UNSPECIFIED (3) Type 2 diabetes mellitus Current Visit: No Status: Acute Telemedicine Encounter - Telemedicine Encounter Telemedicine Encounter: The entirety of this encounter was performed via Telemedicine" - Discharge Discharge Date: 08/24/22 Disposition: Home, Self-Care Condition: Stable Prescriptions: Continue Zolpidem Tartrate 10 mg [Ambien 10 MG] 10 mg PO HS Pravastatin Sodium 40 mg PO DAILY Duloxetine HCl 30 mg [Cymbalta 30 MG Capsule] 60 mg PO DAILY Clopidogrel Bisulfate [PLAVIX Tablet] 75 mg PO DAILY Lisinopril 5 mg [Zestril 5 MG] 10 mg PO DAILY Allopurinol 100 mg [Zyloprim 100 mg] 300 mg PO HS Insulin NPH Human Isophane [Novolin N] 10 unit SQ BID Furosemide 20 mg [Lasix 20 mg] 20 mg PO DAILY Omeprazole Magnesium [Prilosec Otc] 20 mg PO DAILY Gabapentin [Neurontin ] 300 mg PO BID Donepezil HCl [Aricept] 5 mg PO HS Prochlorperazine Maleate 10 mg PO TID PRN PRN Reason: Nausea Insulin Regular, Human [Novolin R] 20 unit SQ BID Metoprolol Succinate 100 mg [Toprol Xl 100 MG] 150 mg PO DAILY Aspirin 81 mg PO QHS Sertraline HCl 50 mg [Zoloft 50 mg Tablet] 50 mg PO HS Hydrocodone/Acetaminophen [Hydrocodone-Acetamin 10-325 mg] 1 tablet PO Q4H PRN PRN PRN Reason: Pain Follow up with: TERE BLANTON MD [Primary Care Provider] - 08/30/22 3:00 pm ([facility] )
[2022-08-24 12:28] VITALS: BP 135/46; PULSE 65; O2SAT 97
[2022-08-24] MEDS ORDERED: VANCOMYCIN 1 GRAM/200 ML BAG 1 GM/200 ML PIGGYBACK IV SCH (18:00)
== END 2022-08-24 13:22 | disposition home health service (06) | DRG 638 ==
LOC: ED 03:05 → ICU 08:20 → OBSVTOIN 08:20
PROVIDERS: ADMIT Internal Medicine Critical Care Medicine; ATTEND Internal Medicine Critical Care Medicine
DX: E11.10 Type 2 diabetes mellitus with ketoacidosis without coma (principal); M86.9 Osteomyelitis, unspecified; I73.9 Peripheral vascular disease, unspecified; D72.829 Elevated white blood cell count, unspecified; I25.10 Atherosclerotic heart disease of native coronary artery without angina pectoris; E78.5 Hyperlipidemia, unspecified; I11.0 Hypertensive heart disease with heart failure; I50.9 Heart failure, unspecified; D50.9 Iron deficiency anemia, unspecified; E11.621 Type 2 diabetes mellitus with foot ulcer; E11.69 Type 2 diabetes mellitus with other specified complication; Z79.899 Other long term (current) drug therapy; Z79.01 Long term (current) use of anticoagulants; Z95.1 Presence of aortocoronary bypass graft; Z20.828 Contact with and (suspected) exposure to other viral communicable diseases; Z79.4 Long term (current) use of insulin; Z72.0 Tobacco use
CPT/HCPCS: 36000; 36415; 51702; 64455; 70450; 80048; 80053; 80202; 81001; 82805; 82947; 83605; 83735; 83930; 84100; 84145; 84484; 85025; 85027; 87040; 87086; 93005; 93268; 96360; 96361; 96374; 96375; 96376; 99232; 99285; 99291; 99292; Q3014; J1170; J1815; J2270; J2405; J2543; J3370; A9270-GY; J3475

== ENCOUNTER 2022-08-27 10:58 | Emergency (ER) | payer MEDICARE ==
[2022-08-27] MEDS ORDERED: Sodium Chloride 0.9% 1000 ML 1,000 ML IV STA ×3 (11:12→12:29)
[2022-08-27] MEDS ORDERED: Sodium Chloride 0.9% 1000 ML 2,000 ML ONE (11:16)
[2022-08-27] MEDS ORDERED: GENTAMICIN 80 MG/50 ML PREMIX*** 80 MG/50 ML ML IV ONE ×2 (11:18→11:35)
[2022-08-27] MEDS ORDERED: VANCOMYCIN 1 GRAM/200 ML BAG 1 GM/200 ML PIGGYBACK IV ONE ×2 (11:21→11:35)
[2022-08-27 11:27] LABS: Absolute Neutrophil Ct (ANC) 5.69 x10^3/uL (1.4-6.9); BASOPHIL % 0.2 % (0.0-0.4); Basophil (Absolute #) 0.02 x10^3/uL (0-0.4); Eosinophil % 1.5 % (0.00-5.0); Eosinophil (Absolute #) 0.13 x10^3/uL (0-0.5); Hematocrit 35.9 % (42-50); Hemoglobin 10.5 g/dL (12.5-18.0); IMMATURE GRAN # 0.53 x10^3u/L (0.00-0.03); IMMATURE GRAN % 6.1 % (0.00-0.4); Lymphocyte (Absolute #) 2.18 x10^3/uL (1.0-4.6); Lymphocytes % 25.2 % (24.0-44.0); Mean Cell Volume 78.9 fL (78-100); Mean Corpuscular Hemoglobin 23.1 pg (26-32); Mean Corpuscular Hgb Concent. 29.2 g/dL (32-36); Mean Platelet Volume 9.5 fL (7.5-11.0); Monocytes % 1.2 % (0.0-12.0); NUCLEATED RBC # 0.03 x10^3u/L (0.00-0.01); NUCLEATED RBC % 0.3 % (0.00-0.1); Neutrophil % 65.8 % (36.0-66.0); Platelet Count 373 x10^3/uL (150-450); Red Blood Count 4.55 x10^6/uL (4.1-5.6); Red Cell Distribution Width 17.2 % (11.5-14.0); White Blood Count 8.7 x10^3/uL (4.0-10.5)
[2022-08-27 11:35] LABS: VBG BASE EXCESS -8.8 (-2.0-2.0); VBG CARBOXYHEMOGLOBIN 6.2 % T HGB (0.0-6.9); VBG HCO3- 17.4 meq/L (22-28); VBG HEMOGLOBIN 11.1; VBG O2 SATURATION 41.1 (95-100); VBG pH 7.27 (7.32-7.42)
[2022-08-27 11:40] LABS: ALBUMIN 3.6 g/dL (3.5-5.0); ALKALINE PHOSPHATASE 143 U/L (38-126); BLOOD UREA NITROGEN 15 mg/dL (9-20); CHLORIDE 101 mmol/L (98-107); Calcium 8.8 mg/dL (8.4-10.2); Creatinine 1 1.01 mg/dL (0.66-1.25); EST GLOMERULAR FILTRATION RATE > 60.0 ML/MIN; Glucose 317 mg/dL (74-106); Potassium 3.9 mmol/L (3.5-5.1); SGOT/AST 30 U/L (17-59); SODIUM 139 mmol/L (137-145); Total Protein 7.7 g/dL (6.3-8.2)
[2022-08-27 11:47] LABS: Carbon Dioxide 16 mmol/L (22-30); SGPT/ALT 37 U/L (0-50)
[2022-08-27 12:04] LABS: Appearance Clear (Clear); Bacteria None Seen /HPF (None Seen); Bilirubin Negative (Negative); Blood Negative (Negative); Epithelial Cells None Seen /HPF (None Seen); Glucose, Urine >=1000 mg/dL (Negative); Hyaline Casts NONE SEEN /LPF (0-2); Ketones Negative (Negative); Leukocyte Esterase Negative (Negative); Nitrite Negative (Negative); Protein,Urine Dip Trace (Negative); RBC 0-2 /HPF (0-5); Specific Gravity >=1.030 (1.005-1.030)
[2022-08-27 12:06] LABS: ADD URINE CULTURE? ORDERED SEPARATELY (NO)
[2022-08-27 12:14] LABS: Amphetamine,Urine NEGATIVE (NEGATIVE); Barbiturate,Urine NEGATIVE (NEGATIVE); Benzodiazepine,Urine NEGATIVE (NEGATIVE); Cocaine,Urine NEGATIVE (NEGATIVE); Methadone,Urine NEGATIVE (NEGATIVE); Opiate,Urine POSITIVE (NEGATIVE); PCP,Urine NEGATIVE (NEGATIVE); THC,Urine NEGATIVE (NEGATIVE)
[2022-08-27] MEDS ORDERED: Sodium Chloride 0.9% 1000 ML 1,000 ML ONE (12:29)
[2022-08-27] MEDS ORDERED: Dextrose 5% -0.45 NaCl 1000 ML 1,000 ML IV ONE (13:15)
[2022-08-27] MEDS ORDERED: Dextrose 5% -0.45 NaCl 1000 ML 1,000 ML IV SCH (13:30)
--- NOTE | 2022-08-27 13:49 | ERPHSYRPT ---
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 Triage Nursing Assessment: pt arrived per wc with daughter, alert but drowsy, skin w/d/p, no edema noted, abd soft, bs 230, daughter gave pt extra insulin at home, left foot with bandage in place Physician History: Patient is a 71-year-old white male who had a partial amputation of his left foot a few weeks ago who presents with high sugar and bleeding and inflammation of the foot. He had suffered a fall on Monday.He was in DKA a week ago.Patient is more ill and less responsive today. Timing/Duration: yesterday Severity: severe Associated Symptoms: shortness of breath, loss of appetite, malaise Allergies/Adverse Reactions: No Known Drug Allergies Allergy (Verified 08/27/22 11:20) Home Medications: Pravastatin Sodium 40 mg PO DAILY 09/19/12 [History] Zolpidem Tartrate 10 mg [Ambien 10 MG] 10 mg PO HS 09/19/12 [History] Allopurinol 100 mg [Zyloprim 100 mg] 300 mg PO HS 04/23/18 [History] Clopidogrel Bisulfate [PLAVIX Tablet] 75 mg PO DAILY 04/23/18 [History] Duloxetine HCl 30 mg [Cymbalta 30 MG Capsule] 60 mg PO DAILY 04/23/18 [History] Lisinopril 5 mg [Zestril 5 MG] 10 mg PO DAILY 04/23/18 [History] Furosemide 20 mg [Lasix 20 mg] 20 mg PO DAILY 05/04/21 [History] Gabapentin [Neurontin ] 300 mg PO BID 05/04/21 [History] Insulin NPH Human Isophane [Novolin N] 10 unit SQ BID 05/04/21 [History] Omeprazole Magnesium [Prilosec Otc] 20 mg PO DAILY 05/04/21 [History] Donepezil HCl [Aricept] 5 mg PO HS 02/15/22 [History] Prochlorperazine Maleate 10 mg PO TID PRN 02/15/22 [History] Aspirin 81 mg PO QHS 05/30/22 [History] Insulin Regular, Human [Novolin R] 20 unit SQ BID 05/30/22 [History] Metoprolol Succinate 100 mg [Toprol Xl 100 MG] 150 mg PO DAILY 05/30/22 [History] Sertraline HCl 50 mg [Zoloft 50 mg Tablet] 50 mg PO HS 06/28/22 [History] Hydrocodone/Acetaminophen [Hydrocodone-Acetamin 10-325 mg] 1 tablet PO Q4H PRN PRN 08/01/22 [History] Ondansetron ODT 4 MG [Zofran Odt 4 mg] 1 ea DAILY 08/27/22 [History] Hx Tetanus, Diphtheria Vaccination/Date Given: Yes Hx Influenza Vaccination/Date Given: Yes Hx Pneumococcal Vaccination/Date Given: Yes Immunizations Up to Date: Yes Travel Risk - International Travel Have you traveled outside of the country in past 3 weeks: No - Coronavirus Screening Are you exhibiting any of the following symptoms?: No Close contact with a COVID-19 positive Pt in past 14-21 Days: No - Vaccine Status Have you recieved a Covid-19 vaccination: Yes Grades 1 Through 5 Teacher: Unknown - Vaccination Dates Date of 2cond Vaccination (if applicable): 2020 Dates if Unknown: ? - Review of Systems All Other Systems: Unable due to condition - Past Medical History Pertinent Past Medical History: Yes Neurological History: Peripheral Neuropathy ENT History: Other Cardiac History: Coronary Artery Disease, High Cholesterol, Hypertension, Myocardial Infarction ([place]), Peripheral Vascular Disease Respiratory History: Bronchitis, CHF, COPD, Emphysema, Pneumonia, Other Endocrine Medical History: Diabetes Type II, Other Musculoskeletal History: Fractures, Osteoarthritis GI Medical History: Esophageal Disorder, GERD, Hernia History: No Pertinent History Psycho-Social History: No Pertinent History Male Reproductive Disorders: Prostate Problems Other Medical History: HX FX LEFT HIP WITH ORIF 2012, SURGERY UPPER AND LOWER BACK BUT PATIENT UNABLE TO STATE WHAT WAS DONE (STATES WAS ALSO IN 2013) skin ca melanoma. 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 ALSO STENTS IN BOTH GROINS. IN REGARDS TO COPD/EMPHYSEMA STATES WAS TOLD HE HAD ABOUT 2 YEARS. STATES HE HAS O2 AND USES IT AT NIGHT AND IS "SUPPOSED" TO WEAR IT ALL THE TIME. STATES HE IS GETTING A SMART VEST TOMORROW TO USE 2X DAY TO HELP WITH LUNGS - Past Surgical History Past Surgical History: Yes Neuro Surgical History: No Pertinent History Cardiac: CABG Respiratory: No Pertinent History Gastrointestinal: No Pertinent History Genitourinary: No Pertinent History Musculoskeletal: Orthopedic Surgery Male Surgical History: Prostate Surgery Other Surgical History: bilat shoulder, L hip surgeries, L hand surgery, spine surgery , stents in legs for circulation - Social History Smoking Status: Former smoker How long have you smoked: 50 years Exposure to second hand smoke: No Drug Use: none Patient Lives Alone: No - Nursing Vital Signs Nursing Vital Signs: Initial Vital Signs Temperature 97.2 F 08/27/22 11:19 Pulse Rate 136 H 08/27/22 11:19 Respiratory Rate 24 08/27/22 11:19 Blood Pressure 66/48 08/27/22 11:19 O2 Sat by Pulse Oximetry 76 L 08/27/22 11:19 Pain Scale Pain Intensity 4 - Physical Exam General Appearance: moderate distress Eye Exam: PERRL/EOMI, eyes nml inspection Ears, Nose, Throat Exam: normal ENT inspection, TMs normal, pharynx normal, moist mucous membranes Neck Exam: normal inspection, non-tender, supple, full range of motion Respiratory Exam: normal breath sounds, lungs clear, No respiratory distress Cardiovascular Exam: tachycardia Gastrointestinal/Abdomen Exam: soft, normal bowel sounds, No tenderness, No mass Back Exam: normal inspection, normal range of motion, No CVA tenderness, No vertebral tenderness Extremity Exam: other (Amputation of the distal forefoot on the left) Neurologic Exam: depressed mood/affect Skin Exam: normal color, warm, dry, No rash SpO2 Interpretation: hypoxic, O2 applied SpO2: 85 O2 Delivery: Nasal Cannula - Course Nursing assessment & vital signs reviewed: Yes - Radiology Exams Chest X-ray Interpretation: Interpreted by me, Negative Left Foot X-ray Interpretation: Interpreted by me, Negative (For acute fracture) Ordered Tests: Active Orders 24 hr Category Date Time Status Water Carter STAT Care 08/27/22 11:32 Active EKG-ER Only STAT Care 08/27/22 11:31 Active Mcdonnell [Catheter-One[place] Mcdonnell] STAT Care 08/27/22 11:44 Active IV Insertion STAT Care 08/27/22 11:12 Active IV Insertion-2nd Peripheral STAT Care 08/27/22 11:32 Active POCT Glucose Check STAT Care 08/27/22 11:12 Active Wound Care ROUTINE Care 08/27/22 11:12 Active CHEST 1 VIEW (PORTABLE) Stat Exams 08/27/22 11:22 Taken FOOT (MINIMUM 3 VIEWS) Stat Exams 08/27/22 11:32 Taken BLOOD CULTURE Stat Lab 08/27/22 11:23 Received CBC W DIFF Stat Lab 08/27/22 11:23 Completed CMP Stat Lab 08/27/22 11:23 Completed CULTURE,URINE Stat Lab 08/27/22 11:33 Received CULTURE,WOUND Stat Lab 08/27/22 11:31 Received Lactic Acid Stat Lab 08/27/22 11:12 Completed Lactic Acid Stat Lab 08/27/22 13:34 Received Manual Differential NC Stat Lab 08/27/22 11:23 Completed POCT GLUCOSE Stat Lab 08/27/22 11:14 Completed POCT GLUCOSE Stat Lab 08/27/22 11:14 Received POCT GLUCOSE Stat Lab 08/27/22 13:13 Completed UA W/RFX UR CULTURE Stat Lab 08/27/22 11:33 Completed Urine Triage Profile Stat Lab 08/27/22 11:33 Completed VBG [VENOUS BLOOD GAS] Stat Lab 08/27/22 11:33 Completed Medication Summary Generic Name Dose Route Start Last Admin Trade Name Freq PRN Reason Stop Dose Admin Dextrose/Sodium Chloride 1,000 mls @ 100 mls/hr 08/27/22 13:30 08/27/22 13:17 Dextrose 5% -0.45 Nacl 1000 Ml IV 09/26/22 13:29 100 mls/hr .Q10H XIMENA Administration Discontinued Medications Generic Name Dose Route Start Last Admin Trade Name Freq PRN Reason Stop Dose Admin Sodium Chloride 1,000 mls @ 999 mls/hr 08/27/22 11:12 08/27/22 12:16 Sodium Chloride 0.9% 1000 Ml IV 08/27/22 12:12 Infused .Q1H1M STA Infusion Sodium Chloride Confirm 08/27/22 11:16 Sodium Chloride 0.9% 1000 Ml Administered 08/27/22 11:17 Dose 2,000 mls @ ud .ROUTE .STK-MED ONE Gentamicin Sulfate/Sodium Chloride 80 mg in 50 mls @ 100 mls/hr 08/27/22 11:18 08/27/22 12:09 Gentamicin 80 Mg/50 Ml Premix IV 08/27/22 11:47 Infused STAT ONE Infusion Vancomycin HCl 1 gm in 200 mls @ 125 mls/hr 08/27/22 11:21 08/27/22 13:13 Vancomycin 1 Gram/200 Ml Bag IV 08/27/22 12:56 Infused STAT ONE Infusion Sodium Chloride 1,000 mls @ 999 mls/hr 08/27/22 11:22 08/27/22 12:26 Sodium Chloride 0.9% 1000 Ml IV 08/27/22 12:22 Infused .Q1H1M STA Infusion Gentamicin Sulfate/Sodium Chloride Confirm 08/27/22 11:35 Gentamicin 80 Mg/50 Ml Premix Administered 08/27/22 11:36 Dose 80 mg in 50 mls @ ud IV .STK-MED ONE Vancomycin HCl Confirm 08/27/22 11:35 Vancomycin 1 Gram/200 Ml Bag Administered 08/27/22 11:36 Dose 1 gm in 200 mls @ ud IV .STK-MED ONE Sodium Chloride 1,000 mls @ 999 mls/hr 08/27/22 12:29 08/27/22 13:36 Sodium Chloride 0.9% 1000 Ml IV 08/27/22 13:29 Infused .Q1H1M STA Infusion Sodium Chloride Confirm 08/27/22 12:29 Sodium Chloride 0.9% 1000 Ml Administered 08/27/22 12:30 Dose 1,000 mls @ ud .ROUTE .STK-MED ONE Dextrose/Sodium Chloride Confirm 08/27/22 13:15 Dextrose 5% -0.45 Nacl 1000 Ml Administered 08/27/22 13:16 Dose 1,000 mls @ ud IV .STK-MED ONE Lab/Rad Data: Laboratory Result Diagrams 08/27/22 11:23 08/27/22 11:23 Laboratory Results 08/27/22 08/27/22 08/27/22 Range/Units 13:13 11:33 11:33 WBC (4.0-10.5) x10^3/uL RBC (4.1-5.6) x10^6/uL Hgb (12.5-18.0) g/dL Hct (42-50) % MCV (78-100) fL MCH (26-32) pg MCHC (32-36) g/dL RDW (11.5-14.0) % Plt Count (150-450) x10^3/uL MPV (7.5-11.0) fL Gran % (36.0-66.0) % Immature Gran % (Auto) (0.00-0.4) % Nucleat RBC Rel Count (0.00-0.1) % Eos # (Auto) (0-0.5) x10^3/uL Immature Gran # (Auto) (0.00-0.03) x10^3u/L Absolute Lymphs (auto) (1.0-4.6) x10^3/uL Absolute Monos (auto) (0.0-1.3) x10^3/uL Absolute Nucleated RBC (0.00-0.01) x10^3u/L Lymphocytes % (24.0-44.0) % Monocytes % (0.0-12.0) % Eosinophils % (0.00-5.0) % Basophils % (0.0-0.4) % Absolute Granulocytes (1.4-6.9) x10^3/uL Basophils # (0-0.4) x10^3/uL pO2/FiO2 Ratio 28.0 % VBG pH 7.27 L (7.32-7.42) VBG pCO2 at Pat Temp 38 L (42-55) mm/Hg VBG pO2 at Pat Temp 28 (25-40) mm/Hg VBG HCO3 17.4 L (22-28) meq/L VBG O2 Sat (Susan) 41.1 L (95-100) VBG Base Excess -8.8 L (-2.0-2.0) VBG Hemoglobin 11.1 VBG Carboxyhemoglobin 6.2 (0.0-6.9) % T HGB POC Potassium 4.0 (3.5-5.1) Sodium (137-145) mmol/L Potassium (3.5-5.1) mmol/L Chloride (98-107) mmol/L Carbon Dioxide (22-30) mmol/L Anion Gap (5-15) MEQ/L BUN (9-20) mg/dL Creatinine (0.66-1.25) mg/dL Estimated GFR ML/MIN Glucose (74-106) mg/dL POC Glucometer 134 H (74 to 106) mg/dL Lactic Acid (0.4-2.0) Calcium (8.4-10.2) mg/dL Total Bilirubin (0.2-1.3) mg/dL AST (17-59) U/L ALT (0-50) U/L Alkaline Phosphatase (38-126) U/L Serum Total Protein (6.3-8.2) g/dL Albumin (3.5-5.0) g/dL Urine Color Yellow (Yellow) Urine Appearance Clear (Clear) Urine pH 6.0 (4.6-8.0) Ur Specific [place] >=1.030 A (1.005-1.030) Urine Protein Trace A (Negative) Urine Glucose (UA) >=1000 A (Negative) mg/dL Urine Ketones Negative (Negative) Urine Blood Negative (Negative) Urine Nitrite Negative (Negative) Urine Bilirubin Negative (Negative) Urine Urobilinogen 1.0 A (0.2) mg/dL Ur Leukocyte Esterase Negative (Negative) U Hyaline Cast (Auto) NONE SEEN (0-2) /LPF Urine Microscopic RBC 0-2 (0-5) /HPF Urine Microscopic WBC 3-5 (0-5) /HPF Ur Epithelial Cells None Seen (None Seen) /HPF Urine Bacteria None Seen (None Seen) /HPF Urine Culture Reflexed ORDERED SEPARATELY (NO) Urine Opiates Level (NEGATIVE) Ur Methadone (NEGATIVE) Urine Barbiturates (NEGATIVE) Ur Phencyclidine (PCP) (NEGATIVE) Urine Amphetamine (NEGATIVE) U Benzodiazepine Level (NEGATIVE) Urine Cocaine (NEGATIVE) Urine Marijuana (THC) (NEGATIVE) 08/27/22 08/27/22 08/27/22 Range/Units 11:33 11:23 11:23 WBC 8.7 (4.0-10.5) x10^3/uL RBC 4.55 (4.1-5.6) x10^6/uL Hgb 10.5 L (12.5-18.0) g/dL Hct 35.9 L (42-50) % MCV 78.9 (78-100) fL MCH 23.1 L (26-32) pg MCHC 29.2 L (32-36) g/dL RDW 17.2 H (11.5-14.0) % Plt Count 373 (150-450) x10^3/uL MPV 9.5 (7.5-11.0) fL Gran % 65.8 (36.0-66.0) % Immature Gran % (Auto) 6.1 H (0.00-0.4) % Nucleat RBC Rel Count 0.3 H (0.00-0.1) % Eos # (Auto) 0.13 (0-0.5) x10^3/uL Immature Gran # (Auto) 0.53 H (0.00-0.03) x10^3u/L Absolute Lymphs (auto) 2.18 (1.0-4.6) x10^3/uL Absolute Monos (auto) 0.10 (0.0-1.3) x10^3/uL Absolute Nucleated RBC 0.03 H (0.00-0.01) x10^3u/L Lymphocytes % 25.2 (24.0-44.0) % Monocytes % 1.2 (0.0-12.0) % Eosinophils % 1.5 (0.00-5.0) % Basophils % 0.2 (0.0-0.4) % Absolute Granulocytes 5.69 (1.4-6.9) x10^3/uL Basophils # 0.02 (0-0.4) x10^3/uL pO2/FiO2 Ratio % VBG pH (7.32-7.42) VBG pCO2 at Pat Temp (42-55) mm/Hg VBG pO2 at Pat Temp (25-40) mm/Hg VBG HCO3 (22-28) meq/L VBG O2 Sat (Susan) (95-100) VBG Base Excess (-2.0-2.0) VBG Hemoglobin VBG Carboxyhemoglobin (0.0-6.9) % T HGB POC Potassium (3.5-5.1) Sodium 139 (137-145) mmol/L Potassium 3.9 (3.5-5.1) mmol/L Chloride 101 (98-107) mmol/L Carbon Dioxide 16 L* (22-30) mmol/L Anion Gap 26.0 H (5-15) MEQ/L BUN 15 (9-20) mg/dL Creatinine 1.01 (0.66-1.25) mg/dL Estimated GFR > 60.0 ML/MIN Glucose 317 H (74-106) mg/dL POC Glucometer (74 to 106) mg/dL Lactic Acid (0.4-2.0) Calcium 8.8 (8.4-10.2) mg/dL Total Bilirubin 0.60 (0.2-1.3) mg/dL AST 30 (17-59) U/L ALT 37 (0-50) U/L Alkaline Phosphatase 143 H (38-126) U/L Serum Total Protein 7.7 (6.3-8.2) g/dL Albumin 3.6 (3.5-5.0) g/dL Urine Color (Yellow) Urine Appearance (Clear) Urine pH (4.6-8.0) Ur Specific [place] (1.005-1.030) Urine Protein (Negative) Urine Glucose (UA) (Negative) mg/dL Urine Ketones (Negative) Urine Blood (Negative) Urine Nitrite (Negative) Urine Bilirubin (Negative) Urine Urobilinogen (0.2) mg/dL Ur Leukocyte Esterase (Negative) U Hyaline Cast (Auto) (0-2) /LPF Urine Microscopic RBC (0-5) /HPF Urine Microscopic WBC (0-5) /HPF Ur Epithelial Cells (None Seen) /HPF Urine Bacteria (None Seen) /HPF Urine Culture Reflexed (NO) Urine Opiates Level POSITIVE (NEGATIVE) Ur Methadone NEGATIVE (NEGATIVE) Urine Barbiturates NEGATIVE (NEGATIVE) Ur Phencyclidine (PCP) NEGATIVE (NEGATIVE) Urine Amphetamine NEGATIVE (NEGATIVE) U Benzodiazepine Level NEGATIVE (NEGATIVE) Urine Cocaine NEGATIVE (NEGATIVE) Urine Marijuana (THC) NEGATIVE (NEGATIVE) 08/27/22 08/27/22 Range/Units 11:14 11:12 WBC (4.0-10.5) x10^3/uL RBC (4.1-5.6) x10^6/uL Hgb (12.5-18.0) g/dL Hct (42-50) % MCV (78-100) fL MCH (26-32) pg MCHC (32-36) g/dL RDW (11.5-14.0) % Plt Count (150-450) x10^3/uL MPV (7.5-11.0) fL Gran % (36.0-66.0) % Immature Gran % (Auto) (0.00-0.4) % Nucleat RBC Rel Count (0.00-0.1) % Eos # (Auto) (0-0.5) x10^3/uL Immature Gran # (Auto) (0.00-0.03) x10^3u/L Absolute Lymphs (auto) (1.0-4.6) x10^3/uL Absolute Monos (auto) (0.0-1.3) x10^3/uL Absolute Nucleated RBC (0.00-0.01) x10^3u/L Lymphocytes % (24.0-44.0) % Monocytes % (0.0-12.0) % Eosinophils % (0.00-5.0) % Basophils % (0.0-0.4) % Absolute Granulocytes (1.4-6.9) x10^3/uL Basophils # (0-0.4) x10^3/uL pO2/FiO2 Ratio % VBG pH (7.32-7.42) VBG pCO2 at Pat Temp (42-55) mm/Hg VBG pO2 at Pat Temp (25-40) mm/Hg VBG HCO3 (22-28) meq/L VBG O2 Sat (Susan) (95-100) VBG Base Excess (-2.0-2.0) VBG Hemoglobin VBG Carboxyhemoglobin (0.0-6.9) % T HGB POC Potassium (3.5-5.1) Sodium (137-145) mmol/L Potassium (3.5-5.1) mmol/L Chloride (98-107) mmol/L Carbon Dioxide (22-30) mmol/L Anion Gap (5-15) MEQ/L BUN (9-20) mg/dL Creatinine (0.66-1.25) mg/dL Estimated GFR ML/MIN Glucose (74-106) mg/dL POC Glucometer 230 H (74 to 106) mg/dL Lactic Acid 11.1 H (0.4-2.0) Calcium (8.4-10.2) mg/dL Total Bilirubin (0.2-1.3) mg/dL AST (17-59) U/L ALT (0-50) U/L Alkaline Phosphatase (38-126) U/L Serum Total Protein (6.3-8.2) g/dL Albumin (3.5-5.0) g/dL Urine Color (Yellow) Urine Appearance (Clear) Urine pH (4.6-8.0) Ur Specific [place] (1.005-1.030) Urine Protein (Negative) Urine Glucose (UA) (Negative) mg/dL Urine Ketones (Negative) Urine Blood (Negative) Urine Nitrite (Negative) Urine Bilirubin (Negative) Urine Urobilinogen (0.2) mg/dL Ur Leukocyte Esterase (Negative) U Hyaline Cast (Auto) (0-2) /LPF Urine Microscopic RBC (0-5) /HPF Urine Microscopic WBC (0-5) /HPF Ur Epithelial Cells (None Seen) /HPF Urine Bacteria (None Seen) /HPF Urine Culture Reflexed (NO) Urine Opiates Level (NEGATIVE) Ur Methadone (NEGATIVE) Urine Barbiturates (NEGATIVE) Ur Phencyclidine (PCP) (NEGATIVE) Urine Amphetamine (NEGATIVE) U Benzodiazepine Level (NEGATIVE) Urine Cocaine (NEGATIVE) Urine Marijuana (THC) (NEGATIVE) - Progress Progress: improved Medical Desision Making - Independent Historian Additional History obtained from: Child, Family - External Record(s) Reviewed Records reviewed as a part of evaluation & management: Discharge Summary - Discussion of managment Care discussed with:: hospitalist (Dr. Gerardo Macedo in the ER at [facility] was contacted and agreed to accept this patient) Reviewed:: Test results Agreed on:: Treatment plan - Risk of complications The pt has a high risk of morbidity or mortality based on: Drug therapy requiring intensive monitoring for toxicity - Departure Departure Disposition: Home Clinical Impression: Sepsis Condition: Critical Critical Care Time: Yes Critical Care Time(excluding separately billable procedures): Critical 30-74 mins (65) Referrals: TERE BLANTON MD [Primary Care Provider] - Follow up/PCP as directed
[2022-08-27] MEDS ORDERED: TYLENOL EXTRA STRENGTH 500 MG PO ONE (14:03)
[2022-08-27] MEDS ORDERED: TYLENOL EXTRA STRENGTH 500 MG ONE (14:04)
[2022-08-27 15:08] VITALS: BP 100/56; PULSE 102; O2SAT 98
[2022-08-27 15:10] LABS: Eosinophil 4 % (0.00-3.0); Lymphocytes 27 % (24-44); Monocyte 3 % (0.0-12.0); Neutrophils 66 % (36.-66.); Platelet Estimate NORMAL (NORMAL); Total Cells Counted 100
--- NOTE | 2022-08-27 21:33 | XRAY ---
Indication: Sepsis. 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 No focal infiltrate, consolidation, or large effusion. 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 Bony thorax intact again with osteopenia, degenerative changes, old left rib fractures, and lower cervical fusion hardware. Impression: Continued nonacute chest with chronic features.
--- NOTE | 2022-08-27 21:35 | XRAY ---
Indication: Infection. Comparison: July 20, 2022 3 nonweightbearing views left foot demonstrates interval total amputation all toes and all mid to distal metatarsals with postoperative soft tissue swelling. Stable osteopenia and diffuse scattered vascular calcifications. No acute fracture, dislocation, or osseous destructive process.
== END 2022-08-27 15:15 | disposition short-term general hospital (02) ==
LOC: ED 10:58
DX: T81.49XA Infection following a procedure, other surgical site, initial encounter (principal); T81.44XA Sepsis following a procedure, initial encounter; A41.9 Sepsis, unspecified organism; E11.65 Type 2 diabetes mellitus with hyperglycemia; R06.02 Shortness of breath; R53.81 Other malaise; E78.5 Hyperlipidemia, unspecified; I10 Essential (primary) hypertension; E11.42 Type 2 diabetes mellitus with diabetic polyneuropathy; Z79.02 Long term (current) use of antithrombotics/antiplatelets; Z79.4 Long term (current) use of insulin; Z79.891 Long term (current) use of opiate analgesic; Z79.899 Other long term (current) drug therapy
CPT/HCPCS: 36000; 36415; 51702; 71045; 73630; 80053; 80307; 81001; 82805; 82947; 83605; 85025; 87040; 87070; 87077; 87086; 87186; 93005; 93041; 96360; 96365; 96368; 99285; 99291; J1580; A9270-GY; J3370